=== PATIENT | female | born 1945 | race Caucasian/White ===

== ENCOUNTER 2019-04-24 17:01 | Inpatient (IN) | payer MEDICARE, SELFPAY ==
[2019-04-24] VITALS (9 sets, daily range): BP systolic 152–198; BP diastolic 71–87; PULSE 65–104; RESP 9–20; TEMP 35.9–36.8; O2SAT 97–100; BMI 29.7
--- NOTE | ~2019-04-24 | XR_ITS ---
EXAMINATION: XR chest 2V DATE: 04/24/2019 17:47 INDICATION: Left-sided chest pain TECHNIQUE: PA and lateral views of the chest are obtained. COMPARISON: 06/02/2018 FINDINGS: The lungs are free of acute opacities. There is no pleural effusion or pneumothorax. The ca rdiomediastinal silhouette is normal. There is moderate thoracic spondylosis. IMPRESSION: 1. No acute cardiopulmonary abnormality. Reviewed, dictated and finalized at location A.
--- NOTE | ~2019-04-24 | CT_ITS ---
EXAMINATION: CTA chest PE abdomen pel EXAM DATE: 04/25/2019 11:27 INDICATION: Epigastric, anterior chest pain, left upper back pain. TECHNIQUE: Spiral CTA of the chest (pulmonary arteries) was performed with 100 cc Omnipaque 350 intr avenous contrast injection. Images were acquired during the pulmonary arterial phase. Coronal maxi mum intensity projection 3D-reconstructions were created by the technologist on dedicated workstation . Axial, coronal and sagittal reformatted images were reviewed. Spiral CT of the abdomen and pelvis was then performed with the same intravenous contrast injection. Axial, coronal and sagittal reform atted images were reviewed. The dose-length product (DLP) for this examination was 1234.82 mGy-cm. The exposure was tailored according to patient size (auto mA exposure control), and iterative recons truction (ASIR) was used as additional dose reduction technique. There is no prior study for compari son. FINDINGS: CHEST: Pulmonary arteries are well opacified and without intraluminal filling defects. No thoracic aortic dissection. The lungs are clear. There are no pleural or pericardial effusions. Tracheob ronchial tree is patent. There is no mediastinal, hilar or axillary lymphadenopathy. There is no pneumothorax. Heart normal in size. There is mild coronary arterial calcification, arterial scler osis. Several small noncalcified right pleural plaques. ABDOMEN PELVIS: No abdominal aortic dissection or aneurysm. The liver, spleen, adrenal glands and pa ncreas are unremarkable. There are gallstones within an otherwise unremarkable gallbladder. No evid ence of obstructive biliary disease. Portal and splenic veins are patent. Kidneys enhance symmetric ally. There is no hydronephrosis. Small calcified fibroid. Ovaries are normal in size. The bladde r is unremarkable. There is no retroperitoneal or pelvic lymphadenopathy. There is mild scattered arteriosclerotic disease. The appendix is normal. The stomach and small bowel are unremarkable. There is expected amount of c olonic stool. No free intraperitoneal gas. There are no osteoblastic or osteolytic lesions identi fied. IMPRESSION: 1. No pulmonary emboli, acute thoracic abdominal or pelvic findings. 2. Cholelithiasis. Reviewed, dictated and finalized at location A.
--- NOTE | 2019-04-24 17:04 | ED.GENADULT ---
HPI - General Adult General Chief complaint: Chest Pain <Samira Hoff PA-C - Last Filed: 04/24/19 19:30> Stated complaint: BACK PAIN/L CHEST PAIN <Samira Hoff PA-C - Last Filed: 04/24/19 19:30> Time Seen by Provider: 04/24/19 17:04 <Samira Hoff PA-C - Last Filed: 04/24/19 19:30> Source: patient <SUYAPA Mota Last Filed: 04/24/19 19:30> Mode of arrival: EMS <SUYAPA Mota Last Filed: 04/24/19 19:30> Limitations: no limitations <Samira Hoff PA-C - Last Filed: 04/24/19 19:30> History of Present Illness HPI narrative: Patient is here for evaluation of left-sided chest pain that she describes as a gassy feeling . She was driving home from [place] with her and last evening the pain started while he was staying in a hotel. She treated herself with diet Coke to help her belch she said she felt better after that and went back to bed eventually winding up sleeping in a chair. Today when they got home she was carrying something into the house had significant pain in the left and felt she should come to the emergency room. <Samira Hoff PA-C - Last Filed: 04/24/19 19:30> Onset (ago): day(s) (yesterday) <SUYAPA Mota Last Filed: 04/24/19 19:30> Location: left (chest and epigastric) <SUYAPA Mota Last Filed: 04/24/19 19:30> Radiation: non-radiation <SUYAPA Mota Last Filed: 04/24/19 19:30> Severity: moderate <SUYAPA Mota Last Filed: 04/24/19 19:30> Quality: burning <SUYAPA Mota Last Filed: 04/24/19 19:30> Pain Consistency: constant <Samira Hoff PA-C - Last Filed: 04/24/19 19:30> Relieving factors: none <Samira Hoff PA-C - Last Filed: 04/24/19 19:30> Exacerbating factors: none <Samira Hoff PA-C - Last Filed: 04/24/19 19:30> Associated symptoms: denies other symptoms <Samira Hoff PA-C - Last Filed: 04/24/19 19:30> Treatments prior to arrival: none <Samira Hoff PA-C - Last Filed: 04/24/19 19:30> Related Data Home medications: Home Medications Medication Instructions Recorded Confirmed bupropion HCl 150 mg tablet,12 hr 150 mg PO QAM 12/14/18 04/24/19 sustained-release spironolactone 25 mg tablet 25 mg PO DAILY 12/14/18 04/24/19 trazodone 50 mg tablet 25 mg PO HS 12/14/18 04/24/19 venlafaxine 75 mg capsule,extended 75 mg PO DAILY 12/14/18 04/24/19 release 24 hr loratadine 10 mg tablet 10 mg PO DAILY 12/19/18 04/24/19 losartan 100 mg tablet 100 mg PO DAILY 12/19/18 04/24/19 montelukast 10 mg tablet 10 mg PO DAILY 12/19/18 04/24/19 Multi Vitamin See Rx Instructions .ROUTE .COMPLEX 04/24/19 04/24/19 levothyroxine [Synthroid] 100 mcg PO DAILY 04/24/19 04/24/19 sulfamethoxazole-trimethoprim 1 tablet PO BID 04/24/19 04/24/19 <Samira Hoff PA-C - Last Filed: 04/24/19 19:30> Allergies/adverse reactions: Allergies Allergy/AdvReac Type Severity Reaction Status Date / Time codeine Allergy Mild LETHARGIC Verified 04/24/19 18:05 AND NON RESPONSIVE hydrocodone Allergy Unknown DIFFICULTY Verified 04/24/19 18:05 BREATHING DECREASE BP hydroxyzine Allergy Unknown Unknown Verified 04/24/19 18:05 nickel Allergy Unknown Swelling Verified 04/24/19 18:05 oxycodone Allergy Unknown DIFFICULTY Verified 04/24/19 18:05 BREATHING , DECREASE BP tetracycline Allergy Unknown ITCHING Verified 04/24/19 18:05 <Samira Hoff PA-C - Last Filed: 04/24/19 19:30> Review of Systems Review of Systems: All systems reviewed & are unremarkable except as noted in HPI and below <Samira Hoff PA-C - Last Filed: 04/24/19 19:30> [facility] Past Medical History Medical History: Medical History (Updated 04/24/19 @ 23:19 by Suzette Cole NP) Chronic sinusitis Congestive heart failure Diastolic rate 2. Last EF of 63 Depression HTN (hypertension) with goal to be
--- NOTE | 2019-04-24 17:15 | ECG_ITS ---
Measurements Intervals [place] Rate: 68 P: CT: 0 QRS: -2 QRSD: 85 T: 37 QT: 402 QTc: 430 Interpretive Statements SINUS RHYTHM LOW QRS VOLTAGE IN PRECORDIAL LEADS BORDERLINE ECG Electronically Signed On 04-25-2019 7:10:06 CDT by Jorge Forrester D.O.
[2019-04-24] MEDS: KETOROLAC 30 MG/ML VIAL (*BKC) IV PUSH (18:03)
[2019-04-24 18:13] LABS: Basophils Absolute Auto 0.1 K/mm3 (0.0-0.1); Basophils Percent Auto 0.9 % (0.2-1.2); Eosinophils Absolute Auto 0.2 K/mm3 (0-0.3); Eosinophils Percent Auto 1.6 % (0-4.4); Hematocrit 35.2 % (37.0-47.0); Hemoglobin 11.4 g/dL (12.0-15.0); Immature Granulocyte Absolute 0.07 K/mm3 (0.00-0.031); Immature Granulocyte Percent A 0.6 % (0-0.5); Lymphocytes Absolute Auto 1.56 K/mm3 (0.9-3.2); Lymphocytes Percent Auto 13.4 % (18.3-44.2); Mean Corpuscular HGB Conc 32.4 g/dl (32-36); Mean Corpuscular Hemoglobin 29.6 pg (26-34); Mean Corpuscular Volume 91.4 fl (80-100); Mean Platelet Volume 9.5 fl (7.4-10.4); Monocytes Absolute Auto 1.2 K/mm3 (0.1-0.6); Monocytes Percent Auto 10.2 % (2.6-8.5); Neutrophils Absolute Auto 8.5 K/mm3 (1.3-6.7); Neutrophils Percent Auto 73.3 % (45.5-73.1); Platelet Count Result 337 k/mm3 (150-375); Red Blood Count 3.85 M/mm3 (4.2-5.4); Red Cell Distribution Width 13.9 % (11.5-14.5); White Blood Count 11.6 K/mm3 (4.5-10.0)
[2019-04-24 18:23] LABS: INR 0.9; Partial Thromboplastin Time 29.4 SECONDS (22.3-36.8); Prothrombin Time 11.7 Seconds (11.1-14.7)
[2019-04-24 18:24] LABS: Alanine Aminotransferase 19 U/L (4-35); Albumin Level 4.7 g/dL (3.5-5.1); Alkaline Phosphatase 60 U/L (38-126); Aspartate Amino Transferase 36 U/L (14-36); Bilirubin,Total 0.3 mg/dL (0.2-1.3); Blood Urea Nitrogen 20 mg/dL (7-17); Carbon Dioxide 27 mmol/L (22-30); Chloride 97 mmol/L (98-107); Estimated CRCL calculation 55 ml/min; Estimated Glomerular Filt Rate > 60; Glucose 100 mg/dL (65-105); Sodium 130 mmol/L (137-145)
[2019-04-24 18:38] LABS: Troponin I 0.246 ng/mL (0.000-0.034)
[2019-04-24] MEDS: NITROGLYCERIN OINTMENT 1 INCH DOSE TRANSDERM (20:05)
--- NOTE | 2019-04-24 20:05 | PC.NURSE ---
called (harlan) per pt request
--- NOTE | 2019-04-24 20:10 | PC.NURSE ---
pt request artis sorenson speak with her , artis sorenson made aware and states i will get there when i can .
--- NOTE | 2019-04-24 21:00 | ADMGEN ---
This patient, Koki Wolfe, was admitted to IMU Room 211-01. Patient/family oriented to hospital policies and general routines including ID bracelet, bed and alarms, visiting hours, pain management, procedures, bathroom and other care routines, personal items, smoking policy, room service/diet, and visiting hours. Valuables list has been completed. Information on how to activate the Rapid Response Team has been discussed. Patient/Family are encouraged to report perceived risks to care and to ask questions if they do not understand what they are told or what they should do.
[2019-04-24 21:43] LABS: Troponin I 0.341 ng/mL (0.000-0.034)
--- NOTE | 2019-04-24 22:40 | ECG_ITS ---
Measurements Intervals [place] Rate: 73 P: MA: 0 QRS: -7 QRSD: 95 T: 45 QT: 408 QTc: 451 Interpretive Statements SINUS RHYTHM EARLY PRECORDIAL R/S TRANSITION LOW QRS VOLTAGE IN PRECORDIAL LEADS BASELINE ARTIFACT- I, II, III, AVR, AVL, AVF, V1 BORDERLINE ECG Electronically Signed On 04-25-2019 8:40:27 CDT by Jorge Forrester D.O.
--- NOTE | 2019-04-24 22:56 | PM.IMHP ---
H&P: HPI History of Present Illness Chief complaint: NSTEMI Narrative: Koki Wolfe is a 73 year old female who came to the emergency room with some complaints of chest pain. The patient took 2 days to travel from [place] with her . They go there for 3 months out of the year. The patient had no fever no chills. She stated that she ate a big meal yesterday and had some severe acid reflux. The patient stated around 10:00 a.m. last night she went to get a diet Coke and she started belching and she had some relief for few minutes and then it woke her back up and she then sat in the chair for ligament and she was able to rest for few minutes then it woke her up and she had the acid reflux again. Again she went to get a diet Coke and started belching and she felt fine all day. Again the patient on ate a meal and had acid reflux again this afternoon which did resolve on his own. The patient was caring 2 bags and her home when she started to have some chest discomfort. She started to feel cold and clammy and had pain radiating down both of her arms. Patient baseline troponin 0.246. 3 hour was 0.341. Cardiology has been called. She started to have some discomfort when I was in the room. She was sitting up and lying back trying to get some relief. The patient was feeling better when she would set up in when she lay down got worse. It is not reproducible. Patient was said diaphoretic when I was in the room. No fever chills. White count 11.6 also on aspirin was ordered per Cardiology. She was also given Toradol. Date of service 04/24/2019 Review of Systems Review of Systems: Narrative: Belching frequently was acid reflux. Epigastric discomfort. All systems reviewed & are unremarkable except as noted in HPI and below Constitutional: Constitutional: Reports as per HPI and Reports no additional constitutional complaints Eyes: Eyes: Reports as per HPI and Reports no additional eye complaints ENT: Reports system reviewed and no additional complaints, except as documented and Reports Normal hearing present Cardiovascular: Cardiovascular: Reports no additional cardiovascular complaints Respiratory: Respiratory: Reports no additional respiratory complaints and Reports no additional respiratory complaints Gastrointestinal: Gastrointestinal: Reports as per HPI and Reports no additional gastrointestinal complaints Musculoskeletal: Musculoskeletal: Reports no additional musculoskeletal complaints Integumentary/Breasts: Skin/Breast: Reports system reviewed and no additional complaints, except as docu and Reports as per HPI Neurologic: Reports system reviewed and no additional complaints, except as documented, Reports as per HPI and Reports Normal hearing present Psychiatric: Psychiatric: Reports no additional psychiatric complaints and Reports as per HPI Endocrine: Endocrine: Reports no additional endocrine complaints Hematologic/Lymphatic: Hematologic/Lymphatic: Reports no additional hematologic/lymphatic complaints Allergic/Immunologic: Allergic/Immunologic: Reports no additional allergic/immunologic complaints [facility] Past Medical History Medical History (Updated 04/24/19 @ 23:19 by Suzette Cole NP) Chronic sinusitis Congestive heart failure Diastolic rate 2. Last EF of 63 Depression HTN (hypertension) with goal to be determined Vasovagal syncope Surgical History Surgical History (Updated 04/24/19 @ 23:14 by Suzette Cole NP) H/O cataract extraction Bilateral H/O dilation and curettage H/O sinus surgery X2 sinus surgery 1996 and 2018 History of bunionectomy Left foot History of repair of retinal defect by laser photocoagulation Left eye S/P lumpectomy, right breast Benign etiology Total knee replacement status Right Family History Family History Sibling Cerebrovascular accident Father Family history of lung cancer, Onset Age: 8
[2019-04-24] MEDS: BELLADONNA ALK/PHENOB ELIX 10 ML, MAG HYDROX/ALUMINUM HYD/SIMETH 30 ML, LIDOCAINE HCL 2... PO (23:13)
[2019-04-24] MEDS: LIDOCAINE HCL 2% VISC SOLN 15 ML UDC (23:14)
[2019-04-24] MEDS: MAG HYDROX/AL HYDROX/SIMETH 30 ML UDC (23:14)
[2019-04-24] MEDS: MONTELUKAST SODIUM 10 MG TABLET PO (23:34)
[2019-04-25] VITALS (18 sets, daily range): BP systolic 122–173; BP diastolic 58–103; PULSE 61–87; RESP 17–20; TEMP 36–36.9; O2SAT 96–100
--- NOTE | 2019-04-25 | ECHO_ITS ---
Patient Info Name: Koki Wolfe Age: 73 years : 1945 Gender: Female Ht: 65 in Wt: 178 lbs BSA: 1.95 m2 HR: 66 bpm BP: 140 / 58 mmHg Heart Rhythm: Sinus Rhythm Technical Quality: Good Exam Date: 04/25/2019 10:06 AM Exam Location: [facility] Pulmonary Exam Room: [facility] Patient Status: Inpatient Admit Date: 04/24/2019 Staff Ordering Physician: Suzette Cole NP Draw Frame Tender: Emilia Alfaro RCS Attending Provider: Geoff Magallanes MD Referring Physician: Douglas JEONG; Exam Type: CA echo doppler color flow Study Info Indications - chf Complete two-dimensional, color flow and Doppler transthoracic echocardiogram is performed. Summary 1. The apical lateral wall, apical cap, mid anterolateral wall, and mid inferolateral wall are hypokinetic. 2. All other allen appear normal. 3. Left ventricular chamber dimension is mildly enlarged. 4. Left ventricular systolic function is normal, estimated at 55-60%. 5. There is no increased left ventricular wall thickness. 6. The left ventricular diastolic function is grade I diastolic dysfunction. 7. Left atrial chamber dimension is mildly enlarged. 8. There is moderate mitral valve regurgitation. 9. The mitral valve has thickened leaflets. 10. There is mild tricuspid valve regurgitation. 11. Moderate pulmonary hypertension, estimated pulmonary arterial systolic pressure is 45 mmHg. 12. There is mild pulmonic regurgitation. Left Ventricle Left ventricular chamber dimension is mildly enlarged. Left ventricular systolic function is normal, estimated at 55-60%. There is no increased left ventricular wall thickness. The left ventricular diastolic function is grade I diastolic dysfunction. The apical lateral wall, apical cap, mid anterolateral wall, and mid inferolateral wall are hypokinetic. All other allen appear normal. Right Ventricle Right ventricular chamber dimension is normal. Right ventricular systolic function is normal. Left Atria Left atrial chamber dimension is mildly enlarged. Right Atria Right atrial chamber dimension is normal. Atrial Septum Intact interatrial septum visualized by color flow imaging. Aortic Valve The aortic valve is trileaflet. There is mild aortic valve sclerosis. There is no aortic valve stenosis. There is trace aortic valve regurgitation. Pulmonic Valve The pulmonic valve is normal. There is no pulmonic valve stenosis. There is mild pulmonic regurgitation. Mitral Valve The mitral valve has thickened leaflets. There is no mitral valve stenosis. There is moderate mitral valve regurgitation. Tricuspid Valve The tricuspid valve leaflets are normal. There is no significant tricuspid valve stenosis. There is mild tricuspid valve regurgitation. Moderate pulmonary hypertension, estimated pulmonary arterial systolic pressure is 45 mmHg. Pericardium/Pleural The pericardium appears normal. There is trivial pericardial effusion. Inferior Vena Cava Normal inferior vena cava with <50% collapse upon inspiration consistent with elevated right atrial pressure, 10 mmHg. Aorta The aortic root size at the sinus of Valsalva is normal. The prox ascending aorta size is normal. Left Ventricular Outflow Tract Name Value Normal LVOT 2D
[2019-04-25 01:18] LABS: Troponin I 0.338 ng/mL (0.000-0.034)
[2019-04-25 04:56] LABS: Basophils Absolute Auto 0.1 K/mm3 (0.0-0.1); Basophils Percent Auto 0.7 % (0.2-1.2); Eosinophils Absolute Auto 0.1 K/mm3 (0-0.3); Eosinophils Percent Auto 0.7 % (0-4.4); Hematocrit 33.1 % (37.0-47.0); Hemoglobin 10.9 g/dL (12.0-15.0); Immature Granulocyte Absolute 0.04 K/mm3 (0.00-0.031); Immature Granulocyte Percent A 0.4 % (0-0.5); Lymphocytes Absolute Auto 1.31 K/mm3 (0.9-3.2); Lymphocytes Percent Auto 12.9 % (18.3-44.2); Mean Corpuscular HGB Conc 32.9 g/dl (32-36); Mean Corpuscular Hemoglobin 29.8 pg (26-34); Mean Corpuscular Volume 90.4 fl (80-100); Mean Platelet Volume 9.3 fl (7.4-10.4); Monocytes Percent Auto 9.4 % (2.6-8.5); Neutrophils Absolute Auto 7.7 K/mm3 (1.3-6.7); Neutrophils Percent Auto 75.9 % (45.5-73.1); Platelet Count Result 324 k/mm3 (150-375); Red Blood Count 3.66 M/mm3 (4.2-5.4); Red Cell Distribution Width 13.7 % (11.5-14.5); White Blood Count 10.2 K/mm3 (4.5-10.0)
[2019-04-25 05:16] LABS: Alanine Aminotransferase 19 U/L (4-35); Albumin Level 4.4 g/dL (3.5-5.1); Alkaline Phosphatase 58 U/L (38-126); Aspartate Amino Transferase 44 U/L (14-36); Bilirubin,Total 0.4 mg/dL (0.2-1.3); Blood Urea Nitrogen 19 mg/dL (7-17); Calcium 9.7 mg/dL (8.4-10.2); Carbon Dioxide 28 mmol/L (22-30); Chloride 97 mmol/L (98-107); Estimated CRCL calculation 52 ml/min; Estimated Glomerular Filt Rate > 60; Glucose 113 mg/dL (65-105); Magnesium 1.9 mg/dL (1.6-2.3); Potassium 4.8 mmol/L (3.4-5.0); Sodium 130 mmol/L (137-145)
[2019-04-25] MEDS: LEVOTHYROXINE SODIUM 100 MCG TABLET PO (05:39)
--- NOTE | 2019-04-25 06:00 | ECG_ITS ---
Measurements Intervals [place] Rate: 71 P: 70 NV: 185 QRS: -10 QRSD: 91 T: 40 QT: 411 QTc: 449 Interpretive Statements SINUS RHYTHM LOW QRS VOLTAGE IN PRECORDIAL LEADS BORDERLINE ECG Electronically Signed On 04-26-2019 7:14:47 CDT by Jorge Forrester D.O.
[2019-04-25] MEDS: ASPIRIN 325 MG TABLET PO (08:40)
[2019-04-25] MEDS: FAMOTIDINE 20 MG/2 ML VIAL IV PUSH ×2 (08:40→20:22)
[2019-04-25] MEDS: SPIRONOLACTONE 25 MG TABLET PO (08:41)
[2019-04-25] MEDS: LOSARTAN POTASSIUM 100 MG TABLET PO (08:41)
[2019-04-25] MEDS: VENLAFAXINE HCL XR 75 MG CAP.ER.24H PO (08:41)
[2019-04-25] MEDS: LORATADINE 10 MG TABLET PO (08:41)
[2019-04-25] MEDS: BELLADONNA ALK/PHENOB ELIX 10 ML, MAG HYDROX/ALUMINUM HYD/SIMETH 30 ML, LIDOCAINE HCL 2... PO (13:07)
--- NOTE | 2019-04-25 13:52 | PM.CNCAR ---
Assessment and Plan Assessment and plan (1) Chest pain: Code(s): R07.9 - Chest pain, unspecified Status: Acute Assessment and Plan: Uncertain etiology. May be related to high blood pressure. Some of her symptoms are concerning for dyspepsia possible GERD. Will also check a troponin level now as well as will give 1 dose of Lovenox 1 milligram/kilogram subcu x1 (2) Congestive heart failure: Code(s): I50.9 - Heart failure, unspecified Status: Chronic Assessment and Plan: Previously compensated (3) Dyspepsia: Code(s): R10.13 - Epigastric pain Status: Acute (4) HTN (hypertension) with goal to be determined: Code(s): I10 - Essential (primary) hypertension Status: Chronic Assessment and Plan: Markedly elevated (5) Acute non-ST elevation myocardial infarction (NSTEMI): Code(s): I21.4 - Non-ST elevation (NSTEMI) myocardial infarction Status: Acute Assessment and Plan: Uncertain if this is related acute plaque rupture yet or not. I suspect this related to high blood pressure and that her other symptoms are noncardiac. Regardless though future workup is needed. 2D echocardiogram with Doppler will be ordered and reviewed. History of Present Illness History of Present Illness Consult date/time: 04/25/19 13:52 Requesting physician: Samira Hoff PA-C Consult reason: chest pain Reason For Visit: NSTEMI Narrative: Date of service 04/25/19: History: Patient is a 73-year-old female who came to the hospital because of chest pains. She had been traveling back from [place] were she was wintering. She states that she did he some heavy meals and had some be ?bad indigestion that radiated into her back. She drank some diet Coke and belched and felt better. She continues to have random episodes of waxing and waning symptoms. Symptoms last for 10 minutes of the 30 minutes at a time. Her symptoms do feel better when she sits up. She was given nitroglycerin paste but without any relief in her symptoms. She recently CV GI cocktail which does seem to have some improvement. She has had some chills but has not been short of breath or fever age. She did break out into a sweat this morning and felt lightheaded because the pain was so bad. CT scan of the chest was performed. No pulmonary embolism was seen. She did have a cardiac catheterization a little over year ago which did not show any significant coronary disease. She does see Dr. Ibarra in our office. She states that her home blood pressures are usually around 160 systolic. In the hospital upon arrival she was markedly elevated at a level of 198/94. She still remains elevated today. Her troponins were elevated and her EKG shows some nonspecific ST segment depressions in V1 V2 V3 but not meeting criteria for posterior infarction. Review of Systems Review of Systems: All systems reviewed & are unremarkable except as noted in HPI and below Constitutional: Constitutional: Reports chills Eyes: Eyes: Reports as per HPI ENT: Denies epistaxis Cardiovascular: Cardiovascular: Reports chest pain Respiratory: Respiratory: Denies dyspnea Gastrointestinal: Gastrointestinal: Reports abdominal pain Genitourinary: Genitourinary: Denies flank pain Musculoskeletal: Musculoskeletal: Reports back pain Integumentary/Breasts: Skin/Breast: Denies pruritus Neurologic: Denies numbness Psychiatric: Psychiatric: Denies anxiety and Denies confusion Endocrine: Endocrine: Denies excessive sweating, Denies fatigue and Denies flushing Hematologic/Lymphatic: Hematologic/Lymphatic: Denies easy bleeding and Denies easy bruising Allergic/Immunologic: Allergic/Immunologic: Denies lip swelling PMFSH Past Medical History Medical History Chronic sinusitis Congestive heart failure Diastolic rate 2. Last EF of 63 Depression HTN (hypertension) with goal to be d
--- NOTE | 2019-04-25 14:22 | ECG_ITS ---
Measurements Intervals [place] Rate: 75 P: 72 NM: 186 QRS: -16 QRSD: 97 T: 53 QT: 386 QTc: 432 Interpretive Statements SINUS RHYTHM NORMAL ECG Electronically Signed On 04-26-2019 7:14:59 CDT by Jorge Forrester D.O.
--- NOTE | 2019-04-25 16:28 | PM.IMPN ---
Progress Note: A&P Assessment and Plan (1) Chest pain: Code(s): R07.9 - Chest pain, unspecified Status: Acute Assessment and Plan: Chest pain is atypical in presentation. Mild elevated Troponins noted initially but now Trop 3.3 c/w NSTEMI. CTA chest/Abd/Pelvis showing cholelithiasis but otherwise normal. EKG essentially normal on admission and normal again on repeat today (reviewed by myself). [facility] 05/2018 showing no angiographic abnormalities with EF 35% and mild-moderate MR. Echo in August 2018 shownig EF 63%, diastolic dysfunction Grade II and mild MR. Cardiology following. Continue ASA and Coreg. [facility] planned. 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 Treated approrpriately and EF has improved. The patient is currently on losartan, Coreg and spironolactone. Cardiology following. (3) HTN (hypertension) with goal to be determined: Code(s): I10 - Essential (primary) hypertension Status: Chronic Assessment and Plan: BP reviewed on 04/25/19. BP elevated on admission to 198/84. We continued Losartan and Spironolactone. Coreg added. Contineu to advance medications as needed to control BP. (4) Hypothyroidism: Qualifiers: Hypothyroidism type: unspecified Qualified Code(s): E03.9 - Hypothyroidism, unspecified Code(s): E03.9 - Hypothyroidism, unspecified Status: Chronic Assessment and Plan: TSH normal. Continue levothyroxine. (5) Anxiety: Code(s): F41.9 - Anxiety disorder, unspecified Status: Acute Assessment and Plan: Mood stable. Continue with trazodone and Wellbutrin. (6) Insomnia: Qualifiers: Insomnia type: unspecified Qualified Code(s): G47.00 - Insomnia, unspecified Code(s): G47.00 - Insomnia, unspecified Status: Acute Assessment and Plan: Stable. Continue trazodone. Subjective Date/time seen: 04/25/19 16:28 Interval history: 73yo female with hx of CHF here for chest pain. Chest pain lower chest and under left breast radiating to the back. associated with indigestion and back pain. Better with belching. Worse with food or lying flat. Not pleuritic. No n/v or diarrhea. No abd pain. Chronic issues with constipation. Patient provides the hx that she had a CSF leak many years ago noted as sinus drainage and had this repaired. Last year, she had multiple sinus symptoms treated with rounds of abx without much relief. She saw an ENT who drained a sequestered pocket of infection but also noted a small CSF leak that was repaired in Jan 2019. While in [place] this year, she again had sinus sx and saw an ENT in [place]. He is monitoring the situation. Cx positive per patient and Bactrim started. Exam Narrative: Exam Narrative: AF 173/81 80 Gen - NARD Chest - CTA bilaterally, nml RR CV - RRR S1/S2, Tele showing no significant dysrhythmias Abd - soft, NT/ND, +BS Ext - no pedal edema. 2+ DP bilaterally Skin - warm and dry Psych - nml mood and affect Objective Data Vital Signs Vital Signs: Vital Signs - 24 hr 04/24/19 17:04 04/24/19 19:02 04/24/19 19:17 Temperature 98.2 F Pulse Rate 68 65 71 Respiratory Rate 18 14 16 Blood Pressure 176/85 H 152/75 H 160/87 H Pulse Oximetry 100 100 100 04/24/19 19:32 04/24/19 19:47 04/24/19 20:02 Temperature Pulse Rate 67 67 68 Respiratory Rate 12 9 L 12 Blood Pressure 159/78 H 165/77 H 159/78 H Pulse Oximetry 98 99 98 04/24/19 20:45 04/24/19 22:00 04/24/19 23:50 Temperature 96.6 F L 98.0 F Pulse Rate 104 H 74 73 Respiratory Rate 18 20 Blood Pressure 198/84 H 168/71 H Pulse Oximetry 100 97 04/25/19 00:00 04/25/19 02:00 04/25/19 04:00 Temperature 98.0 F Pulse Rate 63 70 61 Respiratory Rate 20 Blood Pressure 140/58 L Pulse Oximetry 97 04/25/19 06:00
[2019-04-25] MEDS: NITROGLYCERIN OINTMENT 1 INCH DOSE TRANSDERM (16:30)
[2019-04-25] MEDS: ACETAMINOPHEN 325 MG TABLET 650 MG PO (16:35)
--- NOTE | 2019-04-25 16:35 | WPDGICN ---
Assessment and Plan Additional Plan This is a 73-year-old white female patient seen in evaluation at the request Dr. Cronin. Patient was traveling in [place] on Monday, 2 days ago and began to get chest pains. She notes pain in the front and back sometimes radiating around both sides of the upper chest. She felt as though it may be indigestion. She states pain worsens on oral intake. Symptoms occur intermittently. No specific aggravating or alleviating factors. She did receive a GI cocktail emergency NC room which seemed to improve her symptoms. She denies any shortness of breath. She denies any coughing or fever. In the emergency room a CT scan of the chest was performed and was essentially unremarkable. Past history is significant for heart catheterization 1 year ago that was unremarkable followed by Dr. Andrew. Colonoscopy performed in 2016 was unremarkable as well. Past medical history is significant for knee replacement in June of 2018. She has been treated for congestive heart failure, hypertension, Family history noncontributory. Current medications include BuSpar, levothyroxine, loratadine, losartan, montelukast, spironolactone, venlafaxine. She reports an allergy to oxycodone and tetracycline. Physical exam reveals her to be alert. Vital signs stable. HEENT exam unremarkable. She is anicteric. Lungs are clear to auscultation and percussion. Heart is without murmur or extra sounds. Abdominal exam bowel sounds present soft nontender with no organomegaly. Digital external rectal exam deferred Impression 1. Atypical chest pain. Etiology unclear plan is for an EGD to assess more thoroughly. An acid trial is suggested. Protonix may be of some benefit. \ 2. Congestive heart failure. This appears to be stable at present. Followed by Dr. Cronin. 3. History of a knee replacement 1 year ago. GI Consult Note Consult date/time: 04/25/19 16:35 HPI: Koki Wolfe is a 73 year old female [facility] Past Medical History Medical History (Updated 04/25/19 @ 14:10 by Fredy Cronin MD) Chronic sinusitis Congestive heart failure Diastolic rate 2. Last EF of 63 Depression Dyspepsia HTN (hypertension) with goal to be determined Vasovagal syncope Surgical History Surgical History H/O cataract extraction Bilateral H/O dilation and curettage H/O sinus surgery X2 sinus surgery 1996 and 2018 History of bunionectomy Left foot History of repair of retinal defect by laser photocoagulation Left eye S/P lumpectomy, right breast Benign etiology Total knee replacement status Right Family History Family History Sibling Cerebrovascular accident Father Family history of lung cancer, Onset Age: 81 Patient's father is Mother Patient's mother is Social History Social History Social History: The patient travels to [place] for 3 months of the year and then travels back. Patient traveled back to here today. She is and lives with her and was row. She has 2 children. Her Rigoberto is the decision maker for healthcare. She desires to be full code. No alcohol tobacco or drug use. Smoking status: Never smoker Second hand tobacco smoke exposure: No Alcohol intake: never Substance use: never Living arrangements: with family Gender identity (if verbalized by the patient): Female Spiritual care concerns: No Agree to blood products: Yes Meds Home Medications and Allergies Home Medications Medication Instructions Recorded Confirmed Type bupropion HCl 150 mg tablet,12 hr 150 mg PO QAM 12/14/18 04/24/19 History sustained-release spironolactone 25 mg tablet 25 mg PO DAILY 12/14/18 04/24/19 History trazodone 50 mg tablet 25 mg PO HS 12/14/18 04/24/19 Histor
--- NOTE | 2019-04-25 17:20 | ECG_ITS ---
Measurements Intervals [place] Rate: 75 P: 71 SC: 193 QRS: -14 QRSD: 83 T: 33 QT: 377 QTc: 424 Interpretive Statements SINUS RHYTHM LOW QRS VOLTAGE IN PRECORDIAL LEADS DELAYED PRECORDIAL R/S TRANSITION BASELINE ARTIFACT- I, II, AVR, AVF BORDERLINE ECG Electronically Signed On 04-26-2019 7:20:16 CDT by Jorge Forrester D.O.
--- NOTE | 2019-04-25 18:44 | WPDMODSED ---
Moderate Sedation Note-Pt Data Patient Data Diagnosis: Acute coronary syndrome Present Complaint: waxing and waning chest pain with modest rise in troponin Procedure to be performed/Plan: left heart catheterization Allergies Allergy/AdvReac Type Severity Reaction Status Date / Time codeine Allergy Mild LETHARGIC Verified 04/24/19 18:05 AND NON RESPONSIVE hydrocodone Allergy Unknown DIFFICULTY Verified 04/24/19 18:05 BREATHING DECREASE BP hydroxyzine Allergy Unknown Unknown Verified 04/24/19 18:05 nickel Allergy Unknown Swelling Verified 04/24/19 18:05 oxycodone Allergy Unknown DIFFICULTY Verified 04/24/19 18:05 BREATHING , DECREASE BP tetracycline Allergy Unknown ITCHING Verified 04/24/19 18:05 Home Medications Medication Instructions Recorded Confirmed Type bupropion HCl 150 mg tablet,12 hr 150 mg PO QAM 12/14/18 04/24/19 History sustained-release spironolactone 25 mg tablet 25 mg PO DAILY 12/14/18 04/24/19 History trazodone 50 mg tablet 25 mg PO HS 12/14/18 04/24/19 History venlafaxine 75 mg capsule,extended 75 mg PO DAILY 12/14/18 04/24/19 History release 24 hr loratadine 10 mg tablet 10 mg PO DAILY 12/19/18 04/24/19 History losartan 100 mg tablet 100 mg PO DAILY 12/19/18 04/24/19 History montelukast 10 mg tablet 10 mg PO DAILY 12/19/18 04/24/19 History Multi Vitamin See Rx Instructions .ROUTE .COMPLEX 04/24/19 04/24/19 History levothyroxine [Synthroid] 100 mcg PO DAILY 04/24/19 04/24/19 History sulfamethoxazole-trimethoprim 1 tablet PO BID 04/24/19 04/24/19 History Current Medications: Active Medications Acetaminophen (Tylenol Tablet) 650 mg PO Q6H PRN PRN Reason: Mild Pain (1-3) or Fever Last Admin: 04/25/19 16:35 Dose: 650 mg Documented by: Aspirin (Aspirin) 325 mg PO DAILY@0800 [facility] Last Admin: 04/25/19 08:40 Dose: 325 mg Documented by: Bupropion HCl (Wellbutrin-Sr (12 Hr)) 150 mg PO QAM [facility] Last Admin: 04/25/19 08:41 Dose: 150 mg Documented by: Calcium Carbonate (Tums) 200 mg PO Q6H PRN PRN Reason: Indigestion Carvedilol (Coreg) 6.25 mg PO Q12HR [facility] Famotidine (Pepcid Iv) 20 mg IV PUSH Q12HR [facility] Last Admin: 04/25/19 08:40 Dose: 20 mg Documented by: Levothyroxine Sodium (Synthroid) 100 mcg PO DAILY@0630 [facility] Last Admin: 04/25/19 05:39 Dose: 100 mcg Documented by: Loratadine (Claritin) 10 mg PO DAILY [facility] Last Admin: 04/25/19 08:41 Dose: 10 mg Documented by: Losartan Potassium (Cozaar) 100 mg PO DAILY [facility] Last Admin: 04/25/19 08:41 Dose: 100 mg Documented by: Montelukast Sodium (Singulair) 10 mg PO [facility] Last Admin: 04/24/19 23:34 Dose: 10 mg Documented by: Nitroglycerin (Nitroglycerin Oint 1 Inch) 1 inch TRANSDERM Q6HR [facility] Last Admin: 04/25/19 16:32 Dose: Not Given Documented by: Spironolactone (Aldactone) 25 mg PO DAILY [facility] Last Admin: 04/25/19 08:41 Dose: 25 mg Documented by: Trazodone HCl (Desyrel) 25 mg PO [facility] Last Admin: 04/24/19 23:34 Dose: 25 mg Documented by: Trimethoprim/Sulfamethoxazole (Septra Ds) 1 tab PO BID [facility] Last Admin: 04/25/19 16:40 Dose: 1 tab Documented by: Venlafaxine HCl (Effexor Xr) 75 mg PO DAILY@0800 [facility] Last Admin: 04/25/19 08:41 Dose: 75 mg Documented by: Sedation/Anesthesia: No previous sedation/anesthesia problems (including family history). [facility] Past Medical History Medical History (Updated 04/25/19 @ 14:10 by Fredy Cronin MD) Chronic sinusitis Congestive heart failure Diastolic rate 2. Last EF of 63 Depression Dyspepsia HTN (hypertension) with goal to be determined Vasovagal syncope Surgical History Surgical History H/O cataract extraction Bilateral H/O dilation and curettage H/O sinus surgery X2 sinus surgery 1996 and 2019 History of bunionectomy Left foot History of repair of retinal defect by laser photocoagulation Left eye S/P lumpectomy, right breast Benign etiology T
--- NOTE | 2019-04-25 18:46 | PM.PROC ---
Procedure Note - Detailed Date of procedure: 04/25/19 Pre-op diagnosis: NSTEMI Procedure performed: coronary angiography PCI to OM1 Description of procedure: patient was brought to the cardiac catheterization lab as described above reporting chest pain waxed and waned throughout the day. The right femoral triangle was prepared and draped in the usual fashion. Anesthesia was provided with 1% lidocaine infiltrated locally. Using modified Seldinger technique a 5 [place] sheath was placed into the femoral artery. Following this I utilized a 5 [place] JR4 catheter to inject the right coronary artery as then a 5 [place] FL4 catheter to inject the left coronary artery. Following review review of the cineangiograms PCI of the OM1 circumflex branch was recommended and carried out as detailed below. Central aortic pressure is 126/82 left main coronary artery is large and widely patent lad is a large caliber artery extending down to around the apex there is a very small diagonal branch of the LAD that has proximal 70% stenosis but the remainder of the LAD and the diagonals are angiographically normal. Circumflex is a very large caliber vessel and is dominant to the posterior circulation. The circumflex injection demonstrates abrupt thrombotic proximal occlusion of the large 1st OM1 branch. Remainder of the circumflex is angiographically free of significant disease the trunk of the circumflex just distal to this OM1 branch has modest stenosis of about 20-30%. The right coronary artery is medium in caliber is non dominant and angiographically unremarkable the 5 [place] sheath was changed over a guidewire for a 6 [place] device following is the patient received 180 mg of Brilinta orally followed by systemic anticoagulation with Angiomax bolus and infusion. Left coronary artery was engaged using a 6 [place] CLS 3.5 guiding catheter the OM1 branch was probed using a 1 4 BMW guidewire and successfully crossed into the distal part of this vessel. The vessel was pre-dilated using a 2.5 x 15 mm emerge balloon after which a 3.0 x 18 mm Orsiro drug-eluting stent was deployed at the site of the occlusion with an excellent angiographic result. The preprocedure stenosis was 100% postprocedure 0%. There were no angiographic complications was no evidence of dissection perforation or distal embolization. Anesthesia: local Surgeon: Sushant Seay MD Estimated blood loss (mL): 0 Drains: No Packing: No Pathology: none sent Complications: No immediate complications Condition: stable Disposition: ICU Findings: successful uncomplicated emergency PTCI following PTCA and drug-eluting stent deployment to the acutely occluded OM1 branch circumflex.
[2019-04-25] MEDS: SODIUM CHLORIDE 0.9% IV 1,000 ML 125 ML IV CONT (20:22)
[2019-04-25] MEDS: MONTELUKAST SODIUM 10 MG TABLET PO (20:22)
[2019-04-25] MEDS: carvediloL 6.25 MG TABLET PO (20:22)
[2019-04-26] VITALS (22 sets, daily range): BP systolic 98–145; BP diastolic 52–76; PULSE 68–88; RESP 14–20; TEMP 36.3–37; O2SAT 97–100
[2019-04-26] MEDS: METOPROLOL TARTRATE 25 MG TABLET PO ×2 (00:06→05:58)
[2019-04-26] MEDS: NITROGLYCERIN OINTMENT 1 INCH DOSE TRANSDERM (00:06)
[2019-04-26 04:40] LABS: Alanine Aminotransferase 25 U/L (4-35); Alkaline Phosphatase 48 U/L (38-126); Aspartate Amino Transferase 151 U/L (14-36); Bilirubin,Total 0.5 mg/dL (0.2-1.3); Blood Urea Nitrogen 11 mg/dL (7-17); Calcium 8.9 mg/dL (8.4-10.2); Carbon Dioxide 26 mmol/L (22-30); Chloride 98 mmol/L (98-107); Cholesterol 193 mg/dL (0-200); Estimated CRCL calculation 66 ml/min; Estimated Glomerular Filt Rate > 60; Glucose 87 mg/dL (65-105); HDL Direct 56 mg/dL; Lipase 58 U/L (23-300); Magnesium 1.8 mg/dL (1.6-2.3); Potassium 4.5 mmol/L (3.4-5.0); Sodium 129 mmol/L (137-145); Triglycerides 110 mg/dL (<150)
[2019-04-26 04:48] LABS: LDL Cholesterol Direct 80 mg/dL
--- NOTE | 2019-04-26 05:11 | ECG_ITS ---
Measurements Intervals [place] Rate: 70 P: 58 WV: 191 QRS: 3 QRSD: 88 T: 50 QT: 400 QTc: 432 Interpretive Statements SINUS RHYTHM RSR' IN V1 OR V2, CONSIDER RIGHT VENTRICULAR HYPERTROPHY OR RIGHT VCD CONSIDER INFERIOR INFARCT, AGE INDETERMINATE ABNORMAL ECG Electronically Signed On 04-26-2019 11:45:40 CDT by Jorge Forrester D.O.
[2019-04-26] MEDS: LEVOTHYROXINE SODIUM 100 MCG TABLET PO (05:59)
--- NOTE | 2019-04-26 09:00 | PM.PNCARD ---
Progress Note: A&P Additional Plan 73-year-old lady with previous nonischemic cardiomyopathy with acute coronary syndrome/acute IA yesterday with abrupt thrombotic occlusion of OM1. Doing well following urgent PCI with drug-eluting stent to this vessel with a nice anatomical result. Patient is now on dual anti-platelet therapy in the form of aspirin and Brilinta will continue beta-carmen in the form of Coreg as well. Rosuvastatin started at anti-lipid therapy. Transfer to floor today to IMU anticipate discharge tomorrow barring any problems/complications Time Spent With Patient Time with patient: 15 - 25 minutes Subjective Date/time seen: Date of service: 04/26/19 09:00 Interval history: Follow-up visit for 73-year-old lady with previous diet doses of nonischemic cardiomyopathy admitted with chest pain, troponin evidence of ACS resulting in urgent cardiac catheterization last evening. Patient found to have abrupt thrombotic occlusion of the proximal segment of large OM1 branch of the circumflex which was successfully treated with standard PTCA and drug-eluting stent. Exam Const: General: comfortable and no acute distress HENMT: Mouth: Yes moist mucous membranes Eyes: Sclera: sclerae normal Pupils: Equal, round and reactive pupils present Neck: Neck: supple and no JVD Thyroid: thyroid normal Resp: Effort & Inspection: normal respiratory effort Auscultation: clear to auscultation bilaterally Cardio: Rate: regular rate Rhythm: regular rhythm Other: No murmur no gallop no rub GI: Auscultation: normal bowel sounds Skin: General skin exam: normal color Neuro: Cognition (Neuro): normal cognition Extrem: General: normal to inspection Objective Data Vital Signs Vital Signs: Vital Signs - 24 hr 04/25/19 10:00 04/25/19 12:00 04/25/19 14:00 Temperature 36.0 C L Pulse Rate 74 78 80 Respiratory Rate 19 Blood Pressure 173/81 H Pulse Oximetry 96 04/25/19 16:00 04/25/19 18:52 04/25/19 19:07 Temperature 36.0 C L 36.9 C 36.8 C Pulse Rate 74 82 81 Respiratory Rate 19 18 18 Blood Pressure 165/83 H 142/79 H 141/86 H Pulse Oximetry 100 98 98 04/25/19 19:37 04/25/19 20:00 04/25/19 20:22 Temperature 36.9 C Pulse Rate 81 87 82 Respiratory Rate 18 20 Blood Pressure 141/86 H Pulse Oximetry 98 98 04/25/19 22:00 04/25/19 22:15 04/25/19 22:46 Temperature 36.9 C Pulse Rate 78 72 86 Respiratory Rate 17 17 18 Blood Pressure 122/68 128/68 140/103 H Pulse Oximetry 98 98 98 04/25/19 23:17 04/26/19 00:00 04/26/19 00:06 Temperature 36.9 C 36.9 C Pulse Rate 68 77 78 Respiratory Rate 18 18 Blood Pressure 140/77 127/63 Pulse Oximetry 98 97 04/26/19 00:17 04/26/19 01:17 04/26/19 02:00 Temperature 36.9 C 36.8 C Pulse Rate 68 68 69 Respiratory Rate 18 18 16 Blood Pressure 136/71 109/58 L 120/57 L Pulse Oximetry 98 100 99 04/26/19 02:16 04/26/19 03:17 04/26/19 04:00 Temperature 36.9 C 37.0 C Pulse Rate 69 68 68 Respiratory Rate 18 14 14 Blood Pressure 120/57 L 129/72 129/72 Pulse Oximetry 99 98 98 04/26/19 05:58 04/26/19 06:00 Temperature Pulse Rate 88 86 Respiratory Rate 20 Blood Pressure 145/76 H Pulse Oximetry 98 Intake/Output Intake/Output: Intake & Output 04/23/19 04/24/19 04/25/19 04/26/19 23:59 23:59 23:59 23:59 Intake Total 940 1400 Output Total 1425 500 Balance -485 900 Meds/Results Medications: Active Medications Generic Name Dose Route Start Last Admin Trade Name Freq PRN Reason Stop Dose Admin Acetaminophen 650 mg 04/25/19 16:17 04/25/19 16:35 Tylenol Tablet PO 650 mg Q6H PRN Administration Mild Pain (1-3) or Fever Aspirin 81 mg 04/26/19 08:00 Aspirin Chewable PO DAILY@0800 UMBERTO Bupropion HCl 150 mg 04/25/19 09:00 04/25/19 08:41 Wellbutrin-Sr (12 Hr) PO 150 mg QAM UMBERTO Administration Calcium Carbonate 200 mg 04/24/19 22:40 Tums PO Q6H PRN Indigestion Carvedilol 6.25 mg
--- NOTE | 2019-04-26 09:19 | WPDCNINT ---
Assessment and Plan Assessment and plan (1) Acute non-ST elevation myocardial infarction (NSTEMI): Code(s): I21.4 - Non-ST elevation (NSTEMI) myocardial infarction Status: Acute Assessment and Plan: Patient presented with atypical chest pain, initial troponins mildly elevated 04/24/2018 troponins was significantly elevated and patient was taken to the cath she was found to have acute occlusion of the OM1 branch of the circumflex. Status post PTCA/PCI with CHRIS x1 to OM 1 branch of the circumflex. - Echocardiogram on 04/25/2019 showed apical lateral wall, apical cap, mid anterolateral wall and mid inferolateral wall to be hypokinetic. A LVEF 55-60%. Grade 1 diastolic dysfunction, moderate pulmonary hypertension with RVSP of 45 mmHg. - Cardiology following the patient - continue aspirin, placed orders from Brilinta - continue Coreg and rosuvastatin (2) Congestive heart failure: Code(s): I50.9 - Heart failure, unspecified Status: Chronic Assessment and Plan: continue spironolactone, Coreg (3) HTN (hypertension) with goal to be determined: Code(s): I10 - Essential (primary) hypertension Status: Chronic Assessment and Plan: continue Coreg and spironolactone. Patient also has nitropaste if needed (4) Hypothyroidism: Qualifiers: Hypothyroidism type: unspecified Qualified Code(s): E03.9 - Hypothyroidism, unspecified Code(s): E03.9 - Hypothyroidism, unspecified Status: Chronic Assessment and Plan: continue levothyroxine (5) Anxiety: Code(s): F41.9 - Anxiety disorder, unspecified Status: Acute Assessment and Plan: continue bupropion, trazodone (6) Hypercholesterolemia: Code(s): E78.00 - Pure hypercholesterolemia, unspecified Status: Acute Assessment and Plan: continue statin Additional Plan discussed with patient and updated her with her condition and plan of care. I answered all questions code status: Full code Critical care time spent: 41 minutes discuss with Cardiology Due to a high probability of clinically significant, life threatening deterioration, the patient required my highest level of preparedness to intervene emergently and I personally spent this critical care time directly and personally managing the patient. This critical care time included obtaining a history; examining the patient; pulse oximetry; ordering and review of studies; arranging urgent treatment with development of a management plan; evaluation of patient's response to treatment; frequent reassessment; and discussions with other providers. It was exclusive of separately billable procedures and treating other patients and teaching time. Please see Assessment and Plan section and the rest of the note for further information on patient assessment and treatment Manager Implementation Consult Note Consult date: 04/26/19 Time Seen: 07:01 Reason for consult: NSTEMI status post PTCA/ PCI to OM 1 branch HPI: Koki Wolfe is a 73 year old female with past medical history of diastolic heart failure, essential hypertension, history of syncope, depression and chronic sinusitis presented to the ED on 04/24/2019 with complains of left-sided chest pain. Patient was traveling from [place] with her with the go there for 3 months of the year. She fell that this could be a severe gastric reflux issue. Patient was admitted the hospital, initial troponin swell 0.246, and on 04/25/2019 increased to 3.270. Patient was taken to the labor contract analyst where she was found to have acutely occluded OM1 branch of the circumflex, PTCI/PTCA with CHRIS x1 performed on 04/25/2019. Patient was transfer the ICU for further management and evaluation for any arrhythmias patient seen and examined the ICU this morning, is awake, alert, oriented x3. Denies any chest pain, shortness of breath, nausea, vomiting, abdominal pain, lightheadedness. Patient has bee
[2019-04-26] MEDS: carvediloL 6.25 MG TABLET PO ×2 (09:27→20:16)
[2019-04-26] MEDS: LOSARTAN POTASSIUM 100 MG TABLET PO (09:27)
[2019-04-26] MEDS: VENLAFAXINE HCL XR 75 MG CAP.ER.24H PO (09:27)
[2019-04-26] MEDS: SPIRONOLACTONE 25 MG TABLET PO (09:27)
[2019-04-26] MEDS: ASPIRIN 81 MG CHEWABLE TABLET PO (09:28)
[2019-04-26] MEDS: ROSUVASTATIN 10 MG TABLET 20 MG PO (09:28)
[2019-04-26] MEDS: LORATADINE 10 MG TABLET PO (09:28)
[2019-04-26] MEDS: FAMOTIDINE 20 MG/2 ML VIAL IV PUSH ×2 (09:29→20:17)
--- NOTE | 2019-04-26 09:34 | PM.IMPN ---
Progress Note: A&P Assessment and Plan (1) Acute non-ST elevation myocardial infarction (NSTEMI): Code(s): I21.4 - Non-ST elevation (NSTEMI) myocardial infarction Status: Acute Assessment and Plan: Atypical chest pain on presentation. CTA chest/Abd/Pelvis showing cholelithiasis but otherwise normal. EKG essentially normal on admission and normal again on repeat. LHC 05/2018 showing no angiographic abnormalities with EF 35% and mild-moderate MR. Echo in August 2018 shownig EF 63%, diastolic dysfunction Grade II and mild MR. Mild elevated Troponins noted initially but then Trop 3.3 c/w NSTEMI. Cardiology following and LHC performed. LHC showed Left Main large and widely patent. LAD large caliber artery with a very small diagonal branch with proximal 70% stenosis. LCx very large caliber vessel and is dominant to the posterior circulation with abrupt thrombotic proximal occlusion of the large 1st OM1 branch. RCA medium in caliber is non dominant and angiographically unremarkable. Stent placed. Continue Brilinta, ASA, Crestor and Coreg. 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 Treated appropriately and EF has improved by repeat Echo. Do not see angiogram from yesterday. The patient is currently on losartan, Coreg and spironolactone. Cardiology following. Contineu medical management (4) HTN (hypertension) with goal to be determined: Code(s): I10 - Essential (primary) hypertension Status: Chronic Assessment and Plan: BP reviewed on 04/26/19. BP elevated on admission to 198/84. BP better conmtrolled. Continue Coreg, Losartan and Spironolactone. Continue to advance medications as needed to control BP. (5) Hypothyroidism: Qualifiers: Hypothyroidism type: unspecified Qualified Code(s): E03.9 - Hypothyroidism, unspecified Code(s): E03.9 - Hypothyroidism, unspecified Status: Chronic Assessment and Plan: TSH normal. Continue levothyroxine. (6) Anxiety: Code(s): F41.9 - Anxiety disorder, unspecified Status: Acute Assessment and Plan: Mood stable. Continue with trazodone and Wellbutrin. (7) Insomnia: Qualifiers: Insomnia type: unspecified Qualified Code(s): G47.00 - Insomnia, unspecified Code(s): G47.00 - Insomnia, unspecified Status: Acute Assessment and Plan: Stable. Continue trazodone. (8) Hyponatremia: Code(s): E87.1 - Hypo-osmolality and hyponatremia Status: Acute Assessment and Plan: Na 129. Patient states this is chronic. TSH okay. Will add Cortisol and check Urine Na. She has been told to limit her free water. Continue to follow. (9) Elevated LFTs: Code(s): R94.5 - Abnormal results of liver function studies Status: Acute Assessment and Plan: AST 44 on admission but now 151. No UA. Check creatinine kinase. Follow for now. Consider RUQ US. Subjective Date/time seen: 04/26/19 09:34 Interval history: 73yo female with hx of CHF here for NSTEMI. Patient had emergent LHC yesterday with stent placed. Patient tolerated the procedure well. Slept well last night. No further indigestion or chest pain. Feels much better this morning. She has been up to the chair. Exam Narrative: Exam Narrative: AF 145/76 70 Gen - NARD lying semi-recumbent in bed Chest - CTA bilaterally, nml RR CV - RRR S1/S2, Tele showing no significant dysrhythmias Abd - soft, NT/ND, +BS Ext - no pedal edema. 2+ D
[2019-04-26] MEDS: TICAGRELOR 90 MG TABLET PO ×2 (10:42→20:16)
[2019-04-26 11:05] LABS: Creatine Kinase 900 U/L (30-135)
--- NOTE | 2019-04-26 11:39 | WPDGIPROGNO ---
Progress Note: A&P Additional Plan Patient reports no chest pain today. Events of last evening and heart catheterization reviewed. Physical exam patient is alert. Comfortable at rest. Abdomen is soft nontender with no organomegaly. Heart catheterization results reviewed. Heart stent placement noted. Impression 1. Atypical abdomen and chest pain likely related to atherosclerotic heart disease. Pain now resolved. Plan to cancel EGD previously ordered. Continued evaluation per cardiology service. Subjective Date/time seen: 04/26/19 11:39 Objective Data Vital Signs Vital Signs: Vital Signs - 24 hr 04/25/19 12:00 04/25/19 14:00 04/25/19 16:00 Temperature 36.0 C L 36.0 C L Pulse Rate 78 80 74 Respiratory Rate 19 19 Blood Pressure 173/81 H 165/83 H Pulse Oximetry 96 100 04/25/19 18:52 04/25/19 19:07 04/25/19 19:37 Temperature 36.9 C 36.8 C 36.9 C Pulse Rate 82 81 81 Respiratory Rate 18 18 18 Blood Pressure 142/79 H 141/86 H 141/86 H Pulse Oximetry 98 98 98 04/25/19 20:00 04/25/19 20:22 04/25/19 22:00 Temperature Pulse Rate 87 82 78 Respiratory Rate 20 17 Blood Pressure 122/68 Pulse Oximetry 98 98 04/25/19 22:15 04/25/19 22:46 04/25/19 23:17 Temperature 36.9 C 36.9 C Pulse Rate 72 86 68 Respiratory Rate 17 18 18 Blood Pressure 128/68 140/103 H 140/77 Pulse Oximetry 98 98 98 04/26/19 00:00 04/26/19 00:06 04/26/19 00:17 Temperature 36.9 C 36.9 C Pulse Rate 77 78 68 Respiratory Rate 18 18 Blood Pressure 127/63 136/71 Pulse Oximetry 97 98 04/26/19 01:17 04/26/19 02:00 04/26/19 02:16 Temperature 36.8 C Pulse Rate 68 69 69 Respiratory Rate 18 16 18 Blood Pressure 109/58 L 120/57 L 120/57 L Pulse Oximetry 100 99 99 04/26/19 03:17 04/26/19 04:00 04/26/19 05:58 Temperature 36.9 C 37.0 C Pulse Rate 68 68 88 Respiratory Rate 14 14 Blood Pressure 129/72 129/72 Pulse Oximetry 98 98 04/26/19 06:00 04/26/19 08:00 04/26/19 09:27 Temperature 36.8 C Pulse Rate 86 70 70 Respiratory Rate 20 18 Blood Pressure 145/76 H 124/60 Pulse Oximetry 98 97 04/26/19 10:00 Temperature Pulse Rate 72 Respiratory Rate 16 Blood Pressure 102/52 L Pulse Oximetry 100 Intake/Output Intake/Output: Intake & Output 04/23/19 04/24/19 04/25/19 04/26/19 23:59 23:59 23:59 23:59 Intake Total 940 1880 Output Total 1425 500 Balance -485 1380 Meds/Results Medications: Active Medications Generic Name Dose Route Start Last Admin Trade Name Freq PRN Reason Stop Dose Admin Acetaminophen 650 mg 04/25/19 16:17 04/25/19 16:35 Tylenol Tablet PO 650 mg Q6H PRN Administration Mild Pain (1-3) or Fever Aspirin 81 mg 04/26/19 08:00 04/26/19 09:28 Aspirin Chewable PO 81 mg DAILY@0800 UMBERTO Administration Bupropion HCl 150 mg 04/25/19 09:00 04/26/19 09:28 Wellbutrin-Sr (12 Hr) PO 150 mg QAM UMBERTO Administration Calcium Carbonate 200 mg 04/24/19 22:40 Tums PO Q6H PRN Indigestion Carvedilol 6.25 mg 04/25/19 21:00 04/26/19 09:27 Coreg PO 6.25 mg Q12HR UMBERTO Administration Famotidine 20 mg 04/25/19 09:00 04/26/19 09:29 Pepcid Iv IV PUSH 20 mg Q12HR UMBERTO Administration Levothyroxine Sodium 100 mcg 04/25/19 06:30 04/26/19 05:59 Synthroid PO 100 mcg DAILY@0630 UMBERTO Administration Loratadine 10 mg 04/25/19 09:00 04/26/19 09:28 Claritin PO 10 mg DAILY UMBERTO Administration Losartan Potassium 100 mg 04/25/19 09:00 04/26/19 09:27 Cozaar PO 100 mg DAILY UMBERTO Administration Montelukast Sodium 10 mg 04/24/19 23:20 04/25/19 20:22 Singulair PO 10 mg HS UMBERTO Administration Nitroglycerin 1 inch 04/25/19 16:20 04/26/19 05:58 Nitroglycerin Oint 1 Inch TRANSDERM Not Given Q6HR UMBERTO Nitroglycerin 0.4 mg 04/25/19 18:52 Nitrostat Subl 0.4 Mg (1/150) SUBLINGUAL Q5MIN PRN Chest Pain Rosuvastatin Calcium 20 mg 04/26/19 09:00 04/26/19 09:28
[2019-04-26 11:55] LABS: Creatinine Urine 216.3 mg/dL
[2019-04-26 11:58] LABS: Sodium Urine Random 25 meq/L
[2019-04-26] MEDS: SODIUM CHLORIDE 0.9% IV 1,000 ML 100 ML IV CONT (18:43)
[2019-04-26] MEDS: MONTELUKAST SODIUM 10 MG TABLET PO (20:16)
--- NOTE | 2019-04-26 22:45 | PC.NURSE ---
Pt transferred to room 212 from ICU 8.
[2019-04-27] VITALS (10 sets, daily range): BP systolic 118–127; BP diastolic 50–70; PULSE 73–88; RESP 16–20; TEMP 36–36.7; O2SAT 98–100
[2019-04-27] MEDS: SODIUM CHLORIDE 0.9% IV 1,000 ML 100 ML IV CONT (04:07)
[2019-04-27 05:11] LABS: Hemoglobin 10.1 g/dL (12.0-15.0); Mean Corpuscular HGB Conc 32.6 g/dl (32-36); Mean Corpuscular Hemoglobin 30.1 pg (26-34); Mean Corpuscular Volume 92.3 fl (80-100); Mean Platelet Volume 9.7 fl (7.4-10.4); Platelet Count Result 271 k/mm3 (150-375); Red Blood Count 3.36 M/mm3 (4.2-5.4); Red Cell Distribution Width 13.8 % (11.5-14.5)
[2019-04-27 05:32] LABS: Alanine Aminotransferase 24 U/L (4-35); Albumin Level 3.9 g/dL (3.5-5.1); Alkaline Phosphatase 49 U/L (38-126); Aspartate Amino Transferase 94 U/L (14-36); Bilirubin,Total 0.4 mg/dL (0.2-1.3); Blood Urea Nitrogen 14 mg/dL (7-17); Calcium 8.7 mg/dL (8.4-10.2); Carbon Dioxide 24 mmol/L (22-30); Chloride 98 mmol/L (98-107); Creatine Kinase 482 U/L (30-135); Estimated CRCL calculation 57 ml/min; Estimated Glomerular Filt Rate > 60; Glucose 80 mg/dL (65-105); Magnesium 1.9 mg/dL (1.6-2.3); Potassium 4.8 mmol/L (3.4-5.0); Sodium 131 mmol/L (137-145)
[2019-04-27] MEDS: LEVOTHYROXINE SODIUM 100 MCG TABLET PO (06:59)
[2019-04-27] MEDS: LOSARTAN POTASSIUM 100 MG TABLET PO (08:46)
[2019-04-27] MEDS: TICAGRELOR 90 MG TABLET PO (08:46)
[2019-04-27] MEDS: LORATADINE 10 MG TABLET PO (08:46)
[2019-04-27] MEDS: carvediloL 6.25 MG TABLET PO (08:46)
[2019-04-27] MEDS: EZETIMIBE 10 MG TABLET PO (08:46)
[2019-04-27] MEDS: FAMOTIDINE 20 MG/2 ML VIAL IV PUSH (08:46)
[2019-04-27] MEDS: VENLAFAXINE HCL XR 75 MG CAP.ER.24H PO (08:47)
[2019-04-27] MEDS: ASPIRIN 81 MG CHEWABLE TABLET PO (08:47)
[2019-04-27] MEDS: COSYNTROPIN 0.25 MG/ML VIAL IV PUSH (09:27)
[2019-04-27] MEDS: HYDROCORTISONE 1% 30 GM CREAM 1 APPLIC TOPICAL (09:27)
--- NOTE | 2019-04-27 12:04 | PM.PNCARD ---
Progress Note: A&P Additional Plan 73-year-old lady with acute coronary syndrome with abrupt thrombotic occlusion of OM1 circumflex branch status post successful PCI as detailed in the procedural note. She is stable for discharge today I will ensure that she has follow-up with my partner, Dr. Nelson in the office was been following her in the past Time Spent With Patient Time with patient: less than 15 minutes Subjective Date/time seen: Date of service: 04/27/19 12:04 Interval history: Follow-up visit in patient with cardiomyopathy and due diagnosis of coronary artery disease with acute NE during this hospitalization Acute occlusion of the OM1 circumflex was addressed successfully with PTCA and stenting Exam Const: General: comfortable HENMT: Mouth: Yes moist mucous membranes Eyes: Sclera: sclerae normal Pupils: Equal, round and reactive pupils present Neck: Neck: supple and no JVD Thyroid: thyroid normal Resp: Effort & Inspection: normal respiratory effort Auscultation: clear to auscultation bilaterally Cardio: Rate: regular rate Rhythm: regular rhythm Other: No gallop no murmur no rub GI: Auscultation: normal bowel sounds Skin: General skin exam: normal color Neuro: Cognition (Neuro): normal cognition Extrem: General: normal to inspection Objective Data Vital Signs Vital Signs: Vital Signs - 24 hr 04/26/19 12:36 04/26/19 14:00 04/26/19 16:00 Temperature 36.8 C 37.0 C Pulse Rate 68 69 71 Respiratory Rate 19 19 Blood Pressure 137/72 98/61 L Pulse Oximetry 100 100 04/26/19 18:30 04/26/19 20:00 04/26/19 20:16 Temperature 36.6 C Pulse Rate 70 76 74 Respiratory Rate 20 Blood Pressure 129/64 Pulse Oximetry 100 04/26/19 22:00 04/26/19 23:50 04/27/19 00:00 Temperature 36.3 C L Pulse Rate 87 74 76 Respiratory Rate 18 Blood Pressure 125/53 L Pulse Oximetry 100 04/27/19 02:00 04/27/19 03:58 04/27/19 04:00 Temperature 36.0 C L Pulse Rate 75 74 75 Respiratory Rate 16 Blood Pressure 118/50 L Pulse Oximetry 98 04/27/19 05:58 04/27/19 08:00 04/27/19 08:46 Temperature 36.7 C Pulse Rate 73 88 87 Respiratory Rate 18 Blood Pressure 126/54 L Pulse Oximetry 99 04/27/19 10:00 Temperature Pulse Rate 86 Respiratory Rate Blood Pressure Pulse Oximetry Intake/Output Intake/Output: Intake & Output 04/24/19 04/25/19 04/26/19 04/27/19 23:59 23:59 23:59 23:59 Intake Total 940 3340 1755 Output Total 6148 583 6689 Balance -485 2690 -745 Meds/Results Medications: Active Medications Generic Name Dose Route Start Last Admin Trade Name Freq PRN Reason Stop Dose Admin Acetaminophen 650 mg 04/25/19 16:17 04/25/19 16:35 Tylenol Tablet PO 650 mg Q6H PRN Administration Mild Pain (1-3) or Fever Aspirin 81 mg 04/26/19 08:00 04/27/19 08:47 Aspirin Chewable PO 81 mg DAILY@0800 UMBERTO Administration Bupropion HCl 150 mg 04/25/19 09:00 04/27/19 08:47 Wellbutrin-Sr (12 Hr) PO 150 mg QAM UMBERTO Administration Calcium Carbonate 200 mg 04/24/19 22:40 Tums PO Q6H PRN Indigestion Carvedilol 6.25 mg 04/25/19 21:00 04/27/19 08:46 Coreg PO 6.25 mg Q12HR UMBERTO Administration Ezetimibe 10 mg 04/27/19 09:00 04/27/19 08:46 Zetia PO 10 mg QAM UMBERTO Administration Famotidine 20 mg 04/25/19 09:00 04/27/19 08:46 Pepcid Iv IV PUSH 20 mg Q12HR UMBERTO Administration Hydrocortisone 1 applic 04/27/19 09:00 04/27/19 09:27 Hydrocortisone 1% Cream TOPICAL 1 applic Q12HR UMBERTO Administration Sodium Chloride 1,000 mls @ 100 mls/hr 04/26/19 17:55 04/27/19 04:07 Normal Saline Iv IV CONT 100 mls/hr .Q10H UMBERTO Administration Levothyroxine Sodium 100 mcg 04/25/19 06:30 04/27/19 06:59 Synthroid PO 100 mcg DAILY@0630 UMBERTO Administration Loratadine 10 mg 04/25/19 09:00 04/27/19 08:46 Claritin PO 10 mg DAILY UMBERTO Administration Losartan Potassium
--- NOTE | 2019-04-27 13:59 | PM.DS ---
DS: Diagnosis Admitting Diagnosis Admitting Diagnosis: Chest pain, unspecified Discharge Diagnosis (1) Acute non-ST elevation myocardial infarction (NSTEMI): Code(s): I21.4 - Non-ST elevation (NSTEMI) myocardial infarction Status: Acute Assessment and Plan: LHC 05/2018 showing no angiographic abnormalities with EF 35% and mild-moderate MR. Echo in August 2018 shownig EF 63%, diastolic dysfunction Grade II and mild MR. Atypical chest pain on presentation. CTA chest/Abd/Pelvis showing cholelithiasis but otherwise normal. EKG essentially normal on admission and normal again on repeat. Mild elevated Troponins noted initially but then Trop 3.3 c/w NSTEMI. Cardiology following and LHC performed. LHC showed Left Main large and widely patent. LAD large caliber artery with a very small diagonal branch with proximal 70% stenosis. LCx very large caliber vessel and is dominant to the posterior circulation with abrupt thrombotic proximal occlusion of the large 1st OM1 branch. RCA medium in caliber is non dominant and angiographically unremarkable. Stent placed. Started on Brilinta, ASA, Crestor and Coreg. AST climbed to 151 and TCK 900. Crestor held and on rpeat, AST 94 and TCK 482. Zetia added. 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 Treated appropriately and EF has improved by repeat Echo as mentioned above. The patient is currently on losartan, Coreg and spironolactone. Continue medical management (4) HTN (hypertension) with goal to be determined: Code(s): I10 - Essential (primary) hypertension Status: Chronic Assessment and Plan: BP monitored closely. BP elevated on admission to 198/84. BP better controlled now. Continue Coreg, Losartan and Spironolactone. (5) Hypothyroidism: Qualifiers: Hypothyroidism type: unspecified Qualified Code(s): E03.9 - Hypothyroidism, unspecified Code(s): E03.9 - Hypothyroidism, unspecified Status: Chronic Assessment and Plan: TSH normal. She was continued on levothyroxine. (6) Anxiety: Code(s): F41.9 - Anxiety disorder, unspecified Status: Acute Assessment and Plan: Mood stable. She was continued on trazodone and Wellbutrin. (7) Insomnia: Qualifiers: Insomnia type: unspecified Qualified Code(s): G47.00 - Insomnia, unspecified Code(s): G47.00 - Insomnia, unspecified Status: Acute Assessment and Plan: Stable. She was continued on trazodone. (8) Hyponatremia: Code(s): E87.1 - Hypo-osmolality and hyponatremia Status: Acute Assessment and Plan: Na 129. Patient states this is chronic. TSH okay. Urine sodium 25 with urine Cr 216 giving a low FENa. Cortisol level low at 4.0. Cortisol stimulation test okay showing Cortisol level was 8.9 (baseline), 20.3 (30 minutes) and 22.5 (at 60 minutes). ACTH pending. She has been told to limit her free water. (9) Elevated LFTs: Code(s): R94.5 - Abnormal results of liver function studies Status: Acute Assessment and Plan: AST 44 on admission but now 151 felt related to muscle enzyme elevation from unclear etiology. Repeat values as outpatient. DS: Summary Time Spent with Patient Time attestation: Total time spent providing and/or coordinating discharge services: Exam Narrative: Exam Narrative: AF 127/70 78 Gen - NARD Chest - CTA bilaterally, nml RR CV - RRR S1/S2, Tele showing no significant dysrhythmias Abd - soft, NT/ND, +BS
[2019-04-30 03:15] LABS: Adrenocorticotropic Hormone 10 pg/mL (6-50)
--- NOTE | 2019-05-07 11:02 | PC.NURSE ---
ACTH is 10. Normal is (6-50). Dr. Rashard murray.
== END 2019-04-27 15:21 | disposition home or self-care (01) | DRG 247 ==
LOC: ANHED 19:31 → ANHIMU 21:57 → ANHICU 04-30 15:04 → ANHIMU 04-30 15:04
PROVIDERS: Internal Medicine Cardiovascular Disease; Nurse Practitioner; Physician Assistant; Specialist; Admitting Provider Internal Medicine; Emergency Provider General Practice; PCP Internal Medicine; Visit Provider Family Medicine
PROC: 027034Z Dilation of Coronary Artery, One Artery with Drug-eluting Intraluminal Device, Percutaneous Approach (ICD-10-PCS; CPT 93454; principal; 2019-04-25 18:00)
PROC: 027034Z Dilation of Coronary Artery, One Artery with Drug-eluting Intraluminal Device, Percutaneous Approach (ICD-10-PCS; CPT 92928; 2019-04-25 18:00)
DX: I21.4 Non-ST elevation (NSTEMI) myocardial infarction (principal); I50.32 Chronic diastolic (congestive) heart failure; I42.8 Other cardiomyopathies; Z28.21 Immunization not carried out because of patient refusal; K21.9 Gastro-esophageal reflux disease without esophagitis; J32.9 Chronic sinusitis, unspecified; I11.0 Hypertensive heart disease with heart failure; Z98.41 Cataract extraction status, right eye; Z98.42 Cataract extraction status, left eye; Z96.651 Presence of right artificial knee joint; E03.9 Hypothyroidism, unspecified; G47.00 Insomnia, unspecified; F41.9 Anxiety disorder, unspecified
CPT/HCPCS: 36415; 71046; 71275; 74177; 80053; 80061; 82024; 82533; 82550; 82570; 83690; 83735; 84300; 84443; 84484; 85025; 85027; 85610; 85730; 93005; 93306; 93454; 96374; 99285; A9270; C1725; C1769; C1874; C1887; C1894; C9600; J0583; J0834; J1644; J1885; J2250; J3010; J7030; J7040; Q9967

== ENCOUNTER 2019-05-03 11:03 | Outpatient (CLI) | payer MEDICARE, SELFPAY ==
[2019-05-03 11:47] LABS: Alanine Aminotransferase 25 U/L (4-35); Albumin Level 4.7 g/dL (3.5-5.1); Alkaline Phosphatase 56 U/L (38-126); Aspartate Amino Transferase 35 U/L (14-36); Bilirubin,Total 0.3 mg/dL (0.2-1.3); Blood Urea Nitrogen 29 mg/dL (7-17); Calcium 9.5 mg/dL (8.4-10.2); Carbon Dioxide 24 mmol/L (22-30); Chloride 92 mmol/L (98-107); Creatine Kinase 104 U/L (30-135); Estimated Glomerular Filt Rate 40; Glucose 89 mg/dL (65-105); Potassium 5.6 mmol/L (3.4-5.0); Sodium 128 mmol/L (137-145)
[2019-05-03 12:17] LABS: Thyroid Stimulating Hormone < 0.015 uIU/mL (0.465-4.680)
[2019-05-03 12:26] LABS: Free T4 Free Thyroxine 1.35 ng/mL (0.78-2.19)
== END 2019-05-03 11:04 | disposition home or self-care (01) ==
PROVIDERS: PCP Internal Medicine; Visit Provider Internal Medicine
DX: E03.9 Hypothyroidism, unspecified (principal); R94.5 Abnormal results of liver function studies
CPT/HCPCS: 36415; 80053; 82550; 84439; 84443

== ENCOUNTER 2019-06-05 11:06 | Outpatient (CLI) | payer MEDICARE, SELFPAY ==
[2019-06-05 11:52] LABS: Add Urine Microscopic? YES; Appearance Urine Cloudy (Clear); Bacteria Urine Trace /hpf; Bilirubin Urine Negative (Negative); Blood Urine Negative (Negative); Color Urine Yellow (Yellow); Glucose Urine UA Negative (Negative); Ketones Urine Negative (Negative); Leukocyte Esterase Ur 3+ LEU/UL (NEGATIVE); Nitrate Urine Negative (Negative); Protein Urine Negative (Negative); Specific Grav Ur 1.016 (1.001-1.035); Squamous Epithelial Cell Urine Moderate /hpf (Few); Urobilinogen Urine Negative mg/dL (<2.0); WBC Clumps Urine Present /HPF; WBC Urine >75 /hpf (0-3)
[2019-06-05 12:03] LABS: Albumin Level 4.4 g/dL (3.5-5.1); Blood Urea Nitrogen 21 mg/dL (7-17); Calcium 9.6 mg/dL (8.4-10.2); Carbon Dioxide 29 mmol/L (22-30); Chloride 98 mmol/L (98-107); Estimated Glomerular Filt Rate > 60; Glucose 93 mg/dL (65-105); Phosphorus 3.9 mg/dL (2.5-4.5); Potassium 4.4 mmol/L (3.4-5.0); Sodium 133 mmol/L (137-145)
[2019-06-05 12:12] LABS: Sodium Urine Random 42 meq/L
[2019-06-05 12:41] LABS: Total Protein Urine Random 15 mg/dL
[2019-06-07 16:58] LABS: Creatinine, Random Urine 119 mg/dL (20-275); Total Protein/Creatinine Ratio 202 mg/g creat (21-161)
[2019-06-08 04:11] LABS: Alpha 1 Globulin 0.3 g/dL (0.2-0.3); Alpha 2 Globulin 0.9 g/dL (0.5-0.9); Beta 1 Globulin 0.5 g/dL (0.4-0.6); Gamma Globulin 0.9 g/dL (0.8-1.7); Protein, Total 6.8 g/dL (6.1-8.1)
[2019-06-09 14:21] LABS: Chloride Rand Ur 43 mmol/L (32-290); Chloride/Creatinine Rand Ur 36 (38-318); Creatinine Random Urine 119 mg/dL (20-275)
== END 2019-06-05 11:07 | disposition home or self-care (01) ==
PROVIDERS: PCP Internal Medicine; Referring Provider Internal Medicine; Visit Provider Internal Medicine Nephrology
DX: E87.1 Hypo-osmolality and hyponatremia (principal); R30.0 Dysuria
CPT/HCPCS: 36415; 80069; 81001; 81002; 81050; 82436; 82533; 82570; 84155; 84156; 84165; 84166; 84300; 85999; 87077; 87086; 87088; 87186

== ENCOUNTER 2019-06-21 07:14 | Outpatient (CLI) | payer MEDICARE, SELFPAY ==
[2019-06-21 08:31] LABS: Blood Urea Nitrogen 17 mg/dL (7-17); Calcium 9.6 mg/dL (8.4-10.2); Carbon Dioxide 31 mmol/L (22-30); Chloride 95 mmol/L (98-107); Estimated Glomerular Filt Rate > 60; Glucose 92 mg/dL (65-105); Potassium 4.4 mmol/L (3.4-5.0); Sodium 133 mmol/L (137-145)
== END 2019-06-21 07:15 | disposition home or self-care (01) ==
PROVIDERS: PCP Internal Medicine; Visit Provider Nurse Practitioner Adult Health
DX: N28.9 Disorder of kidney and ureter, unspecified (principal)
CPT/HCPCS: 36415; 80048

== ENCOUNTER 2019-08-28 07:45 | Outpatient (CLI) | payer MEDICARE, SELFPAY ==
[2019-08-28 08:22] LABS: Alanine Aminotransferase 19 U/L (4-35); Aspartate Amino Transferase 33 U/L (14-36); Cholesterol 129 mg/dL (0-200); HDL Direct 66 mg/dL; Triglycerides 55 mg/dL (<150)
[2019-08-28 08:33] LABS: LDL Cholesterol Direct 37 mg/dL
[2019-08-28 09:34] LABS: Free T4 Free Thyroxine 1.41 ng/mL (0.78-2.19)
== END 2019-08-28 07:46 | disposition home or self-care (01) ==
PROVIDERS: Visit Provider Internal Medicine Endocrinology, Diabetes & Metabolism
DX: E03.9 Hypothyroidism, unspecified (principal); I25.10 Atherosclerotic heart disease of native coronary artery without angina pectoris; E78.5 Hyperlipidemia, unspecified
CPT/HCPCS: 36415; 80061; 84439; 84443; 84450; 84460

== ENCOUNTER 2019-09-10 16:00 | Outpatient (CLI) | payer MEDICARE, SELFPAY ==
[2019-09-10 17:29] LABS: Add Urine Microscopic? NO; Appearance Urine Clear (Clear); Bilirubin Urine Negative (Negative); Blood Urine Negative (Negative); Color Urine Yellow (Yellow); Glucose Urine UA Negative (Negative); Ketones Urine Negative (Negative); Leukocyte Esterase Ur Negative LEU/UL (NEGATIVE); Nitrate Urine Negative (Negative); Protein Urine Negative (Negative); Specific Grav Ur 1.014 (1.001-1.035); Urobilinogen Urine Negative mg/dL (<2.0)
[2019-09-10 17:32] LABS: Creatinine Urine 78.3 mg/dL; Total Protein Urine Random 10 mg/dL
[2019-09-10 17:38] LABS: Sodium Urine Random 68 meq/L
[2019-09-10 17:39] LABS: Albumin Level 4.5 g/dL (3.5-5.1); Anion Gap 11.3 mmol/L (7-16); Blood Urea Nitrogen 20 mg/dL (7-17); Calcium 9.3 mg/dL (8.4-10.2); Carbon Dioxide 30 mmol/L (22-30); Chloride 94 mmol/L (98-107); Estimated Glomerular Filt Rate > 60; Glucose 85 mg/dL (65-105); Phosphorus 4.2 mg/dL (2.5-4.5); Potassium 4.3 mmol/L (3.4-5.0); Sodium 131 mmol/L (137-145)
[2019-09-10 18:09] LABS: Cortisol Random 2.52 ug/dL
[2019-09-15 00:40] LABS: Albumin 3.9 g/dL (3.8-4.8); Alpha 1 Globulin 0.3 g/dL (0.2-0.3); Alpha 2 Globulin 0.9 g/dL (0.5-0.9); Beta 1 Globulin 0.5 g/dL (0.4-0.6); Gamma Globulin 1.1 g/dL (0.8-1.7); Protein, Total 6.9 g/dL (6.1-8.1)
[2019-09-16 07:16] LABS: Creatinine, Random Urine 77 mg/dL (20-275); Total Protein/Creatinine Ratio 78 mg/g creat (21-161)
== END 2019-09-10 16:01 | disposition home or self-care (01) ==
PROVIDERS: Referring Provider Internal Medicine; Visit Provider Internal Medicine Nephrology
DX: E87.1 Hypo-osmolality and hyponatremia (principal); R30.0 Dysuria
CPT/HCPCS: 36415; 80069; 81003; 82436; 82533; 82570; 84155; 84156; 84165; 84166; 84300; 85999; 87086

== ENCOUNTER 2019-11-06 08:44 | Outpatient (CLI) | payer MEDICARE, SELFPAY ==
--- NOTE | ~2019-11-06 | DEXA_ITS ---
Bone Density Report Name: Koki Wolfe Age: 74 Sex: Female Ethnicity: White Date of : 1945 Indication: postmenopausal; history of glucocorticoids; Referring Provider: MED, CAL [place] Study: Bone densitometry was performed. Exam Date: November 06, 2019 Accession number: [id number] Bone Density: Region BMD T-score Z-score Classification AP Spine (L1-L4) 1.014 -0.3 2.0 Normal Femoral Neck (Left) 0.786 -0.6 1.4 Normal Total Hip (Left) 1.073 1.1 2.8 Normal Total Hip Bilateral Avg 1.025 0.7 2.4 Normal Femoral Neck (Right) 0.786 -0.6 1.4 Normal Total Hip (Right) 0.976 0.3 2.0 Normal World Health Organization criteria for BMD impression classify patients as: Normal (T-score at or above -1.0), Osteopenia (T-score between -1.0 and -2.5), or Osteoporosis (T-score at or below -2.5). 10-year Fracture Risk: FRAX not reported because: All T-scores for Spine Total, Hip Total, Femoral Neck at or above -1.0 Previous Exams: Region Exam Age BMD T-score BMD Change BMD Change Date g/cm2 vs Baseline vs Previous AP Spine(L1-L4) 11/06/2019 74 1.014 -0.3 -0.088(-8.0%)# 0.011(1.1%) 09/05/2017 72 1.003 -0.4 -0.099(-9.0%)# -0.035(-3.4%)* 08/07/2014 69 1.038 -0.1 -0.064(-5.8%)# 0.004(0.4%)# 06/13/2011 65 1.034 -0.1 -0.068(-6.2%)# -0.068(-6.2%)# 03/01/2007 61 1.102 0.5 Total Hip(Left) 11/06/2019 74 1.073 1.1 0.041(4.0%)# 0.028(2.7%)* 09/05/2017 72 1.044 0.8 0.013(1.2%)# -0.032(-2.9%)* 08/07/2014 69 1.076 1.1 0.044(4.3%)# 0.001(0.1%)# 06/13/2011 65 1.075 1.1 0.043(4.2%)# 0.043(4.2%)# 03/01/2007 61 1.032 0.7 Total Hip(Right) 11/06/2019 74 0.976 0.3 -0.026(-2.6%)# -0.023(-2.3%) 09/05/2017 72 1.000 0.5 -0.003(-0.3%)# -0.043(-4.1%)* 08/07/2014 69 1.043 0.8 0.040(4.0%)# 0.018(1.7%)# 06/13/2011 65 1.025 0.7 0.023(2.3%)# 0.023(2.3%)# 03/01/2007 61 1.003 0.5 *Denotes significance at 95% confidence level, LSC for AP Spine = 0.022 g/cm2, LSC for Total Hip = 0.027 g/cm2 Clinical Information Provided by Patient: Has taken Glucocorticoids Has used the following medications: Vitamin D, Calcium Patient maximum height was 65.5 Menopause Age: 49 Onset of menses at age 13 Number of children 2 Impression: The patient has normal bone mass. The patient has risk factors, including: history of glucocorticoid therapy. No significant bone loss was o
--- NOTE | ~2019-11-06 | MM_ITS ---
EXAMINATION: MM screening [facility] BI w [facility] HISTORY: Screening mammogram TECHNIQUE: Craniocaudal and mediolateral oblique 3-D tomosynthesis images were obtained and synthetic 2-D images were generated. CAD analysis was submitted and interpreted. COMPARISON: 09/05/2017, 08/17/2016, 08/11/2015 BREAST PARENCHYMAL COMPOSITION: There are scattered areas of fibroglandular density. FINDINGS: There is no evidence of suspicious mass, calcification, or architectural distortion to sugg est malignancy in either breast. There has been no suspicious interval change. IMPRESSION: 1. No mammographic evidence of malignancy. 2. Recommend routine screening mammography in one year. BI-RADS Category 1: Negative Reviewed, dictated and finalized at location A.
== END 2019-11-06 08:45 | disposition home or self-care (01) ==
PROVIDERS: Visit Provider Physician Assistant
DX: Z12.31 Encounter for screening mammogram for malignant neoplasm of breast (principal); Z78.0 Asymptomatic menopausal state
CPT/HCPCS: 77063; 77067; 77080

== ENCOUNTER 2019-11-25 15:00 | Outpatient (RCR) | payer MEDICARE, SELFPAY ==
[2019-08-27 08:48] VITALS: BP 122/62; PULSE 71; RESP 14; TEMP 36.4; O2SAT 98
[2019-08-27 09:19] VITALS: PULSE 70
== END 2019-11-25 23:59 | disposition home or self-care (01) ==
LOC: ANHCPREHAB 15:00
PROVIDERS: PCP Internal Medicine; Visit Provider Nurse Practitioner Adult Health
DX: Z95.5 Presence of coronary angioplasty implant and graft (principal)
CPT/HCPCS: 93798

== ENCOUNTER 2019-12-24 07:43 | Outpatient (CLI) | payer MEDICARE, SELFPAY | END 2019-12-24 07:44 | disposition home or self-care (01) | PROVIDERS: PCP Internal Medicine; Referring Provider Internal Medicine; Visit Provider Internal Medicine Endocrinology, Diabetes & Metabolism | DX: E03.9 Hypothyroidism, unspecified (principal) | CPT/HCPCS: 36415; 84439; 84443 ==

== ENCOUNTER 2020-01-08 07:33 | Outpatient (CLI) | payer MEDICARE, SELFPAY ==
[2020-01-08 08:08] LABS: Basophils Absolute Auto 0.1 K/mm3 (0.0-0.1); Basophils Percent Auto 1.1 % (0.2-1.2); Eosinophils Absolute Auto 0.2 K/mm3 (0-0.3); Eosinophils Percent Auto 2.3 % (0-4.4); Hematocrit 36.8 % (37.0-47.0); Hemoglobin 12.4 g/dL (12.0-15.0); Immature Granulocyte Absolute 0.03 K/mm3 (0.00-0.031); Immature Granulocyte Percent A 0.3 % (0-0.5); Lymphocytes Absolute Auto 1.49 K/mm3 (0.9-3.2); Mean Corpuscular HGB Conc 33.7 g/dl (32-36); Mean Corpuscular Hemoglobin 29.8 pg (26-34); Mean Corpuscular Volume 88.5 fl (80-100); Mean Platelet Volume 9.7 fl (7.4-10.4); Monocytes Percent Auto 10.2 % (2.6-8.5); Neutrophils Absolute Auto 6.5 K/mm3 (1.3-6.7); Neutrophils Percent Auto 70.1 % (45.5-73.1); Platelet Count Result 276 k/mm3 (150-375); Red Blood Count 4.16 M/mm3 (4.2-5.4); Red Cell Distribution Width 13.8 % (11.5-14.5); White Blood Count 9.3 K/mm3 (4.5-10.0)
[2020-01-08 08:32] LABS: Alanine Aminotransferase 27 U/L (4-35); Albumin Level 4.4 g/dL (3.5-5.1); Alkaline Phosphatase 55 U/L (38-126); Anion Gap 6 mmol/L (8-16); Aspartate Amino Transferase 42 U/L (14-36); Bilirubin,Total 0.8 mg/dL (0.2-1.3); Blood Urea Nitrogen 24 mg/dL (7-17); Calcium 9.6 mg/dL (8.4-10.2); Carbon Dioxide 33 mmol/L (22-30); Chloride 95 mmol/L (98-107); Cholesterol 137 mg/dL (0-200); Estimated Glomerular Filt Rate > 60; Glucose 96 mg/dL (65-105); HDL Direct 74 mg/dL; Potassium 4.4 mmol/L (3.4-5.0); Sodium 134 mmol/L (137-145); Triglycerides 67 mg/dL (<150)
[2020-01-08 09:41] LABS: Folic Acid > 20.0 ng/mL (2.76->20)
[2020-01-08 09:52] LABS: Hepatitis C Virus Antibody Negative (Negative)
[2020-01-08 10:58] LABS: LDL Cholesterol Direct < 30 mg/dL
== END 2020-01-08 07:34 | disposition home or self-care (01) ==
PROVIDERS: PCP Internal Medicine; Referring Provider Physician Assistant; Visit Provider Internal Medicine
DX: R53.83 Other fatigue (principal); E78.00 Pure hypercholesterolemia, unspecified; Z11.59 Encounter for screening for other viral diseases; E87.1 Hypo-osmolality and hyponatremia; I10 Essential (primary) hypertension
CPT/HCPCS: 36415; 80053; 80061; 82607; 82746; 83735; 85025; 86803

== ENCOUNTER 2020-05-15 14:42 | Emergency (ER) | payer MEDICARE, SELFPAY ==
[2020-05-15 14:59] VITALS: BP 129/77; PULSE 73; RESP 12; TEMP 36; O2SAT 100
--- NOTE | 2020-05-15 15:10 | ED.GENADULT ---
HPI - General Adult General Chief complaint: Urogenital-Female Stated complaint: POS UTI Time Seen by Provider: 05/15/20 15:10 Source: patient and RN notes reviewed Mode of arrival: ambulatory Limitations: no limitations History of Present Illness HPI narrative: 74-year-old female presents with urinary complaints for the past 7 days. Koki reports holding urine throughout the past week due to being busy, increase dysuria symptoms over the past 24-48 hours. Dysuria consist of incontinent episodes (X2), cloudy urine, burning, frequency, and urgency.? Azo (last today) and cranberry juice with little relief.? Denies fever or chills. No significant pelvic pain. No vaginal discharge.? No concerns for STDs. Exacerbating factors urinating.? Denies hematuria or vaginal bleeding. Postmenopausal.? Intermittent diffused lower back pain. Denies nausea, vomiting, and abdominal pain.? Tolerating liquids well.? Remains active. The patient reports she have not been diagnosed with COVID-19. The patient reports she received 2 doses of Moderna COVID-19 vaccines. The patient reports she is not waiting for the results of a COVID-19 lab test. The patient reports she do not have rash, weakness, or fatigue. The patient reports she do not have a new or worsening cough or shortness of breath. Denies chest pain. The patient reports she do not have any rhinorrhea, congestion, sore throat, loss of taste or smell, and diarrhea. Recent traveled back to [place] from [place] within the last 7 days. Denies concerns for COVID-19 or exposures. At this time, patient is not suspected of having COVID-19. Some parts of this dictation were generated by voice recognition software and may contain typographical and/or grammatical inaccuracies. Related Data Home Medications Medication Instructions Recorded Confirmed bupropion HCl 150 mg tablet,12 hr 150 mg PO QAM 12/14/18 05/15/20 sustained-release spironolactone 25 mg tablet 12.5 mg PO DAILY 12/14/18 05/15/20 trazodone 50 mg tablet 25 mg PO HS 12/14/18 05/15/20 venlafaxine 75 mg capsule,extended 75 mg PO DAILY 12/14/18 05/15/20 release 24 hr loratadine 10 mg tablet 10 mg PO DAILY 12/19/18 05/15/20 losartan 100 mg tablet 100 mg PO DAILY 12/19/18 05/15/20 montelukast 10 mg tablet 10 mg PO DAILY 12/19/18 05/15/20 Multi Vitamin See Rx Instructions .ROUTE .COMPLEX 04/24/19 05/15/20 levothyroxine [Synthroid] 100 mcg PO DAILY 04/24/19 05/15/20 Calcium 600 600 mg PO DAILY 08/27/19 05/15/20 Lacto.acidophilus-Bif.animalis 1 cap PO DAILY 08/27/19 05/15/20 [Daily Probiotic] magnesium hydroxide 400 mg PO DAILY 08/27/19 05/15/20 fnvue-4c-ldm-epa-fish oil [[place]-3 600 cap PO DAILY 08/27/19 05/15/20 Fish Oil] vitamin B complex-folic acid [B 1 tablet PO DAILY 08/27/19 05/15/20 Complex 100] budesonide 32 mcg/actuation nasal 1 spray INTRANASAL DAILY 01/13/20 05/15/20 spray rosuvastatin 20 mg tablet 20 mg PO DAILY 01/13/20 05/15/20 Allergies Allergy/AdvReac Type Severity Reaction Status Date / Time codeine Allergy Mild LETHARGIC Verified 01/13/20 10:49 AND NON RESPONSIVE hydrocodone Allergy Unknown DIFFICULTY Verified 01/13/20 10:49 BREATHING DECREASE BP hydroxyzine Allergy Unknown Unknown Verified 01/13/20 10:49 nickel Allergy Unknown Swelling Verified 01/13/20 10:49 oxycodone Allergy Unknown DIFFICULTY Verified 01/13/20 10:49 BREATHING , DECREASE BP tetracycline Allergy Unknown ITCHING Verified 01/13/20 10:49 Review of Systems Review of Systems: Narrative: CONSTITUTIONAL: Denies fever, chills, sweats. EYES: Denies visual changes, redness, discharge. ENT: Denies rhinorrhea, congestion, sore throat, otalgia. CARDIOVASCULAR: Denies chest pain, palpitations, edema. RESPIRATORY: Denies dyspnea, wheezing, cough. GASTROINTESTINAL: Denies abdominal pain, nausea, vomiting, diarrhea. GENITOURINARY: Complains of dysuria (incontinent episodes, burning, frequency, and urgency). De
== END 2020-05-15 15:27 | disposition home or self-care (01) ==
PROVIDERS: Emergency Provider Nurse Practitioner Family; PCP Internal Medicine
DX: R30.0 Dysuria (principal); I11.0 Hypertensive heart disease with heart failure; I50.9 Heart failure, unspecified; F32.9 Major depressive disorder, single episode, unspecified; Z98.42 Cataract extraction status, left eye; Z98.41 Cataract extraction status, right eye; Z96.651 Presence of right artificial knee joint
CPT/HCPCS: 81003; 99213; G0463

== ENCOUNTER → 2020-07-18 01:19 | Outpatient (CLI) | payer MEDICARE, SELFPAY ==
[2020-07-20 17:43] LABS: SARS-CoV-2 RNA PCR Negative
== END ==
PROVIDERS: PCP Internal Medicine; Visit Provider Internal Medicine Critical Care Medicine
DX: R68.89 Other general symptoms and signs (principal); Z20.822 Contact with and (suspected) exposure to COVID-19
CPT/HCPCS: C9803; U0003; U0005

== ENCOUNTER → 2020-07-21 13:28 | Outpatient (CLI) | payer MEDICARE, SELFPAY ==
--- NOTE | 2020-08-04 15:34 | WPDSLEEPSTUD ---
Sleep Study Date of Study: 07/21/20 Ordering Provider: Abdulkadir Pascal DO Interpreting Physician: Anna Patino MD Sleep Study Type: Polysomnogram Height: 1.65 m Weight: 89.811 kg Body Mass Index: 32.9 Neck Circumference (inches): 15 [place]: 8 Reason for Sleep Study Witnessed apneas, snoring * 10/09/2018 - Basic sleep study; Apnea-hypopnea index 4, small amount of REM, limb movement index 69.1 Sleep History Koki Wolfe is a 75 year old female who snores at night. Her notes that she stops breathing at night. There is a family history with her brother having sleep apnea. She does not awaken from sleep feeling short of breath. She rarely awakens at night with heartburn, belching or coughing. She occasionally snores and occasionally this is loud enough that others complain about it. She rarely has trouble sleeping with a cold. She does not wake up gasping for breath at night. She occasionally has problems at night observed by others as far as her breathing. She occasionally sweats excessively night. She does not notice her heart pounding or beating irregularly night. She occasionally falls asleep during the day occasionally involuntarily but never falls asleep while driving. She does not have loss of muscle tone with strong emotion. She does not have daytime difficulties due to excessive sleepiness, she is retired. She does not feel paralyzed on waking or falling asleep. She rarely has vivid dreamlike scenes upon awakening or falling asleep. She is not afraid to go to sleep. She rarely has nightmares. She occasionally remembers her dreams. She does not have racing thoughts. She rarely feels sad or depressed. She occasionally has anxiety. She occasionally has muscular tension and notices parts of her body jerking. She rarely kicks at night. She rarely has crawling and aching feelings in her legs. She does not have any kind of leg pain at night and she does not have morning jaw pain. She rarely grinds her teeth during sleep. She occasionally has bothered by pain during the day. She rarely is awakened by pain at night. She frequently wakes up feeling stiff in the morning, occasionally with sore achy muscles and rarely with pain in the neck and spine. She has fatigue, headaches, memory and concentration problems. Normal bedtime is between 10:00 p.m. and 10:30 p.m. falling asleep within 5 minutes typically waking 2-5 times at night to urinate, get a drink of water and adjust the covers. She is able to return to sleep within 5-10 minutes. She wakes the morning between 7:30 and 8:00 a.m.. Her weekend schedule is the same. She estimates getting between 8 and 10 hours of sleep at night. She occasionally takes naps in the afternoon or evening. She does not feel refreshed after short nap. She is usually drowsy for 1 hour after waking. Habits: Never smoked tobacco. Caffeine: Coffee, half-caffeine 3 cups daily, occasional tea. No alcohol or recreational drugs. [facility] Past Medical History Medical History (Updated 08/04/20 @ 15:51 by Anna Patino MD) Chronic sinusitis Congestive heart failure Diastolic rate 2. Last EF of 63 Depression Dyspepsia HTN (hypertension) with goal to be determined Vasovagal syncope Surgical History Surgical History H/O cataract extraction Bilateral H/O dilation and curettage H/O sinus surgery X2 sinus surgery 1996 and 2018 History of bunionectomy Left foot History of repair of retinal defect by laser photocoagulation Left eye S/P lumpectomy, right breast Benign etiology Total knee replacement status Right Family History Family History Sibling Cerebrovascular accident Father Family history of lung cancer, Onset Age: 81 Patient's father is Mother Patient's mother is Social History Social History (Rev
[2020-08-04 15:45] VITALS: BMI 32.9
== END ==
PROVIDERS: PCP Internal Medicine; Visit Provider Internal Medicine
DX: G47.33 Obstructive sleep apnea (adult) (pediatric) (principal); I10 Essential (primary) hypertension
CPT/HCPCS: 95810

== ENCOUNTER 2020-07-27 11:15 | Outpatient (CLI) | payer MEDICARE, SELFPAY ==
[2020-07-27 11:55] LABS: Albumin Level 4.7 g/dL (3.5-5.1); Anion Gap 6 mmol/L (8-16); Blood Urea Nitrogen 24 mg/dL (7-17); Calcium 9.8 mg/dL (8.4-10.2); Carbon Dioxide 30 mmol/L (22-30); Chloride 97 mmol/L (98-107); Estimated Glomerular Filt Rate > 60; Glucose 94 mg/dL (65-105); Phosphorus 4.3 mg/dL (2.5-4.5); Potassium 5.1 mmol/L (3.4-5.0); Sodium 133 mmol/L (137-145)
== END 2020-07-27 11:16 | disposition home or self-care (01) ==
PROVIDERS: PCP Internal Medicine; Visit Provider Internal Medicine Nephrology
DX: E87.1 Hypo-osmolality and hyponatremia (principal); I10 Essential (primary) hypertension; I50.42 Chronic combined systolic (congestive) and diastolic (congestive) heart failure
CPT/HCPCS: 36415; 80069

== ENCOUNTER 2020-08-09 11:05 | Emergency (ER) | payer MEDICARE, SELFPAY ==
--- NOTE | 2020-08-09 11:08 | ED.URI ---
HPI - URI/Sore Throat General Chief Complaint: Upper Respiratory Infection Stated Complaint: sinus issues/drainage/sore throat/cough Time Seen by Provider: 08/09/20 11:25 Source: patient and RN notes reviewed Mode of arrival: ambulatory Limitations: no limitations History of Present Illness HPI Narrative: 75-year-old female presents concern for 4-day history of nasal congestion, postnasal drainage, cough, sore throat, chest congestion. She denies fever, body aches, chills, sweats, shortness of breath, loss of sense of taste or smell. She has been vaccinated for Covid. She has been using nasal rinses, allergy medicine, cough medicine [id number] with some relief MD elicited complaint: nasal congestion Related Data Home Medications Medication Instructions Recorded Confirmed bupropion HCl 150 mg tablet,12 hr 150 mg PO QAM 12/14/18 08/09/20 sustained-release spironolactone 25 mg tablet 12.5 mg PO DAILY 12/14/18 08/09/20 trazodone 50 mg tablet 25 mg PO HS 12/14/18 07/22/20 venlafaxine 75 mg capsule,extended 75 mg PO DAILY 12/14/18 08/09/20 release 24 hr loratadine 10 mg tablet 10 mg PO DAILY 12/19/18 07/22/20 losartan 100 mg tablet 100 mg PO DAILY 12/19/18 08/09/20 montelukast 10 mg tablet 10 mg PO DAILY 12/19/18 05/15/20 Multi Vitamin See Rx Instructions .ROUTE .COMPLEX 04/24/19 07/22/20 levothyroxine [Synthroid] 100 mcg PO DAILY 04/24/19 07/22/20 Calcium 600 600 mg PO DAILY 08/27/19 07/22/20 Lacto.acidophilus-Bif.animalis 1 cap PO DAILY 08/27/19 07/22/20 [Daily Probiotic] magnesium hydroxide 400 mg PO DAILY 08/27/19 07/22/20 hgpip-7f-bvr-epa-fish oil [[place]-3 600 cap PO DAILY 08/27/19 07/22/20 Fish Oil] vitamin B complex-folic acid [B 1 tablet PO DAILY 08/27/19 07/22/20 Complex 100] budesonide 32 mcg/actuation nasal 1 spray INTRANASAL DAILY 01/13/20 05/15/20 spray rosuvastatin 20 mg tablet 20 mg PO DAILY 01/13/20 08/09/20 Allergies Allergy/AdvReac Type Severity Reaction Status Date / Time codeine Allergy Mild LETHARGIC Verified 08/09/20 11:34 AND NON RESPONSIVE hydrocodone Allergy Unknown DIFFICULTY Verified 08/09/20 11:34 BREATHING DECREASE BP hydroxyzine Allergy Unknown Unknown Verified 08/09/20 11:34 nickel Allergy Unknown Swelling Verified 08/09/20 11:34 oxycodone Allergy Unknown DIFFICULTY Verified 08/09/20 11:34 BREATHING , DECREASE BP tetracycline Allergy Unknown ITCHING Verified 08/09/20 11:34 Review of Systems Review of Systems: Narrative: CONSTITUTIONAL: Denies malaise, chills, sweats, or fever. EYES: Denies visual changes, redness, or discharge. ENT: Reports rhinorrhea, congestion, sore throat. Denies sinus pain, otalgia and sore throat. CARDIOVASCULAR: Denies chest pain, palpitations, or edema. RESPIRATORY: Reports cough. Denies dyspnea. GASTROINTESTINAL: Denies abdominal pain, nausea, vomiting, diarrhea SKIN: Denies rash or itching. MUSCULOSKELETAL: Denies myalgia. NEUROLOGIC: Denies headache. All systems reviewed & are unremarkable except as noted in HPI and below PMFSH Past Medical History Medical History (Updated 08/09/20 @ 11:37 by Belgica Menjivar NP) Chronic sinusitis Congestive heart failure Diastolic rate 2. Last EF of 63 Depression Dyspepsia HTN (hypertension) with goal to be determined Vasovagal syncope Surgical History Surgical History H/O cataract extraction Bilateral H/O dilation and curettage H/O sinus surgery X2 sinus surgery 1996 and 2018 History of bunionectomy Left foot History of repair of retinal defect by laser photocoagulation Left eye S/P lumpectomy, right breast Benign etiology Total knee replacement status Right Family History Family History Sibling Cerebrovascular accident Father Family history of lung cancer, Onset Age: 81 Patient's father is Mother Pat
[2020-08-09 11:15] VITALS: BP 130/77; PULSE 74; RESP 16; TEMP 36.9; O2SAT 100
== END 2020-08-09 11:47 | disposition home or self-care (01) ==
PROVIDERS: Emergency Provider Nurse Practitioner; PCP Internal Medicine
DX: J06.9 Acute upper respiratory infection, unspecified (principal); I11.0 Hypertensive heart disease with heart failure; I50.9 Heart failure, unspecified; F32.9 Major depressive disorder, single episode, unspecified; Z98.42 Cataract extraction status, left eye; Z98.41 Cataract extraction status, right eye; Z96.651 Presence of right artificial knee joint
CPT/HCPCS: 99213; G0463

== ENCOUNTER 2020-10-09 07:43 | Outpatient (CLI) | payer MEDICARE, SELFPAY ==
[2020-10-09 08:28] LABS: Basophils Absolute Auto 0.1 K/mm3 (0.0-0.1); Basophils Percent Auto 0.9 % (0.2-1.2); Eosinophils Absolute Auto 0.2 K/mm3 (0-0.3); Hematocrit 38.8 % (37.0-47.0); Hemoglobin 12.9 g/dL (12.0-15.0); Immature Granulocyte Absolute 0.02 K/mm3 (0.00-0.031); Immature Granulocyte Percent A 0.3 % (0-0.5); Lymphocytes Absolute Auto 1.22 K/mm3 (0.9-3.2); Lymphocytes Percent Auto 19.1 % (18.3-44.2); Mean Corpuscular HGB Conc 33.2 g/dl (32-36); Mean Corpuscular Hemoglobin 29.5 pg (26-34); Mean Corpuscular Volume 88.8 fl (80-100); Monocytes Absolute Auto 0.8 K/mm3 (0.1-0.6); Monocytes Percent Auto 11.9 % (2.6-8.5); Neutrophils Absolute Auto 4.2 K/mm3 (1.3-6.7); Neutrophils Percent Auto 64.8 % (45.5-73.1); Platelet Count Result 268 k/mm3 (150-375); Red Blood Count 4.37 M/mm3 (4.2-5.4); Red Cell Distribution Width 13.2 % (11.5-14.5); White Blood Count 6.4 K/mm3 (4.5-10.0)
[2020-10-09 09:01] LABS: Alanine Aminotransferase 23 U/L (4-35); Albumin Level 4.8 g/dL (3.5-5.1); Alkaline Phosphatase 53 U/L (38-126); Anion Gap 7 mmol/L (8-16); Aspartate Amino Transferase 37 U/L (14-36); Bilirubin,Total 0.7 mg/dL (0.2-1.3); Blood Urea Nitrogen 21 mg/dL (7-17); Calcium 9.9 mg/dL (8.4-10.2); Carbon Dioxide 29 mmol/L (22-30); Chloride 96 mmol/L (98-107); Cholesterol 135 mg/dL (0-200); Estimated Glomerular Filt Rate > 60; Glucose 97 mg/dL (65-110); HDL Direct 64 mg/dL; LDL Cholesterol Direct 36 mg/dL; Sodium 132 mmol/L (137-145); Triglycerides 83 mg/dL (<150)
[2020-10-09 09:15] LABS: Thyroid Stimulating Hormone 0.393 uIU/mL (0.465-4.680)
[2020-10-09 09:30] LABS: Free T4 Free Thyroxine 0.99 ng/mL (0.78-2.19)
[2020-10-09 09:51] LABS: Folic Acid > 20.0 ng/mL (2.76->20); Vitamin B12 > 1000.0 pg/mL (239-931)
== END 2020-10-09 07:44 | disposition home or self-care (01) ==
PROVIDERS: PCP Internal Medicine; Visit Provider Internal Medicine
DX: E78.00 Pure hypercholesterolemia, unspecified (principal); E03.9 Hypothyroidism, unspecified; R53.83 Other fatigue
CPT/HCPCS: 36415; 80053; 80061; 82607; 82746; 84439; 84443; 85025

== ENCOUNTER → 2020-10-12 07:23 | Outpatient (CLI) | payer MEDICARE, SELFPAY ==
[2020-10-13 19:51] LABS: SARS-CoV-2 RNA PCR Positive
== END ==
PROVIDERS: PCP Internal Medicine; Visit Provider Internal Medicine
DX: U07.1 COVID-19 (principal)
CPT/HCPCS: C9803; U0003; U0005

== ENCOUNTER 2020-10-15 13:35 | Outpatient (RCR) | payer MEDICARE, SELFPAY ==
[2020-10-15] MEDS: diphenhydrAMINE HCl CAP 25 MG CAPSULE PO (14:09)
[2020-10-15] MEDS: ACETAMINOPHEN 325 MG TABLET 650 MG PO (14:09)
[2020-10-15] MEDS: FAMOTIDINE 20 MG TABLET PO (14:10)
[2020-10-15 14:24] VITALS: BP 150/76; PULSE 94; RESP 18; TEMP 36.5; O2SAT 95
[2020-10-15 15:50] VITALS: BP 160/71
== END 2020-10-15 16:00 | disposition home or self-care (01) ==
LOC: AMCINF 13:35
PROVIDERS: PCP Internal Medicine; Referring Provider Internal Medicine; Visit Provider Internal Medicine Hematology & Oncology
DX: Z23 Encounter for immunization (principal); U07.1 COVID-19; I10 Essential (primary) hypertension
CPT/HCPCS: A9270; J7050; M0243

== ENCOUNTER 2020-12-22 06:53 | Observation (INO) | payer MEDICARE, SELFPAY ==
[2020-12-22] VITALS (13 sets, daily range): BP systolic 133–161; BP diastolic 56–82; PULSE 57–77; RESP 14–20; TEMP 36.1–37.1; O2SAT 95–100; BMI 33.0
--- NOTE | ~2020-12-22 | US_ITS ---
EXAMINATION: US venous doppler LE RT DATE: 12/22/2020 10:17 INDICATION: Right calf pain. TECHNIQUE: Grayscale ultrasound images without and with compression and Doppler ultrasound images of the right lower extremity veins were obtained. COMPARISON: Ultrasound 05/26/2018 FINDINGS: The visualized portions of right common femoral vein, profunda (deep) femoral vein, femoral vein, pop liteal vein, peroneal veins, posterior tibial veins, and greater saphenous vein outflow are patent. IMPRESSION: 1. No deep venous thrombosis. Reviewed, dictated and finalized at location A. [place] OFFICE MANAGER
--- NOTE | ~2020-12-22 | CT_ITS ---
EXAMINATION: CT brain wo con DATE: 12/22/2020 07:57 INDICATION: Syncope TECHNIQUE: Computed tomography (CT) of the head was performed without intravenous contrast. The mA wa s adjusted according to patient size. Iterative reconstruction technique was employed. Exam dose: 60 5.33 mGy-cm total exam DLP. COMPARISON: 25/06/2018 CT brain FINDINGS: Bilateral vertebral artery calcification and prominent bilateral carotid siphon internal ca rotid artery calcifications. There is nonspecific diminished attenuation of the cerebral white matter, likely due to chronic small vessel ischemic changes. No intracranial mass lesion or hemorrhage or cerebrovascular accident is evident. There is no midline shift or mass effect. Normal ventricular size. No subdural or epidural hematoma. There are plates and screws of the frontal bones bilaterally, with underlying complete opacification of the frontal sinuses. No fracture or bone destruction of the cranial vault is detected. IMPRESSION: Postoperative change of the frontal bones with underlying complete opacification of both frontal sinuses Cerebral atherosclerosis and chronic small vessel ischemic changes of the cerebral white matter No acute intracranial finding Reviewed, dictated and finalized at Location A. Reviewed, dictated and finalized at location A. STS' BOOKING REPRESENTATIVE IMPRESSION: Postoperative change of the frontal bones with underlying complete opacification of both frontal sinuses Cerebral atherosclerosis and chronic small vessel ischemic changes of the cereb ral white matter No acute intracranial finding
--- NOTE | ~2020-12-22 | XR_ITS ---
EXAMINATION: XR chest 1V portable EXAM DATE: 12/22/2020 11:32 INDICATION: Syncope. TECHNIQUE: Portable AP frontal chest x-ray was obtained. Comparison is made to prior examination from 04/24/2019. FINDINGS: The lungs are clear. There are no pleural effusions. Cardiac silhouette is prominent but magnified on this AP technique. There is no pneumothorax suspected. The bones and soft tissues are unremarkable. IMPRESSION: No acute cardiopulmonary findings. Reviewed, dictated and finalized at location B. TAMPER
--- NOTE | 2020-12-22 06:55 | ECG_ITS ---
Measurements Intervals [place] Rate: 54 P: 70 MS: 203 QRS: -29 QRSD: 85 T: 18 QT: 439 QTc: 417 Interpretive Statements SINUS BRADYCARDIA BORDERLINE AV CONDUCTION DELAY LOW QRS VOLTAGE IN PRECORDIAL LEADS POOR R WAVE PROGRESSION, ANTERIOR LEADS BASELINE ARTIFACT- I, II, III, AVR, AVL, AVF, V4 BORDERLINE ECG Electronically Signed On 12-22-2020 7:50:01 ROBOTICS TECHNICIAN by Jorge Forrester D.O.
[2020-12-22 07:04] LABS: Basophils Absolute Auto 0.1 K/mm3 (0.0-0.1); Basophils Percent Auto 1.6 % (0.2-1.2); Eosinophils Absolute Auto 0.2 K/mm3 (0-0.3); Eosinophils Percent Auto 2.9 % (0-4.4); Hematocrit 36.2 % (37.0-47.0); Immature Granulocyte Absolute 0.02 K/mm3 (0.00-0.031); Immature Granulocyte Percent A 0.3 % (0-0.5); Lymphocytes Absolute Auto 1.45 K/mm3 (0.9-3.2); Mean Corpuscular HGB Conc 33.1 g/dl (32-36); Mean Corpuscular Hemoglobin 30.7 pg (26-34); Mean Corpuscular Volume 92.6 fl (80-100); Mean Platelet Volume 9.7 fl (7.4-10.4); Monocytes Absolute Auto 0.6 K/mm3 (0.1-0.6); Monocytes Percent Auto 8.6 % (2.6-8.5); Neutrophils Absolute Auto 4.5 K/mm3 (1.3-6.7); Neutrophils Percent Auto 65.6 % (45.5-73.1); Platelet Count Result 258 k/mm3 (150-375); Red Blood Count 3.91 M/mm3 (4.2-5.4); Red Cell Distribution Width 13.3 % (11.5-14.5); White Blood Count 6.9 K/mm3 (4.5-10.0)
[2020-12-22 07:22] LABS: Anion Gap 7 mmol/L (8-16); Blood Urea Nitrogen 18 mg/dL (7-17); Calcium 9.7 mg/dL (8.4-10.2); Carbon Dioxide 29 mmol/L (22-30); Chloride 99 mmol/L (98-107); Estimated CRCL calculation 53 ml/min; Estimated Glomerular Filt Rate > 60; Glucose 108 mg/dL (65-110); Potassium 4.1 mmol/L (3.4-5.0); Sodium 135 mmol/L (137-145)
[2020-12-22 08:39] LABS: Alanine Aminotransferase 24 U/L (4-35); Albumin Level 4.5 g/dL (3.5-5.1); Alkaline Phosphatase 55 U/L (38-126); Aspartate Amino Transferase 37 U/L (14-36); Bilirubin,Total 0.8 mg/dL (0.2-1.3)
[2020-12-22 08:50] LABS: Add Urine Microscopic? NO; Appearance Urine Clear (Clear); Bilirubin Urine Negative (Negative); Blood Urine Negative (Negative); Color Urine Yellow (Yellow); Glucose Urine UA Negative (Negative); Ketones Urine Negative (Negative); Leukocyte Esterase Ur Negative LEU/UL (Negative); Nitrate Urine Negative (Negative); Protein Urine Negative (Negative); Specific Grav Ur 1.008 (1.001-1.035); Urobilinogen Urine Negative mg/dL (<2.0)
--- NOTE | 2020-12-22 09:27 | ED.GENADULT ---
HPI - General Adult General Chief complaint: Syncope Stated complaint: Syncope Time Seen by Provider: 12/22/20 07:39 Source: patient, family and EMS Mode of arrival: EMS Limitations: no limitations History of Present Illness HPI narrative: Patient wake up this morning, felt cramps in the lower legs bilaterally more on the right calf muscles, patient stood up and felt really too much cramps and pop at the right calf muscle. Patient blacked out went down to the floor slowly, heard a thud, went to the bathroom found patient slumped over on the floor, mumbling, sweating, unable to communicate with labored, shallow breathing lasted for about 5 minutes. Patient started perking up and communicating slowly when the ambulance arrived. Patient denies any injuries or pain except at the right calf muscle. Patient reports a history of intermittent cramps of the lower legs for years. Denies aggravating or relieving factors. Patient also reports history of syncope at least 5 times over the last 20 years one of them was secondary to hyponatremia the other syncope secondary to pain medication. Patient is status post frontal sinus surgery 7 weeks ago secondary to cerebrospinal fluid leaking. Patient denies any fever, chills, nausea, vomiting, chest pain, shortness of breath, headache, back pain or abdominal pain. Related Data Home Medications Medication Instructions Recorded Confirmed bupropion HCl 150 mg tablet,12 hr 150 mg PO QAM 12/14/18 10/15/20 sustained-release spironolactone 25 mg tablet 12.5 mg PO DAILY 12/14/18 10/15/20 trazodone 50 mg tablet 25 mg PO HS 12/14/18 10/15/20 venlafaxine 75 mg capsule,extended 75 mg PO DAILY 12/14/18 10/15/20 release 24 hr loratadine 10 mg tablet 10 mg PO DAILY 12/19/18 10/15/20 losartan 100 mg tablet 100 mg PO DAILY 12/19/18 10/15/20 montelukast 10 mg tablet 10 mg PO DAILY 12/19/18 10/15/20 Multi Vitamin See Rx Instructions .ROUTE .COMPLEX 04/24/19 10/15/20 levothyroxine [Synthroid] 100 mcg PO DAILY 04/24/19 10/15/20 Calcium 600 600 mg PO DAILY 08/27/19 10/15/20 Lacto.acidophilus-Bif.animalis 1 cap PO DAILY 08/27/19 10/15/20 [Daily Probiotic] magnesium hydroxide 400 mg PO DAILY 08/27/19 10/15/20 okhsf-9a-njk-epa-fish oil [[place]-3 600 cap PO DAILY 08/27/19 10/15/20 Fish Oil] vitamin B complex-folic acid [B 1 tablet PO DAILY 08/27/19 10/15/20 Complex 100] rosuvastatin 20 mg tablet 20 mg PO DAILY 01/13/20 10/15/20 Allergies Allergy/AdvReac Type Severity Reaction Status Date / Time codeine Allergy Mild LETHARGIC Verified 10/15/20 14:41 AND NON RESPONSIVE hydrocodone Allergy Unknown DIFFICULTY Verified 10/15/20 14:41 BREATHING DECREASE BP hydroxyzine Allergy Unknown Unknown Verified 10/15/20 14:41 nickel Allergy Unknown Swelling Verified 10/15/20 14:41 oxycodone Allergy Unknown DIFFICULTY Verified 10/15/20 14:41 BREATHING , DECREASE BP tetracycline Allergy Unknown ITCHING Verified 10/15/20 14:41 Review of Systems Review of Systems: CONSTITUTIONAL: Denies fever, chills, or sweats. EYES: Denies visual changes, redness, or discharge. ENT: Denies rhinorrhea, congestion, sore throat, or otalgia. CARDIOVASCULAR: Denies chest pain, palpitations, or edema. RESPIRATORY: Denies cough or dyspnea. GASTROINTESTINAL: Denies abdominal pain, nausea, vomiting, or diarrhea. GENITOURINARY: Denies dysuria or hematuria. SKIN: Denies rash or itching. MUSCULOSKELETAL: Denies back pain, joint pain, or myalgia. NEUROLOGIC: Denies headache, numbness, or weakness. PSYCHIATRIC: Denies anxiety or depression. [facility] Past Medical History Medical History (Updated 12/22/20 @ 10:07 by Eber Elizondo MD) Chronic sinusitis Congestive heart failure Diastolic rate 2. Last EF of 63 Depression Dyspepsia HTN (hypertension) with goal to be determined Vasovagal syncope Surgical History Surgical History H/O cataract extraction Bilater
[2020-12-22] MEDS: SODIUM CHLORIDE 0.9% IV 1,000 ML 999 ML IV CONT (10:29)
[2020-12-22] MEDS: SODIUM CHLORIDE 0.9% IV 1,000 ML 125 ML IV CONT (12:05)
--- NOTE | 2020-12-22 12:36 | PC.NURSE ---
This patient, Koki Wolfe, was admitted to 3 Med Surg Room 817-91, [id number]. Patient/family oriented to hospital policies and general routines including ID bracelet, bed and alarms, visiting hours, pain management, procedures, bathroom and other care routines, personal items, smoking policy, room service/diet, and visiting hours. Information on how to activate the Rapid Response Team has been discussed. Patient/Family are encouraged to report perceived risks to care and to ask questions if they do not understand what they are told or what they should do.
--- NOTE | 2020-12-22 13:20 | PM.IMHP ---
H&P: HPI History of Present Illness Date/Time: 12/22/20 13:20 Chief Complaint: Syncope. Narrative: This is a 75-year-old female with history of vasovagal syncope, coronary artery disease, congestive heart failure, hypertension, hyperlipidemia, obstructive sleep apnea, and hypothyroidism who presented to the emergency department earlier today via EMS from home for evaluation after a syncopal episode. Upon waking this morning the patient noticed a cramp in her right calf that she attempted to massage for a period of time without much benefit. She then got up to use the restroom and while walking to the bathroom she reports that the cramping that much worse and she heard a ?pop? just below the right knee. The next thing she remembers is coming to in a slumped position against the wall in the bathroom. Her heard a thud and found her to be minimally responsive on the floor, diaphoretic with shallow respirations and mumbling speech with difficulties communicating for nearly 5 minutes. Her called 911 and on EMS arrival she was bradycardic in the 50s with blood pressures in the 140s over 60s. Patient has had syncopal episodes in the past including at least 1 vasovagal episode. She also reports having several episodes of syncope attributed to hypotension from opioids. Typically she has antecedent symptoms prior to losing consciousness and she does not recall having those today. There was no reported head trauma and she sustained no injuries in the fall. She continues to have mild cramping in the right posterior calf just below the popliteal fossa and this area is tender to palpation. She denies pain and swelling of the right knee and more specifically she has no pain with flexion or extension of that knee. Review of Systems Review of Systems: Twelve systems were reviewed. No fever, chills, or sweats. No recent cold or flu symptoms. Approximately 7 weeks ago she had a pretty extensive sinus surgery done at [facility] and she has healed well from that and tells me she has not been able to breathe this well out of her nose for many years. No chest pain, pleuritic pain, or palpitations. She denies orthopnea, PND, and lower extremity edema. No nausea, vomiting, or diarrhea. She was incontinent of urine with this episode today. There was no mention of seizure activity. No history of seizures. Except as documented, all other systems were reviewed and are negative. 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 Chronic sinusitis Congestive heart failure Nonischemic cardiomyopathy on echocardiogram and left heart catheterization May 2018 with an EF of about 35%. Ejection fraction improved to 55 to 60% on echocardiogram in April 2019. Grade 1 diastolic dysfunction noted on echo at that time. Coronary artery disease Status post stent to the OM1 on 04/25/2019. COVID-19 (10/2020) Depression Hypertension Nonischemic cardiomyopathy Cardiac catheterization in May 2018 showed a left coronary dominant circulation with no coronary artery disease and ejection fraction of about 35%. EF improved to 55 to 60% on echocardiogram in April 2019. Obstructive sleep apnea on CPAP Pulmonary hypertension Moderate pulmonary hypertension noted on echocardiogram in April 2019 with an estimated pulmonary arterial systolic pressure 45 mmHg. Restless leg syndrome Vasovagal syncope Surgical History Surgical History (Updated 12/22/20 @ 14:07 by Sheba Dooley PA-C) History of arthroplasty of right knee History of bilateral cataract extraction History of bunionectomy of left great toe History of cardiac catheterization 06/04/2018: Nonischemic cardiomyopathy with left coronary dominant circulation with no coronary artery disease and ejection fraction of approximately 35%. 04/25/2019: PTCA/drug-eluting stent to an acutely occluded OM 1 branch of the circumflex.
[2020-12-22] MEDS: ACETAMINOPHEN 325 MG TABLET 650 MG PO (16:12)
[2020-12-22] MEDS: traZODone HCL 25 MG TABLET PO (20:28)
[2020-12-22] MEDS: carvediloL 6.25 MG TABLET PO (20:28)
[2020-12-22] MEDS: ROSUVASTATIN 10 MG TABLET 20 MG PO (20:28)
[2020-12-23] VITALS (8 sets, daily range): BP systolic 134–163; BP diastolic 59–94; PULSE 56–72; RESP 16–18; TEMP 36–36.3; O2SAT 97–98
[2020-12-23] MEDS: LEVOTHYROXINE SODIUM 100 MCG TABLET PO (05:52)
[2020-12-23 06:51] LABS: Anion Gap 7 mmol/L (8-16); Blood Urea Nitrogen 14 mg/dL (7-17); Calcium 9.2 mg/dL (8.4-10.2); Carbon Dioxide 27 mmol/L (22-30); Chloride 99 mmol/L (98-107); Estimated CRCL calculation 60 ml/min; Estimated Glomerular Filt Rate > 60; Glucose 93 mg/dL (65-110); Magnesium 1.7 mg/dL (1.6-2.3); Sodium 133 mmol/L (137-145)
[2020-12-23] MEDS: ASPIRIN 81 MG CHEWABLE TABLET PO (09:11)
[2020-12-23] MEDS: buPROPion HCL XL (24 HR) 150 MG TABCR PO (09:12)
[2020-12-23] MEDS: carvediloL 6.25 MG TABLET PO (09:13)
[2020-12-23] MEDS: CALCIUM CARBONATE (OSCAL) 500 MG TABLET PO (09:13)
[2020-12-23] MEDS: LOSARTAN POTASSIUM 100 MG TABLET PO (09:13)
[2020-12-23] MEDS: VENLAFAXINE HCL XR 75 MG CAP.ER.24H PO (09:14)
[2020-12-23] MEDS: MULTIVITAMINS THERAPEUTIC TAB (*BKC) 1 TABLET PO (09:14)
[2020-12-23] MEDS: SPIRONOLACTONE 12.5 MG TABLET PO (09:14)
[2020-12-23] MEDS: VITAMIN B COMPLEX CAPSULE 1 CAP PO (09:14)
[2020-12-23] MEDS: LORATADINE 10 MG TABLET PO (09:14)
--- NOTE | 2020-12-23 09:29 | PM.IMPN ---
Progress Note: A&P Assessment and Plan (1) Vasovagal syncope: Code(s): R55 - Syncope and collapse Status: Acute Assessment and Plan: -The patient had significant pain and cramping in her right calf prior to the syncopal episode consistent with vasovagal syncope. -She had mild bradycardia on EMS arrival, in the mid 50s, and her heart rate has been in the 60s since arrival to the floor which is her baseline. Most likely the bradycardia earlier on was as a result of the vasovagal reaction and it is unlikely to be the cause of her syncope. She was monitored on telemetry overnight which was unremarkable on review. -CT head no acute pathology, normal neurological exam -CXR unremarkable -Vitals stable, no fever, tachycardia, or leukocytosis to suggest infection -As noted, pt has a dental procedure that she has been waiting 2 years for scheduled at 11 am and she wishes to make it to this appt. I have discussed the importance of close follow up with pcp as well as return precautions. At this time I see no indication for further workup and she is being discharged in stable condition. (2) Bilateral leg cramps: Code(s): R25.2 - Cramp and spasm Status: Acute Assessment and Plan: -Bilateral venous Doppler negative -Had severe muscle cramp yesterday, etiology unclear, continues to have soreness in this area. Hx of hyponatremia which is chronic therefore she restricts her water intake. Dehydration?? -Pt also notes she heard a pop at the time of the incident. Had TKA to the R knee 2 years ago. Will order outpatient XR and pt wishes to follow up with her own orthopedic surgeon Dr. Hale in [facility] for further workup. -Distally neurovascularly intact, ambulates without difficulty (3) Hyponatremia: Code(s): E87.1 - Hypo-osmolality and hyponatremia Status: Acute Assessment and Plan: -Chronic -Pt fluid restricts due to chronic hyponatremia -Sodium today 133 -Advised continued follow up with pcp (4) Hypertension: Code(s): I10 - Essential (primary) hypertension Status: Acute Assessment and Plan: Blood pressures were reviewed and they have been stable. Orthostatic vital signs have been unremarkable. (5) Congestive heart failure: Code(s): I50.9 - Heart failure, unspecified Status: Acute Assessment and Plan: She appears euvolemic thus will discontinue IV fluids. (6) Coronary artery disease: Code(s): I25.10 - Atherosclerotic heart disease of [place] coronary artery without angina pectoris Status: Acute Assessment and Plan: No acute issues. Continued aspirin, beta-carmen, and statin. (7) Hypothyroidism: Qualifiers: Hypothyroidism type: unspecified Qualified Code(s): E03.9 - Hypothyroidism, unspecified Code(s): E03.9 - Hypothyroidism, unspecified Status: Chronic Assessment and Plan: Continued levothyroxine. TSH high 9.580, T4 pending at time of dictation. Discussed with patient who agrees to follow up with her pcp this week regarding her current medication dose. She has no palpitations and had no antecedent events prior to syncopal episode to suggest syncope was related to thyroid. Episode was still most consistent with vasovagal syncope, however pt will follow up with her pcp and we will follow up on her T4 level when resulted. (8) Obstructive sleep apnea on CPAP: Code(s): G47.33 - Obstructive sleep apnea (adult) (pediatric); Z99.89 - Dependence on other enabling machines and devices Status: Acute Assessment and Plan: CPAP will be provided for the patient to use while hospitalized. Subjective Date/time seen: 12/23/20 09:30 75-year-old female with history of vasovagal syncope, coronary artery disease, congestive heart failure, hypertension, hyperlipidemia, obstructive sleep apnea, and hypothyroidism admitted to the hospital after a syncopal episode. Today she
--- NOTE | 2020-12-23 10:32 | PC.NURSE ---
On 12/23/20, the student, Quiana Vaca, provided care and completed [facility] documentation on this patient. I have reviewed the student's documentation and agree with the findings.
--- NOTE | 2020-12-23 11:19 | PCCCNOTE ---
On 12/23/20, the student, [Ansley Cummings ], provided care and [email or web address]. I have reviewed the student's documentation and agree with the findings.
--- NOTE | 2020-12-24 10:16 | PC.NURSE ---
T4 is low at 0.60. ADINA Chowdhury aware.
--- NOTE | 2020-12-28 07:03 | PM.DS ---
DS: Admitting Diagnosis Discharge Date 12/23/20 Admitting Diagnosis syncope DS: Discharge Diagnosis Discharge Diagnosis (1) Vasovagal syncope: Code(s): R55 - Syncope and collapse Status: Acute Assessment and Plan: -The patient had significant pain and cramping in her right calf prior to the syncopal episode consistent with vasovagal syncope. -She had mild bradycardia on EMS arrival, in the mid 50s, and her heart rate has been in the 60s since arrival to the floor which is her baseline. Most likely the bradycardia earlier on was as a result of the vasovagal reaction and it is unlikely to be the cause of her syncope. She was monitored on telemetry overnight which was unremarkable on review. -CT head no acute pathology, normal neurological exam -CXR unremarkable -Vitals stable, no fever, tachycardia, or leukocytosis to suggest infection -As noted, pt has a dental procedure that she has been waiting 2 years for scheduled at 11 am and she wishes to make it to this appt. I have discussed the importance of close follow up with pcp as well as return precautions. At this time I see no indication for further workup and she is being discharged in stable condition. (2) Bilateral leg cramps: Code(s): R25.2 - Cramp and spasm Status: Acute Assessment and Plan: -Bilateral venous Doppler negative -Had severe muscle cramp yesterday, etiology unclear, continues to have soreness in this area. Hx of hyponatremia which is chronic therefore she restricts her water intake. Dehydration?? -Pt also notes she heard a pop at the time of the incident. Had TKA to the R knee 2 years ago. Will order outpatient XR and pt wishes to follow up with her own orthopedic surgeon Dr. Hale in [facility] for further workup. -Distally neurovascularly intact, ambulates without difficulty (3) Hyponatremia: Code(s): E87.1 - Hypo-osmolality and hyponatremia Status: Acute Assessment and Plan: -Chronic -Pt fluid restricts due to chronic hyponatremia -Sodium today 133 -Advised continued follow up with pcp (4) Hypertension: Code(s): I10 - Essential (primary) hypertension Status: Acute Assessment and Plan: Blood pressures were reviewed and they have been stable. Orthostatic vital signs have been unremarkable. (5) Congestive heart failure: Code(s): I50.9 - Heart failure, unspecified Status: Acute Assessment and Plan: She appears euvolemic thus will discontinue IV fluids. (6) Coronary artery disease: Code(s): I25.10 - Atherosclerotic heart disease of [place] coronary artery without angina pectoris Status: Acute Assessment and Plan: No acute issues. Continued aspirin, beta-carmen, and statin. (7) Hypothyroidism: Qualifiers: Hypothyroidism type: unspecified Qualified Code(s): E03.9 - Hypothyroidism, unspecified Code(s): E03.9 - Hypothyroidism, unspecified Status: Chronic Assessment and Plan: Continued levothyroxine. TSH high 9.580, T4 pending at time of dictation. Discussed with patient who agrees to follow up with her pcp this week regarding her current medication dose. She has no palpitations and had no antecedent events prior to syncopal episode to suggest syncope was related to thyroid. Episode was still most consistent with vasovagal syncope, however pt will follow up with her pcp and we will follow up on her T4 level when resulted. (8) Obstructive sleep apnea on CPAP: Code(s): G47.33 - Obstructive sleep apnea (adult) (pediatric); Z99.89 - Dependence on other enabling machines and devices Status: Acute Assessment and Plan: CPAP will be provided for the patient to use while hospitalized. DS: Summary Hospital Course Reason for hospitalization: 75-year-old female with history of vasovagal syncope, coronary artery disease, congestive heart failure, hypertension, hyperlipidemia, obstruc
== END 2020-12-23 11:00 | disposition home or self-care (01) ==
LOC: ANHED 10:07 → ANH3MEDSUR 10:21
PROVIDERS: Emergency Medicine; Physician Assistant; Admitting Provider Internal Medicine; Emergency Provider Internal Medicine; PCP Internal Medicine; Visit Provider Internal Medicine
DX: R55 Syncope and collapse (principal); E87.1 Hypo-osmolality and hyponatremia; I50.9 Heart failure, unspecified; I11.0 Hypertensive heart disease with heart failure; I25.10 Atherosclerotic heart disease of native coronary artery without angina pectoris; E03.9 Hypothyroidism, unspecified; E78.5 Hyperlipidemia, unspecified; G47.33 Obstructive sleep apnea (adult) (pediatric); J44.9 Chronic obstructive pulmonary disease, unspecified; M79.661 Pain in right lower leg; R25.2 Cramp and spasm; Z96.651 Presence of right artificial knee joint; Z99.89 Dependence on other enabling machines and devices
CPT/HCPCS: 36415; 70450; 71045; 80048; 80076; 81003; 83735; 84439; 84443; 85025; 93005; 93971; 96360; 96361; 99285; A9270; G0378; J7030

== ENCOUNTER 2020-12-26 07:45 | Outpatient (CLI) | payer MEDICARE, SELFPAY ==
--- NOTE | ~2020-12-26 | XR_ITS ---
EXAMINATION: XR knee RT 3V EXAM DATE: 12/26/2020 08:31 INDICATION: R25.2 - Cramp and spasm, lateral proximal right tibia fibula cramping. TECHNIQUE: Three projections of the right knee. There is no prior study for comparison. FINDINGS: Total right knee arthroplasty hardware in position. No sizable joint effusion. There are n o acute fractures identified. IMPRESSION: Unremarkable XR knee RT 3V exam. Reviewed, dictated and finalized at location A. PATIAL INFORMATION TECHNOLOGIST
[2020-12-26 08:40] LABS: Anion Gap 6 mmol/L (8-16); Blood Urea Nitrogen 19 mg/dL (7-17); Calcium 10.4 mg/dL (8.4-10.2); Carbon Dioxide 31 mmol/L (22-30); Chloride 97 mmol/L (98-107); Estimated Glomerular Filt Rate > 60; Glucose 96 mg/dL (65-110); Potassium 4.4 mmol/L (3.4-5.0); Sodium 134 mmol/L (137-145)
== END 2020-12-26 07:46 | disposition home or self-care (01) ==
LOC: ANHLAB 07:49
PROVIDERS: PCP Internal Medicine; Visit Provider Physician Assistant
DX: R25.2 Cramp and spasm (principal); E87.1 Hypo-osmolality and hyponatremia
CPT/HCPCS: 36415; 73562; 80048

== ENCOUNTER 2021-01-13 11:20 | Outpatient (CLI) | payer MEDICARE, SELFPAY ==
[2021-01-13 12:37] LABS: Albumin Level 4.6 g/dL (3.5-5.1); Anion Gap 8 mmol/L (8-16); Blood Urea Nitrogen 22 mg/dL (7-17); Calcium 9.6 mg/dL (8.4-10.2); Carbon Dioxide 29 mmol/L (22-30); Chloride 99 mmol/L (98-107); Estimated Glomerular Filt Rate 54; Glucose 106 mg/dL (65-110); Phosphorus 3.8 mg/dL (2.5-4.5); Potassium 4.8 mmol/L (3.4-5.0); Sodium 136 mmol/L (137-145)
== END 2021-01-13 11:21 | disposition home or self-care (01) ==
LOC: ANHLAB 11:23
PROVIDERS: PCP Internal Medicine; Visit Provider Internal Medicine Nephrology
DX: I50.42 Chronic combined systolic (congestive) and diastolic (congestive) heart failure (principal); E87.1 Hypo-osmolality and hyponatremia; I10 Essential (primary) hypertension
CPT/HCPCS: 36415; 80069

== ENCOUNTER 2021-07-26 08:00 | Outpatient (CLI) | payer MEDICARE, SELFPAY ==
[2021-07-26 09:50] LABS: Albumin Level 4.6 g/dL (3.5-5.1); Anion Gap 4 mmol/L (8-16); Blood Urea Nitrogen 24 mg/dL (7-17); Calcium 9.1 mg/dL (8.4-10.2); Carbon Dioxide 29 mmol/L (22-30); Chloride 101 mmol/L (98-107); Estimated Glomerular Filt Rate > 60; Glucose 90 mg/dL (65-110); Phosphorus 3.9 mg/dL (2.5-4.5); Potassium 4.5 mmol/L (3.4-5.0); Sodium 134 mmol/L (137-145)
== END 2021-07-26 08:01 | disposition home or self-care (01) ==
PROVIDERS: PCP Internal Medicine; Visit Provider Internal Medicine Nephrology
DX: E87.1 Hypo-osmolality and hyponatremia (principal); I10 Essential (primary) hypertension
CPT/HCPCS: 36415; 80069

== ENCOUNTER 2021-09-07 14:06 | Outpatient (CLI) | payer MEDICARE, SELFPAY ==
[2021-09-07 14:31] LABS: Alanine Aminotransferase 27 U/L (6-35); Albumin Level 4.4 g/dL (3.5-5.1); Alkaline Phosphatase 57 U/L (38-126); Anion Gap 9 mmol/L (8-16); Aspartate Amino Transferase 35 U/L (14-36); Bilirubin,Total 0.4 mg/dL (0.2-1.3); Blood Urea Nitrogen 24 mg/dL (7-17); Calcium 9.2 mg/dL (8.4-10.2); Carbon Dioxide 28 mmol/L (22-30); Chloride 94 mmol/L (98-107); Estimated Glomerular Filt Rate 54; Glucose 92 mg/dL (65-110); Potassium 4.2 mmol/L (3.4-5.0); Sodium 131 mmol/L (137-145)
== END 2021-09-07 14:07 | disposition home or self-care (01) ==
PROVIDERS: PCP Internal Medicine; Referring Provider Internal Medicine Nephrology; Visit Provider Internal Medicine
DX: E78.1 Pure hyperglyceridemia (principal)
CPT/HCPCS: 36415; 80053

== ENCOUNTER 2021-09-15 10:49 | Outpatient (CLI) | payer MEDICARE, SELFPAY ==
[2021-09-15 11:41] LABS: Albumin Level 4.4 g/dL (3.5-5.1); Anion Gap 9 mmol/L (8-16); Blood Urea Nitrogen 29 mg/dL (7-17); Calcium 9.4 mg/dL (8.4-10.2); Carbon Dioxide 27 mmol/L (22-30); Chloride 93 mmol/L (98-107); Estimated Glomerular Filt Rate 40; Glucose 98 mg/dL (65-110); Phosphorus 4.6 mg/dL (2.5-4.5); Potassium 4.7 mmol/L (3.4-5.0); Sodium 129 mmol/L (137-145)
== END 2021-09-15 10:50 | disposition home or self-care (01) ==
PROVIDERS: PCP Internal Medicine; Visit Provider Internal Medicine Nephrology
DX: E87.1 Hypo-osmolality and hyponatremia (principal)
CPT/HCPCS: 36415; 80069

== ENCOUNTER 2021-09-15 15:55 | Outpatient (CLI) | payer MEDICARE, SELFPAY ==
--- NOTE | ~2021-09-15 | DEXA_ITS ---
Bone Density Report Name: RM BATEMAN Age: 76 Sex: Female Ethnicity: White Date of : 1945 Indication: postmenopausal; screening for osteoporosis; height loss; Referring Provider: MED, CAL [place] Study: Bone densitometry was performed. Exam Date: September 15, 2021 Accession number: [id number] Bone Density: Region BMD T-score Z-score Classification AP Spine(L1-L4) 1.063 0.1 2.5 Normal Femoral Neck (Left) 0.818 -0.3 1.8 Normal Total Hip (Left) 1.049 0.9 2.7 Normal Femoral Neck (Right) 0.794 -0.5 1.6 Normal Total Hip (Right) 1.106 1.3 3.1 Normal Total Hip Mean 1.077 1.1 2.9 Normal World Health Organization criteria for BMD impression classify patients as: Normal (T-score at or above -1.0), Osteopenia (T-score between -1.0 and -2.5), or Osteoporosis (T-score at or below -2.5). 10-year Fracture Risk: FRAX not reported because: All T-scores for Spine Total, Hip Total, Femoral Neck at or above -1.0 Clinical Information Provided by Patient: Has used the following medications: Vitamin D Has the following medical conditions: hypothyroid Patient maximum height was 65.5 Menopause Age: 43 Drinks caffeinated beverages Onset of menses at age 14 Number of children 2 Impression: The patient has normal bone mass. Discussion: BONE DENSITY IS ABOVE THE MINIMUM DESIRABLE LEVEL AT ALL SKELETAL SITES TESTED. This patient?s bone mineral density is above the minimum desirable level (T-score -1.0 or better) at all sites measured. The patient should follow a healthful lifestyle (good nutrition with adequate calcium and vitamin D, and appropriate weight-bearing exercise). Follow-Up: Consider repeating this study in 5 years or sooner if there is some new clinical indication. Reported by: [facility] on 09/15/2021 4:25:00 PM. Reviewed, dictated and finalized at location AGianna GAINES
--- NOTE | ~2021-09-15 | MM_ITS ---
EXAMINATION: MM screening [facility] BI w dav[facility] HISTORY: Screening mammogram TECHNIQUE: Craniocaudal and mediolateral oblique 3-D tomosynthesis images were obtained and synthetic 2-D images were generated. CAD analysis was submitted and interpreted. COMPARISON: 11/06/2019, 09/05/2017 BREAST PARENCHYMAL COMPOSITION: There are scattered areas of fibroglandular density. FINDINGS: There is no suspicious mass, calcification, or architectural distortion to suggest malignan cy in either breast. There has been no suspicious interval change. IMPRESSION: 1. No mammographic evidence of malignancy. 2. Recommend routine screening mammography in one year. BI-RADS Category 1: Negative Reviewed, dictated and finalized at location A.
== END 2021-09-15 15:56 | disposition home or self-care (01) ==
PROVIDERS: PCP Internal Medicine; Visit Provider Physician Assistant
DX: Z12.31 Encounter for screening mammogram for malignant neoplasm of breast (principal); Z78.0 Asymptomatic menopausal state
CPT/HCPCS: 77063; 77067; 77080

== ENCOUNTER 2021-10-14 10:00 | Outpatient (CLI) | payer MEDICARE, SELFPAY ==
[2021-10-14 10:56] LABS: Creatinine Urine 116.3 mg/dL; Total Protein Urine Random 7 mg/dL; Ur Ttl Prot Creatinine Ratio 0.06 mg/mg (0-0.20)
[2021-10-14 10:56] LABS: Albumin Level 4.7 g/dL (3.5-5.1); Anion Gap 9 mmol/L (8-16); Blood Urea Nitrogen 26 mg/dL (7-17); Calcium 9.3 mg/dL (8.4-10.2); Carbon Dioxide 28 mmol/L (22-30); Chloride 94 mmol/L (98-107); Estimated Glomerular Filt Rate > 60; Glucose 76 mg/dL (65-110); Phosphorus 3.6 mg/dL (2.5-4.5); Potassium 4.2 mmol/L (3.4-5.0); Sodium 131 mmol/L (137-145)
[2021-10-14 11:34] LABS: Appearance Urine Clear (Clear); Bilirubin Urine Negative (Negative); Blood Urine Negative (Negative); Color Urine Yellow (Yellow); Glucose Urine UA Negative (Negative); Ketones Urine Negative (Negative); Leukocyte Esterase Ur Trace LEU/UL (NEGATIVE); Nitrate Urine Negative (Negative); Protein Urine Negative (Negative); Specific Grav Ur 1.015 (1.001-1.035); Urobilinogen Urine 0.2 mg/dL (<2.0); pH Urine 6.5 (5.0-9.0)
[2021-10-14 11:47] LABS: Add Urine Microscopic? YES
[2021-10-14 11:49] LABS: Bacteria Urine Trace /hpf; RBC Urine 0-2 /hpf (0-2); Squamous Epithelial Cell Urine Moderate /hpf (Few); WBC Urine 0-3 /hpf (0-3)
== END 2021-10-14 10:01 | disposition home or self-care (01) ==
LOC: ANHLAB 10:01
PROVIDERS: PCP Internal Medicine; Referring Provider Internal Medicine Nephrology; Visit Provider Physician Assistant
DX: R30.0 Dysuria (principal); E87.1 Hypo-osmolality and hyponatremia
CPT/HCPCS: 36415; 80069; 81001; 82570; 84156; 87086; 87088

== ENCOUNTER 2022-01-01 08:38 | Outpatient (CLI) | payer MEDICARE, SELFPAY ==
[2022-01-01 09:03] LABS: Basophils Absolute Auto 0.1 K/mm3 (0.0-0.1); Basophils Percent Auto 1.2 % (0.2-1.2); Eosinophils Absolute Auto 0.3 K/mm3 (0-0.3); Eosinophils Percent Auto 3.7 % (0-4.4); Hematocrit 33.6 % (37.0-47.0); Hemoglobin 10.7 g/dL (12.0-15.0); Immature Granulocyte Absolute 0.03 K/mm3 (0.00-0.031); Immature Granulocyte Percent A 0.4 % (0-0.5); Lymphocytes Absolute Auto 1.13 K/mm3 (0.9-3.2); Mean Corpuscular HGB Conc 31.8 g/dl (32-36); Mean Corpuscular Hemoglobin 30.6 pg (26-34); Mean Platelet Volume 9.4 fl (7.4-10.4); Monocytes Absolute Auto 0.9 K/mm3 (0.1-0.6); Monocytes Percent Auto 10.5 % (2.6-8.5); Neutrophils Absolute Auto 5.7 K/mm3 (1.3-6.7); Neutrophils Percent Auto 70.2 % (45.5-73.1); Platelet Count Result 346 k/mm3 (150-375); Red Cell Distribution Width 13.8 % (11.5-14.5); White Blood Count 8.1 K/mm3 (4.5-10.0)
[2022-01-01 09:10] LABS: Alanine Aminotransferase 26 U/L (6-35); Albumin Level 4.5 g/dL (3.5-5.1); Alkaline Phosphatase 67 U/L (38-126); Anion Gap 8 mmol/L (8-16); Aspartate Amino Transferase 37 U/L (14-36); Bilirubin,Total 0.6 mg/dL (0.2-1.3); Blood Urea Nitrogen 19 mg/dL (7-17); Calcium 9.3 mg/dL (8.4-10.2); Carbon Dioxide 27 mmol/L (22-30); Chloride 102 mmol/L (98-107); Cholesterol 168 mg/dL (0-200); Estimated Glomerular Filt Rate > 60; Glucose 98 mg/dL (65-110); HDL Direct 69 mg/dL; Sodium 137 mmol/L (137-145); Triglycerides 86 mg/dL (<150)
[2022-01-01 09:21] LABS: LDL Cholesterol Direct 51 mg/dL
[2022-01-01 10:16] LABS: Folic Acid 12.9 ng/mL (2.76->20)
[2022-01-01 10:49] LABS: Free T4 Free Thyroxine 1.01 ng/mL (0.78-2.19)
== END 2022-01-01 08:39 | disposition home or self-care (01) ==
LOC: ANHLAB 08:40
PROVIDERS: PCP Internal Medicine; Visit Provider Internal Medicine Cardiovascular Disease
DX: E03.9 Hypothyroidism, unspecified (principal); E78.00 Pure hypercholesterolemia, unspecified; I10 Essential (primary) hypertension; R53.83 Other fatigue; E78.2 Mixed hyperlipidemia
CPT/HCPCS: 36415; 80053; 80061; 82607; 82746; 84439; 84443; 85025

== ENCOUNTER 2022-01-15 10:32 | Outpatient (CLI) | payer MEDICARE, SELFPAY ==
[2022-01-15 11:00] LABS: Albumin Level 4.5 g/dL (3.5-5.1); Anion Gap 4 mmol/L (8-16); Blood Urea Nitrogen 28 mg/dL (7-17); Calcium 9.3 mg/dL (8.4-10.2); Carbon Dioxide 30 mmol/L (22-30); Chloride 98 mmol/L (98-107); Estimated Glomerular Filt Rate > 60; Glucose 95 mg/dL (65-110); Phosphorus 4.6 mg/dL (2.5-4.5); Potassium 4.4 mmol/L (3.4-5.0); Sodium 132 mmol/L (137-145)
== END 2022-01-15 10:33 | disposition home or self-care (01) ==
LOC: ANHLAB 10:34
PROVIDERS: PCP Internal Medicine; Visit Provider Internal Medicine Nephrology
DX: E87.1 Hypo-osmolality and hyponatremia (principal)
CPT/HCPCS: 36415; 80069

== ENCOUNTER 2022-05-11 08:54 | Outpatient (CLI) | payer MEDICARE, SELFPAY ==
[2022-05-11 09:59] LABS: Albumin Level 4.6 g/dL (3.5-5.1); Anion Gap 5 mmol/L (8-16); Blood Urea Nitrogen 25 mg/dL (7-17); Calcium 9.5 mg/dL (8.4-10.2); Carbon Dioxide 30 mmol/L (22-30); Chloride 98 mmol/L (98-107); Estimated Glomerular Filt Rate > 60; Glucose 93 mg/dL (65-110); Phosphorus 4.1 mg/dL (2.5-4.5); Sodium 133 mmol/L (137-145)
== END 2022-05-11 08:55 | disposition home or self-care (01) ==
PROVIDERS: PCP Internal Medicine; Referring Provider Internal Medicine Cardiovascular Disease; Visit Provider Internal Medicine Nephrology
DX: E87.1 Hypo-osmolality and hyponatremia (principal)
CPT/HCPCS: 36415; 80069

== ENCOUNTER 2022-05-28 14:35 | Emergency (ER) | payer MEDICARE, SELFPAY ==
--- NOTE | ~2022-05-28 | XR_ITS ---
EXAM: XR foot RT min 3V DATE: 05/28/2022 15:18 HISTORY: woke up with right foot pain/swelling no injury . COMPARISON: None available. FINDINGS: Normal mineralization. No fracture or dislocation. No lytic or blastic lesion. Moderate cano llux valgus. Moderate degenerative change at the first MTP joint and multiple midfoot joints. Scatter ed enthesopathy including Achilles and plantar enthesopathy. No erosion or periosteal change. Dorsal soft tissue swelling over the midfoot. IMPRESSION: No acute osseous finding in the right foot. Reviewed, dictated and finalized at location K.
[2022-05-28 15:00] VITALS: BP 156/76; PULSE 74; RESP 16; TEMP 36.6; O2SAT 100
--- NOTE | 2022-05-28 15:09 | ED.LOWEXIN ---
HPI - Extremity Injury (Lower) General Chief Complaint: Extremity Injury, Lower Stated Complaint: R FOOT PAIN/SWELLING Time Seen by Provider: 05/28/22 15:05 Source: patient Mode of arrival: ambulatory Limitations: no limitations History of Present Illness HPI Narrative: Koki is a 76-year-old female patient presenting to the clinic today with complaints of right foot pain and swelling. She reports she is having swelling to the top of her foot and pain to the plantar aspect of her foot when she is standing. States that her pain is a 10/10 when she is walking but is unable to qualify the type of pain. No known injury. History of bunion to the great toe however no history of arthritis or gout Related Data Home Medications Medication Instructions Recorded Confirmed bupropion HCl 150 mg tablet,12 hr 150 mg PO QAM 12/14/18 05/28/22 sustained-release trazodone 50 mg tablet 25 mg PO HS 12/14/18 05/28/22 venlafaxine 75 mg capsule,extended 75 mg PO DAILY 12/14/18 05/28/22 release 24 hr loratadine 10 mg tablet (Claritin) 10 mg PO DAILY 12/19/18 05/28/22 losartan 100 mg tablet 100 mg PO DAILY 12/19/18 05/28/22 levothyroxine 100 mcg tablet 100 mcg PO DAILY 04/24/19 05/28/22 (Synthroid) celecoxib 200 mg capsule 200 mg PO BID 10/01/21 05/28/22 atorvastatin 10 mg tablet 10 mg PO DAILY 01/03/22 05/28/22 Allergies Allergy/AdvReac Type Severity Reaction Status Date / Time codeine Allergy Mild LETHARGIC Verified 05/28/22 14:59 AND NON RESPONSIVE hydrocodone Allergy Unknown DIFFICULTY Verified 05/28/22 14:59 BREATHING DECREASE BP hydroxyzine Allergy Unknown Unknown Verified 05/28/22 14:59 nickel Allergy Unknown Swelling Verified 05/28/22 14:59 oxycodone Allergy Unknown DIFFICULTY Verified 05/28/22 14:59 BREATHING , DECREASE BP tetracycline Allergy Unknown ITCHING Verified 05/28/22 14:59 Review of Systems Review of Systems: Pertinent positives per HPI. Patient denies any fever, chills, rash, headache, visual changes, dizziness, cough, runny nose, sore throat, shortness of breath, chest pain, palpitations, nausea, vomiting, diarrhea, constipation, abdominal pain, or any urinary issues. [facility] Past Medical History Medical History Bradycardia, sinus 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 Chest pain Chronic sinusitis Congestive heart failure Nonischemic cardiomyopathy on echocardiogram and left heart catheterization May 2018 with an EF of about 35%. Ejection fraction improved to 55 to 60% on echocardiogram in April 2019. Grade 1 diastolic dysfunction noted on echo at that time. Coronary artery disease Status post stent to the OM1 on 04/25/2019. COVID-19 (10/2020) Depression Exposure to COVID-19 virus Hypertension Nonischemic cardiomyopathy Cardiac catheterization in May 2018 showed a left coronary dominant circulation with no coronary artery disease and ejection fraction of about 35%. EF improved to 55 to 60% on echocardiogram in April 2019. Obstructive sleep apnea on CPAP Pulmonary hypertension Moderate pulmonary hypertension noted on echocardiogram in April 2019 with an estimated pulmonary arterial systolic pressure 45 mmHg. Restless leg syndrome Syncope Vasovagal syncope Vasovagal syncope Surgical History Surgical History History of arthroplasty of right knee History of bilateral cataract extraction History of bunionectomy of left great toe History of cardiac catheterization 06/04/2018: Nonischemic cardiomyopathy with left coronary dominant circulation with no coronary artery disease and ejection fraction of approximately 35%. 04/25/2019: PTCA/drug-eluting stent to an acutely occluded OM 1 branch of the circumflex. History of detached retina repair Left eye. History of dilation and curettage Benign endometrial polyp. History
== END 2022-05-28 15:34 | disposition home or self-care (01) ==
PROVIDERS: Emergency Provider Nurse Practitioner Family; PCP Internal Medicine
DX: M77.8 Other enthesopathies, not elsewhere classified (principal); M19.071 Primary osteoarthritis, right ankle and foot; I25.10 Atherosclerotic heart disease of native coronary artery without angina pectoris; Z95.5 Presence of coronary angioplasty implant and graft; Z86.16 Personal history of COVID-19; I11.0 Hypertensive heart disease with heart failure; I50.9 Heart failure, unspecified; G47.33 Obstructive sleep apnea (adult) (pediatric); I27.20 Pulmonary hypertension, unspecified; G25.81 Restless legs syndrome; Z98.42 Cataract extraction status, left eye; Z98.41 Cataract extraction status, right eye; Z96.652 Presence of left artificial knee joint
CPT/HCPCS: 73630; 99213; G0463

== ENCOUNTER 2022-06-02 07:52 | Outpatient (CLI) | payer MEDICARE, SELFPAY ==
[2022-06-02 08:23] LABS: Basophils Absolute Auto 0.1 K/mm3 (0.0-0.1); Eosinophils Absolute Auto 0.1 K/mm3 (0-0.3); Eosinophils Percent Auto 1.2 % (0-4.4); Hematocrit 35.2 % (37.0-47.0); Hemoglobin 11.2 g/dL (12.0-15.0); Immature Granulocyte Absolute 0.05 K/mm3 (0.00-0.031); Immature Granulocyte Percent A 0.4 % (0-0.5); Lymphocytes Absolute Auto 2.55 K/mm3 (0.9-3.2); Lymphocytes Percent Auto 22.7 % (18.3-44.2); Mean Corpuscular HGB Conc 31.8 g/dl (32-36); Mean Corpuscular Hemoglobin 29.3 pg (26-34); Mean Corpuscular Volume 92.1 fl (80-100); Mean Platelet Volume 9.9 fl (7.4-10.4); Monocytes Percent Auto 8.6 % (2.6-8.5); Neutrophils Absolute Auto 7.4 K/mm3 (1.3-6.7); Neutrophils Percent Auto 66.1 % (45.5-73.1); Platelet Count Result 304 k/mm3 (150-375); Red Blood Count 3.82 M/mm3 (4.2-5.4); Red Cell Distribution Width 14.5 % (11.5-14.5); White Blood Count 11.2 K/mm3 (4.5-10.0)
[2022-06-02 08:37] LABS: Alanine Aminotransferase 29 U/L (6-35); Albumin Level 4.5 g/dL (3.5-5.1); Alkaline Phosphatase 51 U/L (38-126); Anion Gap 4 mmol/L (8-16); Aspartate Amino Transferase 30 U/L (14-36); Bilirubin,Total 0.8 mg/dL (0.2-1.3); Blood Urea Nitrogen 18 mg/dL (7-17); Carbon Dioxide 34 mmol/L (22-30); Chloride 100 mmol/L (98-107); Cholesterol 151 mg/dL (0-200); Estimated Glomerular Filt Rate > 60; Glucose 84 mg/dL (65-110); HDL Direct 69 mg/dL; Potassium 4.1 mmol/L (3.4-5.0); Sodium 138 mmol/L (137-145); Triglycerides 68 mg/dL (<150)
[2022-06-02 08:48] LABS: LDL Cholesterol Direct 46 mg/dL
[2022-06-02 09:06] LABS: Iron 57 ug/dL (37-170)
[2022-06-02 09:16] LABS: Percent Iron Saturation 15 % (20-50)
[2022-06-02 09:26] LABS: Free T4 Free Thyroxine 0.97 ng/mL (0.78-2.19)
[2022-06-02 09:43] LABS: Folic Acid 12.7 ng/mL (2.76->20)
== END 2022-06-02 07:53 | disposition home or self-care (01) ==
LOC: ANHLAB 08:00
PROVIDERS: PCP Internal Medicine; Visit Provider Internal Medicine
DX: D64.9 Anemia, unspecified (principal); I25.10 Atherosclerotic heart disease of native coronary artery without angina pectoris; I10 Essential (primary) hypertension; E03.9 Hypothyroidism, unspecified; E78.00 Pure hypercholesterolemia, unspecified
CPT/HCPCS: 36415; 80053; 80061; 82607; 82746; 83540; 83550; 84439; 84443; 85025

== ENCOUNTER 2022-09-22 07:32 | Outpatient (CLI) | payer MEDICARE, SELFPAY ==
[2022-09-22 08:59] LABS: Basophils Absolute Auto 0.1 K/mm3 (0.0-0.1); Basophils Percent Auto 1.3 % (0.2-1.2); Eosinophils Absolute Auto 0.2 K/mm3 (0-0.3); Eosinophils Percent Auto 1.9 % (0-4.4); Hematocrit 37.6 % (37.0-47.0); Hemoglobin 12.1 g/dL (12.0-15.0); Immature Granulocyte Absolute 0.03 K/mm3 (0.00-0.031); Immature Granulocyte Percent A 0.4 % (0-0.5); Lymphocytes Absolute Auto 1.25 K/mm3 (0.9-3.2); Lymphocytes Percent Auto 15.1 % (18.3-44.2); Mean Corpuscular HGB Conc 32.2 g/dl (32-36); Mean Corpuscular Hemoglobin 29.4 pg (26-34); Mean Corpuscular Volume 91.3 fl (80-100); Mean Platelet Volume 9.4 fl (7.4-10.4); Monocytes Absolute Auto 0.7 K/mm3 (0.1-0.6); Monocytes Percent Auto 8.9 % (2.6-8.5); Neutrophils Percent Auto 72.4 % (45.5-73.1); Platelet Count Result 332 k/mm3 (150-375); Red Blood Count 4.12 M/mm3 (4.2-5.4); Red Cell Distribution Width 13.7 % (11.5-14.5); White Blood Count 8.3 K/mm3 (4.5-10.0)
[2022-09-22 09:12] LABS: Albumin Level 4.6 g/dL (3.5-5.1); Anion Gap 5 mmol/L (8-16); Blood Urea Nitrogen 16 mg/dL (7-17); Carbon Dioxide 30 mmol/L (22-30); Chloride 99 mmol/L (98-107); Estimated Glomerular Filt Rate > 60; Glucose 96 mg/dL (65-110); Phosphorus 4.3 mg/dL (2.5-4.5); Potassium 5.4 mmol/L (3.4-5.0); Sodium 134 mmol/L (137-145)
[2022-09-22 09:44] LABS: Free T4 Free Thyroxine 1.06 ng/mL (0.78-2.19)
[2022-09-22 12:06] LABS: Alanine Aminotransferase 28 U/L (6-35); Albumin Level 4.6 g/dL (3.5-5.1); Alkaline Phosphatase 65 U/L (38-126); Anion Gap 5 mmol/L (8-16); Aspartate Amino Transferase 40 U/L (14-36); Bilirubin,Total 0.9 mg/dL (0.2-1.3); Blood Urea Nitrogen 16 mg/dL (7-17); Carbon Dioxide 32 mmol/L (22-30); Chloride 100 mmol/L (98-107); Estimated Glomerular Filt Rate > 60; Glucose 97 mg/dL (65-110); Potassium 5.5 mmol/L (3.4-5.0); Sodium 137 mmol/L (137-145)
[2022-09-26 15:29] LABS: Triiodothyronine T3 Free 2.5
[2022-09-26 15:30] LABS: FSH 93.9
[2022-09-27 09:41] LABS: Testosterone Total 7
[2022-09-29 22:58] LABS: Estradiol, Ultrasensitive 5 pg/mL
== END 2022-09-22 07:33 | disposition home or self-care (01) ==
PROVIDERS: PCP Internal Medicine; Referring Provider Internal Medicine; Visit Provider Internal Medicine Nephrology
DX: R63.5 Abnormal weight gain (principal); E87.1 Hypo-osmolality and hyponatremia
CPT/HCPCS: 36415; 80053; 80069; 82607; 82670; 83001; 84403; 84439; 84443; 84481; 85025

== ENCOUNTER 2022-10-11 15:44 | Outpatient (CLI) | payer MEDICARE, SELFPAY ==
--- NOTE | ~2022-10-11 | XR_ITS ---
EXAM: XR lumbar spine 2-3V DATE: 10/11/2022 16:09 HISTORY: M54.9 - Dorsalgia, unspecified . COMPARISON: None. FINDINGS: 5 nonrib-bearing lumbar-type vertebral bodies. Pedicles intact. Normal vertebral body alig nment. Vertebral body heights preserved. Mild disc space narrowing at L2-3 and L5-S1, moderate narrow ing at L3-4, and severe narrowing at L4-5. Multilevel moderate facet hypertrophy and sclerosis. Aorti c calcifications without evident aneurysm.. No fracture or dislocation. IMPRESSION: Multilevel lumbar degenerative disc disease and facet arthropathy. Reviewed, dictated and finalized at location K.
--- NOTE | ~2022-10-11 | XR_ITS ---
EXAMINATION: XR hip BI wo pelvis DATE: 10/11/2022 16:09 INDICATION: Right hip pain. TECHNIQUE: 2 views of right hip and 2 views of left hip were obtained. COMPARISON: CT 04/25/2019 FINDINGS: Bone alignment is normal. No fracture. There is mild osteoarthritis of the hips. There is s evere lumbar spondylosis. A calcification in the pelvis is likely a uterine fibroid. IMPRESSION: 1. Mild osteoarthritis of the hips. Reviewed, dictated and finalized at location A.
== END 2022-10-11 15:45 | disposition home or self-care (01) ==
PROVIDERS: PCP Internal Medicine; Visit Provider Internal Medicine
DX: M51.36 Other intervertebral disc degeneration, lumbar region (principal); M16.0 Bilateral primary osteoarthritis of hip
CPT/HCPCS: 72100; 73521

== ENCOUNTER 2022-11-07 11:57 | Outpatient (CLI) | payer MEDICARE, SELFPAY ==
[2022-11-07 13:04] LABS: Albumin Level 4.6 g/dL (3.5-5.1); Anion Gap 11 mmol/L (8-16); Blood Urea Nitrogen 21 mg/dL (7-17); Calcium 9.6 mg/dL (8.4-10.2); Carbon Dioxide 26 mmol/L (22-30); Chloride 93 mmol/L (98-107); Estimated Glomerular Filt Rate 48; Glucose 95 mg/dL (65-110); Phosphorus 4.3 mg/dL (2.5-4.5); Potassium 4.9 mmol/L (3.4-5.0); Sodium 130 mmol/L (137-145)
== END 2022-11-07 11:58 | disposition home or self-care (01) ==
PROVIDERS: PCP Internal Medicine; Visit Provider Internal Medicine Nephrology
DX: E87.5 Hyperkalemia (principal)
CPT/HCPCS: 36415; 80069

== ENCOUNTER 2022-11-09 13:25 | Outpatient (CLI) | payer MEDICARE, SELFPAY ==
[2022-11-09 14:20] LABS: Appearance Urine Clear (Clear); Bacteria Urine None Seen /hpf; Bilirubin Urine Negative (Negative); Color Urine Yellow (Yellow); Glucose Urine UA Negative (Negative); Ketones Urine Negative (Negative); Leukocyte Esterase Ur 1+ LEU/UL (Negative); Need Manual Microscopic Reviewed; Nitrate Urine Negative (Negative); Protein Urine Negative (Negative); Specific Grav Ur 1.016 (1.001-1.035); Squamous Epithelial Cell Urine Occasional /hpf (Few); WBC Urine 0-5 /hpf
[2022-11-09 14:30] LABS: Add Urine Microscopic? YES
== END 2022-11-09 13:26 | disposition home or self-care (01) ==
LOC: ANHLAB 13:26
PROVIDERS: PCP Internal Medicine; Visit Provider Internal Medicine Nephrology
DX: R30.0 Dysuria (principal)
CPT/HCPCS: 81001

== ENCOUNTER 2022-12-30 08:48 | Outpatient (CLI) | payer MEDICARE, SELFPAY ==
[2022-12-30 09:36] LABS: Basophils Absolute Auto 0.1 K/mm3 (0.0-0.1); Basophils Percent Auto 1.3 % (0.2-1.2); Eosinophils Absolute Auto 0.2 K/mm3 (0-0.3); Eosinophils Percent Auto 2.5 % (0-4.4); Hematocrit 34.7 % (37.0-47.0); Hemoglobin 11.1 g/dL (12.0-15.0); Immature Granulocyte Absolute 0.03 K/mm3 (0.00-0.031); Immature Granulocyte Percent A 0.4 % (0-0.5); Lymphocytes Percent Auto 15.5 % (18.3-44.2); Mean Corpuscular Hemoglobin 29.8 pg (26-34); Mean Platelet Volume 9.5 fl (7.4-10.4); Monocytes Absolute Auto 0.8 K/mm3 (0.1-0.6); Monocytes Percent Auto 10.1 % (2.6-8.5); Neutrophils Absolute Auto 5.4 K/mm3 (1.3-6.7); Neutrophils Percent Auto 70.2 % (45.5-73.1); Platelet Count Result 331 k/mm3 (150-375); Red Blood Count 3.73 M/mm3 (4.2-5.4); Red Cell Distribution Width 14.1 % (11.5-14.5); White Blood Count 7.7 K/mm3 (4.5-10.0)
[2022-12-30 10:42] LABS: Iron 62 ug/dL (37-170)
[2022-12-30 10:51] LABS: Percent Iron Saturation 19 % (20-50)
[2022-12-30 11:00] LABS: Free T4 Free Thyroxine 1.04 ng/mL (0.78-2.19)
[2022-12-30 11:17] LABS: Alanine Aminotransferase 24 U/L (6-35); Albumin Level 4.3 g/dL (3.5-5.1); Alkaline Phosphatase 63 U/L (38-126); Anion Gap 10 mmol/L (8-16); Aspartate Amino Transferase 34 U/L (14-36); Bilirubin,Total 0.5 mg/dL (0.2-1.3); Blood Urea Nitrogen 15 mg/dL (7-17); Calcium 9.5 mg/dL (8.4-10.2); Carbon Dioxide 27 mmol/L (22-30); Chloride 100 mmol/L (98-107); Estimated Glomerular Filt Rate > 60; Glucose 93 mg/dL (65-110); Sodium 137 mmol/L (137-145)
[2022-12-30 12:24] LABS: Folic Acid > 20.0 ng/mL (2.76->20); Vitamin B12 > 1000.0 pg/mL (239-931)
== END 2022-12-30 08:49 | disposition home or self-care (01) ==
PROVIDERS: PCP Internal Medicine; Referring Provider Internal Medicine Cardiovascular Disease; Visit Provider Internal Medicine
DX: D64.9 Anemia, unspecified (principal); E03.9 Hypothyroidism, unspecified; I10 Essential (primary) hypertension; R53.83 Other fatigue
CPT/HCPCS: 36415; 80053; 82607; 82746; 83540; 83550; 84439; 84443; 85025

== ENCOUNTER 2023-05-19 08:17 | Outpatient (CLI) | payer MEDICARE, SELFPAY ==
[2023-05-19 09:04] LABS: Anion Gap 9 mmol/L (4-12); Blood Urea Nitrogen 25 mg/dL (7-17); Carbon Dioxide 27 mmol/L (22-30); Chloride 102 mmol/L (98-107); Estimated Glomerular Filt Rate 48; Glucose 92 mg/dL (65-110); Phosphorus 3.8 mg/dL (2.5-4.5); Potassium 4.1 mmol/L (3.4-5.0); Sodium 138 mmol/L (137-145)
== END 2023-05-19 08:18 | disposition home or self-care (01) ==
PROVIDERS: PCP Internal Medicine; Visit Provider Internal Medicine Nephrology
DX: E87.1 Hypo-osmolality and hyponatremia (principal)
CPT/HCPCS: 36415; 80069

== ENCOUNTER 2023-07-05 07:55 | Outpatient (CLI) | payer MEDICARE, SELFPAY ==
[2023-07-05 08:57] LABS: Basophils Absolute Auto 0.1 K/mm3 (0.0-0.1); Basophils Percent Auto 1.3 % (0.2-1.2); Eosinophils Absolute Auto 0.2 K/mm3 (0-0.3); Eosinophils Percent Auto 2.2 % (0-4.4); Hematocrit 39.2 % (37.0-47.0); Immature Granulocyte Absolute 0.02 K/mm3 (0.00-0.031); Immature Granulocyte Percent A 0.3 % (0-0.5); Lymphocytes Absolute Auto 1.33 K/mm3 (0.9-3.2); Lymphocytes Percent Auto 17.9 % (18.3-44.2); Mean Corpuscular HGB Conc 33.2 g/dl (32-36); Mean Corpuscular Hemoglobin 30.1 pg (26-34); Mean Corpuscular Volume 90.7 fl (80-100); Mean Platelet Volume 10.5 fl (7.4-10.4); Monocytes Absolute Auto 0.7 K/mm3 (0.1-0.6); Monocytes Percent Auto 8.7 % (2.6-8.5); Neutrophils Absolute Auto 5.2 K/mm3 (1.3-6.7); Neutrophils Percent Auto 69.6 % (45.5-73.1); Platelet Count Result 281 k/mm3 (150-375); Red Blood Count 4.32 M/mm3 (4.2-5.4); Red Cell Distribution Width 13.1 % (11.5-14.5); White Blood Count 7.4 K/mm3 (4.5-10.0)
[2023-07-05 09:00] LABS: Alanine Aminotransferase 16 U/L (6-35); Albumin Level 4.8 g/dL (3.5-5.1); Alkaline Phosphatase 50 U/L (38-126); Anion Gap 8 mmol/L (4-12); Aspartate Amino Transferase 32 U/L (14-36); Bilirubin,Total 1.1 mg/dL (0.2-1.3); Blood Urea Nitrogen 21 mg/dL (7-17); Calcium 9.6 mg/dL (8.4-10.2); Carbon Dioxide 24 mmol/L (22-30); Chloride 100 mmol/L (98-107); Cholesterol 149 mg/dL (0-200); Estimated Glomerular Filt Rate > 60; Glucose 88 mg/dL (65-110); HDL Direct 57 mg/dL; Potassium 4.3 mmol/L (3.4-5.0); Sodium 132 mmol/L (137-145); Triglycerides 100 mg/dL (<150)
[2023-07-05 09:11] LABS: LDL Cholesterol Direct 64 mg/dL
[2023-07-05 09:38] LABS: Free T4 Free Thyroxine 1.12 ng/mL (0.78-2.19)
[2023-07-05 10:18] LABS: Folic Acid > 20.0 ng/mL (2.76->20)
== END 2023-07-05 07:56 | disposition home or self-care (01) ==
PROVIDERS: PCP Internal Medicine; Referring Provider Internal Medicine Nephrology; Visit Provider Physician Assistant
DX: D64.9 Anemia, unspecified (principal); E78.5 Hyperlipidemia, unspecified; E03.9 Hypothyroidism, unspecified; R53.83 Other fatigue; E87.1 Hypo-osmolality and hyponatremia; I25.10 Atherosclerotic heart disease of native coronary artery without angina pectoris
CPT/HCPCS: 36415; 80053; 80061; 82607; 82728; 82746; 84439; 84443; 85025

== ENCOUNTER 2023-10-27 15:18 | Outpatient (CLI) | payer MEDICARE, SELFPAY ==
--- NOTE | ~2023-10-27 | MM_ITS ---
EXAMINATION: MM screening [facility] BI w [facility] HISTORY: Screening TECHNIQUE: Craniocaudal and mediolateral oblique 3-D tomosynthesis images were obtained and synthetic 2-D images were generated. CAD analysis was submitted and interpreted. COMPARISON: Comparison to multiple prior studies sequentially, with oldest reviewed study dated 08/17. BREAST PARENCHYMAL COMPOSITION: Not dense: There are scattered areas of fibroglandular density. FINDINGS: There is no evidence of suspicious mass, calcification, or architectural distortion to sugg est malignancy in either breast. There has been no suspicious interval change. IMPRESSION: 1. No mammographic evidence of malignancy. 2. Recommend routine screening mammography in one year. BI-RADS Category 1: Negative Reviewed, dictated and finalized at location B.
== END 2023-10-27 15:19 | disposition home or self-care (01) ==
LOC: ANHIMG 15:20
PROVIDERS: PCP Obstetrics & Gynecology; Visit Provider Obstetrics & Gynecology
DX: Z12.31 Encounter for screening mammogram for malignant neoplasm of breast (principal)
CPT/HCPCS: 77063; 77067

== ENCOUNTER 2023-11-02 13:06 | Outpatient (CLI) | payer MEDICARE, SELFPAY ==
[2023-11-02 16:38] LABS: Albumin Level 4.2 g/dL (3.5-5.1); Anion Gap 7 mmol/L (4-12); Blood Urea Nitrogen 24 mg/dL (7-17); Calcium 9.3 mg/dL (8.4-10.2); Carbon Dioxide 30 mmol/L (22-30); Chloride 95 mmol/L (98-107); Estimated Glomerular Filt Rate > 60; Glucose 84 mg/dL (65-110); Phosphorus 3.8 mg/dL (2.5-4.5); Potassium 4.5 mmol/L (3.4-5.0); Sodium 132 mmol/L (137-145)
== END 2023-11-02 13:07 | disposition home or self-care (01) ==
LOC: ANHGOSHLAB 13:07
PROVIDERS: PCP Obstetrics & Gynecology; Visit Provider Internal Medicine Nephrology
DX: E87.1 Hypo-osmolality and hyponatremia (principal); I10 Essential (primary) hypertension; I50.40 Unspecified combined systolic (congestive) and diastolic (congestive) heart failure
CPT/HCPCS: 36415; 80069

== ENCOUNTER 2024-01-18 10:11 | Observation (INO) | payer MEDICARE, SELFPAY ==
[2024-01-18] VITALS (8 sets, daily range): BP systolic 135–177; BP diastolic 49–89; PULSE 65–75; RESP 12–18; TEMP 36.2–37; O2SAT 96–100; BMI 31.8
--- NOTE | ~2024-01-18 | CT_ITS ---
EXAMINATION: CTA BRAIN/CAROTID DATE: 01/18/2024 11:01 INDICATION: New onset aphasia with difficulty finding words. TECHNIQUE: Computed tomographic angiography (CTA) of the head and neck was performed with 100 mL Omni paque-350 intravenous contrast. Multiplanar reconstructions and maximum intensity projection 3D-recon structions of the carotid arteries and of the intracranial arteries were created by the technologist on a separate workstation. Precontrast CT of the head was also obtained. Automated exposure control and iterative reconstruction technique were employed.The dose-length product was 1603.24 mGy-cm. COMPARISON: 12/22/2020 FINDINGS: Carotid arteries: Visualized aortic arch is normal in caliber with small amount of nonhemodynamically significant ather osclerotic plaque and no dissection. Left vertebral artery is dominant. Small amount of nonhemodynami lasha significant atherosclerotic plaque along the left vertebral artery at the level of the upper ce rvical spine. No hemodynamic significant stenosis along the cervical portions of the bilateral verteb ral arteries. There is no evident atherosclerotic plaque with 0% stenosis of the right and left carot id bulbs relative to normal distal artery lumen diameter (NASCET criteria). There is mosaic attenuati on in the visualized mid to upper lungs with groundglass opacities likely related to expiratory phase of imaging and peripheral predominant regions of more lucent subsegmental air trapping likely relate d to small airway disease. Severe cervical spondylosis. Head: Stable appearance of an osteotomy with plate and screw fixations along the anterior wall of the front al sinuses which are small and completely opacified. No acute intracranial hemorrhage, acute infarcti on or abnormal extra axial fluid collection. There is mild scattered white matter hypoattenuation con sistent with chronic small vessel ischemic disease. Ventricles are normal and symmetric. No mass/mass effect. No abnormally enhancing brain lesions identified on the postcontrast imaging. Changes of nadya ateral intraocular lens replacement. The orbits and mastoid air cells are normal. Intracranial arteries The left vertebral artery is dominant. Atherosclerotic calcifications without hematoma significant st enosis at the bilateral carotid siphons. There is no hemodynamically significant stenosis in the vert ebral, basilar and internal carotid arteries. Vertebral arteries are codominant. There are no aneurys ms identified. Both A1 and P1 segments are patent. There is a patent anterior communicating artery. Cerebral arterial arborization appears symmetric. IMPRESSION: 1. No evident atherosclerotic plaque with 0% stenosis of the right and left carotid bulbs relative to normal distal artery lumen diameter (NASCET criteria). 2. Normal aging brain with mild scattered white matter hypoattenuation consistent with chronic small vessel ischemic disease. No other acute intracranial process. 3. Unremarkable cerebral CT angiogram with no significant stenosis, thrombosis or dissection. Reviewed, dictated and finalized at location A. TICK MOLDER IMPRESSION: 1. No evident atherosclerotic plaque with 0% stenosis of the right and left car otid bulbs relative to normal distal artery lumen diameter (NASCET criteria). 2. Normal aging brain with mild scattered white matter hypoattenuation consiste nt with chronic small vessel ischemic disease. No other acute intracranial proc ess. 3. Unremarkable cerebral CT angiogram with no significant stenosis, thrombosis or dissection.
--- NOTE | ~2024-01-18 | XR_ITS ---
EXAMINATION: XR chest 2V 01/18/2024 14:46 INDICATION: Altered mental status PROCEDURE: 2 view chest COMPARISON: Comparison to multiple prior studies sequentially, with oldest reviewed study dated 05/30. FINDINGS: The lungs are clear. The cardiomediastinal silhouette is within normal limits. There are no pleural effusions. There is no pneumothorax suspected. IMPRESSION: 1: NO ACUTE CARDIOPULMONARY DISEASE. Reviewed, dictated and finalized at location B. 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
--- NOTE | ~2024-01-18 | MR_ITS ---
EXAMINATION: MR brain/brain stem wo/w con DATE: 01/18/2024 16:46 INDICATION: Confusion. Aphasia. TECHNIQUE: Magnetic resonance imaging (MRI) of the brain and brainstem was performed without and with 18 mL MultiHance intravenous contrast. COMPARISON: Brain MRI 07/11/2011 FINDINGS: There is a small focus of old blood products in right cerebellum. There are scattered areas of nonspecific increased T2-weighted signal intensity in the cerebral white matter, which is within normal limits for the patient's age. There is no intracranial hemorrhage, acute infarction, or abnorm al intracranial mass lesion. The ventricles are normal in size. There are likely changes of ocular le ns replacement surgeries. There is mild mucosal thickening in the ethmoid sinuses. The mastoid air ce lls are normal. IMPRESSION: 1. Chronic small focus of old blood products in right cerebellum, which is indeterminate for a cavern toan. Reviewed, dictated and finalized at location A. RAM DEVELOPMENT MANAGER IMPRESSION: 1. Chronic small focus of old blood products in right cerebellum, which is inde terminate for a cavernoma.
--- NOTE | 2024-01-18 10:05 | ECG_ITS ---
Test Date: 2024-01-18 10:10:29 Measurements Intervals [place] Rate: 71 P: 81 DC: 200 QRS: -17 QRSD: 84 T: 53 QT: 402 QTc: 439 Interpretive Statements SINUS RHYTHM WITH OCCASIONAL VENTRICULAR PREMATURE COMPLEXES LOW QRS VOLTAGE IN PRECORDIAL LEADS [QRS DEFLECTION < 1.0 mV IN CHEST LEADS] INFERIOR MYOCARDIAL INFARCTION , PROBABLY OLD [40+ ms Q WAVE AND/OR ST/T ABNORMALITY IN II/aVF] No previous ECG available for comparison Electronically Signed On 01-18-2024 16:27:18 [employer] by Williams Hunter
[2024-01-18 10:24] LABS: Basophils Absolute Auto 0.1 K/mm3 (0.0-0.1); Basophils Percent Auto 1.2 % (0.2-1.2); Eosinophils Absolute Auto 0.2 K/mm3 (0-0.3); Eosinophils Percent Auto 2.4 % (0-4.4); Hemoglobin 12.4 g/dL (12.0-15.0); Immature Granulocyte Absolute 0.01 K/mm3 (0.00-0.031); Immature Granulocyte Percent A 0.1 % (0-0.5); Lymphocytes Absolute Auto 1.11 K/mm3 (0.9-3.2); Lymphocytes Percent Auto 12.9 % (18.3-44.2); Mean Corpuscular HGB Conc 33.5 g/dl (32-36); Mean Corpuscular Hemoglobin 30.7 pg (26-34); Mean Corpuscular Volume 91.6 fl (80-100); Mean Platelet Volume 9.7 fl (7.4-10.4); Monocytes Absolute Auto 0.7 K/mm3 (0.1-0.6); Monocytes Percent Auto 8.6 % (2.6-8.5); Neutrophils Absolute Auto 6.4 K/mm3 (1.3-6.7); Neutrophils Percent Auto 74.8 % (45.5-73.1); Platelet Count Result 266 k/mm3 (150-375); Red Blood Count 4.04 M/mm3 (4.2-5.4); White Blood Count 8.6 K/mm3 (4.5-10.0)
[2024-01-18 10:34] LABS: Ethanol < 10 mg/dL (<10)
[2024-01-18 10:35] LABS: Alanine Aminotransferase 18 U/L (6-35); Albumin Level 4.5 g/dL (3.5-5.1); Alkaline Phosphatase 54 U/L (38-126); Anion Gap 0 mmol/L (4-12); Aspartate Amino Transferase 34 U/L (14-36); Bilirubin,Total 0.8 mg/dL (0.2-1.3); Blood Urea Nitrogen 20 mg/dL (7-17); Calcium 9.2 mg/dL (8.4-10.2); Carbon Dioxide 32 mmol/L (22-30); Chloride 99 mmol/L (98-107); Estimated CRCL calculation 56 ml/min; Estimated Glomerular Filt Rate > 60; Glucose 92 mg/dL (65-110); Sodium 131 mmol/L (137-145)
[2024-01-18 10:44] LABS: Prothrombin Time 13.6 Seconds (11.1-14.7)
[2024-01-18 10:46] LABS: Troponin I < 0.012 ng/mL (0.000-0.034)
--- NOTE | 2024-01-18 13:29 | P.HP_ITS ---
H&P: HPI History of Present Illness Date/Time: 01/18/24 13:29 Chief Complaint: Word Finding Difficulty Narrative: 78 y/o F presents here with word-finding difficulty with PMH of CSF leak (s/p repair in 1996 and 2020), CHF, CAD, depression, hypertension, nonischemic cardiomyopathy, myocardial infarction, NÉSTOR on CPAP, pulmonary hypertension, and RLS. The patient presents here from home via EMS for further evaluation of word- finding difficulty. reports that the patient was talking to her [id number] this morning at around 8:30 a.m. on the phone. DIL did not notice anything unusual in the beginning of the conversation. The patient noted that something seemed off but she didn't feel like she could focus. then noticed that she was having word-finding difficulty but initially thought maybe the patient was just being interreupted. Then he realized something was off around 9:00 a.m. He describes this as if she would say a little something and then stop. When he went to investigate she saw her and stated I am going to give the phone to her when referring to her . Patient then proceeded to call her son , could not put her sentences together, could not recall the president, and could not remember granddaughter's name. would ask her questions but would only respond with I'm okay . He also noted slight agitation. He did not observe any change in gait, no facial droop, unequal financial reporting analyst, drift with arm extension, or dysarthria. Patient denies any focal numbness or focal weakness during event. Episode lasted for approximately slightly less than a half hour. History of CVA, TIA, or seizures. Has hx of CSF leak, previosuly has presented as rhinorrhea and was eventually referred to an ENT who was able to see a halo effect prompting the repair. Believe this was related to chronic sinus infections that had eaten a hole in her sinus cavity. No recent infections/infectious symptoms.No recent falls or head trauma. Initial VS at presentation: 98.6? F, HR 71, RR 14, 175/85, and 100% on RA. ED workup showed: No leukocytosis, no anemia, normal coags, sodium 131 (previously 132 on 11/02/2023), creatinine 0.8 and GFR >60, glucose 92, initial troponin negative, ethanol negative. CTA head/neck showed 0% stenosis of the right and left carotid bulbs, normal aging brain with mild scattered white matter hypoattenuation, and unremarkable cerebral CT angiogram. Review of Systems Review of Systems: All systems reviewed & are unremarkable except as noted in HPI and below [facility] Past Medical History Medical History Hyponatremia syndrome Complex partial seizures Vasovagal syncope Coronary artery disease Status post stent to the OM1 on 04/25/2019. Congestive heart failure Nonischemic cardiomyopathy on echocardiogram and left heart catheterization May 2018 with an EF of about 35%. Ejection fraction improved to 55 to 60% on echocardiogram in April 2019. Grade 1 diastolic dysfunction noted on echo at that time. Pulmonary hypertension Moderate pulmonary hypertension noted on echocardiogram in April 2019 with an estimated pulmonary arterial systolic pressure 45 mmHg. Nonischemic cardiomyopathy Cardiac catheterization in May 2018 showed a left coronary dominant circulation with no coronary artery disease and ejection fraction of about 35%. EF improved to 55 to 60% on echocardiogram in April 2019. Syncope 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 Hypertension Bradycardia, sinus COVID-19 (10/2020) Exposure to COVID-19 virus Restless leg syndrome Chest pain Vasovagal syncope Depression Chronic sinusitis Surgical History Surgical History History of left knee replacement History of cardiac catheterization 06/04/2018: Nonischemic cardiomyopathy with left coronary dominant circulation with no coronary artery disease and ejection fraction of approxi mately 35%. 04/25/2019: PTCA/drug-eluting stent to an acutely occluded OM 1 branch of the circumflex. History of sinus surgery Extensive sinus surgery x3 including anterior ethmoidectomy bilaterally, bilateral frontal sinusotomy, frontal sinus obliteration, and repair of CSF leak. Most recent surgery was in October 2020. Performed at [facility]. History of detached retina repair Left eye. History of arthroplasty of right knee History of right breast biopsy For microscopic calcifications, benign pathology. History of bunionectomy of left great toe History of dilation and curettage Benign endometrial polyp. History of bilateral cataract extraction S/P coronary artery stent placement Family History Family History Sibling Cerebrovascular accident Father Family history of lung cancer, Onset Age: 81 Patient's father is Mother Patient's mother is Social History Social History Social History: The patient is and lives with her in [place]. They live in [place] for 3 months of the year. She has 2 grown children. Lifelong nonsmoker. No alcohol or illicit substance abuse. She designates her Rigoberto Wolfe as her surrogate decision maker and she wishes to be a full code. Smoking status: Never smoker Alcohol intake: never Substance use: never Do You Feel Safe in your Home?: Yes Lack of Transportation: No Lack of Food: Never True Current Housing: I Have Housing Concerned About Future Housing: No Difficulty Paying Gas/Electric Bills: No Difficulty Paying for Meds: No Currently Unemployed: No Education: High School Diploma/GED Difficulty w/ Childcare or Family Care: No Living arrangements: with family Occupation/Education: retired Gender identity (if verbalized by the patient): Female Sexual Orientation (if Verbalized by the Patient): Straight or Heterosexual Spiritual care concerns: No Meds Home Medications and Allergies Home Medications ?Medication ?Instructions ?Recorded ?Confirmed ?Type bupropion HCl 150 mg tablet,12 hr 150 mg PO QAM 12/14/18 01/18/24 History sustained-release trazodone 50 mg tablet 25 mg PO HS 12/14/18 01/18/24 History losartan 100 mg tablet 100 mg PO DAILY 12/19/18 01/18/24 History levothyroxine 100 mcg tablet 100 mcg PO DAILY 04/24/19 01/18/24 History (Synthroid) aspirin 81 mg chewable tablet 81 mg PO DAILY@0800 #30 tabs 04/27/19 01/18/24 Rx (Children's Aspirin) carvedilol 6.25 mg tablet (Coreg) 6.25 mg PO Q12HR #60 tabs 04/27/19 01/18/24 Rx atorvastatin 10 mg tablet 10 mg PO DAILY 01/03/22 01/18/24 History cetirizine 10 mg capsule (Zyrtec) 10 mg PO DAILY PRN allergy symptoms 01/02/23 01/18/24 History venlafaxine 75 mg capsule,extended 37.5 mg PO DAILY 06/20/23 01/18/24 History release 24 hr spironolactone 25 mg tablet 12.5 mg PO DAILY 08/17/23 01/18/24 History Allergies Allergy/AdvReac Type Severity Reaction Status Date / Time codeine Allergy Mild LETHARGIC Verified 01/18/24 10:13 AND NON RESPONSIVE hydrocodone Allergy Unknown DIFFICULTY Verified 01/18/24 10:13 BREATHING DECREASE BP hydroxyzine Allergy Unknown Unknown Verified 01/18/24 10:13 nickel Allergy Unknown Swelling Verified 01/18/24 10:13 oxycodone Allergy Unknown DIFFICULTY Verified 01/18/24 10:13 BREATHING , DECREASE BP tetracycline Allergy Unknown ITCHING Verified 01/18/24 10:13 Vital Signs Vital Signs - 24 hr 01/18/24 10:02 01/18/24 13:02 Temperature 98.6 F Pulse Rate 71 68 Respiratory Rate 14 12 Blood Pressure 175/85 H 177/89 H Pulse Oximetry 100 100 Oxygen Delivery Room Air Exam Const: General: comfortable and no acute distress Other: , female, nontoxic appearance HENMT: Face/Nose/Sinus: Normal nares present Mouth: Yes moist mucous membranes Eyes: General: appearance normal, both eyes and all related structures Sclera: sclerae normal Pupils: Equal, round and reactive pupils present EOM: EOMs intact bilaterally Resp: Effort & Inspection: normal respiratory effort Auscultation: clear to auscultation bilaterally Cardio: Rate: regular rate Rhythm: regular rhythm Other: S1-S2 present without murmur, rub, ectopy Skin: General skin exam: normal color and no rashes or lesions noted Wounds: no wounds Neuro: Speech: normal speech Motor exam (neuro): 5/5 motor strength present throughout Sensory Exam: normal sensation Other: A&O x4. No dysarthria or facial droop noted on exam. No ataxia. No gaze palsy or nystagmus. NIH 0 Extrem: General: normal to inspection Psych: Mental Status: mental status grossly normal Affect: normal affect Other: Good insight and judgment, pleasant H&P: Results Labs Labs: Short CBC 01/18/24 Range/Units 10:18 WBC 8.6 (4.5-10.0) K/mm3 Hgb 12.4 (12.0-15.0) g/dL Hct 37.0 (37.0-47.0) % Plt Count 266 (150-375) k/mm3 BMP 01/18/24 10:18 Sodium 131 L Potassium 5.0 Chloride 99 Carbon Dioxide 32 H BUN 20 H Creatinine 0.80 Glucose 92 Calcium 9.2 Cardiac Enzymes 01/18/24 Range/Units 10:18 Troponin I < 0.012 (0.000-0.034) ng/mL Liver Function 01/18/24 Range/Units 10:18 Total Bilirubin 0.8 (0.2-1.3) mg/dL AST 34 (14-36) U/L ALT 18 (6-35) U/L Alkaline Phosphatase 54 (38-126) U/L Albumin 4.5 (3.5-5.1) g/dL Assessment and Plan Assessment and plan (1) Word finding difficulty: Code(s): R47.89 - Other speech disturbances Status: Acute Assessment and Plan: New deficits of word-finding difficulty starting on 01/18/24 at around 9:00 a.m.. Last known well at 01/18/24 at 8:30 a.m. - admission for observation and telemetry - not candidate for thrombolytics due to resolution of symptoms - not candidate for thrombectomy, no LVO on CTA - CXR and UA ordered - CTA head/neck: 1. No evident atherosclerotic plaque with 0% stenosis of the right and left carotid bulbs relative to normal distal artery lumen diameter (NASCET criteria). 2. Normal aging brain with mild scattered white matter hypoattenuation consistent with chronic small vessel ischemic disease. No other acute intracranial process. 3. Unremarkable cerebral CT angiogram with no significant stenosis, thrombosis or dissection. - neurology consulted, awaiting formal recs ED spoke with Rosalia CURIEL, recommended MRI and EEG - brain MRI: chronic small focus of old blood products in right cerebellum, which is indeterminate for a cavernoma. - EEG planned for tomorrow, 01/18 - echo w/Bubble ordered - neuro checks Q4 - will hold on ST/PT/OT evaluation, symptoms have resolved - monitor daily labs, add lipid panel and A1C - start Atorvastatin 40 mg PO and Plavix 75 mg PO - continue daily ASA 81 mg - Na 131, previously 132 in 10/2023 - on venlafaxine and spironolactone which may be contributing to her intermittent hyponatremia - consider 30 day event monitoring at discharge (2) HTN (hypertension) with goal to be determined: Code(s): I10 - Essential (primary) hypertension Status: Chronic Assessment and Plan: - chronic, currently 177/89 - continue home medications: carvedilol 6.25 mg b.i.d., losartan 100 mg daily, spironolactone 25 mg daily - monitor (3) Hyperlipidemia: Qualifiers: Hyperlipidemia type: unspecified Qualified Code(s): E78.5 - Hyperlipidemia, unspecified Code(s): E78.5 - Hyperlipidemia, unspecified Status: Chronic Assessment and Plan: - on 20 mg Atorvastatin daily at home, will continue as 40 mg Lipitor daily (c/f CVA/TIA) Plan Diet: heart healthy GI Prophylaxis: Not currently indicated DVT Prophylaxis: SCDs Lines: Peripheral Code Status: full code Quality VTE Prophylaxis VTE prophylaxis: mechanical ordered Hospitalist MIPS Advance Care Plan I have confirmed that the patient's Advanced Care Plan is present, code status is documented, or surrogate decision maker is listed in patient medical record.: Yes Medication Reconciliation I have utilized all available resources to obtain, update and review the patients current medications (includes all prescriptions, OTC, herbals, cannabis, and nutritional supplements).: Yes
--- NOTE | 2024-01-18 13:39 | ED.AMS ---
HPI - Altered Mental Status General Chief Complaint: Altered Mental Status Stated Complaint: sudden onset of confusion History of Present Illness HPI narrative: Patient was on the phone when she suddenly started speaking gibberish and acting confused. Entire episode lasted several minutes, by the time she is right here, she is speaking more normally but not all the way back to normal per patient she still feels a little bit off. No new numbness or weakness. Related Data Home Medications ?Medication ?Instructions ?Recorded ?Confirmed ?Last Taken ?Type bupropion HCl 150 mg tablet,12 hr 150 mg PO QAM 12/14/18 01/18/24 01/18/24 History sustained-release trazodone 50 mg tablet 25 mg PO HS 12/14/18 01/18/24 12/21/20 20:00 History losartan 100 mg tablet 100 mg PO DAILY 12/19/18 01/18/24 01/18/24 History levothyroxine 100 mcg tablet 100 mcg PO DAILY 04/24/19 01/18/24 01/18/24 History (Synthroid) atorvastatin 10 mg tablet 10 mg PO DAILY 01/03/22 01/18/24 01/17/24 History cetirizine 10 mg capsule (Zyrtec) 10 mg PO DAILY PRN allergy symptoms 01/02/23 01/18/24 Unknown History venlafaxine 75 mg capsule,extended 37.5 mg PO DAILY 06/20/23 01/18/24 01/18/24 History release 24 hr spironolactone 25 mg tablet 12.5 mg PO DAILY 08/17/23 01/18/24 01/18/24 History Allergies Allergy/AdvReac Type Severity Reaction Status Date / Time codeine Allergy Mild LETHARGIC Verified 01/18/24 10:13 AND NON RESPONSIVE hydrocodone Allergy Unknown DIFFICULTY Verified 01/18/24 10:13 BREATHING DECREASE BP hydroxyzine Allergy Unknown Unknown Verified 01/18/24 10:13 nickel Allergy Unknown Swelling Verified 01/18/24 10:13 oxycodone Allergy Unknown DIFFICULTY Verified 01/18/24 10:13 BREATHING , DECREASE BP tetracycline Allergy Unknown ITCHING Verified 01/18/24 10:13 Review of Systems Review of Systems: All systems reviewed & are unremarkable except as noted in HPI and below [facility] Past Medical History Medical History Bradycardia, sinus 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 Chest pain Chronic sinusitis Congestive heart failure Nonischemic cardiomyopathy on echocardiogram and left heart catheterization May 2018 with an EF of about 35%. Ejection fraction improved to 55 to 60% on echocardiogram in April 2019. Grade 1 diastolic dysfunction noted on echo at that time. Coronary artery disease Status post stent to the OM1 on 04/25/2019. COVID-19 (10/2020) Depression Exposure to COVID-19 virus Hypertension Nonischemic cardiomyopathy Cardiac catheterization in May 2018 showed a left coronary dominant circulation with no coronary artery disease and ejection fraction of about 35%. EF improved to 55 to 60% on echocardiogram in April 2019. Obstructive sleep apnea on CPAP Pulmonary hypertension Moderate pulmonary hypertension noted on echocardiogram in April 2019 with an estimated pulmonary arterial systolic pressure 45 mmHg. Restless leg syndrome Syncope Vasovagal syncope Vasovagal syncope Surgical History Surgical History History of arthroplasty of right knee History of bilateral cataract extraction History of bunionectomy of left great toe History of cardiac catheterization 06/04/2018: Nonischemic cardiomyopathy with left coronary dominant circulation with no coronary artery disease and ejection fraction of approximately 35%. 04/25/2019: PTCA/drug-eluting stent to an acutely occluded OM 1 branch of the circumflex. History of detached retina repair Left eye. History of dilation and curettage Benign endometrial polyp. History of left knee replacement History of right breast biopsy For microscopic calcifications, benign pathology. History of sinus surgery Extensive sinus surgery x3 including anterior ethmoidectomy bilaterally, bilateral frontal sinusotomy, frontal sinus obliteration, and repair of CSF leak. Most recent surgery was in October 2020. Performed at [facility]. S/P coronary artery stent placement Family History Family History Sibling Cerebrovascular accident Father Family history of lung cancer, Onset Age: 81 Patient's father is Mother Patient's mother is Social History Social History Social History: The patient is and lives with her in [place]. They live in [place] for 3 months of the year. She has 2 grown children. Lifelong nonsmoker. No alcohol or illicit substance abuse. She designates her Rigoberto Wolfe as her surrogate decision maker and she wishes to be a full code. Smoking status: Never smoker Alcohol intake: never Substance use: never Do You Feel Safe in your Home?: Yes Lack of Transportation: No Lack of Food: Never True Current Housing: I Have Housing Concerned About Future Housing: No Difficulty Paying Gas/Electric Bills: No Difficulty Paying for Meds: No Currently Unemployed: No Education: High School Diploma/GED Difficulty w/ Childcare or Family Care: No Living arrangements: with family Occupation/Education: retired Gender identity (if verbalized by the patient): Female Sexual Orientation (if Verbalized by the Patient): Straight or Heterosexual Spiritual care concerns: No Exam Narrative: EXAMINATION OF ORGAN SYSTEMS/BODY AREAS: Constitutional: Vital signs per nursing GENERAL:[No acute distress, non-toxic appearing.] HEAD: Normal with no signs of head trauma. EYES: EOMI, conjunctiva normal ENT: Hearing grossly intact LUNGS: Nonlabored breathing. HEART: [Regular rate and rhythm] ABD: [Soft], [nontender to palpation] EXT: Normal range of motion SKIN: [No rashes or lesions.] NEURO: [Alert and oriented x 3. No upper or lower extremity drift, normal [id number] bilaterally, no facial droop. Does seem to have some slight word-finding difficulties.] PSYCH: Normal affect Course Vital Signs Vital signs: Vital Signs Temperature 98.6 F 01/18/24 10:02 Pulse Rate 71 01/18/24 10:02 Respiratory Rate 14 01/18/24 10:02 Blood Pressure 175/85 H 01/18/24 10:02 Pulse Oximetry 100 01/18/24 10:02 Oxygen Delivery Room Air 01/18/24 10:02 Temperature 97.2 F L 01/18/24 14:00 Pulse Rate 72 01/18/24 17:16 Respiratory Rate 18 01/18/24 14:00 Blood Pressure 163/74 H 01/18/24 14:00 Pulse Oximetry 100 01/18/24 14:00 Oxygen Delivery Room Air 01/18/24 13:50 MDM - Altered Mental Status MDM Narrative Medical decision making narrative: 78-year-old female with acute episode of confusion now largely resolved other than some possible slight word-finding difficulty. Not tPA candidate given rapid improvement and very low/ normal NIH stroke scale Case d/w Dr Liana parmar who recommends adm for MRI and EEG. D/w hospitalist for admission. Pt let me know she has screws/plates in frontal sinuses. I spoke with radiologist on-call and entry level lab technician who reviewed imaging and felt this was safe for MRI here. Lab Data 01/18/24 10:18 01/18/24 10:18 Labs: Lab Results 01/18/24 Range/Units 10:18 WBC 8.6 (4.5-10.0) K/mm3 RBC 4.04 L (4.2-5.4) M/mm3 Hgb 12.4 (12.0-15.0) g/dL Hct 37.0 (37.0-47.0) % MCV 91.6 (80-100) fl MCH 30.7 (26-34) pg MCHC 33.5 (32-36) g/dl RDW 13.0 (11.5-14.5) % Plt Count 266 (150-375) k/mm3 MPV 9.7 (7.4-10.4) fl Immature Gran % (Auto) 0.1 (0-0.5) % Neut % (Auto) 74.8 H (45.5-73.1) % Lymph % (Auto) 12.9 L (18.3-44.2) % [place] % (Auto) 8.6 H (2.6-8.5) % Eos % (Auto) 2.4 (0-4.4) % Baso % (Auto) 1.2 (0.2-1.2) % Lymph # (Auto) 1.11 (0.9-3.2) K/mm3 [place] # (Auto) 0.7 H (0.1-0.6) K/mm3 Eos # (Auto) 0.2 (0-0.3) K/mm3 Baso # (Auto) 0.1 (0.0-0.1) K/mm3 Abs Immat Gran (auto) 0.01 (0.00-0.031) K/mm3 Absolute Neuts (auto) 6.4 (1.3-6.7) K/mm3 Absolute Nucleated RBC 0.000 (0.0-0.012) K/mm3 Nucleated RBC % 0.0 (0.0-0.2) % PT 13.6 (11.1-14.7) Seconds INR 1.0 APTT 32.0 (22.3-36.8) Seconds Sodium 131 L (137-145) mmol/L Potassium 5.0 (3.4-5.0) mmol/L Chloride 99 (98-107) mmol/L Carbon Dioxide 32 H (22-30) mmol/L Anion Gap 0 L (4-12) mmol/L BUN 20 H (7-17) mg/dL Creatinine 0.80 (0.7-1.0) mg/dL Estim Creat Clear Calc 56 ml/min Estimated GFR > 60 (59 - ) Glucose 92 (65-110) mg/dL Calcium 9.2 (8.4-10.2) mg/dL Total Bilirubin 0.8 (0.2-1.3) mg/dL AST 34 (14-36) U/L ALT 18 (6-35) U/L Alkaline Phosphatase 54 (38-126) U/L Troponin I < 0.012 (0.000-0.034) ng/mL Total Protein 7.0 (6.3-8.2) g/dL Albumin 4.5 (3.5-5.1) g/dL Ethyl Alcohol < 10 (<10) mg/dL Critical Care Time Critical Care Time Critical Care Time: Yes Total Critical Care Time: 31 Discharge Plan Discharge Clinical Impression: Word finding difficulty Patient Disposition: Still a Patient Condition: Stable Quality Stroke Date of last known normal: 01/18/24 Time of last known normal: 09:30 Stroke Scale Stroke Scale 1: Stroke scale date:: 01/18/24 Stroke scale time:: 10:00 1a Level of consciousness: alert-0 1b Level of consciousness questions: answers both correctly-0 1c Level of consciousness commands: obeys both correctly-0 2 Best gaze: normal-0 3 Visual: no visual loss-0 4 Facial palsy: normal-0 5a Motor: left arm: no drift-0 5b Motor: right arm: no drift-0 6a Motor: left leg: no drift-0 6b Motor: right leg: no drift-0 7 Limb ataxia: absent-0 8 Sensory: normal-0 9 Best language: no aphasia-0 10 Dysarthria: normal-0 11 Extinction and inattention: no abnormality-0 Level:: 0
--- NOTE | 2024-01-18 13:52 | ADMGEN ---
This patient, Koki Wolfe, was admitted to Medical Room 254-01. Patient/family oriented to hospital policies and general routines including ID bracelet, bed and alarms, visiting hours, pain management, procedures, bathroom and other care routines, personal items, smoking policy, room service/diet, and visiting hours. Information on how to activate the Rapid Response Team has been discussed. Patient/Family are encouraged to report perceived risks to care and to ask questions if they do not understand what they are told or what they should do.
--- NOTE | 2024-01-18 14:08 | ECHO_ITS ---
Patient Info Name: Koki Wolfe Age: 78 years : 1945 Gender: Female Ht: 65 in Wt: 191 lbs BSA: 2.02 m2 HR: 68 bpm BP: 177 / 89 mmHg Technical Quality: Poor Exam Date: 01/18/2024 2:59 PM Exam Location: Echo Lab Patient Status: Inpatient Admit Date: 01/18/2024 Staff Ordering Physician: Lashon Warren APRN Camp Assistant: Paramjit Brown RDCS Attending Provider: Corona Sheffield MD Referring Physician: Briana OLIVER; Exam Type: CA echo dop bubble study w con Study Info Indications - CVA WORKUP - TIA Complete two-dimentional, color flow and Doppler transthoracic echocardiogram is performed with agitated saline and with contrast to opacify the left ventricle and to improve the delineation of the left ventricle endocardial borders. Contrast/Agitated Saline Contrast/Ag. Saline: Agitated Saline Amount: 20.00 ml Existing IV Access: Yes Contrast/Ag. Saline: Definity Amount: 2.00 ml Existing IV Access: Yes Reason for Poor Study: poor echocardiographic windows Summary 1. Left ventricular chamber dimension is normal. 2. There is moderate-severely increased left ventricular wall thickness. 3. Left ventricular systolic function is normal with an ejection fraction by Biplane Method of Discs of 66 %. 4. The left ventricular diastolic function is grade I diastolic dysfunction. 5. Mid-distal ant-lateral wall is hypokinetic. 6. Right ventricular chamber dimension is normal. 7. Right ventricular systolic function is normal. 8. There is mild mitral valve regurgitation. 9. PASP cannot be 10. estimated as there is insufficient TR jet. 11. There is trivial pericardial effusion. 12. Intact interatrial septum visualized by agitated saline imaging. Left Ventricle Left ventricular chamber dimension is normal. There is moderate-severely increased left ventricular wall thickness. Left ventricular systolic function is normal with an ejection fraction by Biplane Method of Discs of 66 %. The left ventricular diastolic function is grade I diastolic dysfunction. Mid-distal ant-lateral wall is hypokinetic. Right Ventricle Right ventricular chamber dimension is normal. Right ventricular systolic function is normal. Left Atria Left atrial chamber dimension is normal. Right Atria Right atrial chamber dimension is normal. Atrial Septum Intact interatrial septum visualized by agitated saline imaging. Aortic Valve Aortic valve is not well visualized. There is no aortic valve regurgitation. There is no aortic valve stenosis with a peak velocity of 148 cm/s, mean gradient of 5 mmHg, and aortic valve area of 1.7 cm2. Mitral Valve There is mild mitral valve regurgitation. There is no mitral valve stenosis. Tricuspid Valve There is no tricuspid valve regurgitation. PASP cannot be estimated as there is insufficient TR jet. Pericardium/Pleural There is trivial pericardial effusion. Inferior Vena Cava Normal inferior vena cava with >50% collapse upon inspiration consistent with normal right atrial pressure, 3 mmHg. Left Ventricular Outflow Tract Name Value Normal LVOT 2D LVOT Diameter 1.8 cm LVOT Doppler LVOT Peak Gradient 3 mmHg LVOT Mean Gradient 2 mmHg LVOT VTI 21 cm LVOT VTI/AV VTI Ratio 0.7 LVOT Stroke Volume 54 ml LVOT CO 3.4 l/min LVOT CI 1.7 l/min/m2 Pulmonic Valve Name Value Normal RVOT Doppler RVOT Peak Gradient 3 mmHg PV Doppler PV Peak Gradient 3 mmHg Mitral Valve Name Value Normal MV Doppler MV Peak Gradient 4 mmHg MV Mean Gradient 2 mmHg MV Decel [place] 436 cm/s2 MV PHT 39 ms MV Area (PHT) 5.6 cm2 4.0-5.0 MV Area (Cont Eq VTI) 1.8 cm2 MV Diastolic Function MV E Peak Velocity 59 cm/s MV A Peak Velocity 82 cm/s MV E/A 0.7 MV Decel Time 135 ms MV Annular TDI MV E/e' (Septal) 12.8 <=8.0 MV E/e' (Lateral) 8.7 <=8.0 MV E/e' (Average) 10.8 Tricuspid Valve Name Value Normal Estimated PAP/RSVP RA Pressure 3 mmHg <=5 Aorta Name Value Normal Ascending Aorta Ao Root Diameter (MM) 2.5 cm Ao Root Diam Index (MM) 1.3 cm/m2 Aortic Valve Name Value Normal AV Doppler AV Peak Velocity 148 cm/s AV Peak Gradient 9 mmHg AV Mean Gradient 5 mmHg AV VTI 32 cm AV Area (Cont Eq VTI) 1.7 cm2 >=3.0 AV Area (Cont Eq Shreyas) 1.4 cm2 AV Regurgitation 2D LVOT Area 2.5 cm2 Ventricles Name Value Normal LV Dimensions 2D/MM IVS Diastolic Thickness (2D) 1.5 cm 0.6-1.0 LVID Diastole (2D) 4.4 cm 3.8-5.2 LVIW Diastolic Thickness (2D) 1.6 cm 0.6-0.9 LVID Systole (2D) 2.8 cm 2.2-3.5 LVOT Diameter 1.8 cm LV Mass (2D Cubed) 290.19 g 67.00-162.00 LV Mass Index (2D Cubed) 143 g/m2 43-95 Relative Wall Thickness (2D) 0.74 LV Fractional Shortening/Ejection Fraction 2D/MM LV Fractional Shortening (2D) 36 % 27-45 LV EF (2D Teicholz) 65 % 54-74 LV Diastolic Volume (4C MOD) 69 ml LV EF (4C MOD) 62 % LV Diastolic Volume (2C MOD) 62 ml LV EF (2C MOD) 70 % LV Diastolic Volume (BP MOD) 66 ml 46-106 LV Diastolic Volume Index (BP MOD) 33 ml/m2 29-61 LV Systolic Volume (BP MOD) 22 ml 14-42 LV Systolic Volume Index (BP MOD) 11 ml/m2 8-24 LV EF (BP MOD) 66 % 54-74 LV Diastolic Length (4C) 7.3 cm LV Systolic Length (4C) 6.2 cm LV Stroke Volume (4C MOD) 43 ml Atria Name Value Normal LA Dimensions LA Dimension (MM) 3.8 cm 2.7-3.8 LA Volume (4C A-L) 48 ml LA Volume (BP A-L) 47 ml RA Dimensions RA Area (4C) 15.8 cm2 <=18.0 Report Signatures Amended by Williams Hunter on 01/19/2024 16:24
[2024-01-18 15:16] LABS: Add Urine Microscopic? NO; Appearance Urine Clear (Clear); Bilirubin Urine Negative (Negative); Blood Urine Negative (Negative); Color Urine Yellow (Yellow); Glucose Urine UA Negative (Negative); Ketones Urine Negative (Negative); Leukocyte Esterase Ur Negative LEU/UL (Negative); Nitrate Urine Negative (Negative); Protein Urine Negative (Negative); Specific Grav Ur 1.022 (1.001-1.035); Urobilinogen Urine 0.2 mg/dL (<2.0); pH Urine 7.5 (5.0-9.0)
[2024-01-18] MEDS: PERFLUTREN LIPID MICROSPHERES 1.5 ML VIAL DILUTED TO 10 ML TOTAL VOLUME IV PUSH (15:50)
--- NOTE | 2024-01-18 16:10 | IVDEFINITY ---
Prior to administration of IV Definity the patient was educated on the risks and benefits of the imaging enhancing agent including potential adverse side effects. The patient verbalized understanding. Allergies were verified. No exclusion criteria were identified and at least one of the following inclusion criteria were met: 1) physician request, 2) patient technically difficult to image (per the [place] [employer]chocardi[employer] guidelines of two or more segments not discernable within the apical view), or 3) questionable left ventricular function. ?
--- NOTE | 2024-01-18 18:25 | WPDNEURCNPN ---
Assessment and Plan Assessment and plan (1) Complex partial seizures: Code(s): G40.209 - Localization-related (focal) (partial) symptomatic epilepsy and epileptic syndromes with complex partial seizures, not intractable, without status epilepticus Status: Acute Assessment and Plan: this of course is not a established diagnosis of but is 1 of the possibility and the differential diagnosis will be with a transient ischemic attack. Patient and her feel this is all because of low serum sodium and they are going to follow up with a english language arts teacher in this regard. EEG has been requested to be done tomorrow. CT angiogram and MRI of the brain were performed and I have reviewed these and these did not show any significant abnormality. Her serum sodium was 131 which did not seem to be low enough to cause an episode such as this and also I suspect that she has a chronically low serum sodium however if it can be shown there is a significant shift in the serum sodium leading to these spells that could be an acceptable explanation in some cases. This will require serial studies or at least a few days of the follow-up serum sodium even when she is not having the symptoms to see if this is a chronic situation or episodic hyponatremia. The differential diagnosis a partial complex seizure need be borne in mind. I shall be glad to see her in my office if they wish to but it appears that they are fairly convinced that this is all because earlier low serum sodium at that did that for last 10 years and hence I doubt they will seek any other in. her LDL was 64 in June 2023. She is currently on atorvastatin 40 mg a day which may continue. Hence I do not have any additional comments however based upon the EEG I can let her know. (2) Hyponatremia syndrome: Code(s): E87.1 - Hypo-osmolality and hyponatremia Status: Acute Assessment and Plan: She should be followed up by Nephrology in this regard. (3) Congestive heart failure: Code(s): I50.9 - Heart failure, unspecified Status: Acute (4) HTN (hypertension) with goal to be determined: Code(s): I10 - Essential (primary) hypertension Status: Chronic Plan Please see discussion given above. Consult date: 01/18/24 HPI: Koki Wolfe is a 78 year old female with history of chronic hyponatremia presented to the hospital with the spell of slurring of the speech and confusional state while she was talking to someone over the phone observed by her . Apparently the patient became confused which lasted for well over an hour. If in fact was ongoing for nearly whole day that she was feeling somewhat foggy however her ability to speak improved. Initially see was calling her as her son. All these since improved. She has had a spell like this at least 6 times in the last 10 years. These all have been attributed to hyponatremia according to her and the patient. Her serum sodium was around 131 today and in the past it has ranged from 132-138 on the records. She follows with a english language arts teacher in this regard her serum TSH and cortisol were reported to be normal and renal function is also within normal range at this time. Previously she has had a spell where she actually passed out after which she became confused. No history of myocardial infarction or stroke however she has had CSF leak between 95 and 97 and she also has had cardiac problem which subsequently improved. There is a history of congestive cardiac failure which is tab lies later on with medications. She is on a low-dose spironolactone. Current medications and history are reviewed. No history of major head trauma. She has not had any witnessed seizure-like activity. Review of Systems Review of Systems: All systems reviewed & are unremarkable except as noted in HPI and below PMFSH Past Medical History Medical History (Updated 01/18/24 @ 18:30 by Leslie Gaines MD) Hyponatremia syndrome Complex partial seizures Vasovagal syncope Coronary artery disease Status post stent to the OM1 on 04/25/2019. Congestive heart failure Nonischemic cardiomyopathy on echocardiogram and left heart catheterization May 2018 with an EF of about 35%. Ejection fraction improved to 55 to 60% on echocardiogram in April 2019. Grade 1 diastolic dysfunction noted on echo at that time. Pulmonary hypertension Moderate pulmonary hypertension noted on echocardiogram in April 2019 with an estimated pulmonary arterial systolic pressure 45 mmHg. Nonischemic cardiomyopathy Cardiac catheterization in May 2018 showed a left coronary dominant circulation with no coronary artery disease and ejection fraction of about 35%. EF improved to 55 to 60% on echocardiogram in April 2019. Syncope 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 Obstructive sleep apnea on CPAP Hypertension Bradycardia, sinus COVID-19 (10/2020) Exposure to COVID-19 virus Restless leg syndrome Chest pain Vasovagal syncope Depression Chronic sinusitis Surgical History Surgical History History of left knee replacement History of cardiac catheterization 06/04/2018: Nonischemic cardiomyopathy with left coronary dominant circulation with no coronary artery disease and ejection fraction of approximately 35%. 04/25/2019: PTCA/drug-eluting stent to an acutely occluded OM 1 branch of the circumflex. History of sinus surgery Extensive sinus surgery x3 including anterior ethmoidectomy bilaterally, bilateral frontal sinusotomy, frontal sinus obliteration, and repair of CSF leak. Most recent surgery was in October 2020. Performed at [facility]. History of detached retina repair Left eye. History of arthroplasty of right knee History of right breast biopsy For microscopic calcifications, benign pathology. History of bunionectomy of left great toe History of dilation and curettage Benign endometrial polyp. History of bilateral cataract extraction S/P coronary artery stent placement Family History Family History Sibling Cerebrovascular accident Father Family history of lung cancer, Onset Age: 81 Patient's father is Mother Patient's mother is Social History Social History Social History: The patient is and lives with her in [place]. They live in [place] for 3 months of the year. She has 2 grown children. Lifelong nonsmoker. No alcohol or illicit substance abuse. She designates her Rigoberto Wolfe as her surrogate decision maker and she wishes to be a full code. Smoking status: Never smoker Alcohol intake: never Substance use: never Do You Feel Safe in your Home?: Yes Lack of Transportation: No Lack of Food: Never True Current Housing: I Have Housing Concerned About Future Housing: No Difficulty Paying Gas/Electric Bills: No Difficulty Paying for Meds: No Currently Unemployed: No Education: High School Diploma/GED Difficulty w/ Childcare or Family Care: No Living arrangements: with family Occupation/Education: retired Gender identity (if verbalized by the patient): Female Sexual Orientation (if Verbalized by the Patient): Straight or Heterosexual Spiritual care concerns: No Meds Home Medications and Allergies Home Medications ?Medication ?Instructions ?Recorded ?Confirmed ?Type bupropion HCl 150 mg tablet,12 hr 150 mg PO QAM 12/14/18 01/18/24 History sustained-release trazodone 50 mg tablet 25 mg PO HS 12/14/18 01/18/24 History losartan 100 mg tablet 100 mg PO DAILY 12/19/18 01/18/24 History levothyroxine 100 mcg tablet 100 mcg PO DAILY 04/24/19 01/18/24 History (Synthroid) aspirin 81 mg chewable tablet 81 mg PO DAILY@0800 #30 tabs 04/27/19 01/18/24 Rx (Children's Aspirin) carvedilol 6.25 mg tablet (Coreg) 6.25 mg PO Q12HR #60 tabs 04/27/19 01/18/24 Rx atorvastatin 10 mg tablet 10 mg PO DAILY 01/03/22 01/18/24 History cetirizine 10 mg capsule (Zyrtec) 10 mg PO DAILY PRN allergy symptoms 01/02/23 01/18/24 History venlafaxine 75 mg capsule,extended 37.5 mg PO DAILY 06/20/23 01/18/24 History release 24 hr spironolactone 25 mg tablet 12.5 mg PO DAILY 08/17/23 01/18/24 History Allergies Allergy/AdvReac Type Severity Reaction Status Date / Time codeine Allergy Mild LETHARGIC Verified 01/18/24 10:13 AND NON RESPONSIVE hydrocodone Allergy Unknown DIFFICULTY Verified 01/18/24 10:13 BREATHING DECREASE BP hydroxyzine Allergy Unknown Unknown Verified 01/18/24 10:13 nickel Allergy Unknown Swelling Verified 01/18/24 10:13 oxycodone Allergy Unknown DIFFICULTY Verified 01/18/24 10:13 BREATHING , DECREASE BP tetracycline Allergy Unknown ITCHING Verified 01/18/24 10:13 Vital Signs Vital Signs - 24 hr 01/18/24 10:02 01/18/24 13:02 01/18/24 13:50 Temperature 98.6 F Pulse Rate 71 68 Respiratory Rate 14 12 Blood Pressure 175/85 H 177/89 H Pulse Oximetry 100 100 Oxygen Delivery Room Air Room Air 01/18/24 14:00 01/18/24 17:16 Temperature 97.2 F L Pulse Rate 65 72 Respiratory Rate 18 Blood Pressure 163/74 H Pulse Oximetry 100 Oxygen Delivery Exam Const: General: cooperative, well developed and alert Orientation/consciousness: patient oriented x3 HENMT: Head: atraumatic Eyes: Alignment and Position: position normal Pupils: Equal, round and reactive pupils present EOM: EOMs intact bilaterally Neck: Neck: supple Resp: Effort & Inspection: normal respiratory effort Neuro: General: patient oriented x3 Cranial nerves: Yes CN's II-XII intact bilaterally, Yes facial sensation intact/muscles of mastication intact, Yes Equal, round and reactive pupils present, Yes facial symmetry and Yes Midline tongue present Cognition (Neuro): normal cognition Speech: normal speech Gait exam (Neuro): Normal gait present Motor exam (neuro): 5/5 motor strength present throughout Sensory Exam: normal sensation Coordination: [id number] test normal and Normal rapid alternating movements of the distal upper extremity present (Neuro) Results Labs 01/18/24 10:18 01/18/24 10:18 Labs: Short CBC 01/18/24 Range/Units 10:18 WBC 8.6 (4.5-10.0) K/mm3 Hgb 12.4 (12.0-15.0) g/dL Hct 37.0 (37.0-47.0) % Plt Count 266 (150-375) k/mm3 BMP 01/18/24 10:18 Sodium 131 L Potassium 5.0 Chloride 99 Carbon Dioxide 32 H BUN 20 H Creatinine 0.80 Glucose 92 Calcium 9.2 Cardiac Enzymes 01/18/24 Range/Units 10:18 Troponin I < 0.012 (0.000-0.034) ng/mL Liver Function 01/18/24 Range/Units 10:18 Total Bilirubin 0.8 (0.2-1.3) mg/dL AST 34 (14-36) U/L ALT 18 (6-35) U/L Alkaline Phosphatase 54 (38-126) U/L Albumin 4.5 (3.5-5.1) g/dL Urine 01/18/24 Range/Units 15:08 Urine Color Yellow (Yellow) Urine Appearance Clear (Clear) Urine pH 7.5 (5.0-9.0) Ur Specific [place] 1.022 (1.001-1.035) Urine Protein Negative (Negative) mg/dL Urine Glucose (UA) Negative (Negative) mg/dL
[2024-01-18] MEDS: carvediloL 6.25 MG TABLET PO (20:40)
[2024-01-18] MEDS: traZODone HCL 25 MG TABLET PO (20:40)
[2024-01-18] MEDS: ATORVASTATIN 40 MG TABLET PO (21:40)
[2024-01-19] VITALS (8 sets, daily range): BP systolic 127–142; BP diastolic 43–70; PULSE 63–80; RESP 16–18; TEMP 36–36.4; O2SAT 97–99
[2024-01-19] MEDS: LEVOTHYROXINE SODIUM 100 MCG TABLET PO (05:36)
[2024-01-19 05:37] LABS: Basophils Absolute Auto 0.1 K/mm3 (0.0-0.1); Basophils Percent Auto 1.2 % (0.2-1.2); Eosinophils Absolute Auto 0.2 K/mm3 (0-0.3); Eosinophils Percent Auto 2.5 % (0-4.4); Hematocrit 35.3 % (37.0-47.0); Immature Granulocyte Absolute 0.02 K/mm3 (0.00-0.031); Immature Granulocyte Percent A 0.2 % (0-0.5); Lymphocytes Absolute Auto 1.76 K/mm3 (0.9-3.2); Lymphocytes Percent Auto 21.4 % (18.3-44.2); Mean Corpuscular Hemoglobin 30.5 pg (26-34); Mean Corpuscular Volume 89.6 fl (80-100); Mean Platelet Volume 9.7 fl (7.4-10.4); Monocytes Absolute Auto 0.8 K/mm3 (0.1-0.6); Monocytes Percent Auto 10.1 % (2.6-8.5); Neutrophils Absolute Auto 5.3 K/mm3 (1.3-6.7); Neutrophils Percent Auto 64.6 % (45.5-73.1); Platelet Count Result 263 k/mm3 (150-375); Red Blood Count 3.94 M/mm3 (4.2-5.4); Red Cell Distribution Width 12.8 % (11.5-14.5); White Blood Count 8.2 K/mm3 (4.5-10.0)
[2024-01-19 05:55] LABS: Anion Gap 4 mmol/L (4-12); Blood Urea Nitrogen 21 mg/dL (7-17); Calcium 9.3 mg/dL (8.4-10.2); Carbon Dioxide 27 mmol/L (22-30); Chloride 102 mmol/L (98-107); Cholesterol 150 mg/dL (0-200); Estimated CRCL calculation 45 ml/min; Estimated Glomerular Filt Rate 54; Glucose 84 mg/dL (65-110); HDL Direct 59 mg/dL; Potassium 4.1 mmol/L (3.4-5.0); Sodium 133 mmol/L (137-145); Triglycerides 93 mg/dL (<150)
[2024-01-19 06:06] LABS: LDL Cholesterol Direct 51 mg/dL
--- NOTE | 2024-01-19 08:41 | PM.IMPN ---
Progress Note: A&P Assessment and Plan (1) Word finding difficulty: Code(s): R47.89 - Other speech disturbances Status: Acute Assessment and Plan: New deficits of word-finding difficulty starting on 01/18/24 at around 9:00 a.m.. Last known well at 01/18/24 at 8:30 a.m. Ddx includes partial complex seizure vs tia vs hyponatremia - admission for observation and telemetry - not candidate for thrombolytics due to resolution of symptoms - not candidate for thrombectomy, no LVO on CTA - CXR: no acute cardiopulmonary process - UA unremarkable - CTA head/neck: 1. No evident atherosclerotic plaque with 0% stenosis of the right and left carotid bulbs relative to normal distal artery lumen diameter (NASCET criteria). 2. Normal aging brain with mild scattered white matter hypoattenuation consistent with chronic small vessel ischemic disease. No other acute intracranial process. 3. Unremarkable cerebral CT angiogram with no significant stenosis, thrombosis or dissection. - brain MRI: chronic small focus of old blood products in right cerebellum, which is indeterminate for a cavernoma. - echo w/Bubble: LVEF 66& with grade 1 diastolic dysfunction - EEG planned for tomorrow, 01/18 - neuro checks Q4 - will hold on ST/PT/OT evaluation, symptoms have resolved - monitor daily labs, add lipid panel and A1C - start Atorvastatin 40 mg PO and Plavix 75 mg PO - continue daily ASA 81 mg - Na 131, previously 132 in 10/2023 - on venlafaxine and spironolactone which may be contributing to her intermittent hyponatremia - consider 30 day event monitoring at discharge - neurology consulted, awaiting formal recs I shall be glad to see her in my office if they wish to but it appears that they are fairly convinced that this is all because low serum sodium. Her LDL was 64 in June 2023. She is currently on atorvastatin 40 mg a day which may continue. Hence I do not have any additional comments however based upon the EEG I can let her know. (2) HTN (hypertension) with goal to be determined: Code(s): I10 - Essential (primary) hypertension Status: Chronic Assessment and Plan: - chronic - continue home medications: carvedilol 6.25 mg b.i.d., losartan 100 mg daily, spironolactone 25 mg daily - monitor (3) Hyperlipidemia: Qualifiers: Hyperlipidemia type: unspecified Qualified Code(s): E78.5 - Hyperlipidemia, unspecified Code(s): E78.5 - Hyperlipidemia, unspecified Status: Chronic Assessment and Plan: - on 20 mg Atorvastatin daily at home, will continue as 40 mg Lipitor daily (c/f CVA/TIA) (4) Hyponatremia syndrome: Code(s): E87.1 - Hypo-osmolality and hyponatremia Status: Acute Assessment and Plan: Her serum sodium was 131 which did not seem to be low enough to cause an episode such as this and also I suspect that she has a chronically low serum sodium however if it can be shown there is a significant shift in the serum sodium leading to these spells that could be an acceptable explanation in some cases. This will require serial studies or at least a few days of the follow-up serum sodium even when she is not having the symptoms to see if this is a chronic situation or episodic hyponatremia. Patient and her feel this is all because of low serum sodium and they are going to follow up with a composition board press operator in this regard. Plan Diet: heart healthy GI Prophylaxis: Not currently indicated DVT Prophylaxis: SCDs Lines: Peripheral Code Status: full code Subjective Date/time seen: 01/19/24 08:41 Review of Systems Review of Systems: All systems reviewed & are unremarkable except as noted in HPI and below Exam Narrative: AF General: well nourished, well-developed female in no acute respiratory distress who is nontoxic appearing, lying semi recumbent in bed. HEENT: Normocephalic. Atraumatic. Pupils equal round reactive to light. Extraocular movement intact. Sclera clear and anicteric. Nares patent. No oral lesions. Moist mucous membranes. Tongue is midline. Palate vito symmetrically. No facial asymmetry. Neck: Neck was supple. No dominant adenopathy, thyromegaly or masses. 2+ carotid upstrokes without bruits. Chest: Lungs are clear to auscultation bilaterlly. No wheezes or crackles. CV: Heart was regular rate and rhythm. S1-S2. No murmurs, gallops, or rubs. Abd: Abdomen was soft. Nontender. Nondistended. Postive bowel sounds. No organomegaly or masses. Ext: No clubbing, cyanosis, or edema. 2+ DP pulses bilaterally. Neuro: Patient is alert and oriented x4. Strenth is 5/5 in both upper and lower extremities. Cranial nerves 2-12 are intact. Speech is clear. Psych: Normal nood and affect. Patient is pleasant and cooperative. Skin: Warm and dry. No rashes noted. Objective Data Vital Signs Vital Signs: Vital Signs - 24 hr 01/18/24 10:02 01/18/24 13:02 01/18/24 13:50 Temperature 98.6 F Pulse Rate 71 68 Respiratory Rate 14 12 Blood Pressure 175/85 H 177/89 H Pulse Oximetry 100 100 Oxygen Delivery Room Air Room Air 01/18/24 14:00 01/18/24 17:16 01/18/24 19:57 Temperature 97.2 F L 97.8 F Pulse Rate 65 72 66 Respiratory Rate 18 18 Blood Pressure 163/74 H 155/65 H Pulse Oximetry 100 96 Oxygen Delivery 01/18/24 20:00 01/18/24 20:40 01/18/24 23:57 Temperature 97.8 F Pulse Rate 67 66 75 Respiratory Rate 16 Blood Pressure 135/49 L Pulse Oximetry 98 Oxygen Delivery 01/19/24 00:00 01/19/24 04:00 01/19/24 04:55 Temperature 97.6 F Pulse Rate 78 80 76 Respiratory Rate 16 Blood Pressure 131/43 L Pulse Oximetry 97 Oxygen Delivery 01/19/24 07:53 Temperature 97.2 F L Pulse Rate 65 Respiratory Rate 18 Blood Pressure 127/70 Pulse Oximetry 98 Oxygen Delivery Intake/Output Intake/Output: Intake & Output 01/16/24 01/17/24 01/18/24 01/19/24 23:59 23:59 23:59 23:59 Intake Total 480 550 Balance 480 550 Meds/Results Medications: Active Medications Generic Name Dose Route Start Last Admin Trade Name Freq PRN Reason Stop Dose Admin Aspirin 81 mg 01/19/24 09:00 Aspirin 81 Mg Enteric Tablet PO QAM UMBERTO Atorvastatin Calcium 40 mg 01/18/24 21:00 01/18/24 21:40 Atorvastatin 40 Mg Tablet PO 40 mg HS UMBERTO Administration Bupropion HCl 150 mg 01/19/24 09:00 Bupropion Hcl Sr (12 Hr) 150 Mg Tab PO QAM UMBERTO Carvedilol 6.25 mg 01/18/24 21:00 01/18/24 20:40 Carvedilol 6.25 Mg Tablet PO 6.25 mg Q12HR UMBERTO Administration Clopidogrel Bisulfate 75 mg 01/19/24 09:00 Clopidogrel Bisulfate 75 Mg Tablet PO QAM [facility] Levothyroxine Sodium 100 mcg 01/19/24 06:30 01/19/24 05:36 Levothyroxine Sodium 100 Mcg Tablet PO 100 mcg DAILY@0630 [facility] Administration Loratadine 10 mg 01/18/24 18:21 Loratadine 10 Mg Tablet PO DAILY PRN allergy symptoms Losartan Potassium 100 mg 01/19/24 09:00 Losartan Potassium 100 Mg Tablet PO DAILY UMBERTO Spironolactone 12.5 mg 01/19/24 09:00 Spironolactone 12.5 Mg Tablet PO DAILY UMBERTO Trazodone HCl 25 mg 01/18/24 21:00 01/18/24 20:40 Trazodone Hcl 25 Mg Tablet PO 25 mg HS UMBERTO Administration Venlafaxine HCl 37.5 mg 01/19/24 09:00 Venlafaxine Hcl Xr 37.5 Mg Cap PO DAILY [facility] Radiology Results: ITS Impressions Head/Neck CTA 01/18/24 11:09 IMPRESSION: 1. No evident atherosclerotic plaque with 0% stenosis of the right and left carotid bulbs relative to normal distal artery lumen diameter (NASCET criteria). 2. Normal aging brain with mild scattered white matter hypoattenuation consistent with chronic small vessel ischemic disease. No other acute intracranial process. 3. Unremarkable cerebral CT angiogram with no significant stenosis, thrombosis or dissection. Chest X-Ray 01/18/24 14:53 IMPRESSION: 1: NO ACUTE CARDIOPULMONARY DISEASE. Brain MRI 01/18/24 16:50 IMPRESSION: 1. Chronic small focus of old blood products in right cerebellum, which is indeterminate for a cavernoma. Labs Labs: Laboratory Results - last 24 hr 01/18/24 01/18/24 01/19/24 10:18 15:08 05:13 WBC 8.6 8.2 RBC 4.04 L 3.94 L Hgb 12.4 12.0 Hct 37.0 35.3 L MCV 91.6 89.6 MCH 30.7 30.5 MCHC 33.5 34.0 RDW 13.0 12.8 Plt Count 266 263 MPV 9.7 9.7 Immature Gran % (Auto) 0.1 0.2 Neut % (Auto) 74.8 H 64.6 Lymph % (Auto) 12.9 L 21.4 [place] % (Auto) 8.6 H 10.1 H Eos % (Auto) 2.4 2.5 Baso % (Auto) 1.2 1.2 Lymph # (Auto) 1.11 1.76 [place] # (Auto) 0.7 H 0.8 H Eos # (Auto) 0.2 0.2 Baso # (Auto) 0.1 0.1 Abs Immat Gran (auto) 0.01 0.02 Absolute Neuts (auto) 6.4 5.3 Absolute Nucleated RBC 0.000 0.000 Nucleated RBC % 0.0 0.0 PT 13.6 INR 1.0 APTT 32.0 Sodium 131 L 133 L Potassium 5.0 4.1 Chloride 99 102 Carbon Dioxide 32 H 27 Anion Gap 0 L 4 BUN 20 H 21 H Creatinine 0.80 1.00 Estim Creat Clear Calc 56 45 Estimated GFR > 60 54 L Glucose 92 84 Hemoglobin A1c 5.0 Calcium 9.2 9.3 Total Bilirubin 0.8 AST 34 ALT 18 Alkaline Phosphatase 54 Troponin I < 0.012 Total Protein 7.0 Albumin 4.5 Triglycerides 93 Cholesterol 150 LDL Cholesterol Direct 51 HDL Direct 59 TSH (Reflex) 2.900 Urine Color Yellow Urine Appearance Clear Urine pH 7.5 Ur Specific [place] 1.022 Urine Protein Negative Urine Glucose (UA) Negative Urine Ketones Negative Ur Blood (Man) Negative Urine Nitrate Negative Urine Bilirubin Negative Urine Urobilinogen 0.2 Leukocyte Esterase Rfl Negative Ethyl Alcohol < 10 Quality VTE Prophylaxis VTE prophylaxis: mechanical ordered
[2024-01-19] MEDS: LOSARTAN POTASSIUM 100 MG TABLET PO (09:39)
[2024-01-19] MEDS: CLOPIDOGREL BISULFATE 75 MG TABLET PO (09:39)
[2024-01-19] MEDS: buPROPion HCL SR (12 HR) 150 MG TAB PO (09:39)
[2024-01-19] MEDS: carvediloL 6.25 MG TABLET PO (09:39)
[2024-01-19] MEDS: SPIRONOLACTONE 12.5 MG TABLET PO (09:39)
[2024-01-19] MEDS: ASPIRIN 81 MG ENTERIC TABLET PO (09:39)
[2024-01-19] MEDS: VENLAFAXINE HCL XR 37.5 MG CAP PO (09:40)
--- NOTE | 2024-01-19 12:54 | P.DS_ITS ---
DS: Admitting Diagnosis Discharge Date 01/19/2024 Admitting Diagnosis Word finding difficulty HTN HLD Hyponatremia syndrome DS: Discharge Diagnosis Discharge Diagnosis (1) Word finding difficulty: Code(s): R47.89 - Other speech disturbances Status: Acute (2) HTN (hypertension) with goal to be determined: Code(s): I10 - Essential (primary) hypertension Status: Chronic (3) Hyperlipidemia: Qualifiers: Hyperlipidemia type: unspecified Qualified Code(s): E78.5 - Hyperlipidemia, unspecified Code(s): E78.5 - Hyperlipidemia, unspecified Status: Chronic (4) Hyponatremia syndrome: Code(s): E87.1 - Hypo-osmolality and hyponatremia Status: Acute DS: Summary Hospital Course Reason for hospitalization: Word finding difficulty HTN HLD Hyponatremia syndrome Hospital Course: 78 y/o F with PMH of CSF leak (s/p repair in 1996 and 2020), CHF, CAD, depression, hypertension, nonischemic cardiomyopathy, myocardial infarction, NÉSTOR on CPAP, pulmonary hypertension, and RLS presents to the hospital with word- finding difficulty that lasted approximately 30 minutes. On arrival patients symptoms had completely resolved. Patients vitals stable. Labs unremarkable other than a slightly low sodium level of 131 which did not seem to be low enough to cause an episode such as this. Sodium level continues to improve during admission. Patient plans to follow up with her glass blowing lathe operator in this regard in the outpatient setting. She had a CT head/neck was obtained and showed no evident atherosclerotic plaque with 0% stenosis of the right and left carotid bulbs, normal aging brain with mild scattered white matter hypoattenuation consistent with chronic small vessel ischemic disease. No other acute intracranial process, and unremarkable cerebral CT angiogram with no significant stenosis, thrombosis or dissection. A brain MRI showed chronic small focus of old blood products in right cerebellum, which is indeterminate for a cavernoma. An echo w/Bubble showed LVEF 66% with grade 1 diastolic dysfunction. EEG was performed as there is concern for seizure activity, results pending. Neurology was consulted and started on plavix 75 mg daily, Atorvastatin dose increased to 40 mg PO and she is to continue daily ASA 81 mg. Prior to discharge discussed patient with Dr. Gaines who agrees with the concern for possible seizure. Patient to be discharged on keppra 750 mg BID with plan to follow up in his office. Also sent her with a 2 week monitor worker to rule out any arrhythmias. At time of discharge patient has no complaints denying chest pain, shortness of breath, nausea/vomiting, abdominal pain, weakness/dizziness, difficulty with words, headaches and visions changes. Patient discharged home in a stable condition. She is to continue her new medications as prescribed and follow up with her primary care in 1 week and neurology as scheduled. Status at Discharge Functional status at discharge: independent ambulation Time Spent with Patient Time attestation: Total time spent providing and/or coordinating discharge services: Time spent: Greater than 30 minutes Exam Narrative: AF HR 63 RR 18 SPO2 99 BP 142/65 General: female in no acute respiratory distress who is nontoxic appearing, lying semi recumbent in bed. HEENT: Normocephalic. Atraumatic. Pupils equal round reactive to light. Extraocular movement intact. Sclera clear and anicteric. No facial asymmetry. Chest: Lungs are clear to auscultation bilaterally. No wheezes or crackles. CV: Heart was regular rate and rhythm. S1-S2. No murmurs, gallops, or rubs. Abd: Abdomen was soft. Nontender. Nondistended. Positive bowel sounds. No org anomegaly or masses. Ext: No clubbing, cyanosis, or edema. 2+ DP pulses bilaterally. Neuro: Patient is alert and oriented x4. Strength is 5/5 in both upper and lower extremities. Cranial nerves 2-12 are intact. Speech is clear. DS: Data Data Completed and Pending Completed studies during hospitalization: Brain MRI Chest XR Head/neck CTA Labs on day of discharge: Labs from last 24 hours 01/19/24 01/18/24 05:13 15:08 WBC 8.2 RBC 3.94 L Hgb 12.0 Hct 35.3 L MCV 89.6 MCH 30.5 MCHC 34.0 RDW 12.8 Plt Count 263 MPV 9.7 Immature Gran % (Auto) 0.2 Neut % (Auto) 64.6 Lymph % (Auto) 21.4 [place] % (Auto) 10.1 H Eos % (Auto) 2.5 Baso % (Auto) 1.2 Lymph # (Auto) 1.76 [place] # (Auto) 0.8 H Eos # (Auto) 0.2 Baso # (Auto) 0.1 Abs Immat Gran (auto) 0.02 Absolute Neuts (auto) 5.3 Absolute Nucleated RBC 0.000 Nucleated RBC % 0.0 Sodium 133 L Potassium 4.1 Chloride 102 Carbon Dioxide 27 Anion Gap 4 BUN 21 H Creatinine 1.00 Estim Creat Clear Calc 45 Estimated GFR 54 L Glucose 84 Hemoglobin A1c 5.0 Calcium 9.3 Triglycerides 93 Cholesterol 150 LDL Cholesterol Direct 51 HDL Direct 59 TSH (Reflex) 2.900 Urine Color Yellow Urine Appearance Clear Urine pH 7.5 Ur Specific [place] 1.022 Urine Protein Negative Urine Glucose (UA) Negative Urine Ketones Negative Ur Blood (Man) Negative Urine Nitrate Negative Urine Bilirubin Negative Urine Urobilinogen 0.2 Leukocyte Esterase Rfl Negative Discharge Plan Discharge Attending physician on discharge: Ash Diaz Consulting providers: Leslie Gaines Discharging Clinician: Mariam Garza Anticipated Discharge Date/Time: 01/19/24 12:30 Patient Disposition: Home, Self-Care Activity: as tolerated Diet: as tolerated and heart healthy Discharge Instructions: Discharge disposition: Patient was admitted to the hospital for difficulty with word finding. Concern for possible transient ischemic attack vs seizure activity Imaging was negative for acute stroke EEG is to be read likely by Monday Neurology evaluated patient during admission Patient started on several new medications: Continue aspirin 81 mg daily Started on plavix 75 mg daily Atorvastatin dose increased from 20 mg to 40 mg daily Keppra 750 mg twice a day Attached is information on these new medications Strict bleeding precautions since you are being started on Plavix including shaving with an electric razor, holding pressure for greater than 20 minutes for injury, protection of had with any falls, etc. Eat well balanced meals and stay hydrated Follow-up with neurology, call for an appointment Monitor blood pressures Take caution while standing, rising, or moving Change positions slowly taking a break between each position change If you standing feel dizzy sat back down and take a break Patients sodium was slightly low on admission, however likely not the sole cause of patients episode Continue following with nephrology Encouraged to continue with yearly vaccinations Return to the emergency department if he developed sudden shortness of breath, chest pain, nausea, vomiting, upset stomach or intractable diarrhea Return to the emergency department if you develop fever greater than 101.5 Follow-up with the primary care physician within 1-2 weeks Thank you for [facility] for your healthcare needs Patient Instructions: Antibiotic Form, Clopidogrel (By mouth), Levetiracetam (By mouth), Transient Ischemic Attack (DC), New-Onset Seizure in Adults (DC), Bl ood Thinners (DC) Patient Language: Azeri Stand Alone Forms: General Discharge Information Follow-up/Referrals: Pillo Chino MD [Physician] - Call for Appointment Sushant Fox MD [Primary Care Provider] - Leslie Gaines MD [Physician] - Call for Appointment Discharge Medications: New atorvastatin 40 mg Tablet 40 mg PO HS Qty: 30 0RF clopidogrel 75 mg Tablet 75 mg PO QAM Qty: 30 0RF levetiracetam [Keppra] 750 mg tablet 750 mg PO BID Qty: 60 0RF Continued losartan 100 mg tablet 100 mg PO DAILY spironolactone 25 mg tablet 12.5 mg PO DAILY Zyrtec 10 mg capsule 10 mg PO DAILY PRN (Reason: allergy symptoms) levothyroxine [Synthroid] 100 mcg tablet 100 mcg PO DAILY Patient Comments: Pt takes 1 tablet by mouth once daily Monday-Monday, and one half tablet daily on Monday carvedilol [Coreg] 6.25 mg Tablet 6.25 mg PO Q12HR Qty: 60 2RF aspirin [Children's Aspirin] 81 mg Tablet,Chewable 81 mg PO DAILY@0800 Qty: 30 2RF bupropion HCl 150 mg tablet sustained-release 12 hr 150 mg PO QAM trazodone 50 mg tablet 25 mg PO HS Rx Instructions: 1/2 tab venlafaxine 75 mg capsule,extended release 24hr 37.5 mg PO DAILY Discontinued atorvastatin 10 mg tablet 10 mg PO DAILY Other Ambulatory Orders: [place] cardiac event monitor (Routine) Timeframe: 2 Weeks Location: Determined by Patient Ordered By: Mariam Garza Date of admission: 01/18/24 12:38 Primary Care Provider: Sushant Fox Admitting Provider: Corona Sheffield Attending physician on admission: Mariam Garza Condition: Stable Hospitalist MIPS Heart Failure (Exclusion) Patient has history of Heart Transplant or Left Ventricular Assistive Device?: No IF YES, STOP HERE Heart Failure (Qualifier) Patient has current or prior documentation of LVEF less than or equal to 40%, or mod/servere depressed LVSF?: No IF NO, STOP HERE
--- NOTE | 2024-01-22 09:47 | WPDNEUROLOGY ---
Neurology EEG Report General Information Date of Study: 01/19/24 TEST Electroencephalogram DIAGNOSIS Possible seizure disorder and history of chronic hyponatremia CONDITION OF RECORDING Bedside recording EEG NUMBER [id number] CLINICAL HISTORY History of episodes of confusion and not being able to talk lasting for hours EEG DESCRIPTION During wakefulness the background activity consists of posterior dominant alpha rhythm at 8 hertz with an amplitude of 15-30 microvolts which appears mildly formed. Anteriorly low amplitude mixed frequency activity was seen. There is a minimal anteroposterior gradient. Patient progressed to stage I and 2 sleep during which vertex waves ,sleep spindles and K complexes were seen. Frontal intermittent rhythmic delta activity was also seen. Hyperventilation or photic stimulation were not performed. IMPRESSION This is a normal EEG obtained during awake and sleep states.
== END 2024-01-19 13:35 | disposition home or self-care (01) ==
LOC: ANHED 10:29 → ANH2MED 17:24
PROVIDERS: Student in an Organized Health Care Education/Training Program; Admitting Provider Hospitalist; Emergency Provider Emergency Medicine; PCP Family Medicine; Visit Provider Student in an Organized Health Care Education/Training Program
DX: R47.89 Other speech disturbances (principal); I11.0 Hypertensive heart disease with heart failure; I50.9 Heart failure, unspecified; E87.1 Hypo-osmolality and hyponatremia; E78.5 Hyperlipidemia, unspecified; I25.10 Atherosclerotic heart disease of native coronary artery without angina pectoris; I42.8 Other cardiomyopathies; I25.2 Old myocardial infarction; G40.209 Localization-related (focal) (partial) symptomatic epilepsy and epileptic syndromes with complex partial seizures, not intractable, without status epilepticus; I27.20 Pulmonary hypertension, unspecified; G47.33 Obstructive sleep apnea (adult) (pediatric); F32.A Depression, unspecified; G25.81 Restless legs syndrome; Z86.16 Personal history of COVID-19; Z79.82 Long term (current) use of aspirin; Z79.899 Other long term (current) drug therapy; Z96.652 Presence of left artificial knee joint; Z95.5 Presence of coronary angioplasty implant and graft; Z99.89 Dependence on other enabling machines and devices
CPT/HCPCS: 36415; 70496; 70498; 70553; 71046; 80048; 80053; 80061; 81003; 82077; 83036; 84443; 84484; 85025; 85610; 85730; 93005; 95816; 96374; 96375; 99285; A9270; A9577; C8929; G0378; Q9957; Q9967

== ENCOUNTER 2024-05-11 08:35 | Outpatient (CLI) | payer MEDICARE, SELFPAY ==
--- OUTSIDE RECORDS SUMMARY | 2024-05-11 08:52 | XMS_ITS | Data Portability ---
Author Organization [place] [facility],, Myah melo Address [address] [place] [address] Assessment No assessment recorded. Plan of Treatment Reminders Order Date Submit Date Provider Last Modified By Organization Details Last Modified Time Details Appointments None recorde d. Lab allergy test, skin 2018 019 [email or web address] [facility], [address], [place], [address], 9 15:25:01 Referral None recorde d. Procedures None recorde d. Surgeries None recorde d. Imaging None recorde d. Medication Orders None recorde d. Patient TargetsNo targets recorded. Patient Instructions Encounter Date Encounter Id Patient Instructions Last Modified By Organization Details Last Modified Time 10/01/2018 [id number] managing your allergies: care instructions [email or web address] Not available 10/01/2018 15:27:25 seasonal allergies: care instructions [email or web address] Not available 10/01/2018 15:27:25 10/12/2018 [id number] allergies: care instructions [email or web address] Not available 10/12/2018 15:25:01 managing your allergies: care instructions [email or web address] Not available 10/12/2018 15:25:01 Reason for Referral None Reported. Results Created Date Observation Date Name Description Value Unit Range Abnormal Flag Note LastModifiedBy Organization Detail LastModifiedTime 10/13/19 19 10/12/2018 aller gy test, skin Mites positi ve Not Available [facility] [address], [place], [address], 10/12/2018 15:21:43 10/13/19 19 10/12/2018 aller gy test, skin Mold negati ve Not Available [facility] [address], [place], [address], 10/12/2018 15:21:43 10/13/1910/12/2018 aller gy test, skin Cat positi ve Not Available [facility] [address], [place], [address], 10/12/2018 15:21:43 10/13/1910/12/2018 aller gy test, skin Dog negati ve Not Available [facility] [address], [place], [address], 10/12/2018 15:21:43 10/13/1910/12/2018 aller gy test, skin Trees positi ve Not Available [facility] [address], [place], [address], 10/12/2018 15:21:43 10/13/1910/12/2018 aller gy test, skin Grass positi ve Not Available [facility] [address], [place], [address], 10/12/2018 15:21:43 10/13/1910/12/2018 aller gy test, skin Ragweed negati ve Not Available [facility] [address], [place], [address], 10/12/2018 15:21:43 Result Notes None recorded. Problems Name Problem SNOMED Code Status Onset Date Resolution Date Notes Provider Name and Address Organization Details Recorded Time Hypertensive disorder 50687488 Active 2018 Gene wright MD [address], [place], [address] [place] [address] - [facility], 9 13:44:10 [facility] 88523716 Active 2018 Gene wright MD [address], [place], [address] , [place] [facility], 9 13:44:27 Problem Notes None recorded. Medical Equipment None Reported. Allergies Allergen ID Allergen Name Allergen Category Reaction Reaction Severity Criticality Documentation Date Start Date Code Code System Note Provider Name and Address Organization Details Recorded Time 62310 codeine medicatio n Not available Not available Not available 10/01/2018 2670 [facility] [place], [place] [facility], 9 13:40:17 65759 tetracycl ine medicatio n Not available Not available Not available 10/01/2018 48641 [facility] davidson cain[place], [place] [facility], 9 13:40:24 Medications Name Sig Start Date Stop Date Status Note LastModified by Organization Details LastModified Time carvedilol 6.25 mg tablet 10/01 completed Not Available Not Available Not Available prednisone 10 mg tablet 10/01 completed Not Available Not Available Not Available venlafaxine ER 75 mg capsule,extended release 24 hr active Not Available Not Availabl e Not Available clindamycin HCl 300 mg capsule 10/01 completed Not Available Not Available Not Available trazodone 50 mg tablet active Not Available Not Available Not Available azithromycin 250 mg tablet 10/01 completed Not Available Not Available Not Available fluconazole 150 mg tablet 10/01 completed Not Available Not Available Not Available benzonatate 200 mg capsule 10/01 completed Not Available Not Available Not Available prednisone 20 mg tablet 10/01 completed Not Available Not Available Not Available Synthroid 100 mcg tablet active Not Available Not Available N ot Available prednisone 5 mg tablet 10/01 completed Not Available Not Available Not Available tramadol 50 mg tablet 10/01 completed Not Available Not Available Not Available spironolactone 25 mg tablet active Not Available Not Available Not Available cephalexin 500 mg capsule 10/01 completed Not Available Not Available Not Available budesonide 0.5 mg/2 mL suspension for nebulization active Not Available Not Available Not Available montelukast 10 mg tablet 10/01 completed Not Available Not Available Not Available levofloxacin 500 mg tablet 10/01 completed Not Available Not Available Not Available lisinopril 40 mg tablet 10/01 completed Not Available Not Available Not Available losartan 100 mg tablet active Not Available Not Available Not Available fluticasone propionate 50 mcg/actuation nasal spray,suspension active Not Available Not Avail able Not Available amoxicillin 875 mg-potassium clavulanate 125 mg tablet 10/01 completed Not Available Not Available Not Available clindamycin 1 % lotion active Not Available Not Available Not Available Finacea 15 % topical gel active Not Available Not Available Not Available bupropion HCl XL 150 mg 24 hr tablet, extended release active Not Available Not Available Not Available ProAir HFA 90 mcg/actuation aerosol inhaler 10/01 completed Not Available Not Available Not Available Symbicort 160 mcg-4.5 mcg/actuation HFA aerosol inhaler 10/01 completed Not Available Not Available Not Available Bystolic 10 mg tablet active Not Available Not Available Not Available Bystolic 5 mg tablet 10/01 completed Not Available Not Available Not Available Vitals Date Recorded Body height Body mass index (BMI) Body weight Systolic blood pressure Diastolic blood pressure Provider Name and Address Organization Details Last Updated DateTime 10/01/2018 165.1 cm 32.9 kg/m2 90567.29 g 124 mm[Hg] 88 mm[Hg] [facility] [place] - [facility], 9 13:40:10 Date Recorded Body height Body mass index (BMI) Body weight Body temperature Systolic blood pressure Diastolic blood pressure Provider Name and Address Organization Details Last Updated DateTime 9 165.1 cm 32.8 kg/m2 70504.7 g 98 [degF] 130 mm[Hg] 80 mm[Hg] Ayanna Saucedo [place] [facility], 9 12:06:17 Social History None recorded. Functional Status None recorded. Mental Status None recorded. Family History Nothing Reported. Medical History No medical history recorded. Gynecological HistoryNo gynecological history recorded. Obstetrics History GPAL:G 0 P 0 0 0 0 Past Encounters Encounter ID Performer Location Encounter Start Date Encounter Closed Date Diagnosis/Indication Diagnosis SNOMED-CT Code Diagnosis ICD10 Code Diagnosis Note [id number] Gene gramajo MD OFFICE [address] [place] [address],[address] [phone] 10/01/2018 13:06:46 10/01/2018 14:23:30 Allergic rhinitis caused by pollen 83306069 J30.1 The patient's symptoms are compatible with allergic rhinitis. Skin testing will be done to confirm the allergic nature of this condition. The three fundamenta l therapeuti c strategies were discussed with the patient. These include allergen avoidance, pharmacolo gic interventi on with intranasal corticoste roids, antihistam jomar, and potentiall y intranasal antihistam jomar. Finally allergy immunother apy was discussed. will return for skin testing. [id number] Gene gramajo MD OFFICE [address] [place] [id number] 10/12/2018 11:54:14 10/12/2018 15:31:29 Allergic rhinitis 40156849 J30.2 The patient's symptoms are compatible with allergic rhinitis. Skin testing confirmed the allergic nature of this condition. The three fundamenta l therapeuti c strategies were discussed with the patient. These include allergen avoidance, pharmacolo gic interventi on with intranasal corticoste roids, antihistam jomar, and potentiall y intranasal antihistam jomar. Finally allergy immunother apy was discussed. The patient was started on {{nasal steroids and claritin# Flonase Na sonex Rhin ocort Nasacort}} . Health Concerns Section Related Observation LastModified by Organization Detai ls LastModified Time None Recorded Concern Status LastModified by Organization Details LastModified Time None Recorded Advance Directives Directive None Recorded Payers Encounter Date Sequence Insurance Name Policy Number Policy Doran Covered Member ID Doran Member ID Guarantor Name 10/01/2018 1 [facility] (MEDICARE REPLACEMENT/A DVANTAGE - PPO) [id number] Koki Wolfe [id number] Koki Wolfe 10/12/2018 1 [facility] (MEDICARE REPLACEMENT/A DVANTAGE - PPO) [id number] Koki Wolfe [id number] Koki Wolfe Notes Date Note Type Note Provider Name and Address Organization Details Recorded Time 10/01/2018 text/html Koki is a delightful 73-year-old woman with a history of hypertension and hypothyroidism. She comes in for evaluation of possible nasal allergies. 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 It was thought that that leak was secondary to recurring sinus infections. Post repair she did well until just this year when she began having increased sinus congestion and sneezing and stuffiness. She saw Dr. Paula Lemos who recommended her that she get skin tested. She presents today for skin testing. She unfortunately is on trazodone. MD [address], [place], [address], [place] [facility], 10/01/2018 15:27:42 10/12/2018 text/html Koki returns fo r skin testing. MD [address], [place], [address], [place] [facility], 10/12/2018 15:25:22 OBGyn Episode No OBEpisode recorded.
--- OUTSIDE RECORDS SUMMARY | 2024-05-11 08:52 | XMS_ITS | Continuity of Care Document ---
Author Organization [facility] Address [address] [place] [address] [address] [place] [address] Phone Care Team Providers Care Farm Management Supervisor Name Role Phone Tavon PT,MPT,ATC, Brennan Unavailable Unavai lable Procedures Procedure Date Therapeutic Exercise Therapeutic Activities Manual Therapy Therapeutic Exercise Therapeutic Activities Manual Therapy Mobility: Walking And Moving Limitations -Curent Mobility: Walking And Moving Limitation- Goal Therapeutic Exercise Therapeutic Activities Manual Therapy Therapeutic Exercise Therapeutic Activities Manual Therapy Therapeutic Exercise Therapeutic Activities Manual Therapy Therapeutic Exercise Therapeutic Activities Manual Therapy Therapeutic Exercise Therapeutic Activities Therapeutic Exercise Manual Therapy Therapeutic Exercise Manual Therapy Therapeutic Exercise Manual Therapy Manual Therapy Mobility: Walking And Moving Limitations -Curent Mobility: Walking And Moving Limitation- Goal Therapeutic Exercise PT Evaluation Moderate Complexity Therapeutic Exercise Manual Therapy Mobility: Walking And Moving Limitations -Curent Mobility: Walking And Moving Limitation- Goal Advance Directives Directive Yes / No Effective Date File Name No Information Encounters Encounter Description Practice Location Reason(s) For Visit Diagnoses Date Provider Providers Copied on Encounter [facility] [address], [id number], tel:[phone] Celestine No Information [address] Mont[address] Oca Brennan. , [place], [place]. Referring Provider: Naseem Griffin, [address] [place] [address] [address], [place], [address]. tel:[phone] [facility] [address], [id number], [place] tel:[phone] Celestine No Information [address] Brennan. , [place], [place]. Referring Provider: Naseem Griffin, [address] [place] [address] [address], [place], [address]. tel:[phone] [facility] [address], [id number], [place] tel:[phone] Celestine No Information 0 [address]ca Brennan. , [place], [place]. Referring Provider: Naseem Griffin, [address] [place] [address] [address], [place], [address]. tel:[phone] [facility] [address], [id number], [place] tel:[phone] Celestine No Information 0 [address] Oca Brennan. , [place], [place]. Referring Provider: Naseem Griffin, [address] [place] [address] [address], [place], [address]. tel:[phone] [facility] [address], [id number], [place] tel:[phone] Celestine No Information Sep-0 7 Mont[address] Oca Brennan. , [place], [place]. Referring Provider: Naseem Griffin, [address] [place] [address] [address], [place], [address]. tel:[phone] [facility] [facility], [place], [place], [id number], [place] tel:[phone] Celestine No Information [address] Oca Brennan. , [place], [place]. Referring Provider: Naseem Griffin, [address] [place] [address] [address], [place], [address]. tel:[phone] [facility] [facility], [place], [place], [id number], [place] tel:[phone] Celestine No Information 7 Mont[address] Oca Brennan. , [place], [place]. Referring Provider: Naseem Griffin, [address] [place] [address] [address], [place], [address]. tel:[phone] [facility] [address], [place], [place], [id number], [place] tel:[phone] Celestine No Information 7 Mont[address] Oca Brennan. , [place], [place]. Referring Provider: Naseem Griffin, [address] [place] [address] [address], [place], [address]. tel:[phone] [facility] [facility], [place], [place], [id number], [place] tel:[phone] [facility] No Information [address] Brennan. , [place], [place]. Referring Provider: Naseem Griffin, [address] [place] [address] [address], [place], [address]. tel:[phone] [facility] [facility], [place], [place], [id number], [place] tel:[phone] Celestine No Information 7 [address]ca Brennan. , [place], [place]. Referring Provider: Naseem Griffin, [address] [place] [address] [address], [place], [address]. tel:[phone] [facility] [facility] [address], [place], [place], [id number], tel:[phone] Celestine No Information 7 Tavon Doming[place], . Referring Provider: Naseem Griffin, [address] [facility] [address] [facility] [address], [place], [address]. tel:[phone] [facility], [address] [facility] [address], [place], [place], [id number], tel:[phone] Celestine Other specified postprocedural states 7 T[place]on [place], . Referring Provider: Naseem Griffin, [address] [facility] [address], [place], [address]. tel:[phone] Family History Family Member Type Diagnosis Age At Onset No Information Payers Payer name Insurance type Covered alliance party ID Authorvarsha gray(s) [place] [id number] Social History Type Description Quantity Date Captured Comments Sex Female Smoking Status No Information Chief Complaint And Reason For Visit No Information Reason For Referral Reason For Referral No Information History Of Present Illness Encounter Date Complaint History Of Prese nt Illness No Information Functional Status Date Functional Assessmen t No Information Instructions Date Instruction Additional Infor mation No Information Assessments Type Assessment Date No Information Patient Care Teams Name Effective Dates (start - stop) Status Members No Information
--- OUTSIDE RECORDS SUMMARY | 2024-05-11 08:53 | XMS_ITS | Patient Health Record ---
Author Organization [facility] Address [address] [place] [address] Care Team Providers Care Fourdrinier Tender Name Role Phone Abdulkadir Pascal Primary Care Provider Unavailab Talat CURIEL, [facility] [phone] ALLERGIES Allergen (clinical drug ingredient) Drug/Non Drug Allergy documented on EMR Reaction Allergy Type Onset Date Status nickel Nickel Unknown Allergy Active tetracycline Tetracycline HCl Unknown Drug Allergy Active [place] Unknown Drug Allergy Active Codeine Phosphate Unknown Drug Allergy Active REASON FOR REFERRAL No Information MEDICATIONS Medication SIG (Take, Route, Fr equency, Duration) Notes Start Date End Date Status buPROPion HCl Active Loratadine Active traZODone HCl Active Venlafaxine HCl Acti ve Synthroid Active PreserVision AREDS A ctive Celecoxib Active Aspirin 81 Active Rosuvastatin Calcium Active Spironolactone Activ e Carvedilol Active IMMUNIZATIONS Vaccine Route Administration Date Status Comme nts pneumoccocal Unknown 04/26/2015 Administered Influenza Unknown 08/05/2021 Administered pneumoccocal Unknown 08/05/2021 Administered Influenza Unknown 06/09/2016 Refused pneumoccocal Unknown 06/09/2016 Refused Influenza Unknown 10/26/2017 Refused SOCIAL HISTORY Tobacco Use: Social History Observation Description Date Details (start date - stop date) Never Smoker NA - NA Sex Assigned At : Social History Observation Description Sex Assigned At Unknown Tobacco Use: Question Answer Notes Patient is a: nonsmoker Alcohol screening: Question Answer Notes Did you have a drink contain ing alcohol in the past year? Yes How often did you have a dri nk containing alcohol in the past year? Two to four times a month (2 points) How many drinks did you have on a typical day when you were drinking in the past year? 1 or 2 (0 points) How often did you have six o r more drinks on one occasion in the past year? Less than monthly (1 point) Points 3 Interpretation Positive PROBLEMS Problem Type ICD Code Onset Dates Problem Status W/U Status Risk SNOMED Code Notes Problem Hallux valgus (acquired), left foot (M20.12) Active confirmed Acquired hallu x valgus (87994416) Problem Other acquired deformities of left foot (M21.6X2) Active confirmed Acquired deform ity of left foot (disorder) (599718743) Problem Pain in left ankle and joints of left foot (M25.572) Active confirmed Arthralgia of t he ankle and/or foot (506916398) Problem Bursitis of right shoulder (M75.51) 07/15/19 22 Active confirmed [id number] Problem Other shoulder lesions, right shoulder (M75.81) 07/15/19 22 Active confirmed 487857306 Problem Complex tear of lateral meniscus, current injury, right knee, initial encounter (S83.271A) Active confirmed Problem Pain due to internal orthopedic prosthetic devices, implants and grafts, initial encounter (T84.84XA) Active confirmed Pain associated with internal prosthetic device (disorder) (144939409) Problem Encounter for other orthopedic aftercare (Z47.89) Active confirmed Problem Encounter for other specified surgical aftercare (Z48.89) Active confirmed Postoperative c are (459810824) Problem Overexertion from strenuous movement or load, initial encounter (X50.0XXA) Active confirmed Overexertion, strenuous movements and vibration (event) (882615145) Problem Primary localized osteoarthritis of right knee (M17.11) Active confirmed Primary osteoarthritis (771609235) PLAN OF TREATMENT No Information Insurance Providers Payer Name Payer Address Payer Phone Subscriber Number Group Number Insured Name Patient Relationship to Insured Coverage Start Date Coverage End Date [facility] Medicare Advantage PPO [address] [address] [place] [address] [id number] Koki Lopez Self - patient is the insured MEDICAL (GENERAL) HISTORY Medical History History ICD Code hypertension Hypothyroidism Heart disease Heart attack Surgical History Surgery Date(Month/Year) cataract removal right frontal sinusotomy left modified Meneses bunion ectomy and a bunion correction with double osteotomy 11/2014 left foot hardware removal 07/2015 left knee arthroscopy (RDR) 06/2016
--- OUTSIDE RECORDS SUMMARY | 2024-05-11 08:53 | XMS_ITS | Clinical Summary ---
Author Organization [facility] Address [address] [place] [address] Phone Care Team Providers Care Pocketbook Maker Name Role Phone Abdulkadir Pascal DO Primary Care Provider [phone] Allergies Active Allergy Reactions Criticality Noted Date Comments 5-Alpha Reductase Inhibitors muscle pain,Myopathy Medium 11/01/2021 Codeine Other (see comments) 06/05/2019 Hydrocodone High 08/12/2016 Other reaction(s): Hypotension, Other hypotension Hydrocodone-Acetaminophe n 01/23/2018 Other reaction(s): Unknown Drop in BP, passes out Nickel Rash Medium 01/23/2018 Nitrofurantoin Low 04/20/2011 Other reaction(s): Other, Other (See comments) Oxycodone Other (see comments) 11/03/2020 Severe hypotention Statins muscle pain Medium 11/01/2021 Tetracycline 06/05/2019 Other reaction(s): Other Tramadol 01/14/2019 Other reaction(s): Other Hypotensive, syncopal episode Medications Medication Sig Dispensed Refills Start Date End Date Status aspirin EC 81 MG EC tablet Take 81 mg by mouth daily Active budesonide (PULMICORT) 0.5 MG/2ML nebulizer solution budesonide 0.5 mg/2 mL suspension for nebulization 10/09/2018 Active buPROPion XL (WELLBUTRIN XL) 150 MG 24 hr tablet bupropion HCl XL 150 mg 24 hr tablet, extended release 01/01/2018 Active carvedilol (COREG) 6.25 MG tablet Take 6.25 mg by mouth 2 times daily Active ezetimibe (ZETIA) 10 MG tablet Take 10 mg by mouth daily Active levothyroxine (Synthroid) 100 MCG tablet Synthroid 100 mcg tablet 01/01/2018 Active Loratadine 10 MG capsule Take by mouth daily Activ e losartan (COZAAR) 100 MG tablet losartan 100 mg tablet 05/26/2018 Active montelukast (SINGULAIR) 10 MG tablet 05/20/2019 Active spironolactone (ALDACTONE) 25 MG tablet spironolactone 25 mg tablet 07/23/2018 Active ticagrelor (BRILINTA) 90 MG tablet Take 90 mg by mouth 2 times daily Active traZODone (DESYREL) 50 MG tablet trazodone 50 mg tablet 05/31/2016 Ac tive metoprolol succinate XL (TOPROL-XL) 50 MG 24 hr tablet 03/22/2019 Active nitroglycerin (NITROSTAT) 0.4 MG SL tablet DISSOLVE ONE TABLET UNDER THE TONGUE EVERY 5 MINUTES NEEDED FOR CHEST PAIN. DO NOT EXCEED A TOTAL OF 3 DOSES IN 15 MINUTES 04/27/2019 Active famotidine (PEPCID) 20 MG tablet Take 20 mg by mouth daily 08/13/2019 Active Gentamicin Sulfate powder 180 mg Active rosuvastatin (CRESTOR) 20 MG tablet Take 20 mg by mouth 1 (one) time each day 06/24/2019 Active PreviDent 5000 Booster Plus 1.1 % paste BRUSH AT BEDTIME FOR 2 MINUTES EXPECTORATE. DO NOT EAT OR DRINK FOR 30 MINUTES 01/08/2020 Active venlafaxine XR (EFFEXOR-XR) 75 MG 24 hr capsule Take 75 mg by mouth 1 (one) time each day 12/16/2019 Active chlorhexidine (PERIDEX) 0.12 % solution 06/01/2020 Active ketoconazole (NIZORAL) 2 % cream APPLY CREAM TOPICALLY TO AFFECTED AREA ONCE DAILY 05/20/2020 Active valACYclovir (VALTREX) 500 MG tablet 12/17/2020 Active Biotin 2.5 MG tablet Take 2.5 mg by mouth daily Active cholecalciferol (VITAMIN D-3) 10 MCG (400 UNIT) tablet Take 400 Units by mouth daily Active Docusate Sodium (DSS) 100 MG capsule Take 100 mg by mouth 2 times daily 11/04/2020 Active omega-3 (FISH OIL) 1000 MG capsule Take 1,000 mg by mouth Active sodium chloride (OCEAN) 0.65 % nasal spray Administer 2 sprays into affected nostril(s) 11/07/2020 Active celecoxib (CeleBREX) 200 MG capsule Take 200 mg by mouth 2 (two) times a day 07/15/2021 Active ipratropium (ATROVENT) 0.03 % nasal spray USE 1 TO 2 SPRAY(S) IN EACH NOSTRIL 4 TIMES DAILY BEFORE MEAL(S) AND NIGHTLY 05/19/2021 Active amoxicillin (AMOXIL) 500 MG capsule TAKE FOUR CAPSULES BY MOUTH ONE HOUR BEFORE APPOINTMENT 12/14/2021 Active atorvastatin (LIPITOR) 10 MG tablet 01/14/2022 Active Active Problems Problem Noted Date Diagnosed Date Morbid (severe) obesity due to excess calories 0 11/01/2021 Nonrheumatic aortic valve stenosis 11/01/2021 Acquired hallux valgus 08/02/2021 Current tear of lateral cartilage AND/OR meniscu s of knee 08/02/2021 Metatarsus primus varus 08/02/2021 Overexertion from strenuous movement or load Pain due to internal orthope dic prosthetic devices, implants and grafts 08/02/2021 Other tear of lateral meniscus, current injury 0 08/02/2021 Bursitis of right shoulder 07/14/2021 Primary osteoarthritis of left knee 06/18/2021 History of total knee arthroplasty 01/19/2021 Mixed hyperlipidemia 01/13/2021 Cyst of nasal sinus 11/03/2020 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 Allergic rhinitis 05/13/2019 Anxiety disorder 05/13/2019 Pain in joint involving ankle and foot 0 Constipation 05/13/2019 Depressive disorder 05/13/2019 Edema of lower extremity 05/13/2019 Esophageal reflux 05/13/2019 Malaise and fatigue 05/13/2019 Myalgia 05/13/2019 Osteoporosis 05/13/2019 Other fatigue 05/13/2019 Pure hypercholesterolemia 05/13/2019 Facial pain 05/13/2019 Coronary arteriosclerosis in [place] artery 05/05 History of non-ST segment elevation myocardial i nfarction 05/06/2019 Stented coronary artery 05/06/2019 Acquired deformity of left foot 12/21/2018 Hypertensive disorder 10/01/2018 History of placement of stent for coronary arter y disease 07/23/2018 Cerebrospinal fluid rhinorrhea 07/23/2018 Overview (07/29/2020): 1996 right frontal sinus CSF leak, attributed to chronic sinus infections, had surgical repair 1996 right frontal sinus CSF leak, attributed to chronic sinus infections, had surgical repair 1996 right frontal sinus CSF leak, attributed to chronic sinus infections, had surgical repair At risk of disease 06/22/2018 Myocardial infarction 06/22/2018 Chronic combined systolic and diastolic heart fa ilure 06/22/2018 Pulmonary hypertension 06/22/2018 Body mass index (BMI) 32.0-32.9, adult 8 Rosacea 08/22/2017 Epiretinal membrane 11/15/2016 Epiphora due to insufficient drainage 09/30/2014 Dietary counseling and surveillance 09/16/2013 Overweight 05/27/2013 Chronic sinusitis 01/15/2010 Hyposmolality and/or hyponatremia 01/15/2010 Hypothyroidism 01/15/2010 Overview (06/05/2019): HYPOTHYROIDISM NOS Last Assessment & Plan: Lower synthroid, 100 mcg daily, 1/2 tab on Sundays F/u in 4 months, Labs to be done one week before next zohaib Syncope and collapse 01/15/2010 Immunizations Name Administration Dates Next Due Fluzone High-Dose 10/21/2019 Influenza (IM) Preservative Free 10/21/2019 Influenza LAIV (Nasal) 11/13/2020 Influenza Split High Dose Pr eservative Free IM 08/05/2021,11/13/2020,10/21/2019,11/15 Influenza, Injectable, Quadrivalent 11/13/2021 Influenza, Quadrivalent 11/13/2020,10/21/2019, Influenza, Unspecified 11/13/2021,2020,10/21/2019,10/20,11/16/2015 Moderna Sars-cov-2 Vaccination 04/11/2020,2020 Pneumococcal Conjugate 08/05/2021 Pneumococcal Conjugate 13-Valent 09/14/2015 Pneumococcal Polysaccharide 09/20/2016, 6,04/26/2015 Zoster 09/14/2015 Family History Medical History Relation Comments Kidney disease Neg Hx Social History Tobacco Use Types Packs/Day Years Used Date Smoking Tobacco: Never Smokeless Tobacco: Never Tobacco Cessation:Counseling Given: Not Answered Alcohol Use Standard Drinks/Week Comments Not Currently 0 (1 standard drink = 0.6 oz pur e alcohol) Sex and Gender Information Value Date Recorded Sex Assigned at Not on file Gender Identity Not on file Sexual Orientation Not on file Last Filed Vital Signs Vital Sign Reading Time Taken Comments Blood Pressure 130/70 01/19/2022 10:31 AM DOOR ASSEMBLER Pulse - - Temperature 35.8 C (96.4 F) 01/19/2022 10:31 AM DOOR ASSEMBLER Respiratory Rate 18 01/19/2022 10:31 AM DOOR ASSEMBLER Oxygen Saturation - - Inhaled Oxygen Concentration - - Weight 95.7 kg (211 lb) 01/19/2022 10:31 AM DOOR ASSEMBLER Height 165.1 cm (5' 5 ) 01/19/2022 10:31 AM DOOR ASSEMBLER Body Mass Index 35.11 01/19/2022 10:31 AM DOOR ASSEMBLER Plan of Treatment Health Maintenance Due Date Last Done Comments COVID-19 Vaccine (2023-2 5 season) 2023 04/11/2020, 03/12/2020 Influenza Vaccine (Season Ended) 2024 11/13/2021, 11/13/2020, 11/13/2020, Additional history exists Pneumococcal PPSV23/PCV13 65 + Years / High and Highest Risk Completed 09/20/2016, 09/14/2015, 09/14/2015, Additional history exists Care Teams Pocketbook Maker Relationship Specialty Start Date End Date Abdulkadir Pascal DO [address] [facility] [address] [place] [address] PCP - General Internal Medicine 05/07/19
--- OUTSIDE RECORDS SUMMARY | 2024-05-11 08:53 | XMS_ITS | Encounter Summary ---
Author Organization [facility] Address [facility] [place] [address] Care Team Providers Care Waste Chopper Name Role Phone Paulette Sanford Primary Care Provider [phone] Parish Leger PA-C Primary Care Provider [phone] Encounter Details Date Type Department Care Team (Late st Contact Info) Description 06/17/2020 Prep for Procedure [facility] [address] [place], [place] [id number] Poonam Dominique MD [address] [facility] [address] [place] [address] Social History Tobacco Use Types Packs/Day Years Used Date Smoking Tobacco: Never Smokeless Tobacco: Never Alcohol Use Standard Drinks/Week Comments Yes 0 (1 standard drink = 0.6 oz pur e alcohol) socially PHQ-2 Answer Date Recorded PHQ-2 Score - If the patient scores above 3, please move on to questions 3-9 0 05/20/2020 Comments No Sex and Gender Information Value Date Recorded Sex Assigned at Not on file Legal Sex Female 9:44 AM CDT Gender Identity Female 06/01/2021 10:42 AM CDT Sexual Orientation Not on file COVID-19 Exposure Response Date Recorded In the last month, have you been in contact with someone who was confirmed or suspected to have Coronavirus / COVID-19? No / Unsure 05/27/2020 1:15 PM CDT documented as of this encounter Plan of Treatment Not on file documented as of this encounter Results * ECG 12-Lead (06/23/2020 1:32 PM CDT) 06/23/2020 1:32 PM CDT Narrative [facility] RAD - 06/24/2020 10:[address] [facility] Date: 2020-06-23 Pat Name: KOKI BATEMAN Department: Room: Gender: Female Resident Care Aid: : 1945 Requested By: POONAM DOMINIQUE Order Number: [id number] Reading : Tr Henry Measurements Intervals Gary Rate: 63 P: -64 ND: 154 QRS: -9 QRSD: 84 T: 40 QT: 406 QTc: 418 Interpretive Statements SINUS RHYTHM LOW QRS VOLTAGE IN PRECORDIAL LEADS [QRS DEFLECTION < 1.0 mV IN CHEST LEADS] INFERIOR MYOCARDIAL INFARCTION , PROBABLY OLD [40+ ms Q WAVE AND/OR ST/T ABNORMALITY IN II/aVF] No previous ECG available for comparison Procedure Note Tr Henry MD - 06/24/2020 [facility] Test Date: 2020-06-23 Pat Name: KOKI BATEMAN Department: Room: Gender: Female Resident Care Aid: : 1945 Requested By: POONAM DOMINIQUE Order Number: [id number] Reading MD: Tr Henry Measurements Intervals Gary Rate: 63 P: -64 ND: 154 QRS: -9 QRSD: 84 T: 40 QT: 406 QTc: 418 Interpretive Statements SINUS RHYTHM LOW QRS VOLTAGE IN PRECORDIAL LEADS [QRS DEFLECTION < 1.0 mV IN CHESTLEADS] INFERIOR MYOCARDIAL INFARCTION , PROBABLY OLD [40+ ms Q WAVE AND/OR ST/T ABNORMALITY IN II/aVF] No previous ECG available for comparison us Poonam Dominique MD ECG ORDERABLES Final Result [facility] RAD documented in this encounter Visit Diagnoses Diagnosis Preoperative testing- Primary Preoperative examination, unspecified Preop testing Preoperative examination, unspecified Preop testing Preoperative examination, unspecified documented in this encounter Additional Health Concerns Infection Onset Date Last Indicated Resolved Time COVID-19 Rule Out 06/28/2020 06/28/2020 06/30/2020 1:26 PM CDT documented as of this encounter Care Teams Waste Chopper Relationship Specialty Start [place] [address] [place] [address] PCP - General PHYSICIAN BRAKE OPERATOR HELPER 09/23/19 06/05/23 Parish Leger PA-C [address] [facility] [address] [place] [address] PCP - General PHYSICIAN BRAKE OPERATOR HELPER 06/06/23 documented as of this encounter
--- OUTSIDE RECORDS SUMMARY | 2024-05-11 08:53 | XMS_ITS | Referral Summary ---
Author Organization [facility] Address [address] [place] [address] Care Team Providers Care Ordnance Equipment Worker Name Role Phone Marsha Virk NP Primary Care Provider [phone] Encounters Date Type Department Care Team Description 02/19/2024 Telephone [facility] Cardiology at [address] [place] [address] Judson Foy MD 02/14/2024 Telephone [facility] Cardiology [address] [facility] [address] [place] [address] Judson Foy MD Med Management from Last 3 Months Allergies Active Allergy Reactions Criticality Noted Date Comments Codeine Finasteride Muscle pain,Other (See comments) Medium 11/01/2021 Hydrocodone Hypotension High 08/12/2016 Hydrocodone-Acetaminophen Syncope High 12/16/2022 Methylprednisolone Rash,Other (See comments) Medium 08/11/2020 Facial flushing Facial flushing Nickel Rash Medium 01/23/2018 Nitrofurantoin Other (See comments) Low 04/20/2011 Oxycodone Other (See comments) Low 11/03/2020 Severe hypotention Severe hypotention Svwtzdd-Zfa-Vyq Reductase Inhibitors Muscle pain Medium 11/01/2021 Tetracycline Tramadol Unknown High 01/14/2019 Hypotensive, syncopal episode Medications traZODone (DESYREL) 50 mg tablet take 1/2 tablet by oral route every day at bedtime 30 0 06/01/19 17 Active Additional Information Patient taking differently: 12.5 mg oral Nightly, 1/4 tablet nightly, Reported on 01/02/2024 buPROPion SR (ZYBAN) 150 mg 12 hr tablet Take 1 tablet (150 mg total) by mouth daily Active aspirin 81 mg enteric coated tabletIndicatio ns:Myocardial Reinfarction Prevention Take 1 tablet (81 mg total) by mouth daily Active vit C/E/zinc ox/jeffry/lut/adrian x (ICAPS AREDS2 ORAL) Take by mouth Active multivitamin with iron tablet Take 2 tablets by mouth daily Active UNABLE TO FIND Biote Hormone + Detox dietary Supplerment Active atorvastatin (LIPITOR) 10 mg tablet Take 1 tablet (10 mg total) by mouth daily 90 tablet 03/13/19 24 Active buPROPion XL (WELLBUTRIN XL) 150 mg 24 hr tablet 05/22/19 24 Active venlafaxine XR (EFFEXOR-XR) 37.5 mg 24 hr capsule 05/16/19 24 Active spironolactone (ALDACTONE) 25 mg tablet Take 0.5 tablets (12.5 mg total) by mouth daily 30 tablet 2 02/18/19 25 Active carvediloL (COREG) 6.25 mg tablet Take 1 tablet (6.25 mg total) by mouth 2 (two) times a day with meals 60 tablet 02/20/19 25 Active Synthroid 100 mcg tablet TAKE ONE TABLET BY MOUTH MONDAY THROUGH MONDAY AND ONE-HALF TABLET ON SUNDAYS 90 tablet 2 03/01/19 25 Active losartan (COZAAR) 100 mg tabletIndicatio ns:Cardiomyopat hy, unspecified type (HCC) Take 1 tablet by mouth once daily 90 tablet 05/01/19 25 Active losartan (COZAAR) 100 mg tabletIndicatio ns:Cardiomyopat hy, unspecified type (HCC) Take 1 tablet by mouth once daily 90 tablet 3 06/12/19 24 025 Discontinued Active Problems Problem Noted Date Diagnosed Date Paroxysmal atrial fibrillation 07/25/2022 Syncope and collapse 05/11/2022 Preoperative cardiovascular examination 11/02/19 Nonrheumatic aortic valve stenosis 11/01/2021 Morbid (severe) obesity due to excess calories 0 11/01/2021 Chronic fatigue 08/11/2021 Myalgia due to statin 01/13/2021 Assessment & Plan (06/08/2021 4:09 PM CDT): Check CK The dose of a statin has been lowered Mixed hyperlipidemia 01/13/2021 S/P coronary artery stent placement 08/29/2019 HTN (hypertension), benign 08/29/2019 Coronary artery disease invo lving [place] coronary artery of [place] heart without angina pectoris 05/06/2019 History of non-ST elevation myocardial infarctio n (NSTEMI) 05/06/2019 H/O cardiomyopathy 09/07/2018 H/O CHF 09/07/2018 H/O pulmonary hypertension 09/07/2018 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 07/23/2018 Overview (07/23/2018): 1997 right frontal sinus CSF leak, attributed to chronic sinus infections, had surgical repair Status post endovenous radio frequency ablation (RFA) of saphenous vein 07/23/2018 Cardiomyopathy 06/22/2018 Chronic combined systolic an d diastolic CHF (congestive heart failure) 06/22/2018 Hypertensive heart disease w ith chronic diastolic congestive heart failure 06/22/2018 Pulmonary hypertension 06/22/2018 At risk for obstructive sleep apnea 06/22/2018 Rosacea 08/22/2017 Pseudophakia 11/15/2016 Epiretinal membrane 11/15/2016 History of laser assisted in situ keratomileusis 11/15/2016 Disorder of vein 09/21/2016 Dermatochalasis 05/25/2015 Epiphora due to insufficient drainage 09/30/2014 Hypothyroidism 05/21/2013 Overview (05/11/2016): HYPOTHYROIDISM NOS Assessment & Plan (06/27/2023 10:07 AM CDT): Chronic, well controlled Continue Synthroid ,100 mcg daiy, 1/2 tab on Sundays Rx sent to [facility] pharmacy. Pt understands. Assessment & Plan (06/28/2022 3:55 PM CDT): Chronic, well-controlled Continue Synthroid at current dose Assessment & Plan (06/04/2020 2:30 PM CDT): Continue levothyroxine, current dose of 100 mcg daily Monday through Monday but none on Monday Assessment & Plan (09/10/2019 3:30 PM CDT): Lower Levothyroxine, 100 mcg daily ,none on Sundays Recheck in 3 m Assessment & Plan (05/21/2019 11:19 AM CDT): Lower synthroid, 100 mcg daily, 1/2 tab on Sundays F/u in 4 months, Labs to be done one week before next zohaib Assessment & Plan (05/22/2018 10:28 AM CDT): Will check TSH and free T4 Will adjust dose of Levothyroxine accordingly . If there is a need to make changes, will recheck levels in 2-3 months. Instructions to patient on taking medication properly : in the morning, on an empty stomach , 1 h part from food and/or other meds. If any doses are missed, can take 2-3 tab together ,to make up for the missed dose; make sure at the end to the week, 7 tabs have been taken. Assessment & Plan (05/23/2017 9:36 AM CDT): Will check TSH and free T4 Will adjust dose of Levothyroxine accordingly . If there is a need to make changes, will recheck levels in 2-3 months. Instructions to patient on taking medication properly : in the morning, on an empty stomach , 1 h part from food and/or other meds. If any doses are missed, can take 2-3 tab together ,to make up for the missed dose; make sure at the end to the week, 7 tabs have been taken. Resolved Problems Problem Noted Date Diagnosed Date Resolved Date Presence of stent in coronary artery 05/06/2019 05/11/2022 Social History Tobacco Use Types Packs/Day Years Used Date Smoking Tobacco: Never Smokeless Tobacco: Never Tobacco Cessation:Counseling Given: Not Answered Alcohol Use Standard Drinks/Week Comments Yes 0 (1 standard drink = 0.6 oz pur e alcohol) Social PHQ-2 Answer Date Recorded PHQ-2 Total Score (If total score is 3 or more points, staff should administer the PHQ-9) 0 06/28/2022 Comments Unknown Sex and Gender Information Value Date Recorded Sex Assigned at Not on file Legal Sex Female 11:58 PM MARKETING AUTOMATION ANALYST Gender Identity Not on file Sexual Orientation Not on file Last Filed Vital Signs Vital Sign Reading Time Taken Comments Blood Pressure 154/66 01/01/2024 8:08 AM MARKETING AUTOMATION ANALYST Pulse 63 01/01/2024 8:08 AM MARKETING AUTOMATION ANALYST Temperature 36.8 C (98.2 F) 10/11/2023 4:59 PM CDT Respiratory Rate 18 10/11/2023 4:59 PM CDT Oxygen Saturation 95% 01/01/2024 8:08 AM MARKETING AUTOMATION ANALYST Inhaled Oxygen Concentration - - Weight 85.7 kg (189 lb) 01/01/2024 8:08 AM MARKETING AUTOMATION ANALYST Height 165.1 cm (5' 5 ) 01/01/2024 8:08 AM MARKETING AUTOMATION ANALYST Body Mass Index 31.45 01/01/2024 8:08 AM MARKETING AUTOMATION ANALYST Plan of Treatment Not on file Insurance A[employer]NA MEDICARE AETNA MEDICARE Care Teams Ordnance Equipment Worker Relationship Specialty Start Date End Date Marsha Virk, CASH APPLICATION REPRESENTATIVE [address] [place] [address] PCP - General Family Medicine 01/01/24
--- OUTSIDE RECORDS SUMMARY | 2024-05-11 08:53 | XMS_ITS | Encounter Summary ---
Author Organization [facility] Address [address] [place] [address] Phone Care Team Providers Care Wood Carver Hand Name Role Phone Abdulkadir Pascal MD Primary Care Provider [phone] Unknown, Notinfile Primary Care Provider Unavail able Marsha Virk NP Primary Care Provider [phone] Encounter Details Date Type Department Care Team (Latest Contact Info) Description 10/20/2016 Orders Only [facility] CONVERSION Scanning, Provider Social History Tobacco Use Types Packs/Day Years Used Date Smoking Tobacco: Never Alcohol Use Standard Drinks/Week Comments Yes 0 (1 standard drink = 0.6 oz pur e alcohol) Comments Unknown Sex and Gender Information Value Date Recorded Sex Assigned at Not on file Legal Sex Female 11:58 PM OWNER [employer] Gender Identity Not on file Sexual Orientation Not on file documented as of this encounter Plan of Treatment Not on file documented as of this encounter Procedures Procedure Name Priority Date/Time Associated Diagnosis Comments VASCULAR LABORATORY REPORT 10/20/2016 11:01 PM CDT documented in this encounter Results * VASCULAR LABORATORY REPORT (10/20/2016 11:01 PM CDT) Anatomical Region Laterality Modality Ultrasound us Provider Scanning CV VASCULAR PROCEDURES Final R esult documented in this encounter Visit Diagnoses Not on filedocumented in this encounter Care Teams Wood Carver Hand Relationship Specialty Start Date End Date Abdulkadir Pascal MD [address] [place] [address] PCP - General 05/22/12 10/10/23 Unknown, Notinfile PCP - General 10/11/23 12/31/23 Marsha Virk NP [address] [place], [place] [id number] PCP - General Family Medicine 01/01/24 documented as of this encounter
--- OUTSIDE RECORDS SUMMARY | 2024-05-11 08:53 | XMS_ITS | Clinical Summary ---
Author Organization [facility] Address [address] [place] [address] Care Team Providers Care Clinical Account Liaison Name Role Phone Marsha Virk NP Primary Care Provider [phone] Allergies Active Allergy Reactions Criticality Noted Date Comments Codeine Finasteride Muscle pain,Other (See comments) Medium 11/01/2021 Hydrocodone Hypotension High 08/12/2016 Hydrocodone-Acetaminophen Syncope High 12/16/2022 Methylprednisolone Rash,Other (See comments) Medium 08/11/2020 Facial flushing Facial flushing Nickel Rash Medium 01/23/2018 Nitrofurantoin Other (See comments) Low 04/20/2011 Oxycodone Other (See comments) Low 11/03/2020 Severe hypotention Severe hypotention Jkoarzl-Pfv-Wot Reductase Inhibitors Muscle pain Medium 11/01/2021 Tetracycline [...] and collapse 05/11/2022 Preoperative cardiovascular examination 11/02/19 22 Nonrheumatic aortic valve stenosis 11/01/2021 Morbid (severe) obesity due to excess calories 0 11/01/2021 Chronic fatigue 08/11/2021 Myalgia due to statin 01/13/2021 Assessment & Plan (06/08/2021 4:09 PM CDT): Check CK The dose of a statin has been lowered Mixed hyperlipidemia 01/13/2021 S/P coronary artery stent placement 08/29/2019 HTN (hypertension), benign 08/29/2019 Coronary artery disease invo lving [place] coronary artery of [place] heart without angina pectoris 05/06/2019 History of [...] Chronic, well controlled Continue Synthroid ,100 mcg suki, 1/2 tab on Sundays Rx sent to [facility]. Pt understands. Assessment & Plan (06/28/2022 [...] of stent in coronary artery 05/06/2019 05/11/2022 Encounters Date Type Department Care Team Description 02/19/2024 Telephone [facility] Cardiology at [address] [place] [address] Judson Foy MD 02/14/2024 Telephone [facility] Cardiology [address] [place] [address] Judson Foy MD Med Management from Last 3 Months Surgical History Surgery Date Site/Laterality Comments CORONARY ANGIOPLASTY 04/25/2019 CARDIAC CATHETERIZATION May 2018 and April 2019 REPLACEMENT TOTAL KNEE Right OTHER SURGICAL HISTORY head REPLACEMENT TOTAL KNEE 11/12/2021 [facility] OTHER SURGICAL HISTORY 09/06/2022 - 10/06/2022 bilateral leg vein procedures at [facility] Medical History Medical History Date Comments Disorder of thyroid Thyroid dise ase Hx Other Medical 2012 cataracts Hx Other Medical Not claustropho bic; Comments: GFC 10/29/2013 - Non-ischemic cardiomyopathy (HCC) Coronary artery disease Hypertension Hypothyroidism Anxiety Heart attack (HCC) Family History Medical History Relation Name Comments Glaucoma Brother Clotting disorder Daughter Macular degeneration Mother Lung cancer Other Family history of Cancer -lung; Relation Name Status Comments Brother Daughter Alive Mother Other Social History Tobacco Use Types Packs/Day Years [...] on file Legal Sex Female 11:58 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 Gender Identity Not on file Sexual Orientation Not on file Obstetrics History Last Filed Vital Signs Vital Sign Reading Time Taken Comments Blood Pressure 154/66 01/01/2024 8:08 AM IN SERVICE EDUCATION TEACHER Pulse 63 01/01/2024 8:08 AM IN SERVICE EDUCATION TEACHER Temperature 36.8 C (98.2 F) 10/11/2023 4:59 PM CDT Respiratory Rate 18 10/11/2023 4:59 PM CDT Oxygen Saturation 95% 01/01/2024 8:08 AM IN SERVICE EDUCATION TEACHER Inhaled Oxygen Concentration - - Weight 85.7 kg (189 lb) 01/01/2024 8:08 AM IN SERVICE EDUCATION TEACHER Height 165.1 cm (5' 5 ) 01/01/2024 8:08 AM IN SERVICE EDUCATION TEACHER Body Mass Index 31.45 01/01/2024 8:08 AM IN SERVICE EDUCATION TEACHER Plan of Treatment Health Maintenance Due Date Last Done Comments Fall Risk Assessment 1945 Hepatitis C Screening 1945 DTaP/Tdap/Td Vaccine (1 - Tdap) 1957 Hepatitis B Screening 1964 Well Visit 65+ 07/13/2011 Zoster Vaccine (2 of 3) 11/09/2015 09/14/2015 Depression Screening 06/29/2023 06/28/2022, 06/08/2021, 06/04/2020, Additional history exists Osteoporosis Screening-Bone Density Scan 09/16/2023 09/15/2021 Influenza Vaccine (#1) 2023 , 08/05/2021, 11/13/2020, Additional history exists Pneumococcal vaccine 65+ Completed 022, 08/05/2021, 09/20/2016, Additional history exists Insurance [employer] MEDICARE UHC MEDICARE [facility] Address: [address] [address] [place] [address] [employer] MEDICARE Care Teams Clinical Account Liaison Relationship Specialty Start Date End Date Marsha Virk NP [address] [place], [place] [id number] PCP - General Family Medicine 01/01/24
--- OUTSIDE RECORDS SUMMARY | 2024-05-11 08:53 | XMS_ITS | Clinical Summary ---
Author Organization [facility] Address [address] [place] [address] Care Team Providers Care Firer Boiler Name Role Phone HeroAbdulkadir gee Primary Care Provider [phone] Allergies Active Allergy Reactions Criticality Noted Date Comments Codeine Nausea and Vomiting,Shortness of Breath/Wheezing High 06/05/2019 Any codeine or derivative causes low blood pressure, passes out, and experiences difficulty breathing Ykujsid-Xbb-Hxq Reductase Inhibitors Muscle Pain Medium 11/01/2021 Tetracycline Itching Low 09/13/2022 Medications venlafaxine (EFFEXOR XR) 75 mg Extended Release 24 hour capsule Take 75 mg by mouth daily. 0 Active buPROPion HCL, smoking deter, (ZYBAN) 150 mg Sustained Release 12 hour tablet Take 150 mg by mouth daily. Active traZODone (DESYREL) 50 mg tablet trazodone 50 mg tablet Active aspirin (CHRIS CHEWABLE) 81 mg Tablet, Chewable Take 81 mg by mouth daily. Active carvediloL (COREG) 6.25 mg tablet Take 6.25 mg by mouth 2 times daily. 3 Active levothyroxine 100 mcg tablet Take 100 mcg by mouth daily in the morning. Active atorvastatin (LIPITOR) 10 mg tablet Take 10 mg by mouth daily. Active spironolactone (ALDACTONE) Tablet Take 12.5 mg by mouth daily. One every other day Active losartan (COZAAR) 100 mg tablet Take 100 mg by mouth daily. Active Active Problems No known active problems Encounters Date Type Department Care Team Description 03/26/2024 External Device Data [facility] ABSTRACTION Provider, Abstract 02/29/2024 External Device Data [facility] ABSTRACTION Provider, Abstract 02/28/2024 External Device Data [facility] ABSTRACTION Provider, Abstract 02/27/2024 External Device Data [facility] ABSTRACTION Provider, Abstract from Last 3 Months Family History Medical History Relation Name Comments Heart Disease Father Lung Cancer Father Relation Name Status Comments Father Mother Social History Tobacco Use Types Packs/Day Years Used Date Smoking Tobacco: Never Smokeless Tobacco: Never Tobacco Cessation:Counseling Given: Not Answered Alcohol Use Standard Drinks/Week Comments Yes 0 (1 standard drink = 0.6 oz pur e alcohol) soc Comments No Sex and Gender Information Value Date Recorded Sex Assigned at Not on file Legal Sex Female 11:24 AM CDT Gender Identity Not on file Sexual Orientation Not on file Last Filed Vital Signs Vital Sign Reading Time Taken Comments Blood Pressure 132/83 07/19/2023 10:47 AM CDT Pulse 66 07/19/2023 10:47 AM CDT Temperature 36.3 C (97.3 F) 12/13/2022 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 Respiratory Rate - - Oxygen Saturation 98% 01/09/2023 8:45 AM WATER METER INSTALLER Inhaled Oxygen Concentration - - Weight 88.5 kg (195 lb) 07/19/2023 10:47 AM CDT Height 165.1 cm (5' 5 ) 07/19/2023 10:47 AM CDT Body Mass Index 32.45 07/19/2023 10:47 AM CDT Plan of Treatment Upcoming Encounters Date Type Department Care Team (Late st Contact Info) Description 05/15/2024 8:15 AM CDT Office Visit [facility] and Vascular Surgery [address] [facility] [address] [facility] [address] [place] [address] [place] [address] [place] [address] 07/22/2024 9:30 AM CDT Office Visit [facility] Heart and [facility]ascular [facility] [address] [facility] [address] [facility] [address] [place] [address] [place] [address] [place] [address] Health Maintenance Due Date Last Done Comments DTAP/TDAP/TD VACCINES (1 - Tdap) 1965 ZOSTER VACCINE (2 of 3) 11/09/2015 09/14/2015 RSV VACCINE (60+ or ) (1 - 1-dose 75+ series) 2021 INFLUENZA VACCINE (#1) 2023 2, 08/05/2021, 11/13/2020, Additional history exists [place] Preventative Visit/Annual Wellness Visit 02/07/2024 01/13/2022, 12/17/2020, 10/09/2019 COLORECTAL SCREENING Discontinued 07/01/2020 Colorectal Cancer Screening Discontinued PNEUMOCOCCAL VACCINE 50+ YEARS Completed 0 08/05/2021, 08/05/2021, 09/20/2016, Additional history exists OSTEOPOROSIS SCREENING Completed 2, 11/06/2019, 11/06/2019, Additional history exists FIT-DNA Q 3 years Discontinued FIT/FOBT Q 1 year Discontinued Flex Sig/CT Colonography Q 5 years Discontinued Insurance Care Teams Firer Boiler Relationship Specialty Start Date End Date Abdulkadir Pascal DO [address] [facility] [address] [place] [address] PCP - General Internal Medicine 12/11/18
--- OUTSIDE RECORDS SUMMARY | 2024-05-11 08:53 | XMS_ITS | Clinical Summary ---
Author Organization [facility] Address [address] [place] [address] Care Team Providers Care Vacuum Cleaner Repair Person Name Role Phone Abdulkadir Pascal Primary Care Provider Source Comments [facility],non-owned Affiliates and Associated Physician Practices is amultiple site organization consisting of ambulatory clinics and hospital sitesin [place], [place], [place] and [place]. This disclosure is being madepursuant to the Care Everywhere program and may not contain all information available regarding this patient. Last updated 17.[facility] Allergies Active Allergy Reactions Criticality Noted Date Comments 5-Alpha Reductase Inhibitors Myalgias Medium 022 Codeine Other Any codeine or derivative causes low blood pressure, passes out, and experiences difficulty breathing Hmg-Coa-R Inhibitors Myalgias Medium 11/01/2021 Hydrocodone-Acetaminophen Other High 01/23/2018 Hypotensive, syncopal episode Methylprednisolone Topical Low 08/11/2020 Facial flushing Nickel Rash Medium 01/23/2018 Nitrofurantoin Other 04/20/2011 Oxycodone Other 11/03/2020 Severe hypotention Tetracycline Itching Tramadol Other High 01/14/2019 Hypotensive, syncopal episode Medications * Be aware that medications may not be up to date on this document. Alwaysverify current medications with the patient. Medication Sig Dispensed Refills Start Date End Date Status levothyroxine (SYNTHROID) 100 MCG tablet Take 1 (one) tablet by mouth once daily 01/01/2018 Active venlafaxine XR 24hr (EFFEXOR XR) 75 MG capsule Take 1 (one) capsule by mouth once daily 01/01/2018 Active buPROPion XL 24hr (WELLBUTRIN-XL) 150 MG tablet Take 1 (one) tablet by mouth once daily 01/01/2018 Active traZODone (DESYREL) 50 MG tablet Take 0.5 (one-half) tablet by mouth at bedtime Active losartan (COZAAR) 100 MG tablet Take 1 tablet by mouth once daily 30 tablet 1 05/26/2018 Active spironolactone (ALDACTONE) 25 MG tablet Take 0.5 (one-half) tablet by mouth once daily 3 07/23/2018 Active loratadine (CLARITIN) 10 MG tablet Take 1 (one) tablet by mouth once daily Active Nitroglycerin (NITRO-TIME PO) Take 1 tablet by mouth as needed Active carvedilol (COREG) 6.25 MG tablet Take 1 (one) tablet by mouth 2 times daily with morning and evening meal Active Multiple Vitamins-Minerals (RA VISION-BREE PRESERVE PO) Take 2 tablets by mouth once daily Active atorvastatin (Lipitor) 10 MG tablet Take 1 (one) tablet by mouth once daily 11/01/2021 Active celecoxib (CeleBREX) 200 MG capsule Take 1 (one) capsule by mouth 2 times daily 180 capsule 2 12/24/2021 Active fluticasone propionate (Flonase) 50 MCG/ACT nasal sprayIndications:C hronic rhinitis [place] 2 (two) sprays into each nostril once daily 16 g 01/25/2022 Active azelastine (Astelin) 0.1 % nasal sprayIndications:C hronic rhinitis [place] 1 (one) spray into each nostril 2 times daily 30 mL 3 01/25/2022 Active aspirin EC (Ecotrin) 81 MG tablet Take 1 (one) tablet by mouth once daily Active amoxicillin-clavul anate (Augmentin) 875-125 MG tablet Take 1 (one) tablet by mouth 2 times daily with morning and evening meal 20 tablet 07/18/2022 Active Additional Information Patient not taking.Reported on 01/11/2023 Active Problems Problem Noted Date Diagnosed Date Nonrheumatic aortic valve stenosis 11/01/2021 Acquired hallux valgus 08/02/2021 Metatarsus primus varus 08/02/2021 Bursitis of right shoulder 07/14/2021 Primary osteoarthritis of left knee 06/18/2021 Status post right knee replacement 01/19/2021 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 11/03/2020 MD (myocardial infarction) 10/09/2019 HTN (hypertension), benign 08/29/2019 Allergic rhinitis 05/13/2019 Anxiety disorder, unspecified 05/13/2019 Bilateral lower extremity edema 05/13/2019 Dorsalgia 05/13/2019 Esophageal reflux 05/13/2019 Family history of malignant neoplasm of gastrointestinal tract 05/13/2019 Insomnia 05/13/2019 Myalgia and myositis 05/13/2019 Myalgia 05/13/2019 Osteoporosis 05/13/2019 Other depressive disorder 05/13/2019 Other fatigue 05/13/2019 Other malaise and fatigue 05/13/2019 Pain in joint, ankle and foot 05/13/2019 Pityriasis rosea 05/13/2019 Pure hypercholesterolemia 05/13/2019 Tear film insufficiency 05/13/2019 Pain in soft tissues of limb 05/13/2019 Wheezing 05/13/2019 Mucocele of nasal sinus 01/22/2019 Other acquired deformities of left foot 12/22/19 19 Hypertensive disorder 10/01/2018 Hypothyroidism 10/01/2018 H/O cardiomyopathy 09/07/2018 H/O CHF 09/07/2018 Hypersomnia 08/13/2018 History of coronary artery stent placement 07/23 Pulmonary hypertension 06/22/2018 Hypertensive heart disease with congestive heart failure 06/22/2018 Primary osteoarthritis of right knee 01/23/2018 Body mass index (bmi) 32.0-32.9, adult 8 Right knee pain 12/04/2017 Adult general medical exam 05/31/2017 Dietary counseling and surveillance 09/16/2013 Overweight 05/27/2013 Hypothyroidism 05/21/2013 Overview (12/27/2019): HYPOTHYROIDISM NOS Last Assessment & Plan: Lower Levothyroxine, 100 mcg daily ,none on Sundays Recheck in 3 m Chronic sinusitis 01/15/2010 Hyposmolality and/or hyponatremia 01/15/2010 Syncope and collapse 01/15/2010 Essential hypertension 01/15/2010 Hypothyroidism 01/15/2010 Facial pain Resolved Problems Problem Noted Date Diagnosed Date Resolved Date Constipation 05/13/2019 06/10/2019 URI, acute 01/22/2018 05/27/2019 Encounters Date Type Department Care Team Description 05/06/2024 Travel from Last 3 Months Immunizations Name Administration Dates Next Due Covid Moderna primary monova lent 12+ yr 0.5mL 04/11/2020,03/12/2020 FLU, HISTORIC VACCINE 10/21/2019 INFLUENZA VACCINE 11/13/2020,10/21/2019,11/16/19 16 INFLUENZA VACCINE, ADJUVANTE D, QUADR. (FLUAD QUADRIVALENT; 65Y+) (AIIV4) 11/13/2021 INFLUENZA VACCINE, HIGH-DOSE , QUADR. (FLUZONE HIGH-DOSE QUADRIVALENT; 65Y+), 0.7 ML (HD-IIV4) 08/05/2021,11/13/2020,10/21/2019,2015 EM VACCINE QUAD LAIV4 PF NASAL 11/16/2015 PNEUMOCOCCAL PCV7 CONJ, PEDS 08/05/2021 PNEUMOCOCCAL PPSV23 08/05/2021, 7,09/14/2015,2015 Pneumococcal Pcv13 Conj 09/14/2015 ZOSTER VACCINE, LIVE 09/14/2015 Family History Medical History Relation Name Comments Depression Brother Thyroid Disease Brother CAD (Coronary Artery Disease) Father Cancer - Other Father CAD (Coronary Artery Disease) Mother Relation Name Status Comments Brother Father Mother Social History Tobacco Use Types Packs/Day Years Used Date Smoking Tobacco: Never Smokeless Tobacco: Never Tobacco Cessation:Counseling Given: Not Answered Alcohol Use Standard Drinks/Week Comments Yes 1 (1 standard drink = 0.6 oz pur e alcohol) socially AUDIT-C Answer Date Recorded Q1: How often do you have a drink containing alcohol? Never 11/12/2021 Q2: How many drinks containi ng alcohol do you have on a typical day when you are drinking? Patient does not drink Q3: How often do you have si x or more drinks on one occasion? Never 11/12/2021 Hunger Vital Sign Answer Date Recorded Within the past 12 months, y ou worried that your food would run out before you got the money to buy more. Never true 11/13/19 22 Within the past 12 months, t he food you bought just didn't last and you didn't have money to get more. Never true 11/12/2021 Sex and Gender Information Value Date Recorded Sex Assigned at Female 10/21/2020 8:38 AM CDT Gender Identity Female 10/21/2020 8:38 AM CDT Sexual Orientation Straight 10/21/2020 8: 38 AM CDT Last Filed Vital Signs Vital Sign Reading Time Taken Comments Blood Pressure 160/91 05/25/2022 11:03 AM CDT Pulse 66 05/25/2022 11:03 AM CDT Temperature 36.5 C (97.7 F) 05/25/2022 11:03 AM CDT Respiratory Rate 17 11/13/2021 8:00 AM CDT Oxygen Saturation 99% 11/13/2021 8:00 AM CDT Inhaled Oxygen Concentration - - Weight 88 kg (194 lb) 01/11/2023 10:33 AM COMMUNITY HEALTH REPRESENTATIVE Height 165.1 cm (5' 5 ) 01/11/2023 10:33 AM COMMUNITY HEALTH REPRESENTATIVE Body Mass Index 32.28 01/11/2023 10:33 AM COMMUNITY HEALTH REPRESENTATIVE Plan of Treatment Upcoming Encounters Date Type Department Care Team (Late st Contact Info) Description 05/24/2024 9:45 AM CDT Office Visit [facility] - ENT [address] [place] [address] Aamir Ochoa MD [address] [place] [address] Health Maintenance Due Date Last Done Comments BONE DENSITY TESTING 1945 HEPATITIS C SCREENING 07/07/1964 DTAP/TDAP/TD VACCINES (1 - Tdap) 1965 ZOSTER VACCINE (2 of 3) 11/09/2015 09/14/2015 Respiratory Syncytial Virus (RSV) Vaccine Pt: or over 60 yrs (1 - 1-dose 75+ series) 2021 COVID-19 VACCINE (3 - season) 2023 04/11/2020, 03/12/2020 DEPRESSION SCREENING 02/07/2024 MEDICARE AWV CALENDAR YEAR 2024 INFLUENZA VACCINE (Season Ended) 2024 11/13/2021, 08/05/2021, 11/13/2020, Additional history exists PNEUMOCOCCAL VACCINE 50+ Completed 022, 09/20/2016, 09/14/2015, Additional history exists HEPATITIS B VACCINE Aged Out No longe r eligible based on patient's age to complete this topic HIB VACCINE Aged Out No longer eligi ble based on patient's age to complete this topic HPV VACCINE Aged Out No longer eligi ble based on patient's age to complete this topic MENINGOCOCCAL (Group B) VACCINE SHARED DECISION-MAKING Aged Out No longer eligible based on patient's age to complete this topic MENINGOCOCCAL GROUPS A/C/Y/W VACCINE Aged Out No longer eligible based on patient's age to complete this topic Medical Devices Implanted Type Area Pipe Straightener Device Identifier Shelf Expiration Date Model / Serial / Lot Cmnt Bone Cblt 40gm Hvisc Strl Implanted:Qty : 1 on 05/23/2018 by Daniel Wakefield MD at [facility] Right: Knee [employer] 08/02/2019 600-15-00 0 / / [id number] Cmpnt Ptlr 28mm 1 Pg Wire Ascnt Arcm Kn Implanted:Qty : 1 on 05/23/2018 by Daniel Wakefield MD at [facility] Right: Knee [employer] 01/23/2023 [id number] / / [id number] Cmpnt Fem Kn Rt Cr Cmnt Prm Vngrd Intlk Implanted:Qty : 1 on 05/23/2018 by Daniel Wakefield MD at [facility] Right: Knee [employer] 01/20/2028 [id number] / / [id number] Tray Tib 71mm Kn Cocr I Beam Implanted:Qty : 1 on 05/23/2018 by Daniel Wakefield MD at [facility] Right: Knee [employer] 02/25/2028 [id number] / / [id number] Brng 25tiz46ir Vngrd Arcm Kn Ant Stab Implanted:Qty : 1 on 05/23/2018 by Daniel Wakefield MD at [facility] Right: Knee [employer] 03/28/2023 [id number] / / [id number] Graft Tissue Drgn + Bvn Clgn Mtrx 2x2in Implanted:Qty : 1 on 01/22/2019 by Aamir Ochoa MD at [facility] Nose [employer] 10/06/2021 DP- 1022 / / [id number] Screw 1.5mm 4mm Slf Drl Ax Stab Unv Implanted:Qty : 12 on 11/03/2020 by Aamir Ochoa MD at [facility] Cranial [place] Craniomaxillofacial [id number] / / Graft Tissue Drgn + Bvn Clgn Mtrx 2x2in Implanted:Qty : 1 on 11/03/2020 by Amair Ochoa MD at [facility] Cranial [employer] 07/07/2023 DP1 022 / / [id number] Cover Bur Hl .4mm 7mm Unv Neuro Iii Ti Implanted:Qty : 2 on 11/03/2020 by Aamir Ochoa MD at [facility] Cranial [place] Craniomaxillofacial [id number] / / Plate 8 Hl Lopro Crnmxf .4mm Str Unv Implanted:Qty : 1 on 11/03/2020 by Aamir Ochoa MD at [facility] Cranial [place] Craniomaxillofacial [id number] / / Cmnt Bone Djo Srg Cblt 40gm Hvisc Strl Implanted:Qty : 1 on 11/12/2021 by Daniel Wakefield MD at [facility] Left: Knee [employer] 08/19/2022 600-15-00 0 / / [id number] Cmpnt Fem Kn Lt Cr Cmnt Prm Vngrd Intlk Implanted:Qty : 1 on 11/12/2021 by Daniel Wakefield MD at [facility] Left: Knee [employer] 10/14/2031 [id number] / / [id number] Cmpnt Ptlr Std 28mm 1 Pg Wire Kn Ser A Implanted:Qty : 1 on 11/12/2021 by Daniel Wakefield MD at [facility] Left: Knee [employer] 07/18/2022 [id number] / / [id number] Tray Tib 71mm Kn Cocr I Beam Implanted:Qty : 1 on 11/12/2021 by Daniel Wakefield MD at [facility] Left: Knee [employer] 09/16/2031 [id number] / / [id number] Brng 32lle78lu Vngrd Arcm Kn Ant Stab Implanted:Qty : 1 on 11/12/2021 by Daniel Wakefield MD at [facility] Left: Knee [employer] 10/18/2026 [id number] / / [id number] Advance Directives * Full Code (Latest Code Status on File) Date Activated Date Inactivated Comments 11/12/2021 10:05 AM 11/13/2021 2:52 PM * Full Code Date Activated Date Inactivated Comments 11/03/2020 7:55 PM 11/04/2020 11:34 AM * Full Code Date Activated Date Inactivated Comments 01/22/2019 4:56 PM 01/23/2019 12:10 PM * Full Code Date Activated Date Inactivated Comments 05/23/2018 10:18 AM 05/25/2018 1:18 PM Care Teams Vacuum Cleaner Repair Person Relationship Specialty Start Date End Date Abdulkadir Pascal DO [address] [facility] [address] [place] [address] PCP - General Internal Medicine 01/23/18
--- OUTSIDE RECORDS SUMMARY | 2024-05-11 08:53 | XMS_ITS | Clinical Summary ---
Author Organization [facility] Address [address] [place] [address] Care Team Providers Care Data Entry Processor Name Role Phone Parish Leger PA-C Primary Care Provider [phone] Allergies Active Allergy Reactions Criticality Noted Date Comments 5-Alpha Reductase Inhibitors Myalgias Medium 11/01/2021 Codeine Shortness of Breath High 06/05/2019 Hydrocodone-Acetaminophen Unknown Low 01/23/2018 Drop in BP, passes out Other reaction(s): Unknown Drop in BP, passes out Methylprednisolone Rash Low 08/11/2020 Facial flushing Nickel Rash Medium 01/23/2018 Statins Myalgias Medium 11/01/2021 Tetracycline Itching Low 06/05/2019 Medications aspirin 81 MG chewable tablet Chew 81 mg by mouth daily. Active buPROPion XL 150 MG 24 hr tablet Take 1 tablet by mouth daily. 01/01/2018 Active carvedilol 6.25 MG tablet Take 6.25 mg by mouth 2 (two) times daily. 06/24/2019 Active levothyroxine (SYNTHROID) 100 MCG tablet Take 100 mcg by mouth daily. 01/01/2018 Active loratadine 10 MG tablet Take 10 mg by mouth daily. Active losartan 100 MG tablet Take 100 mg by mouth daily. 05/26/2018 Active nitroglycerin 0.4 MG SL tablet DISSOLVE ONE TABLET UNDER THE TONGUE EVERY 5 MINUTES NEEDED FOR CHEST PAIN. DO NOT EXCEED A TOTAL OF 3 DOSES IN 15 MINUTES 04/27/2019 Active spironolactone 25 MG tablet Take 12.5 mg by mouth daily. 06/24/2019 Active traZODone 50 MG tablet Take 50 mg by mouth daily. 05/31/2016 Active venlafaxine XR 75 MG 24 hr capsule Take 1 capsule by mouth daily. 01/01/2018 Active fish oil 1000 MG Cap capsule Take 1,000 mg by mouth. Active vitamin D3, cholecalciferol , 10 MCG (400 UNIT) tablet Take 400 Units by mouth daily. Active Biotin 2.5 MG Tab Take 2.5 mg by mouth daily. Active LUTEIN OR Take 1 tablet by mouth daily. 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 11/03/2020 Cyst of nasal sinus 11/03/2020 Dorsalgia 05/13/2019 Constipation 05/13/2019 Family history of malignant neoplasm of gastrointestinal tract 05/13/2019 Facial pain 05/13/2019 Pityriasis rosea 05/13/2019 Pain in joint involving ankle and foot 0 Myalgia 05/13/2019 Wheezing 05/13/2019 Tear film insufficiency 05/13/2019 Allergic rhinitis 05/13/2019 Anxiety disorder 05/13/2019 Esophageal reflux 05/13/2019 Edema of lower extremity 05/13/2019 Depressive disorder 05/13/2019 Malaise and fatigue 05/13/2019 Pure hypercholesterolemia 05/13/2019 Other fatigue 05/13/2019 Osteoporosis 05/13/2019 Coronary arteriosclerosis in [place] artery 05/05 Presence of stent in coronary artery 05/06/2019 Mucocele of nasal sinus 01/22/2019 Acquired deformity of left foot 12/21/2018 H/O CHF 09/07/2018 H/O cardiomyopathy 09/07/2018 Hypersomnia 08/13/2018 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 07/23/2018 Overview (05/20/2020): 1997 right frontal sinus CSF leak, attributed to chronic sinus infections, had surgical repair 1996 right frontal sinus CSF leak, attributed to chronic sinus infections, had surgical repair History of coronary artery stent placement 07/23 Cerebrospinal fluid rhinorrhea 07/23/2018 Overview (12/17/2020): 1996 right frontal sinus CSF leak, attributed to chronic sinus infections, had surgical repair 1996 right frontal sinus CSF leak, attributed to chronic sinus infections, had surgical repair 1996 right frontal sinus CSF leak, attributed to chronic sinus infections, had surgical repair VT (myocardial infarction) ([facility]) At risk of disease 06/22/2018 Chronic combined systolic an d diastolic heart failure ([facility]) 06/22/2018 Hypertensive heart disease w ith congestive heart failure ([facility]) 06/22/2018 Pulmonary hypertension ([facility]) 019 Myocardial infarction ([facility]) 06/23/19 19 Primary osteoarthritis of right knee 01/23/2018 Body mass index (bmi) 32.0-32.9, adult 8 Right knee pain 12/04/2017 Rosacea 08/22/2017 History of laser assisted in situ keratomileusis 11/15/2016 Pseudophakia 11/15/2016 Epiretinal membrane 11/15/2016 Disorder of vein 09/21/2016 Dermatochalasis 05/25/2015 Epiphora due to insufficient drainage 09/30/2014 Dietary counseling and surveillance 09/16/2013 Overweight 05/27/2013 Hypothyroidism 05/21/2013 Overview (12/17/2020): HYPOTHYROIDISM NOS Last Assessment & Plan: Continue levothyroxine, current dose of 100 mcg daily Monday through Monday but none on Monday Chronic sinusitis 01/15/2010 HTN (hypertension), benign 01/15/2010 Hypothyroidism 01/15/2010 Overview (05/20/2020): HYPOTHYROIDISM NOS Last Assessment & Plan: Lower Levothyroxine, 100 mcg daily ,none on Sundays Recheck in 3 m HYPOTHYROIDISM NOS Last Assessment & Plan: Lower synthroid, 100 mcg daily, 1/2 tab on Sundays F/u in 4 months, Labs to be done one week before next zohaib HYPOTHYROIDISM NOS Last Assessment & Plan: Lower Levothyroxine, 100 mcg daily ,none on Sundays Recheck in 3 m HYPOTHYROIDISM NOS Last Assessment & Plan: Lower Levothyroxine, 100 mcg daily ,none on Sundays Recheck in 3 m Hyposmolality and/or hyponatremia 01/15/2010 Syncope and collapse 01/15/2010 Immunizations Name Administration Dates Next Due Fluzone High Dose - >Age 65 (Prefilled Syringe) 08/05/2021,11/13/2020,10/21/2019,2015 Influenza (FluMist) 11/13/2020 Influenza (Fluarix) 10/21/2019 Influenza (Generic) 11/13/2020,10/21/2019,2015 Influenza Adult (Generic) 11/13/2021,10/21/2019, 11/16/2015 MODERNA COVID-19 (12+) MRNA, LNP-S, PF, 100 MCG/ 0.5 ML DOSE 04/11/2020,03/12/2020 Pneumococcal (Pneumovax 23) 08/05/2021, 7,04/26/2015 Pneumococcal (Prevnar 13) 09/14/2015 Zoster (Zostavax) 88430 Unt/0.65Ml 09/14/2015 Family History Medical History Relation Comments Cancer Father Heart Disease Father Hypertension Father Heart Disease Mother Relation Status Comments Father Mother Social History Tobacco Use Types Packs/Day Years Used Date Smoking Tobacco: Never Smokeless Tobacco: Never Tobacco Cessation:Counseling Given: No Alcohol Use Standard Drinks/Week Comments Yes 0 (1 standard drink = 0.6 oz pur e alcohol) socially PHQ-2 Answer Date Recorded Patient Health Questionnaire-2 Score 0 01/13/2022 Comments No Sex and Gender Information Value Date Recorded Sex Assigned at Not on file Legal Sex Female 9:44 AM CDT Gender Identity Female 06/01/2021 10:42 AM CDT Sexual Orientation Not on file Last Filed Vital Signs Vital Sign Reading Time Taken Comments Blood Pressure 136/72 01/13/2022 8:02 AM COMPUTER FORENSIC SPECIALIST Pulse 75 01/13/2022 7:37 AM COMPUTER FORENSIC SPECIALIST Temperature 36.7 C (98 F) 01/13/2022 7:37 AM COMPUTER FORENSIC SPECIALIST Respiratory Rate 22 01/13/2022 7:37 AM COMPUTER FORENSIC SPECIALIST Oxygen Saturation 99% 01/13/2022 7:37 AM COMPUTER FORENSIC SPECIALIST Inhaled Oxygen Concentration - - Weight 96.6 kg (213 lb) 01/13/2022 7:37 AM COMPUTER FORENSIC SPECIALIST Height 167.6 cm (5' 6 ) 01/13/2022 7:37 AM COMPUTER FORENSIC SPECIALIST Body Mass Index 34.38 01/13/2022 7:37 AM COMPUTER FORENSIC SPECIALIST Plan of Treatment Health Maintenance Due Date Last Done Comments ASCVD LDL 1945 DTaP, Tdap and Td Vaccines (1 - Tdap) 1964 Annual Medicare Wellness Visit 07/13/2011 Zoster Vaccines (2 of 3) 11/09/2015 09/14/2015 RSV Immunization or 60+ Years (1 - 1-dose 75+ series) 2021 COVID-19 Vaccine ( season) 2023 01/21/2021, 04/11/2020, 03/12/2020 PHQ-2 (Physician [place]) 02/07/2024 Hepatitis C 01/14/2052 Postponed from 1964 (Patient Refused) Colorectal Cancer Screening Colonoscopy (10 Years) Discontinued 07/01/2020, 07/01/2020 Pneumococcal Vaccine: 65+ Years Completed 08/05/2021, 09/20/2016, 09/14/2015, Additional history exists Dexa Scan (General) Completed 09/15/2021, 09/15/2021, 11/06/2019, Additional history exists Meningococcal B Vaccine Aged Out No l onger eligible based on patient's age to complete this topic Meningococcal Vaccine Aged Out No giancarlo breanna eligible based on patient's age to complete this topic RSV Immunizations Under 20 Months Aged Out No longer eligible based on patient's age to complete this topic Medical Devices Implanted Type Area Medical Transcription Supervisor Device Identifier Shelf Expiration Date Model / Serial / Lot Knee Components Knee Components Screw Screw Right: Toe Stent Stent Heart Procedures Procedure Name Priority Date/Time Associated Diagnosis Comments BONE DENSITY GENERIC (SCAN ORDER) 09/15/2021 COLONOSCOPY Routine 07/01/2020 11:21 AM CDT from Last 3 Months or Most Recently Relevant to Health Maintenance Results * BONE DENSITY GENERIC (09/15/2021) Anatomical Region Laterality Modality Other 09/15/2021 Narrative 09/15/2021 Ordered by an unspecified provider. us Documents Scanned SCANNING Final Result * Colonoscopy (07/01/2020 11:21 AM CDT) Narrative Poonam Zhang MD - 07/01/2020 11:21 AM CDT Poonam Zhang MD 07/01/2020 2:01 PM Procedure Name: Colonoscopy Date/Time: 07/01/2020 11:40 AM us Poonam Zhang MD GI PROCEDURE ORDERABLES Corina l Result from Last 3 Months or Most Recently Relevant to Health Maintenance Insurance MED REPLACE [facility] MEDICARE [employer] Care Teams Data Entry Processor Relationship Specialty Start Date End Date Parish Leger PA-C [address] [facility] [address] [place] [address] PCP - General PHYSICIAN DIRECTOR INPATIENT HEADACHE PROGRAM 06/06/23
[2024-05-11 09:24] LABS: Alanine Aminotransferase 23 U/L (6-35); Albumin Level 4.5 g/dL (3.5-5.1); Alkaline Phosphatase 52 U/L (38-126); Anion Gap 7 mmol/L (4-12); Aspartate Amino Transferase 34 U/L (14-36); Bilirubin,Total 0.9 mg/dL (0.2-1.3); Blood Urea Nitrogen 21 mg/dL (7-17); Calcium 9.3 mg/dL (8.4-10.2); Carbon Dioxide 30 mmol/L (22-30); Chloride 98 mmol/L (98-107); Estimated Glomerular Filt Rate 59; Glucose 87 mg/dL (65-110); Potassium 4.7 mmol/L (3.4-5.0); Sodium 135 mmol/L (137-145); Uric Acid 4.3 mg/dL (2.5-7.5)
[2024-05-11 09:39] LABS: Sodium Urine Random 63 meq/L
[2024-05-11 09:42] LABS: Free T4 Free Thyroxine 1.22 ng/dL (0.78-2.19)
[2024-05-11 09:55] LABS: Total Triiodothyronine (T3) 0.84 NG/ML (0.97-1.69)
[2024-05-13 16:29] LABS: Osmolality, Urine 380 mOsm/kg (50-1200)
== END 2024-05-11 08:36 | disposition home or self-care (01) ==
PROVIDERS: PCP Family Medicine
DX: E87.1 Hypo-osmolality and hyponatremia (principal); E03.9 Hypothyroidism, unspecified; E78.49 Other hyperlipidemia; I10 Essential (primary) hypertension; I95.1 Orthostatic hypotension; M25.50 Pain in unspecified joint
CPT/HCPCS: 36415; 80053; 82533; 83930; 83935; 84300; 84439; 84443; 84480; 84550

== ENCOUNTER 2024-09-17 08:11 | Outpatient (CLI) | payer MEDICARE, SELFPAY ==
--- OUTSIDE RECORDS SUMMARY | 2024-09-17 08:22 | XMS_ITS | Encounter Summary ---
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
--- OUTSIDE RECORDS SUMMARY | 2024-09-17 08:22 | XMS_ITS | Clinical Summary ---
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 Name Role Phone Marsha Virk NP Primary Care Provider [phone] Allergies Active Allergy Reactions Criticality Noted Date Comments Codeine Finasteride Muscle pain,Other (See comments) Medium 11/01/2021 Hydrocodone Hypotension High 08/12/2016 Hydrocodone-Acetaminophen Syncope High 12/16/2022 Methylprednisolone Rash,Other (See comments) Medium 08/11/2020 Facial flushing Facial flushing Nickel Rash Medium 01/23/2018 Nitrofurantoin Other (See comments) Low 04/20/2011 Oxycodone Other (See comments) Low 11/03/2020 Severe hypotention Severe hypotention Gimatmi-Ggb-Kos Reductase Inhibitors Muscle pain Medium 11/01/2021 Tetracycline Tramadol Unknown High 01/14/2019 Hypotensive, syncopal episode Medications aspirin 81 mg enteric coated tabletIndicatio ns:Myocardial [...] mg total) by mouth daily 90 tablet Active Additional Information Patient taking differently: 40 mgoralBedtime (incident response coordinator), Reported on 09/06/2024 buPROPion XL (WELLBUTRIN XL) 150 mg 24 hr tablet Active carvediloL (COREG) 6.25 mg tablet Take 1 tablet (6.25 mg total) by mouth 2 (two) times a day with meals 60 tablet Active Synthroid 100 mcg tablet Take 1 tablet (100 mcg total) by mouth clinical services manager before breakfast 90 tablet 2 Active torsemide (DEMADEX) 5 mg tablet Take 1 tablet (5 mg total) by mouth daily Active venlafaxine XR (EFFEXOR-XR) 75 mg 24 hr capsule Take 1 capsule (75 mg total) by mouth daily Active zonisamide (ZONEGRAN) 100 mg capsuleIndicati ons:Partial Epilepsy Treatment Adjunct Take 2 capsules (200 mg total) by mouth daily 60 capsule 11 025 2025 Active losartan (COZAAR) 100 mg tabletIndicatio ns:Cardiomyopat hy, unspecified type (HCC) Take 1 tablet by mouth once daily 90 tablet 1 Active traZODone (DESYREL) 50 mg tablet take 1/2 tablet by oral route every day at bedtime 30 0 017 2024 Discontinued venlafaxine XR (EFFEXOR-XR) 37.5 mg 24 hr capsule 024 2024 Discontinued(P atient Reported) losartan (COZAAR) 100 mg tabletIndicatio ns:Cardiomyopat hy, unspecified type (HCC) Take 1 tablet (100 mg total) by mouth daily 90 tablet 025 2024 Discontinued Active Problems Problem Noted Date Diagnosed [...] benign 08/29/2019 Coronary artery disease invo lving [place] coronary artery of [place] heart without angina pectoris 05/06/2019 History of [...] 1/2 tab on Sundays Rx sent to [facility]. Pt understands. Assessment & Plan (06/28/2022 [...] Encounters Date Type Department Care Team Description 09/06/2024 5:37 PM CDT - 09/06/2024 11:59 PM CDT Hospital Encounter [facility]) [address] [place] [address] Discharge Disposition: Discharge to home or self care 09/06/2024 5:35 PM CDT - 09/06/2024 11:59 PM CDT Hospital Encounter [facility] ([facility]) [address] [place] [address] Discharge Disposition: Discharge to home or self care 09/06/2024 5:33 PM CDT - 09/06/2024 11:59 PM CDT Hospital Encounter [facility] ([facility]) [address] [place] [address] Discharge Disposition: Discharge to home or self care 09/06/2024 5:32 PM CDT - 09/06/2024 11:59 PM CDT Hospital Encounter [facility] ([facility]) [address] [place] [address] Discharge Disposition: Discharge to home or self care 09/06/2024 5:30 PM CDT - 09/06/2024 11:59 PM CDT Hospital Encounter [facility] ([facility]) [address] [place] [address] Discharge Disposition: Discharge to home or self care 09/06/2024 5:28 PM CDT - 09/06/2024 11:59 PM CDT Hospital Encounter [facility] ([facility]) [address] [place] [address] Discharge Disposition: Discharge to home or self care 09/06/2024 5:26 PM CDT - 09/06/2024 11:59 PM CDT Hospital Encounter [facility] ([facility]) [address] [place] [address] Discharge Disposition: Discharge to home or self care 09/06/2024 5:24 PM CDT - 09/06/2024 11:59 PM CDT Hospital Encounter [facility] ([facility]) [address] [place] [address] Discharge Disposition: Discharge to home or self care 09/06/2024 5:19 PM CDT - 09/06/2024 11:59 PM CDT Hospital Encounter [facility] ([facility]) [address] [place] [address] Discharge Disposition: Discharge to home or self care 09/06/2024 5:15 PM CDT - 09/06/2024 11:59 PM CDT Hospital Encounter [facility] ([facility]) [address] [place] [address] Discharge Disposition: Discharge to home or self care 09/06/2024 4:50 PM CDT - 09/06/2024 11:59 PM CDT Hospital Encounter [facility] ([facility]) [address] [place] [address] Discharge Disposition: Discharge to home or self care 09/06/2024 3:30 PM CDT Office Visit [facility] General Neurology [address] [place] [address] for Advanced Medicine 6th [place] [address] [place] [address] Derek Allison Jr., MD Hypo-osmolality and hyponatremia; Transient cerebral ischemia, unspecified type; Localization-related (focal) (partial) symptomatic epilepsy and epileptic syndromes with complex partial seizures, not intractable, without status epilepticus (HCC) 09/05/2024 Telephone [facility] [address] [place] [phone] Tereso Hannon MD 07/26/2024 8:00 AM CDT Office Visit [facility]iology [address] [facility] [address] [place] [phone] Paula Frazier NP H/O cardiomyopathy; Coronary artery disease involving [place] coronary artery of [place] heart without angina pectoris; History of syncope; H/O atrial fibrillation without current medication 07/18/2024 Results Follow-Up [facility] [address] [place] [phone] Abby Alves MD T4, free 07/16/2024 4:00 PM CDT Lab [address] [phone] Acquired hypothyroidism 07/16/2024 2:45 PM CDT Office Visit [facility] [address] [place] [phone] Abby Alves MD Acquired hypothyroidism (Primary Dx) 07/04/2024 6:21 PM CDT - 07/04/2024 11:59 PM CDT Hospital Encounter [facility] ([facility]) [address] [place] [address] Discharge Disposition: Discharge to home or self care 07/04/2024 6:20 PM CDT - 07/04/2024 11:59 PM CDT Hospital Encounter [facility]) [address] [place] [address] Discharge Disposition: Discharge to home or self care 07/04/2024 6:18 PM CDT - 07/04/2024 11:59 PM CDT Hospital Encounter [facility] ([facility]) [address] [place] [address] Discharge Disposition: Discharge to home or self care 07/04/2024 6:17 PM CDT - 07/04/2024 11:59 PM CDT Hospital Encounter [facility] ([facility]) [address] [place] [address] Discharge Disposition: Discharge to home or self care 07/04/2024 6:16 PM CDT - 07/04/2024 11:59 PM CDT Hospital Encounter [facility] ([facility]) [address] [place] [address] Discharge Disposition: Discharge to home or self care 07/04/2024 5:50 PM CDT - 07/04/2024 11:59 PM CDT Hospital Encounter [facility] ([facility]) [address] [place] [address] Discharge Disposition: Discharge to home or self care 07/04/2024 2:36 PM CDT - 07/04/2024 11:59 PM CDT Hospital Encounter [facility] ([facility]) [address] [place] [address] Discharge Disposition: Discharge to home or self care 07/04/2024 2:34 PM CDT - 07/04/2024 11:59 PM CDT Hospital Encounter [facility] ([facility]) [address] [place] [address] Discharge Disposition: Discharge to home or self care 07/04/2024 2:32 PM CDT - 07/04/2024 11:59 PM CDT Hospital Encounter [facility]) [address] [place] [address] Discharge Disposition: Discharge to home or self care from Last 3 Months Surgical History Surgery Date Site/Laterality Comments CORONARY ANGIOPLASTY 04/25/2019 CARDIAC CATHETERIZATION May 2018 and April 2019 REPLACEMENT TOTAL KNEE Right OTHER SURGICAL HISTORY head REPLACEMENT TOTAL KNEE 11/12/2021 Left [facility] OTHER SURGICAL HISTORY 09/06/2022 - 10/06/2022 bilateral leg vein procedures at [facility] Medical History Medical History Date Comments Disorder of thyroid Thyroid dise ase Non-ischemic cardiomyopathy (HCC) Coronary artery disease Hypertension Hypothyroidism Anxiety Myocardial injury Family History Medical History Relation Name Comments [...] = 0.6 oz pur e alcohol) Social AUDIT-C Answer Date Recorded Q1: How often do you have a drink containing alcohol? Never 07/16/2024 Q2: How many drinks containi ng alcohol do you have on a typical day when you are drinking? Patient does not drink Q3: How often do you have si x or more drinks on one occasion? 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 Gender Identity Not on file Sexual Orientation Straight 07/16/2024 3: 13 PM CDT Obstetrics History Last Filed Vital Signs Vital Sign Reading Time Taken Comments Blood Pressure 151/68 09/06/2024 2:42 PM CDT Pulse 80 09/06/2024 2:42 PM CDT Temperature 36.8 C (98.2 F) 10/11/2023 4:59 PM CDT Respiratory Rate 16 07/26/2024 8:01 AM CDT Oxygen Saturation 96% 07/26/2024 8:01 AM CDT Inhaled Oxygen Concentration - - Weight 84.5 kg (186 lb 3.2 oz) 09/06/2024 2:42 P M CDT Height 165.1 cm (5' 5) 09/06/2024 2:42 PM CDT Body Mass Index 30.99 09/06/2024 2:42 PM CDT Plan of Treatment Health Maintenance Due Date Last Done Comments Fall Risk Assessment 1945 Hepatitis C Screening 1945 Osteoporosis Screening-Bone Density Scan 1945 DTaP/Tdap/Td Vaccine (1 - Tdap) 1957 Hepatitis B Screening 1964 Well Visit 65+ 07/13/2011 Zoster Vaccine (2 of 3) 11/09/2015 09/14/2015 Depression Screening 06/29/2023 06/28/2022, 06/08/2021, 06/04/2020, Additional history exists Influenza Vaccine (#1) 2024 , 08/05/2021, 11/13/2020, Additional history exists Pneumococcal vaccine 65+ Completed 022, 08/05/2021, 09/20/2016, Additional history exists Procedures Procedure Name Priority Date/Time Associated Diagnosis Comments XR TRANSFER OF OUTSIDE FILMS Routine 09/06/2024 5:37 PM CDT XR TRANSFER OF OUTSIDE FILMS Routine 09/06/2024 5:35 PM CDT NM OUTSIDE REFERENCE Routine 09/06/2024 5:33 PM CDT XR TRANSFER OF OUTSIDE FILMS Routine 09/06/2024 5:32 PM CDT XR TRANSFER OF OUTSIDE FILMS Routine 09/06/2024 5:30 PM CDT NM OUTSIDE REFERENCE Routine 09/06/2024 5:28 PM CDT US TRANSFER OF OUTSIDE FILMS Routine 09/06/2024 5:26 PM CDT XR TRANSFER OF OUTSIDE FILMS Routine 09/06/2024 5:24 PM CDT XR TRANSFER OF OUTSIDE FILMS Routine 09/06/2024 5:[address] BODY OUTSIDE REFERENCE Routine 09/06/2024 5:15 PM CDT XR TRANSFER OF OUTSIDE FILMS Routine 09/06/2024 4:50 PM CDT POCT LIPID PANEL Routine 07/26/2024 7:55 AM CDT Coronary artery disease involving [place] coronary artery of [place] heart without angina pectoris T4, FREE Routine 07/16/2024 4:24 PM CDT Acquired hypothyroidism T3, FREE Routine 07/16/2024 4:24 PM CDT Acquired hypothyroidism TSH Routine 07/16/2024 4:24 PM CDT Acquired hypothyroidism NEURO CT OUTSIDE REFERENCE Routine 07/04/2024 6:[address] OUTSIDE REFERENCE Routine 07/04/2024 6:20 PM CDT NEURO MR OUTSIDE REFERENCE Routine 07/04/2024 6:[address] OUTSIDE REFERENCE Routine 07/04/2024 6:17 PM CDT NEURO MR OUTSIDE REFERENCE Routine 07/04/2024 6:[address] OUTSIDE REFERENCE Routine 07/04/2024 5:50 PM CDT NEURO MR OUTSIDE REFERENCE Routine 07/04/2024 2:[address] OUTSIDE REFERENCE Routine 07/04/2024 2:34 PM CDT NEURO MR OUTSIDE REFERENCE Routine 07/04/2024 2:32 PM CDT from Last 3 Months Results * XR Outside Reference (09/06/2024 5:37 PM CDT) Impressions [email or web address] - 09/06/2024 5:37 PM CDT These images are for Reference purposes only and have not been reviewed by [facility]. There will be no report generated by a [facility] Radiologist. Narrative [facility] - 09/06/2024 5:37 PM CDT EXAMINATION: Images For Reference Purposes Only Derek Allison Jr., MD IMG XR PROCEDURES Final Result Performing Organization Address [facility] Co de Phone Number [email or web address] * XR Outside Reference (09/06/2024 5:35 PM CDT) Impressions [facility] - 09/06/2024 5:35 PM CDT These images are for Reference purposes only and have not been reviewed by [facility]. There will be no report generated by a [facility] Radiologist. Narrative [facility] - 09/06/2024 5:35 PM CDT EXAMINATION: Images For Reference Purposes Only us Derek Allison Jr., MD IMG XR PROCEDURES Final Result Performing Organization Address [facility] Co de Phone Number [email or web address] * NM Outside Reference (09/06/2024 5:33 PM CDT) Impressions [facility] - 09/06/2024 5:33 PM CDT These images are for Reference purposes only and have not been reviewed by [facility]. There will be no report generated by a [facility] Radiologist. Narrative [facility] - 09/06/2024 5:33 PM CDT EXAMINATION: Images For Reference Purposes Only MD NICHOLE Dobson Jr.G NM PROCEDURES Final Result Performing Organization Address [facility] de Phone Number [email or web address] * XR Outside Reference (09/06/2024 5:32 PM CDT) Impressions [facility] - 09/06/2024 5:32 PM CDT These images are for Reference purposes only and have not been reviewed by [facility]. There will be no report generated by a [facility] Radiologist. Narrative [facility] - 09/06/2024 5:32 PM CDT EXAMINATION: Images For Reference Purposes Only Derek Allison Jr., MD IMG XR PROCEDURES Final Result Performing Organization Address [facility] Phone Number [email or web address] * XR Outside Reference (09/06/2024 5:30 PM CDT) Impressions [facility] - 09/06/2024 5:30 PM CDT These images are for Reference purposes only and have not been reviewed by [facility]. There will be no report generated by a [facility] Radiologist. Narrative [facility] - 09/06/2024 5:30 PM CDT EXAMINATION: Images For Reference Purposes Only Derek Allison Jr., MD IMG XR PROCEDURES Final Result Performing Organization Address [facility] de Phone Number [email or web address] * NM Outside Reference (09/06/2024 5:28 PM CDT) Impressions [facility] - 09/06/2024 5:28 PM CDT These images are for Reference purposes only and have not been reviewed by [facility]. There will be no report generated by a [facility] Radiologist. Narrative [facility] - 09/06/2024 5:28 PM CDT EXAMINATION: Images For Reference Purposes Only Derek Allison Jr., MD [facility] [place] PROCEDURES Final Result Performing Organization Address [facility] de Phone Number [email or web address] * US Outside Reference (09/06/2024 5:26 PM CDT) Impressions [facility] - 09/06/2024 5:26 PM CDT These images are for Reference purposes only and have not been reviewed by [facility]. There will be no report generated by a [facility] Radiologist. Narrative [facility] - 09/06/2024 5:26 PM CDT EXAMINATION: Images For Reference Purposes Only MD NICHOLE Dobson Jr. US PROCEDURES Final Result Performing Organization Address [facility] Phone Number [email or web address] * XR Outside Reference (09/06/2024 5:24 PM CDT) Impressions [facility] - 09/06/2024 5:24 PM CDT These images are for Reference purposes only and have not been reviewed by [facility]. There will be no report generated by a [facility] Radiologist. Narrative [facility] - 09/06/2024 5:24 PM CDT EXAMINATION: Images For Reference Purposes Only Derek Allison Jr., MD [facility] XR PROCEDURES Final Result Performing Organization Address [facility] de Phone Number [email or web address] * XR Outside Reference (09/06/2024 5:19 PM CDT) Impressions [facility] - 09/06/2024 5:19 PM CDT These images are for Reference purposes only and have not been reviewed by [facility]. There will be no report generated by a [facility] Radiologist. Narrative [facility] - 09/06/2024 5:19 PM CDT EXAMINATION: Images For Reference Purposes Only Derek Allison Jr., MD IMG XR PROCEDURES Final Result Performing Organization Address [facility] de Phone Number [email or web address] * CT Body Outside Reference (09/06/2024 5:15 PM CDT) Impressions RAD_PACS_[facility] - 09/06/2024 5:15 PM CDT These images are for Reference purposes only and have not been reviewed by [facility]. There will be no report generated by a [facility] Radiologist. Narrative RAD_PACS_[facility] - 09/06/2024 5:15 PM CDT EXAMINATION: Images For Reference Purposes Only Derek Allison Jr., MD IMG CT PROCEDURES Final Result Performing Organization Address [facility] de Phone Number [email or web address] * XR Outside Reference (09/06/2024 4:50 PM CDT) Impressions RAD_PACJessica_CATIE - 09/06/2024 4:50 PM CDT These images are for Reference purposes only and have not been reviewed by [facility]. There will be no report generated by a [facility] Radiologist. Narrative RAD_PACS_EVANSH - 09/06/2024 4:50 PM CDT EXAMINATION: Images For Reference Purposes Only Derek Allison Jr., MD IMG XR PROCEDURES Final Result Performing Organization Address [facility] de Phone Number [email or web address] * POCT lipid panel (07/26/2024 7:55 AM CDT) Cholesterol, POC 124 <200 MG/DL HDL, POC 53 >=40 mg/dL Triglycerides, POC 116 <=149 mg/dL LDL Cholesterol POC 47 <=129 mg/dL Chol/HDL Ratio, POC 0.9 NONE Non-HDL Cholesterol, POC 70 NONE mg/dL Cholesterol Total, POC 124 30 - 199 mg/dL Capillary blood 07/26/2024 7 :55 AM CDT Paula Frazier NP POINT OF CARE TEST ORDERA BLES Final Result * T3, free (07/16/2024 4:24 PM CDT) Free T3 2.4 2.0 - 4.4 pg/mL Blood 07/16/2024 4:24 PM CDT 07/16/2024 6:34 PM CDT Result [facility] Abby Alves MD LAB BLOOD ORDERABLES Final Resul t Performing Organization Address [facility] Co de Phone Number MICAELA [phone] [address] [facility] [place] [address] * TSH (07/16/2024 4:24 PM CDT) Thyroid Stimulating Hormone 1.29 0.30 - 4.20 mcIUnit/mL Blood 07/16/2024 4:24 PM CDT 07/16/2024 6:34 PM CDT Result [facility] Abby Alves MD LAB BLOOD ORDERABLES Final Resul t Performing Organization Address [facility] Co de Phone Number MICAELA [phone] [address] [place] [address] * T4, free (07/16/2024 4:24 PM CDT) Free T4 1.21 0.90 - 1.70 ng/dL Blood 07/16/2024 4:24 PM CDT 07/16/2024 6:34 PM CDT Result [facility] Abby Alves MD LAB BLOOD ORDERABLES Final Resul t Performing Organization Address [facility] Co de Phone Number [facility] [phone] [address] [place] [address] * Neuro CT Outside Reference (07/04/2024 6:21 PM CDT) Impressions [facility] - 07/04/2024 6:21 PM CDT These images are for Reference purposes only and have not been reviewed by [facility]. There will be no report generated by a [facility] Radiologist. Narrative [facility] - 07/04/2024 6:21 PM CDT EXAMINATION: Images For Reference Purposes Only Geoff Medina MD IMG CT PROCEDURES Final Re sult Performing Organization Address [facility] de Phone Number [email or web address] * Neuro CT Outside Reference (07/04/2024 6:20 PM CDT) Impressions [facility] - 07/04/2024 6:20 PM CDT These images are for Reference purposes only and have not been reviewed by [facility]. There will be no report generated by a [facility] Radiologist. Narrative [facility] - 07/04/2024 6:20 PM CDT EXAMINATION: Images For Reference Purposes Only Geoff Medina MD IMG CT PROCEDURES Final Re sult Performing Organization Address [facility] de Phone Number [email or web address] * Neuro MR Outside Reference (07/04/2024 6:18 PM CDT) Impressions [facility] - 07/04/2024 6:18 PM CDT These images are for Reference purposes only and have not been reviewed by [facility]. There will be no report generated by a [facility] Radiologist. Narrative [facility] - 07/04/2024 6:18 PM CDT EXAMINATION: Images For Reference Purposes Only Geoff Medina MD IMG MRI PROCEDURES Final R esult Performing Organization Address [facility] de Phone Number [email or web address] * Neuro CT Outside Reference (07/04/2024 6:17 PM CDT) Impressions [facility] - 07/04/2024 6:17 PM CDT These images are for Reference purposes only and have not been reviewed by [facility]. There will be no report generated by a [facility] Radiologist. Narrative [facility] - 07/04/2024 6:17 PM CDT EXAMINATION: Images For Reference Purposes Only Geoff Medina MD IMG CT PROCEDURES Final Re sult Performing Organization Address [facility] de Phone Number [email or web address] * Neuro MR Outside Reference (07/04/2024 6:16 PM CDT) Impressions [facility] - 07/04/2024 6:16 PM CDT These images are for Reference purposes only and have not been reviewed by [facility]. There will be no report generated by a [facility] Radiologist. Narrative [email or web address] - 07/04/2024 6:16 PM CDT EXAMINATION: Images For Reference Purposes Only Result [facility] Geoff Medina MD IMG MRI PROCEDURES Final R esult Performing Organization Address [facility] de Phone Number [email or web address] * Neuro CT Outside Reference (07/04/2024 5:50 PM CDT) Impressions [email or web address] - 07/04/2024 5:50 PM CDT These images are for Reference purposes only and have not been reviewed by [facility] Radiology. There will be no report generated by a [facility] Radiologist. Narrative [facility] - 07/04/2024 5:50 PM CDT EXAMINATION: Images For Reference Purposes Only Geoff Medina MD IMG CT PROCEDURES Final Re sult Performing Organization Address [facility] de Phone Number [email or web address] * Neuro MR Outside Reference (07/04/2024 2:36 PM CDT) Impressions [facility] - 07/04/2024 2:36 PM CDT These images are for Reference purposes only and have not been reviewed by [facility] Radiology. There will be no report generated by a [facility] Radiologist. Narrative [facility] - 07/04/2024 2:36 PM CDT EXAMINATION: Images For Reference Purposes Only Geoff Medina MD IMG MRI PROCEDURES Final R esult Performing Organization Address [facility] Co de Phone Number [email or web address] * Neuro CT Outside Reference (07/04/2024 2:34 PM CDT) Impressions [facility] - 07/04/2024 2:34 PM CDT These images are for Reference purposes only and have not been reviewed by [facility] Radiology. There will be no report generated by a [facility] Radiologist. Narrative [facility] - 07/04/2024 2:34 PM CDT EXAMINATION: Images For Reference Purposes Only Geoff Medina MD IMG CT PROCEDURES Final Re sult Performing Organization Address [facility] de Phone Number [email or web address] * Neuro MR Outside Reference (07/04/2024 2:32 PM CDT) Impressions [facility] - 07/04/2024 2:32 PM CDT These images are for Reference purposes only and have not been reviewed by [facility] Radiology. There will be no report generated by a [facility] Radiologist. 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
--- OUTSIDE RECORDS SUMMARY | 2024-09-17 08:22 | XMS_ITS | Encounter Summary ---
Author Organization [facility] Address [facility] [place] [address] Care Team Providers Care Benefits Coordinator Name Role Phone Paulette Sanford Primary Care Provider [phone] Parish Leger PA-C Primary Care Provider [phone] Encounter Details Date Type Department Care Team (Late st Contact Info) Description 06/17/2020 Prep for Procedure [facility] [address] [place], [place] [id number] Poonam Dominique MD [address] [facility] [address] [place] [address] Social History Tobacco Use Types [...] PM CDT) 06/23/2020 1:32 PM CDT Narrative [facility] RAD - 06/24/2020 10:[address] 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: : 1945 Requested By: POONAM DOMINIQUE Order Number: [id number] Reading MD: Tr Henry Measurements Intervals [place] Rate: 63 P: -64 OK: 154 QRS: -9 QRSD: 84 T: 40 QT: 406 QTc: 418 Interpretive Statements SINUS RHYTHM LOW QRS VOLTAGE IN PRECORDIAL LEADS [QRS DEFLECTION < 1.0 mV IN CHESTLEADS] INFERIOR MYOCARDIAL INFARCTION , PROBABLY OLD [40+ ms Q WAVE AND/OR ST/T ABNORMALITY IN II/aVF] No previous ECG available for comparison us Poonam Dominique MD ECG ORDERABLES Final Result [facility] RAD documented in this encounter Visit Diagnoses Diagnosis Preoperative testing- Primary Preoperative examination, unspecified Preop testing Preoperative examination, unspecified Preop testing Preoperative examination, unspecified documented in this encounter Additional Health Concerns Infection Onset Date Last Indicated Resolved Time COVID-19 Rule Out 06/28/2020 06/28/2020 06/30/2020 1:26 PM CDT documented as of this encounter Care Teams Benefits Coordinator Relationship Specialty Start [place] [address] [place] [address] PCP - General PHYSICIAN ROVING WEIGHT GAUGER 09/23/19 06/05/23 Parish Leger PA-C [address] [facility] [address] [place] [address] PCP - General PHYSICIAN ROVING WEIGHT GAUGER 06/06/23 documented as of this encounter
--- OUTSIDE RECORDS SUMMARY | 2024-09-17 08:23 | XMS_ITS | Clinical Summary ---
Author Organization [facility] Administrative Offices Address [address] [place] [address] Care Team Providers Care Spanish Translator Name Role Phone Sushant Fox MD Primary Care Provider [phone]- [phone] Allergies Active Allergy Reactions Criticality Noted Date Comments Codeine Nausea and Vomiting,Shortness of Breath/Wheezing High 06/05/2019 Any codeine or derivative causes low blood pressure, passes out, and experiences difficulty breathing Urblypr-Eqw-Xzt Reductase Inhibitors Muscle Pain Medium 11/01/2021 Tetracycline [...] Encounters Date Type Department Care Team Description 08/21/2024 External Device Data STL ABSTRACTION Provider, Abstract 08/21/2024 External Device Data STL ABSTRACTION Provider, Abstract 08/21/2024 External Device Data STL ABSTRACTION Provider, Abstract 08/20/2024 External Device Data STL ABSTRACTION Provider, Abstract 07/24/2024 1:15 PM CDT - 07/24/2024 11:59 PM CDT Hospital Encounter [facility] Imaging Services [address] [place] [id number] Marsha Virk FNP Discharge Disposition: Home or Self Care 07/24/2024 External Device Data STL ABSTRACTION Provider, Abstract 07/23/2024 External Device Data STL ABSTRACTION Provider, Abstract 06/27/2024 External Device Data STL ABSTRACTION Provider, Abstract 06/25/2024 External Device Data STL ABSTRACTION Provider, Abstract [...] Sign Reading Time Taken Comments Blood Pressure 110/68 05/15/2024 8:40 AM CDT Pulse 74 05/15/2024 8:40 AM CDT Temperature 36.3 C (97.3 F) 12/13/2022 7:48 AM HOT ROOM ATTENDANT Respiratory Rate - - Oxygen Saturation 98% 01/09/2023 8:45 AM HOT ROOM ATTENDANT Inhaled Oxygen Concentration - - Weight 84.4 kg (186 lb) 05/15/2024 8:40 AM CDT Height 165.1 cm (5' 5) 05/15/2024 8:40 AM CDT Body Mass Index 30.95 05/15/2024 8:40 AM CDT Plan of Treatment Upcoming Encounters Date Type Department Care Team (Late st Contact Info) Description 05/21/2025 8:15 AM CDT Appointment [facility] Heart and Vascular Testing Jan[address]ifer [address] [place] [address] [place] [address] [facility] [address] [place] [address] 05/21/2025 9:30 AM CDT Office Visit [facility] [address] [facility] [address] [place] [address] [place] [address] [facility] [address] [place] [address] Health Maintenance Due Date Last Done Comments DTAP/TDAP/TD VACCINES (1 - Tdap) 1964 ZOSTER VACCINE (2 of 3) 11/09/2015 09/14/2015 RSV VACCINE (60+ or ) (1 - 1-dose 75+ series) 2021 INFLUENZA VACCINE (#1) 2024 2, 08/05/2021, 08/05/2021, Additional history exists OSTEOPOROSIS SCREENING 09/15/2026 2, 11/06/2019, 11/06/2019, Additional history exists COLORECTAL SCREENING Discontinued 07/01/2020 Colorectal Cancer Screening Discontinued PNEUMOCOCCAL VACCINE 50+ YEARS Completed 0 08/05/2021, 08/05/2021, 09/20/2016, Additional history exists FIT-DNA Q 3 years Discontinued FIT/FOBT Q 1 year Discontinued Flex Sig/CT Colonography Q 5 years Discontinued Procedures Procedure Name Priority Date/Time Associated Diagnosis Comments MRI BRAIN WO + MRA BRAIN WO Routine 07/24/2024 2:07 PM CDT Other malformations of cerebral vessels from Last 3 Months Results * MRI BRAIN WO + MRA BRAIN WO (07/24/2024 2:07 PM CDT) Anatomical Region Laterality Modality Head Magnetic Resonan ce 07/24/2024 2:07 PM CDT Impressions 07/24/2024 3:00 PM CDT IMPRESSION: 1. No acute intracranial process. 2. No large arterial occlusion or significant stenosis identified in the head. DICTATION LOCATION: Location Brittany Cara Suarez 07/24/2024 3:00 PM CDT EXAMINATION: MRI BRAIN WO + MRA BRAIN WO DATE: 07/24/2024 2:07 PM HISTORY: See Diagnosis; Other malformations of cerebral vessels TECHNIQUE: MRI of the brain was performed without contrast according to standard protocol. MR arteriography of the head was performed without contrast utilizing time of flight technique. Three dimensional postprocessing was performed by the technologist and sent to the workstation for review. COMPARISON: 12/11/2018 FINDINGS: Brain: No evidence of acute hemorrhage is identified. There is focal hemosiderin deposition in the right cerebellum. No evidence of acute cerebral infarction is seen. The ventricles are of normal size, shape, and morphology. No mass effect or midline shift is seen. Periventricular white matter FLAIR hyperintensities likely represent sequelae of chronic small vessel ischemic disease. The corpus callosum and sella appear normal. The posterior fossa, brainstem, and craniocervical junction otherwise appear normal. The visible portions of the orbits, paranasal sinuses, and mastoids appear normal. Normal flow voids are demonstrated in the carotid arteries and basilar artery. Degenerative changes in the cervical spine are incompletely imaged. Frontal craniotomy is present. Angiographic findings: The distal internal carotid arteries appear normal. The anterior and middle cerebral arteries appear normal. The distal vertebral arteries appear normal. The basilar artery appears fenestrated. Otherwise the basilar artery and posterior cerebral arteries appear normal. No aneurysm, vascular occlusion, or intracranial stenosis is identified. Procedure Note Royce Bingham MD - 07/24/2024 EXAMINATION: MRI BRAIN WO + MRA BRAIN WO DATE: 07/24/2024 2:07 PM HISTORY: See Diagnosis; Other malformations of cerebral vessels TECHNIQUE: MRI of the brain was performed without contrast according to standard protocol. MR arteriography of the head was performed without contrast utilizing time of flight technique. Three dimensional postprocessing was performed by the technologist and sent to the workstation for review. COMPARISON: 12/11/2018 FINDINGS: Brain: No evidence of acute hemorrhage is identified. There is focal hemosiderin deposition in the right cerebellum. No evidence of acute cerebral infarction is seen. The ventricles are of normal size, shape, and morphology. No mass effect or midline shift is seen. Periventricular white matter FLAIR hyperintensities likely represent sequelae of chronic small vessel ischemic disease. The corpus callosum and sella appear normal. The posterior fossa, brainstem, and craniocervical junction otherwise appear normal. The visible portions of the orbits, paranasal sinuses, and mastoids appear normal. Normal flow voids are demonstrated in the carotid arteries and basilar artery. Degenerative changes in the cervical spine are incompletely imaged. Frontal craniotomy is present. Angiographic findings: The distal internal carotid arteries appear normal. The anterior and middle cerebral arteries appear normal. The distal vertebral arteries appear normal. The basilar artery appears fenestrated. Otherwise the basilar artery and posterior cerebral arteries appear normal. No aneurysm, vascular occlusion, or intracranial stenosis is identified. IMPRESSION: 1. No acute intracranial process. 2. No large arterial occlusion or significant stenosis identified in the head. DICTATION LOCATION: [address] Marsha Jhaverilisbet [facility] MR ORDERABLES Final Resul t from Last 3 Months Insurance NA O MCR Care Teams Spanish Translator Relationship Specialty Start Date End Date Sushant Fox MD [address] [place] [phone] PCP - General Family Practice 05/15/24
--- OUTSIDE RECORDS SUMMARY | 2024-09-17 08:23 | XMS_ITS | Encounter Summary ---
Author Organization [facility] Healthcare Address [address] [place] [address] Care Team Providers Care Medical Artist Name Role Phone Marsha Virk STAPLE CUTTER Primary Care Provider [phone] [phone] Encounter Details Date Type Department Care Team (Late st Contact Info) Description 09/05/2024 Telephone [facility] Cardiology [address] [place] [address] Tereso Hannon MD [address] [facility] [address] [facility] [place] [address] Social History Tobacco Use Types Packs/Day Years [...] on file Legal Sex 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 Pt appreciated the callback and information. * Telephone Encounter - Verenice Lara - 09/05/2024 10:32 AM CDT Pt wants to know the date of her heart attack. States she was at and it was around the time she first started seeing AD. Contact: documented in this encounter Plan of Treatment Not on file documented as of this encounter Visit Diagnoses Not on filedocumented in this encounter Care Teams Medical Artist Relationship Specialty Start Date End Date Marsha Virk NP [address] [place] [address] PCP - General Family Medicine 01/01/24 documented as of this encounter
--- OUTSIDE RECORDS SUMMARY | 2024-09-17 08:23 | XMS_ITS | Encounter Summary ---
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
--- OUTSIDE RECORDS SUMMARY | 2024-09-17 08:23 | XMS_ITS | Clinical Summary ---
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 Cyst [...] fatigue 05/13/2019 Osteoporosis 05/13/2019 Coronary arteriosclerosis in quechan artery 05/05 Presence of stent in coronary [...] to chronic sinus infections, had surgical repair [place] (myocardial infarction) ([facility]) At risk of disease 06/22/2018 Chronic combined systolic an d diastolic heart failure ([facility]) 06/22/2018 Hypertensive heart disease w ith congestive heart failure ([facility]) 06/22/2018 Pulmonary hypertension ([facility]) 019 Myocardial infarction ([facility]) 06/23/19 19 Primary osteoarthritis of right knee [...] hyponatremia 01/15/2010 Syncope and collapse 01/15/2010 Immunizations Immunization Administration Dates Next Due Fluzone High Dose - >Age 65 (Prefilled Syringe) 08/05/2021,11/13/2020,10/21/2019,2015 Influenza (FluMist) 11/13/2020 Influenza (Fluarix) 10/21/2019 Influenza (Generic) 11/13/2020,10/21/2019,2015 Influenza Adult (Generic) 11/13/2021,10/21/2019, 11/16/2015 MODERNA COVID-19 (12+) MRNA, LNP-S, PF, 100 MCG/ 0.5 ML DOSE 04/11/2020,03/12/2020 Pneumococcal (Pneumovax 23) 08/05/2021, 7,04/26/2015 Pneumococcal (Prevnar 13) 09/14/2015 Zoster (Zostavax) [address]73 Unt/0.65Ml 09/14/2015 Family History Medical History Relation [...] Comments Blood Pressure 136/72 01/13/2022 8:02 AM GLASS GLAZIER Pulse 75 01/13/2022 7:37 AM GLASS GLAZIER Temperature 36.7 C (98 F) 01/13/2022 7:37 AM GLASS GLAZIER Respiratory Rate 22 01/13/2022 7:37 AM GLASS GLAZIER Oxygen Saturation 99% 01/13/2022 7:37 AM GLASS GLAZIER Inhaled Oxygen Concentration - - Weight 96.6 kg (213 lb) 01/13/2022 7:37 AM GLASS GLAZIER Height 167.6 cm (5' 6) 01/13/2022 7:37 AM GLASS GLAZIER Body Mass Index 34.38 01/13/2022 7:37 AM GLASS GLAZIER Plan of Treatment Health Maintenance Due Date Last Done Comments ASCVD LDL 1945 DTaP, Tdap and Td Vaccines (1 - Tdap) 1964 Annual Medicare Wellness Visit 07/13/2011 Zoster Vaccines (2 of 3) 11/09/2015 09/14/2015 RSV Immunization or 60+ Years (1 - 1-dose 75+ series) 2021 COVID-19 Vaccine ( season) 2023 01/21/2021, 04/11/2020, 03/12/2020 Hepatitis C 01/14/2052 Postponed from 1963 (Patient Refused) Colorectal Cancer Screening Colonoscopy (10 Years) Discontinued 07/01/2020, 07/01/2020 Pneumococcal Vaccine: 50+ Years Completed 08/05/2021, 09/20/2016, 09/14/2015, Additional history [...] this topic Medical Devices Implanted Type Area Second Hand Device Identifier Shelf Expiration Date Model / [...] Relevant to Health Maintenance Insurance MED REPLACE [facility] MEDICARE [employer] Care Teams Public Safety Dispatcher Relationship Specialty Start Date End Date Parish Leger PA-C [address] [facility] [address] [place] [address] PCP - General PHYSICIAN RN ENDOSCOPY 06/06/23
--- OUTSIDE RECORDS SUMMARY | 2024-09-17 08:23 | XMS_ITS | Clinical Summary ---
Author Organization [facility] Address [address] [place] [address] Care Team Providers Care Commissioned Security Officer Name Role Phone Sushatn Fox MD Primary Care Provider [phone] Source Comments [facility],non-owned Affiliates and Associated Physician Practices is amultiple site organization consisting of ambulatory clinics and hospital sitesin [place], [place], [place] and [place]. This disclosure is being madepursuant to the Care Everywhere program and may not contain all information available regarding this patient. Last updated 17.[facility] Allergies Active Allergy Reactions Criticality Noted Date [...] document. Alwaysverify current medications with the patient. levothyroxine (SYNTHROID) 100 MCG tablet Take 1 (one) tablet by mouth once daily 01/01/2018 Active venlafaxine XR 24hr (EFFEXOR XR) 75 MG capsule Take 1 (one) capsule by mouth once daily 01/01/2018 Active buPROPion XL 24hr (WELLBUTRIN-XL) 150 MG tablet Take 1 (one) tablet by mouth once daily 01/01/2018 Active losartan (COZAAR) 100 MG tablet Take 1 tablet by mouth once daily 30 tablet 1 05/26/2018 Active loratadine (CLARITIN) 10 MG tablet Take 1 (one) tablet by mouth once daily Active Nitroglycerin (NITRO-TIME PO) Take 1 tablet by mouth as needed Active carvedilol (COREG) 6.25 MG tablet Take 1 (one) tablet by mouth 2 times daily with morning and evening meal Active Multiple Vitamins-Minera ls (RA VISION-BREE PRESERVE PO) Take 2 tablets by mouth once daily Active atorvastatin (Lipitor) 10 MG tablet Take 1 (one) tablet by mouth once daily 11/01/2021 Active fluticasone propionate (Flonase) 50 MCG/ACT nasal sprayIndication s:Chronic rhinitis [place] 2 (two) sprays into each nostril once daily 16 g 01/25/2022 Active aspirin EC (Ecotrin) 81 MG tablet Take 1 (one) tablet by mouth once daily Active cetirizine (ZyrTEC) 10 MG tablet Take 1 (one) tablet by mouth once daily Active torsemide (Demadex) 5 MG tablet Take 1 (one) tablet by mouth once daily Active Active Problems Problem Noted Date Diagnosed Date Nonrheumatic aortic valve stenosis 11/01/2021 Acquired hallux valgus 08/02/2021 Metatarsus primus varus 08/02/2021 Bursitis of right shoulder 07/14/2021 Primary osteoarthritis of left knee 06/18/2021 Status post right knee replacement 01/19/2021 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 ) 08/07/2024 10:00 AM CDT Office Visit [facility] [address] [place] [id number] Betzaida Auguste, REHAB DEPARTMENT MANAGER-HAT BLOCK MAKER Atypical migraine (Primary Dx) 08/07/2024 Travel 06/21/2024 Travel 06/19/2024 2:00 PM CDT Office Visit [facility] [address] [place] [address] Aamir Ochoa MD Nasal congestion (Primary Dx); Nasal discharge; Facial pain; Frontal mucocele; Chronic rhinitis; Increased nasal secretion 06/19/2024 Travel 06/18/2024 Telephone [facility] [address] [place] [address] Aamir Ochoa MD Appointment from Last 3 Months Immunizations Immunization Administration Dates Next Due Covid Moderna primary monova lent 12+ yr 0.5mL 04/11/2020,03/12/2020 FLU, HISTORIC VACCINE 10/21/2019 INFLUENZA VACCINE 11/13/2020,10/21/2019,11/16/19 16 INFLUENZA VACCINE, ADJUVANTE D, QUADR. (FLUAD QUADRIVALENT; 65Y+) (AIIV4) 11/13/2021 INFLUENZA VACCINE, HIGH-DOSE , QUADR. (FLUZONE HIGH-DOSE QUADRIVALENT; 65Y+), 0.7 ML (HD-IIV4) 08/05/2021,11/13/2020,10/21/2019,2015 EM VACCINE QUAD LAIV4 PF NASAL 11/16/2015 PNEUMOCOCCAL PCV7 CONJ, PEDS 08/05/2021 PNEUMOCOCCAL PPSV23 08/05/2021, 7,09/14/2015,2015 Pneumococcal Pcv13 Conj 09/20/2016,09/14/2015 ZOSTER VACCINE, LIVE 09/14/2015 Family History Medical [...] money to get more. Never true 11/12/2021 Comments Unknown Sex and Gender Information Value Date Recorded Sex Assigned at Female 10/21/2020 8:38 AM CDT Legal Sex Female 6:29 AM ESTIMATOR LUMBER Gender Identity Female 10/21/2020 8:38 AM CDT Sexual Orientation Straight 10/21/2020 8: 38 AM CDT Last Filed Vital Signs Vital Sign Reading Time Taken Comments Blood Pressure 116/72 08/07/2024 10:11 AM CDT Pulse 74 08/07/2024 10:11 AM CDT Temperature 36.5 C (97.7 F) 05/25/2022 11:03 AM CDT Respiratory Rate 17 11/13/2021 8:00 AM CDT Oxygen Saturation 99% 11/13/2021 8:00 AM CDT Inhaled Oxygen Concentration - - Weight 83 kg (183 lb) 08/07/2024 9:59 AM CDT Height 165.1 cm (5' 5) 08/07/2024 9:59 AM CDT Body Mass Index 30.45 08/07/2024 9:59 AM CDT Plan of Treatment Upcoming Encounters Date Type Department Care Team (Late st Contact Info) Description 06/19/2025 10:00 AM CDT Appointment [facility] [address] [place] [address] Aamir Ochoa MD [address] [place] [address] 06/19/2025 10:45 AM CDT Office Visit [facility]NT [address] [facility], [place] [address] Aamir Ochoa MD [address] [place] [address] Health Maintenance Due Date Last Done Comments BONE DENSITY TESTING 1945 HEPATITIS C SCREENING 07/07/1964 DTAP/TDAP/TD VACCINES (1 - Tdap) 1965 ZOSTER VACCINE (2 of 3) 11/09/2015 09/14/2015 Respiratory Syncytial Virus (RSV) Vaccine Pt: or over 60 yrs (1 - 1-dose 75+ series) 2021 COVID-19 VACCINE (3 - season) 2023 04/11/2020, 03/12/2020 DEPRESSION SCREENING 02/07/2024 MEDICARE AWV CALENDAR YEAR 2024 INFLUENZA VACCINE (#1) 2024 , 08/05/2021, 11/13/2020, Additional history exists PNEUMOCOCCAL VACCINE 50+ Completed 022, 09/20/2016, 09/20/2016, Additional history exists HEPATITIS B VACCINE Aged [...] this topic Medical Devices Implanted Type Area Sole Buffer Device Identifier Shelf Expiration Date Model / Serial / Lot Cmnt Bone Cblt 40gm Hvisc Strl Implanted:Qty : 1 on 05/23/2018 by Daniel Wakefield MD at [facility] Right: Knee [employer] 08/02/2019 600-15-00 0 / / [id number] Cmpnt Ptlr 28mm 1 Pg Wire Ascnt Arcm Kn Implanted:Qty : 1 on 05/23/2018 by Daniel Wakefield MD at [facility] Right: Knee [employer] 01/23/2023 [id number] / / [id number] Cmpnt Fem Kn Rt Cr Cmnt Prm Vngrd Intlk Implanted:Qty : 1 on 05/23/2018 by Daniel Wakefield MD at [facility] Right: Knee [employer] 01/20/2028 [id number] / / [id number] Tray Tib 71mm Kn Cocr I Beam Implanted:Qty : 1 on 05/23/2018 by Daniel Wakefield MD at [facility] Right: Knee [employer] 02/25/2028 [id number] / / [id number] Brng [id number] Vngrd Arcm Kn Ant Stab Implanted:Qty : 1 on 05/23/2018 by Daniel Wakefield MD at [facility] Right: Knee [employer] 03/28/2023 [id number] / / [id number] Graft Tissue Drgn + Bvn Clgn Mtrx 2x2in Implanted:Qty : 1 on 01/22/2019 by Aamir Ochoa MD at [facility] Nose [employer] 10/06/2021 DP- 1022 / / [id number] Screw 1.5mm 4mm Slf Drl Ax Stab Unv Implanted:Qty : 12 on 11/03/2020 by Aamir Ochoa MD at [facility] Cranial Kyle Craniomaxillof[employer] [id number] / / Graft Tissue Drgn + Bvn Clgn Mtrx 2x2in Implanted:Qty : 1 on 11/03/2020 by Aamir Ochoa MD at [facility] Cranial [employer] 07/07/2023 DP1 022 / / [id number] Cover Bur Hl .4mm 7mm Unv Neuro Iii Ti Implanted:Qty : 2 on 11/03/2020 by Aamir Ochoa MD at [facility] Cranial Kyle Craniomaxillofacial [id number] / / Plate 8 Hl Lopro Crnmxf .4mm Str Unv Implanted:Qty : 1 on 11/03/2020 by Aamir Ochoa MD at [facility] Cranial Kyle Craniomaxillofacial [id number] / / Cmnt Bone Djo Srg Cblt 40gm Hvisc Strl Implanted:Qty : 1 on 11/12/2021 by Daniel Wakefield MD at [facility] Left: Knee [employer] 08/19/2022 600-15-00 0 / / [id number] Cmpnt Fem Kn Lt Cr Cmnt Prm Vngrd Intlk Implanted:Qty : 1 on 11/12/2021 by Daniel Wakefield MD at [facility] Left: Knee [employer] 10/14/2031 [id number] / / [id number] Cmpnt Ptlr Std 28mm 1 Pg Wire Kn Ser A Implanted:Qty : 1 on 11/12/2021 by Daniel Wakefield MD at [facility] Left: Knee [employer] 07/18/2022 [id number] / / [id number] Tray Tib 71mm Kn Cocr I Beam Implanted:Qty : 1 on 11/12/2021 by Daniel Wakefield MD at [facility] Left: Knee [employer] 09/16/2031 [id number] / / [id number] Brng [id number] Vngrd Arcm Kn Ant Stab Implanted:Qty : 1 on 11/12/2021 by Daniel Wakefield MD at [facility] Left: Knee [employer] 10/18/2026 [id number] / / [id number] Procedures Procedure Name Priority Date/Time Associated Diagnosis Comments [place] NASAL ENDOSCOPY,DX Routine 06/21/2024 9:14 AM CDT Nasal congestion Nasal discharge Facial pain Frontal mucocele Chronic rhinitis Increased nasal secretion from Last 3 Months Results * [place] NASAL ENDOSCOPY,DX (06/21/2024 9:14 AM CDT) Narrative Aamir Ochoa MD - 06/21/2024 9:14 AM CDAamir Penny MD 06/21/2024 9:15 AM Due to the findings on physical examination, in correlation with the patient's symptomatology, the decision was made to perform a procedure today in clinic. Verbal consent obtained prior to starting procedure. Procedure note: Procedure: Rigid Nasal Endoscopy Pre Op Dx: Nasal secretions Post Op: same EBL: minimal Anesthesia: Bilateral Nasal Cavities sprayed with Lidocaine and Neosynephrine Detail: Rigid nasal endoscopy performed bilaterally. Interior of nasal cavity and the middle and superior meatus, the turbinates, and the spheno-ethmoid recess were all viewed and found to be normal unless noted below: Septum window superiorly. No masses or lesions seen. Right interior nasal cavity showed turbinate hypertrophy, mucus stranding present. Right middle and superior meatus show pink mucosa with mucus stranding present. Sphenoethmoidal recess inspected showing mucus stranding, intact mucosa. Left interior nasal cavity showed turbinate hypertrophy, mucus stranding present. Left middle and superior meatus show pink mucosa with mucus stranding present. Sphenoethmoidal recess inspected showing mucus stranding, intact mucosa. I, Dr. Ochoa, was present and actively participated in all aspects of the procedure. us Aamir Ochoa MD PROCEDURE/MINOR SURGICAL O RDERABLES Final Result from Last 3 Months Insurance AETNA AETNA MEDICARE ADV Advance Directives * Full Code (Latest Code [...] 10:18 AM 05/25/2018 1:18 PM Care Teams Commissioned Security Officer Relationship Specialty Start Date End Date Sushant Fox MD [address] [place] [phone] PCP - General Family Medicine 05/24/24
--- OUTSIDE RECORDS SUMMARY | 2024-09-17 08:23 | XMS_ITS | Clinical Summary ---
Author Organization [facility] Address [address] [place] [id number] Phone Care Team Providers Care Carbon Grinder Name Role Phone Abdulkadir Pascal DO Primary Care Provider [phone] Allergies Active Allergy Reactions Criticality Noted Date [...] Other reaction(s): Other Hypotensive, syncopal episode Medications aspirin EC 81 MG EC tablet Take 81 mg by mouth daily Active budesonide (PULMICORT) 0.5 MG/2ML nebulizer solution budesonide 0.5 mg/2 mL suspension for nebulization 9 Active buPROPion XL (WELLBUTRIN XL) 150 MG 24 hr tablet bupropion HCl XL 150 mg 24 hr tablet, extended release 8 Active carvedilol (COREG) 6.25 MG tablet Take 6.25 mg by mouth 2 times daily Active ezetimibe (ZETIA) 10 MG tablet Take 10 mg by mouth daily Active levothyroxine (Synthroid) 100 MCG tablet Synthroid 100 mcg tablet 8 Active Loratadine 10 MG capsule Take by mouth daily Active losartan (COZAAR) 100 MG tablet losartan 100 mg tablet 9 Active montelukast (SINGULAIR) 10 MG tablet 0 Active spironolactone (ALDACTONE) 25 MG tablet spironolactone 25 mg tablet 9 Active ticagrelor (BRILINTA) 90 MG tablet Take 90 mg by mouth 2 times daily Active traZODone (DESYREL) 50 MG tablet trazodone 50 mg tablet 7 Active metoprolol succinate XL (TOPROL-XL) 50 MG 24 hr tablet 0 Active nitroglycerin (NITROSTAT) 0.4 MG SL tablet DISSOLVE ONE TABLET UNDER THE TONGUE EVERY 5 MINUTES NEEDED FOR CHEST PAIN. DO NOT EXCEED A TOTAL OF 3 DOSES IN 15 MINUTES 0 Active famotidine (PEPCID) 20 MG tablet Take 20 mg by mouth daily 0 Active Gentamicin Sulfate powder 180 mg Activ e rosuvastatin (CRESTOR) 20 MG tablet Take 20 mg by mouth 1 (one) time each day 0 Active PreviDent 5000 Booster Plus 1.1 % paste BRUSH AT BEDTIME FOR 2 MINUTES EXPECTORATE. DO NOT EAT OR DRINK FOR 30 MINUTES 0 Active venlafaxine XR (EFFEXOR-XR) 75 MG 24 hr capsule Take 75 mg by mouth 1 (one) time each day 0 Active chlorhexidine (PERIDEX) 0.12 % solution 1 Active ketoconazole (NIZORAL) 2 % cream APPLY CREAM TOPICALLY TO AFFECTED AREA ONCE DAILY 1 Active valACYclovir (VALTREX) 500 MG tablet 1 Active Biotin 2.5 MG tablet Take 2.5 mg by mouth daily Active cholecalcifero l (VITAMIN D-3) 10 MCG (400 UNIT) tablet Take 400 Units by mouth daily Active Docusate Sodium (DSS) 100 MG capsule Take 100 mg by mouth 2 times daily 1 Active omega-3 (FISH OIL) 1000 MG capsule Take 1,000 mg by mouth Active sodium chloride (OCEAN) 0.65 % nasal spray Administer 2 sprays into affected nostril(s) 1 Active celecoxib (CeleBREX) 200 MG capsule Take 200 mg by mouth 2 (two) times a day 2 Active ipratropium (ATROVENT) 0.03 % nasal spray USE 1 TO 2 SPRAY(S) IN EACH NOSTRIL 4 TIMES DAILY BEFORE MEAL(S) AND NIGHTLY 2 Active amoxicillin (AMOXIL) 500 MG capsule TAKE FOUR CAPSULES BY MOUTH ONE HOUR BEFORE APPOINTMENT 2 Active atorvastatin (LIPITOR) 10 MG tablet 2 Active Active Problems Problem Noted Date Diagnosed [...] 05/13/2019 Facial pain 05/13/2019 Coronary arteriosclerosis in [place] artery 05/05 History of non-ST segment elevation [...] next zohaib Syncope and collapse 01/15/2010 Immunizations Immunization Administration Dates Next Due Fluzone High-Dose 10/21/2019 [...] at Not on file Legal Sex Female 9:43 AM MDT Gender Identity Not on file Sexual Orientation Not on file Last Filed Vital Signs Vital Sign Reading Time Taken Comments Blood Pressure 130/70 01/19/2022 10:31 AM FUNDRAISING COORDINATOR Pulse - - Temperature 35.8 C (96.4 F) 01/19/2022 10:31 AM FUNDRAISING COORDINATOR Respiratory Rate 18 01/19/2022 10:31 AM FUNDRAISING COORDINATOR Oxygen Saturation - - Inhaled Oxygen Concentration - - Weight 95.7 kg (211 lb) 01/19/2022 10:31 AM FUNDRAISING COORDINATOR Height 165.1 cm (5' 5) 01/19/2022 10:31 AM FUNDRAISING COORDINATOR Body Mass Index 35.11 01/19/2022 10:31 AM FUNDRAISING COORDINATOR Plan of Treatment Health Maintenance Due Date Last Done Comments COVID-19 Vaccine (2023-2 5 season) 2023 04/11/2020, 03/12/2020 Influenza Vaccine (#1) 2024 2, 11/13/2020, 11/13/2020, Additional history exists Pneumococcal PPSV23/PCV13 65 + Years / Low and Medium Risk Completed 09/20/2016, 09/14/2015, 09/14/2015, Additional history exists Insurance [employer] MEDICARE Care Teams Carbon Grinder Relationship Specialty Start Date End Date Abdulkadir Pascal DO [address] [facility] [address] [place] [phone] PCP - General Internal Medicine 05/07/19
[2024-09-17 09:11] LABS: Alanine Aminotransferase 25 U/L (6-35); Albumin Level 4.4 g/dL (3.5-5.1); Alkaline Phosphatase 54 U/L (38-126); Anion Gap 11 mmol/L (4-12); Aspartate Amino Transferase 38 U/L (14-36); Bilirubin,Total 0.7 mg/dL (0.2-1.3); Blood Urea Nitrogen 24 mg/dL (7-17); Calcium 9.8 mg/dL (8.4-10.2); Carbon Dioxide 25 mmol/L (22-30); Chloride 99 mmol/L (98-107); Cholesterol 146 mg/dL (0-200); Estimated Glomerular Filt Rate 51; Glucose 92 mg/dL (65-110); HDL Direct 63 mg/dL; Potassium 4.5 mmol/L (3.4-5.0); Sodium 135 mmol/L (137-145); Total Protein 7.9 g/dL (6.3-8.2); Triglycerides 99 mg/dL (<150)
[2024-09-17 09:28] LABS: Free T3 3.13 pg/mL (2.45-5.93); Free T4 Free Thyroxine 1.24 ng/dL (0.78-2.19)
[2024-09-17 09:46] LABS: Thyroid Stimulating Hormone 1.570 uIU/mL (0.465-4.680)
[2024-09-19 12:09] LABS: Osmolality, Urine 419 mOsmol/kg (.)
[2024-09-19 22:07] LABS: Osmolality, Serum 278 mOsmol/kg (280-301)
== END 2024-09-17 08:12 | disposition home or self-care (01) ==
PROVIDERS: PCP Nurse Practitioner Family
DX: E03.9 Hypothyroidism, unspecified (principal); E78.49 Other hyperlipidemia; E87.1 Hypo-osmolality and hyponatremia
CPT/HCPCS: 36415; 80053; 80061; 83930; 83935; 84300; 84439; 84443; 84481

== ENCOUNTER 2024-11-08 07:26 | Outpatient (CLI) | payer MEDICARE, SELFPAY ==
--- OUTSIDE RECORDS SUMMARY | 2024-11-08 07:31 | XMS_ITS | Clinical Summary ---
Author Organization [facility] Address [address] [place] [address] Care Team Providers Care Jailor Name Role Phone Parish Leger PA-C Primary Care Provider [phone] Allergies Active Allergy Reactions Criticality Noted Date [...] knee replacement 01/19/2021 Mixed hyperlipidemia 01/13/2021 Meningocele ([facility]) 11/03/2020 Mucocele of frontal sinus 11/03/2020 Cyst [...] fatigue 05/13/2019 Osteoporosis 05/13/2019 Coronary arteriosclerosis in [place] artery 05/05 Presence of stent in coronary [...] to chronic sinus infections, had surgical repair [place] (myocardial infarction) ([facility]) At risk of disease 06/22/2018 Chronic combined systolic an d diastolic heart failure ([facility]) 06/22/2018 Hypertensive heart disease w ith congestive heart failure ([facility]) 06/22/2018 Pulmonary hypertension ([facility]) 019 Myocardial infarction ([facility]) 06/23/19 19 Primary osteoarthritis of right knee [...] 7,04/26/2015 Pneumococcal (Prevnar 13) 09/14/2015 Zoster (Zostavax) 38061 Unt/0.65Ml 09/14/2015 Family History Medical History Relation [...] Comments Blood Pressure 136/72 01/13/2022 8:02 AM PACKING AND WRAPPING SUPERVISOR Pulse 75 01/13/2022 7:37 AM PACKING AND WRAPPING SUPERVISOR Temperature 36.7 C (98 F) 01/13/2022 7:37 AM PACKING AND WRAPPING SUPERVISOR Respiratory Rate 22 01/13/2022 7:37 AM PACKING AND WRAPPING SUPERVISOR Oxygen Saturation 99% 01/13/2022 7:37 AM PACKING AND WRAPPING SUPERVISOR Inhaled Oxygen Concentration - - Weight 96.6 kg (213 lb) 01/13/2022 7:37 AM PACKING AND WRAPPING SUPERVISOR Height 167.6 cm (5' 6) 01/13/2022 7:37 AM PACKING AND WRAPPING SUPERVISOR Body Mass Index 34.38 01/13/2022 7:37 AM PACKING AND WRAPPING SUPERVISOR Plan of Treatment Health Maintenance Due Date Last Done Comments ASCVD LDL 1945 DTaP, Tdap and Td Vaccines (1 - Tdap) 1964 Annual Medicare Wellness Visit 07/13/2011 Zoster Vaccines (2 of 3) 11/09/2015 09/14/2015 RSV Immunization or 60+ Years (1 - 1-dose 75+ series) 2021 COVID-19 Vaccine ( - season) 2024 01/21/2021, 04/11/2020, 03/12/2020 Hepatitis C 01/14/2052 Postponed [...] this topic Medical Devices Implanted Type Area Data Analyst Device Identifier Shelf Expiration Date Model / [...] Relevant to Health Maintenance Insurance MED [facility] [place] [address] [facility] Care Teams Jailor Relationship Specialty Start Date End Date Parish Leger PA-C [address] [place], [place] [phone] PCP - General PHYSICIAN UMBRELLA FRAME MAKER 06/06/23
--- OUTSIDE RECORDS SUMMARY | 2024-11-08 07:31 | XMS_ITS | Clinical Summary ---
Author Organization [facility] Address [address] [place] [phone] Phone Care Team Providers Care Diesel Engine Inspector Name Role Phone Abdulkadir Pascal DO Primary Care Provider [phone] Allergies Active Allergy Reactions Criticality Noted Date [...] 05/13/2019 Facial pain 05/13/[address] [place] artery 05/05 History of non-ST segment elevation [...] Comments Blood Pressure 130/70 01/19/2022 10:31 AM TOOL AND DIE ENGINEER Pulse - - Temperature 35.8 C (96.4 F) 01/19/2022 10:31 AM TOOL AND DIE ENGINEER Respiratory Rate 18 01/19/2022 10:31 AM TOOL AND DIE ENGINEER Oxygen Saturation - - Inhaled Oxygen Concentration - - Weight 95.7 kg (211 lb) 01/19/2022 10:31 AM TOOL AND DIE ENGINEER Height 165.1 cm (5' 5) 01/19/2022 10:31 AM TOOL AND DIE ENGINEER Body Mass Index 35.11 01/19/2022 10:31 AM TOOL AND DIE ENGINEER Plan of Treatment Health Maintenance Due Date Last Done Comments COVID-19 Vaccine (3 2024-2 6 season) 2024 04/11/2020, 03/12/2020 Influenza Vaccine (#1) 2024 2, 11/13/2020, 11/13/2020, Additional history exists Pneumococcal PPSV23/PCV13 65 + Years / Low and Medium Risk Completed 09/20/2016, 09/14/2015, 09/14/2015, Additional history exists Insurance [employer] MEDICARE Care Teams Diesel Engine Inspector Relationship Specialty Start Date End Date Abdulkadir Pascal DO [address] [facility] [address] [place] [address] PCP - General Internal Medicine 05/07/19
--- OUTSIDE RECORDS SUMMARY | 2024-11-08 07:31 | XMS_ITS | Encounter Summary ---
Author Organization [facility] Address [address] [place] [address] Phone Care Team Providers Care Welfare Director Name Role Phone Abdulkadir Pascal MD Primary Care Provider [phone] Unknown, Notinfile Primary Care Provider Unavail able Marsha Virk NP Primary Care Provider [phone] Encounter Details Date Type Department Care Team [...] on file Legal Sex Female 11:58 PM DIRECT SELLING COUNSELOR Gender Identity Not on file Sexual Orientation [...] on filedocumented in this encounter Care Teams Welfare Director Relationship Specialty Start Date End Date Abdulkadir Pascal MD [address] [place] [address] PCP - General 05/22/12 10/10/23 Unknown, Notinfile PCP - General 10/11/23 12/31/23 Marsha Virk NP [address] [place] [address] PCP - General Family Medicine 01/01/24 documented as of this encounter
--- OUTSIDE RECORDS SUMMARY | 2024-11-08 07:31 | XMS_ITS | Clinical Summary ---
Author Organization [facility] Address [address] [place] [address] Care Team Providers Care Freight Representative Name Role Phone Marsha Virk NP Primary Care Provider +1 -[phone] Allergies Active Allergy Reactions Criticality Noted Date Comments Codeine Finasteride Muscle pain,Other (See comments) Medium 11/01/2021 Hydrocodone Hypotension High 08/12/2016 Hydrocodone-Acetaminophen Syncope High 12/16/2022 Methylprednisolone Rash,Other (See comments) Medium 08/11/2020 Facial flushing Facial flushing Nickel Rash Medium 01/23/2018 Nitrofurantoin Other (See comments) Low 04/20/2011 Oxycodone Other (See comments) Low 11/03/2020 Severe hypotention Severe hypotention Gkqjaxv-Usu-Jsx Reductase Inhibitors Muscle pain Medium 11/01/2021 Tetracycline [...] mg total) by mouth daily 90 tablet 024 Active Additional Information Patient taking differently: 40 mgoralBedtime (supervisor respiratory), Reported on 09/06/2024 buPROPion XL (WELLBUTRIN XL) 150 mg 24 hr tablet Active Synthroid 100 mcg tablet Take 1 tablet (100 mcg total) by mouth legal support specialist before breakfast 90 tablet 2 Active torsemide [...] by mouth once daily 90 tablet 1 025 Active carvediloL (COREG) 6.25 mg tablet TAKE 1 TABLET BY MOUTH TWICE DAILY WITH MEALS 180 tablet 1 025 Active carvediloL (COREG) 6.25 mg tablet Take 1 tablet (6.25 mg total) by mouth 2 (two) times a day with meals 60 tablet 025 2024 Discontinued Active Problems Problem [...] benign 08/29/2019 Coronary artery disease invo lving [place] coronary artery of [place] heart without angina pectoris 05/06/2019 History of [...] 1/2 tab on Sundays Rx sent to [place] [facility]. Pt understands. Assessment & Plan (06/28/2022 [...] Encounters Date Type Department Care Team Description 11/04/2024 Telephone [facility] Neurodiagnostics [address] [place] [address] Melissa Ayers 11/04/2024 Telephone [facility] General Neurology [address] 6th [place] [address] [place] [address] Meliza Ch RN 11/01/2024 Telephone [facility] General Neurology [address] [place] [address] Derek Allison Jr., MD 11/01/2024 Telephone [facility] General Neurology [address] 6th [place] [address] [place] [address] [phone] Meliza Ch RN 10/30/2024 12:26 PM CDT - 10/30/2024 11:59 PM CDT Hospital [facility] [address] [place] [address] Alo Garcia Localization-relate d (focal) (partial) symptomatic epilepsy and epileptic syndromes with complex partial seizures, not intractable, without status epilepticus Discharge Disposition: Discharge to home or self care 10/25/2024 Telephone [facility] Neurodiagnostics [address] [facility] [place] [address] Melissa Ayers 10/23/2024 Telephone [facility] General Neurology [facility] 6th [place] [address] [place] [address] Meliza Ch RN 09/06/2024 5:37 PM CDT - 09/06/2024 11:59 PM CDT Hospital Encounter [facility] [address] [place] [address] Discharge Disposition: Discharge to home or self care 09/06/2024 5:35 PM CDT - 09/06/2024 11:59 PM CDT Hospital Encounter [facility] [address] [place] [address] Discharge Disposition: Discharge to home or self care 09/06/2024 5:33 PM CDT - 09/06/2024 11:59 PM CDT Hospital Encounter [facility] [address] [place] [address] Discharge Disposition: Discharge to home or self care 09/06/2024 5:32 PM CDT - 09/06/2024 11:59 PM CDT Hospital Encounter [facility]) [address] [place] [address] Discharge Disposition: Discharge to home or self care 09/06/2024 5:30 PM CDT - 09/06/2024 11:59 PM CDT Hospital Encounter [facility] [address] [place] [address] Discharge Disposition: Discharge to home or self care 09/06/2024 5:28 PM CDT - 09/06/2024 11:59 PM CDT Hospital Encounter [facility] [address] [place] [address] Discharge Disposition: Discharge to home or self care 09/06/2024 5:26 PM CDT - 09/06/2024 11:59 PM CDT Hospital Encounter [facility] ([facility]) [address] [place] [address] Discharge Disposition: Discharge to home or self care 09/06/2024 5:24 PM CDT - 09/06/2024 11:59 PM CDT Hospital Encounter [facility] ([facility]) [address] [place] [address] Discharge Disposition: Discharge to home or self care 09/06/2024 5:19 PM CDT - 09/06/2024 11:59 PM CDT Hospital Encounter [facility] ([facility]) [address] [place] [address] Discharge Disposition: Discharge to home or self care 09/06/2024 5:15 PM CDT - 09/06/2024 11:59 PM CDT Hospital Encounter [facility] ([facility]) [address] [place] [address] Discharge Disposition: Discharge to home or self care 09/06/2024 4:50 PM CDT - 09/06/2024 11:59 PM CDT Hospital Encounter [facility] ([facility]) [address] [place] [address] Discharge Disposition: Discharge to home or self care 09/06/2024 3:30 PM CDT Office Visit [facility] Medicine General Neurology [address] [place] [address] for [facility] 6th [place] [address] [place] [address] Derek Allison Jr., MD Hypo-osmolality and hyponatremia; Transient cerebral ischemia, unspecified type; Localization-relate d (focal) (partial) symptomatic epilepsy and epileptic syndromes with complex partial seizures, not intractable, without status epilepticus (HCC) 09/05/2024 Telephone [facility] Cardiology [address] [place] [address] Tereso Hannon MD from Last 3 Months Surgical History Surgery Date Site/Laterality Comments CORONARY ANGIOPLASTY 04/25/2019 CARDIAC CATHETERIZATION May 2018 and April 2019 REPLACEMENT TOTAL KNEE Right OTHER SURGICAL HISTORY head REPLACEMENT TOTAL KNEE 11/12/2021 Left [facility] OTHER SURGICAL HISTORY 09/06/2022 - 10/06/2022 bilateral leg vein procedures at [facility] Medical History Medical History Date Comments Disorder [...] on file 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 Gender Identity Not on file Sexual Orientation [...] Additional history exists Influenza Vaccine (#1) 2024 3, 11/13/2021, 08/05/2021, Additional history exists Pneumococcal vaccine 65+ Completed 022, 08/05/2021, 09/20/2016, Additional history exists Procedures Procedure Name Priority Date/Time Associated Diagnosis Comments EEG Routine 10/30/2024 2:00 PM CDT Localization-related (focal) (partial) symptomatic epilepsy and epileptic syndromes with complex partial seizures, not intractable, without status epilepticus XR TRANSFER OF OUTSIDE FILMS Routine 09/06/2024 [...] OUTSIDE FILMS Routine 09/06/2024 4:50 PM CDT from Last 3 Months Results * EEG (10/30/2024 2:00 PM CDT) Anatomical Region Laterality Modality EEG Narrative 10/30/2024 4:59 PM CDT Routine EEG Report Patient Name: Koki Wolfe [facility] Medical Record Number (MRN): [id number] [facility] Record: [id number] Date of (): 1945 EEG Date: 10/30/2024 Ordering Provider: Derek Allison Jr., MD CC: Marsha Virk Start Time: 10/30/2024 1:30:16 PM End Time: 10/30/2024 1:51:30 PM Introduction: Ms. Wolfe is a 79 y.o. female with a history of HTN and headache who presented with episodes of confusion, concerning for seizures. EEG was performed to evaluate for seizures. This is a 32 channel EEG recording acquired on a Solaria EEG-1200 acquisition system. Scalp electrodes were placed according to the international 10-20 System. The analog EEG was filtered from 1-70 Hz and digitally sampled at 200 Hz. The record was then reformatted for review in bipolar and referential montages. EEG Description: The awake background included a 9 Hz posterior rhythm which attenuated with eye opening and activity. During drowsiness, identified by ocular signs and alpha attenuation, there was intermittent, diffuse, asynchronous theta activity admixed with 2-4 Hz polymorphic frontotemporal delta activity, rarely more prominent over the left temporal region. As the record progressed, stage II sleep was identified by vertex waves, sleep spindles and K-complexes. Hyperventilation was not performed. Photic strobe stimulation elicited no abnormalities. There were no epileptiform abnormalities. Interpretation: This is an abnormal awake and stage I and II sleep EEG due to rare left temporal slowing. Focal slowing indicates focal cerebral dysfunction. A focal structural or physiologic abnormality should be considered. By signing this report, the attending Electroencephalographer certifies that he/she personally reviewed the electrodiagnostics study and has edited this report to fully conform with his/her intent. Signing Attending: Baldemar Pantoja MD PhD Derek Allison Jr., MD NEUROLOGY ORDERABL ES Final Result * XR Outside Reference (09/06/2024 5:37 PM CDT) Impressions [facility] - 09/06/2024 5:37 PM CDT These images are for Reference purposes only and have not been reviewed by [facility]. There will be no report generated by a [facility]iologist. Narrative RAD_P[facility] - 09/06/2024 5:37 PM CDT EXAMINATION: Images For Reference Purposes Only Derek Allison Jr., MD IMG XR PROCEDURES Final Result [facility] * XR Outside Reference (09/06/2024 5:35 PM CDT) Impressions [facility] - 09/06/2024 5:35 PM CDT These images are for Reference purposes only and have not been reviewed by [facility]. There will be no report generated by a [facility]iologist. Narrative [facility] - 09/06/2024 5:35 PM CDT EXAMINATION: Images For Reference Purposes Only Derek Allison Jr., MD IMG XR PROCEDURES Final Result Performing Organization Address [facility] de Phone Number [facility] * NM Outside Reference (09/06/2024 5:33 PM CDT) Impressions [facility] - 09/06/2024 5:33 PM CDT These images are for Reference purposes only and have not been reviewed by [facility]. There will be no report generated by a [facility]iologist. Narrative [facility] - 09/06/2024 5:33 PM CDT EXAMINATION: Images For Reference Purposes Only Derek Allison Jr., MD IMG NM PROCEDURES Final Result Performing Organization Address [facility] de Phone Number [facility] * XR Outside Reference (09/06/2024 5:32 PM CDT) Impressions [facility] - 09/06/2024 5:32 PM CDT These images are for Reference purposes only and have not been reviewed by [facility]. There will be no report generated by a [facility]. Narrative [facility] - 09/06/2024 5:32 PM CDT EXAMINATION: Images For Reference Purposes Only Derek Allison Jr., MD IMG XR PROCEDURES Final Result Performing Organization Address [facility] de Phone Number [facility] * XR Outside Reference (09/06/2024 5:30 PM CDT) Impressions [facility] - 09/06/2024 5:30 PM CDT These images are for Reference purposes only and have not been reviewed by [facility]. There will be no report generated by a [facility]. Narrative [facility] - 09/06/2024 5:30 PM CDT EXAMINATION: Images For Reference Purposes Only Derek Allison Jr., MD IMG XR PROCEDURES Final Result Performing Organization Address [facility] de Phone Number [facility] * NM Outside Reference (09/06/2024 5:28 PM CDT) Impressions [facility] - 09/06/2024 5:28 PM CDT These images are for Reference purposes only and have not been reviewed by [facility]. There will be no report generated by a [facility]. Narrative [facility] - 09/06/2024 5:28 PM CDT EXAMINATION: Images For Reference Purposes Only us MD NICHOLE Dobson Jr.G NM PROCEDURES Final Result Performing Organization Address [facility] de Phone Number [facility] * US Outside Reference (09/06/2024 5:26 PM CDT) Impressions [facility] - 09/06/2024 5:26 PM CDT These images are for Reference purposes only and have not been reviewed by [facility]. There will be no report generated by a [facility]. Narrative [facility] - 09/06/2024 5:26 PM CDT EXAMINATION: Images For Reference Purposes Only us Derek Allison Jr., MD IMG US PROCEDURES Final Result Performing Organization Address [facility] de Phone Number [facility] * XR Outside Reference (09/06/2024 5:24 PM CDT) Impressions [facility] - 09/06/2024 5:24 PM CDT These images are for Reference purposes only and have not been reviewed by [facility]. There will be no report generated by a [facility]iologist. Narrative [facility] - 09/06/2024 5:24 PM CDT EXAMINATION: Images For Reference Purposes Only us Derek Allison Jr., MD IMLane XR PROCEDURES Final Result Performing Organization Address [facility] de Phone Number [facility] * XR Outside Reference (09/06/2024 5:19 PM CDT) Impressions [facility] - 09/06/2024 5:19 PM CDT These images are for Reference purposes only and have not been reviewed by [facility]. There will be no report generated by a [facility]. Narrative [facility] - 09/06/2024 5:19 PM CDT EXAMINATION: Images For Reference Purposes Only Derek Allison Jr., MD IMG XR PROCEDURES Final Result Performing Organization Address [facility] de Phone Number [facility] * CT Body Outside Reference (09/06/2024 5:15 PM CDT) Impressions [facility] - 09/06/2024 5:15 PM CDT These images are for Reference purposes only and have not been reviewed by [facility]. There will be no report generated by a [facility]. Narrative [facility] - 09/06/2024 5:15 PM CDT EXAMINATION: Images For Reference Purposes Only Derek Allison Jr., MD IMG CT PROCEDURES Final Result Performing Organization Address [facility] de Phone Number [facility] * XR Outside Reference (09/06/2024 4:50 PM CDT) Impressions [facility] - 09/06/2024 4:50 PM CDT These images are for Reference purposes only and have not been reviewed by [facility]. There will be no report generated by a [facility]. Narrative [facility] - 09/06/2024 4:50 PM CDT EXAMINATION: Images For Reference Purposes Only Derek Allison Jr., MD IMG XR PROCEDURES Final Result [facility] from Last 3 Months Insurance [employer] MEDICARE AET MEDICARE AET MEDICARE Care Teams Freight Representative Relationship Specialty Start Date End Date Marsha Virk NP [address] [place] [address] PCP - General Family Medicine 01/01/24
--- OUTSIDE RECORDS SUMMARY | 2024-11-08 07:31 | XMS_ITS | Clinical Summary ---
Author Organization [facility] Administrative Offices Address [address] [place] [address] Care Team Providers Care Middle School Professional Name Role Phone Sushant Fox MD Primary Care Provider +1- [phone] Allergies Active Allergy Reactions Criticality Noted Date Comments Codeine Nausea and Vomiting,Shortness of Breath/Wheezing High 06/05/2019 Any codeine or derivative causes low blood pressure, passes out, and experiences difficulty breathing Kkswggz-Yoz-Ggx Reductase Inhibitors Muscle Pain Medium 11/01/2021 Tetracycline [...] Encounters Date Type Department Care Team Description 10/08/2024 External Device Data [facility] ABSTRACTION Provider, Abstract 09/24/2024 External Device Data [facility]STRACTION Provider, Abstract [...] 36.3 C (97.3 F) 12/13/2022 7:48 AM FLAGSETTER Respiratory Rate - - Oxygen Saturation 98% 01/09/2023 8:45 AM FLAGSETTER Inhaled Oxygen Concentration - - Weight 84.4 kg (186 lb) 05/15/2024 8:40 AM CDT Height 165.1 cm (5' 5) 05/15/2024 8:40 AM CDT Body Mass Index 30.95 05/15/2024 8:40 AM CDT Plan of Treatment Upcoming Encounters Date Type Department Care Team (Late st Contact Info) Description 05/21/2025 8:15 AM CDT Appointment [facility] [address] [place] [address] [place] [address] [place] [address] 05/21/2025 9:30 AM CDT Office Visit [facility] Heart and Vascular Surgery [address] [facility] [address] [facility] [address] [place] [address] [place] [address] [place] [address] Health Maintenance Due Date Last [...] Q 5 years Discontinued Insurance Care Teams Middle School Professional Relationship Specialty Start Date End Date Sushant Fox MD [address] [address] PCP - General Family Practice 05/15/24
--- OUTSIDE RECORDS SUMMARY | 2024-11-08 07:31 | XMS_ITS | Encounter Summary ---
Author Organization [facility] Address [facility] [place] [address] Care Team Providers Care Tire Builder Operator Name Role Phone Paulette Sanford Primary Care Provider [phone] [phone] Parish Leger PA-C Primary Care Provider +1 [phone] Encounter Details Date Type Department Care Team (Late st Contact Info) Description 06/17/2020 Prep for Procedure [facility] [address] [place] [address] Poonam Dominique MD [address] [place] [address] [address] Social History Tobacco Use Types Packs/Day Years [...] PM CDT) 06/23/2020 1:32 PM CDT Narrative [facility] RAD - 06/24/2020 10:[address] [facility] Test Date: 2020-06-23 Pat Name: KOKI BATEMAN Department: Room: Gender: Female Heel Stainer: : 1945 Requested By: POONAM DOMINIQUE Order Number: [id number] Reading MD: Tr Henry Measurements Intervals [place] Rate: 63 P: -64 WI: 154 QRS: -9 QRSD: 84 T: 40 QT: 406 QTc: 418 Interpretive Statements SINUS RHYTHM LOW QRS VOLTAGE IN PRECORDIAL LEADS [QRS DEFLECTION < 1.0 mV IN CHEST LEADS] INFERIOR MYOCARDIAL INFARCTION , PROBABLY OLD [40+ ms Q WAVE AND/OR ST/T ABNORMALITY IN II/aVF] No previous ECG available for comparison Procedure Note Tr Henry MD - 06/24/2020 [facility] Test Date: 2020-06-23 Pat Name: KOKI BATEMAN Department: Room: Gender: Female Heel Stainer: : 1945 Requested By: POONAM DOMINIQUE Order Number: [id number] Reading : Tr Henry Measurements Intervals [place] Rate: 63 P: -64 WI: 154 QRS: -9 QRSD: 84 T: 40 QT: 406 QTc: 418 Interpretive Statements SINUS RHYTHM LOW QRS VOLTAGE IN PRECORDIAL LEADS [QRS DEFLECTION < 1.0 mV IN CHESTLEADS] INFERIOR MYOCARDIAL INFARCTION , PROBABLY OLD [40+ ms Q WAVE AND/OR ST/T ABNORMALITY IN II/aVF] No previous ECG available for comparison us Poonam Dominique MD ECG ORDERABLES Final Result [facility] RAD documented in this encounter Visit Diagnoses Diagnosis Preoperative testing- Primary Preoperative examination, unspecified Preop testing Preoperative examination, unspecified Preop testing Preoperative examination, unspecified documented in this encounter Additional Health Concerns Infection Onset Date Last Indicated Resolved Time COVID-19 Rule Out 06/28/2020 06/28/2020 06/30/2020 1:26 PM CDT documented as of this encounter Care Teams Tire Builder Operator Relationship Specialty Start [place] [address] [place] [address] PCP - General PHYSICIAN NURSING PROGRAM CHAIR 09/23/19 06/05/23 Parish Leger PA-C [address] [facility] [address] [place] [address] PCP - General PHYSICIAN NURSING PROGRAM CHAIR 06/06/23 documented as of this encounter
--- OUTSIDE RECORDS SUMMARY | 2024-11-08 07:32 | XMS_ITS | Encounter Summary ---
Author Organization 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 Never 07/16/2024 3:13 PM CDT Mike Robison MA Q2: How many drinks containing alcohol do you have on a typical day when you are drinking? Patient does not drink 07/16/2024 3:13 PM CDT Mike Robison MA Q3: How often do you have six or more drinks on one occasion? Never 07/16/2024 3:13 PM CDT Mike Robison MA documented as of this encounter Plan of Treatment Not on file documented as of this encounter Procedures Procedure Name Priority Date/Time Associated Diagnosis Comments SCAN - LABS 11/07/2022 documented in this encounter Results * SCAN - LABS (11/07/2022) us Provider Scanning Final Result documented in this encounter Visit Diagnoses Not on filedocumented in this encounter Care Teams Cotton Picking Machine Operator Relationship Specialty Start Date End Date Abdulkadir Pascal MD [address] [place] [address] PCP - General 05/22/12 10/10/23 Unknown, Notinfile PCP - General 10/11/23 12/31/23 Marsha Virk NP [address] [place], [place] [id number] PCP - General Family Medicine 01/01/24 documented as of this encounter
--- OUTSIDE RECORDS SUMMARY | 2024-11-08 07:32 | XMS_ITS | Clinical Summary ---
Author Organization [facility] Address [address] [place] [address] Care Team Providers Care Checkerer Hand Name Role Phone Sushant Fox MD Primary Care Provider [phone] Source Comments [facility],non-owned Affiliates and Associated Physician Practices is amultiple site organization consisting of ambulatory clinics and hospital sitesin [place], [place], [place] and [place]. This disclosure is being madepursuant to the Care Everywhere program and may not contain all information available regarding this patient. Last updated 17.[facility] Allergies Active Allergy Reactions Criticality Noted Date [...] (Flonase) 50 MCG/ACT nasal sprayIndication s:Chronic rhinitis [place] 2 (two) sprays into each nostril once [...] 08/08/2024 Telephone [facility] [place] [address] Betzaida Auguste, GEAR KEEPER-NURSE SPECIAL Health Information (Requesting Office note From Yesterday be sent. 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 Gender Identity Female 10/21/2020 8:38 AM CDT [...] Info) Description 06/19/2025 10:00 AM CDT Appointment [facility] [address] [place] [address] Aamir Ochoa MD [address] [place] [address] [place] [address] 06/19/2025 10:45 AM CDT Office Visit [facility] - [facility]NT [address] [place] [address] Aamir Ochoa MD [address] [place] [address] [address] [place] [address] Health Maintenance Due Date Last Done Comments BONE DENSITY TESTING 1945 HEPATITIS C SCREENING 07/07/1964 DTAP/TDAP/TD VACCINES (1 - Tdap) 1965 ZOSTER VACCINE (2 of 3) 11/09/2015 09/14/2015 Respiratory Syncytial Virus (RSV) Vaccine Pt: or over 60 yrs (1 - 1-dose 75+ series) 2021 DEPRESSION SCREENING 02/07/2024 MEDICARE AWV CALENDAR YEAR 2024 COVID-19 VACCINE ( season) 2024 04/11/2020, 03/12/2020 INFLUENZA VACCINE (#1) 2024 2, 08/05/2021, 11/13/2020, Additional history exists PNEUMOCOCCAL VACCINE [...] this topic Medical Devices Implanted Type Area Cryptoanalysis Teacher Device Identifier Shelf Expiration Date Model / Serial / Lot Cmnt Bone Cblt 40gm Hvisc Strl Implanted:Qty : 1 on 05/23/2018 by Daniel Wakefield MD at [facility] Right: Knee [employer] 08/02/2019 600-15-00 0 / / [id number] Cmpnt Ptlr 28mm 1 Pg Wire Ascnt Arcm Kn Implanted:Qty : 1 on 05/23/2018 by Daniel Wakefield MD at [facility] Right: Knee [employer] 01/23/2023 [id number] / / [id number] Cmpnt Fem Kn Rt Cr Cmnt Prm Vngrd Intlk Implanted:Qty : 1 on 05/23/2018 by Daniel Wakefield MD at [facility] Right: Knee [employer] 01/20/2028 [id number] / / [id number] Tray Tib 71mm Kn Cocr I Beam Implanted:Qty : 1 on 05/23/2018 by Daniel Wakefield MD at [facility] Right: Knee [employer] 02/25/2028 [id number] / / [id number] Brng [id number] Vngrd Arcm Kn Ant Stab Implanted:Qty : 1 on 05/23/2018 by Daniel Wakefield MD at [facility] Right: Knee [employer] 03/28/2023 [id number] / / [id number] Graft Tissue Drgn + Bvn Clgn Mtrx 2x2in Implanted:Qty : 1 on 01/22/2019 by Aamir Ochoa MD at [facility] Nose [employer] 10/06/2021 DP- 1022 / / [id number] Screw 1.5mm 4mm Slf Drl Ax Stab Unv Implanted:Qty : 12 on 11/03/2020 by Aamir Ochoa MD at [facility] Cranial Kyle Craniomaxillofacial [id number] / / Graft Tissue Drgn + Bvn Clgn Mtrx 2x2in Implanted:Qty : 1 on 11/03/2020 by Aamir Ochoa MD at [facility] Cranial [employer] 07/07/2023 DP1 022 / / [id number] Cover Bur Hl .4mm 7mm Unv Neuro Iii Ti Implanted:Qty : 2 on 11/03/2020 by Aamir Ochoa MD at [facility] Cranial [place] Craniomaxillofacial [id number] / / Plate 8 Hl Lopro Crnmxf .4mm Str Unv Implanted:Qty : 1 on 11/03/2020 by Aamir Ochoa MD at [facility] Cranial [place] Craniomaxillofacial [id number] / / Cmnt Bone Djo Srg Cblt 40gm Hvisc Strl Implanted:Qty : 1 on 11/12/2021 by Daniel Wakefield MD at [facility] Left: Knee [employer] 08/19/2022 600-15-00 0 / / [id number] Cmpnt Fem Kn Lt Cr Cmnt Prm Vngrd Intlk Implanted:Qty : 1 on 11/12/2021 by Daniel Wakefield MD at [facility] Left: Knee [employer] 10/14/2031 [id number] / / [id number] Cmpnt Ptlr Std 28mm 1 Pg Wire Kn Ser A Implanted:Qty : 1 on 11/12/2021 by Daniel Wakefield MD at [facility] Left: Knee [employer] 07/18/2022 [id number] / / [id number] Tray Tib 71mm Kn Cocr I Beam Implanted:Qty : 1 on 11/12/2021 by Daniel Wakefield MD at [facility] Left: Knee [employer] 09/16/2031 [id number] / / [id number] Brng [id number] Vngrd Arcm Kn Ant Stab Implanted:Qty : 1 on 11/12/2021 by Daniel Wakefield MD at [facility] Left: Knee [employer] 10/18/2026 [id number] / / [id number] Insurance T [employer] MEDICARE ADV Advance Directives * Full [...] 10:18 AM 05/25/2018 1:18 PM Care Teams Checkerer Hand Relationship Specialty Start Date End Date Sushant Fox MD [address] [place] [phone] PCP - General Family Medicine 05/24/24
[2024-11-08 08:14] LABS: Hematocrit 37.0 % (37.0-47.0); Hemoglobin 12.2 g/dL (12.0-15.0); Immature Granulocyte Percent A 0.2 % (0-0.5); Lymphocytes Absolute Auto 1.44 K/mm3 (0.9-3.2); Mean Corpuscular HGB Conc 33.0 g/dl (32-36); Mean Corpuscular Hemoglobin 29.8 pg (26-34); Mean Corpuscular Volume 90.5 fl (80-100); Nucleated Red Blood Cells Absolute Auto 0.000 K/mm3 (0.0-0.012); Nucleated Red Blood Cells Perc 0.0 % (0.0-0.2); Platelet Count Result 317 k/mm3 (150-375); Red Blood Count 4.09 M/mm3 (4.2-5.4); White Blood Count 8.7 K/mm3 (4.5-10.0)
[2024-11-08 08:35] LABS: Alanine Aminotransferase 24 U/L (6-35); Albumin Level 4.1 g/dL (3.5-5.1); Alkaline Phosphatase 63 U/L (38-126); Anion Gap 8 mmol/L (4-12); Aspartate Amino Transferase 37 U/L (14-36); Bilirubin,Total 0.6 mg/dL (0.2-1.3); Blood Urea Nitrogen 17 mg/dL (7-17); Calcium 9.4 mg/dL (8.4-10.2); Carbon Dioxide 30 mmol/L (22-30); Chloride 103 mmol/L (98-107); Cholesterol 152 mg/dL (0-200); Estimated Glomerular Filt Rate 56; Glucose 96 mg/dL (65-110); HDL Direct 64 mg/dL; Magnesium 2.2 mg/dL (1.6-2.3); Potassium 4.7 mmol/L (3.4-5.0); Sodium 141 mmol/L (137-145); Total Protein 7.5 g/dL (6.3-8.2); Triglycerides 76 mg/dL (<150)
[2024-11-08 08:46] LABS: Free T3 3.03 pg/mL (2.45-5.93); Free T4 Free Thyroxine 1.00 ng/dL (0.78-2.19)
[2024-11-08 09:10] LABS: Thyroid Stimulating Hormone 0.527 uIU/mL (0.465-4.680)
[2024-11-08 11:57] LABS: Hemoglobin A1C 5.0 % (<5.7)
[2024-11-08 13:19] LABS: Ferritin 82.10 ng/mL (11.1-264)
== END 2024-11-08 07:27 | disposition home or self-care (01) ==
LOC: ANHLAB 07:29
PROVIDERS: PCP Nurse Practitioner Family; Visit Provider Nurse Practitioner Family
DX: E78.5 Hyperlipidemia, unspecified (principal); R53.83 Other fatigue; E55.9 Vitamin D deficiency, unspecified; I50.9 Heart failure, unspecified; F32.9 Major depressive disorder, single episode, unspecified; E03.9 Hypothyroidism, unspecified; R73.01 Impaired fasting glucose; I50.40 Unspecified combined systolic (congestive) and diastolic (congestive) heart failure; D64.9 Anemia, unspecified; G25.81 Restless legs syndrome; I25.10 Atherosclerotic heart disease of native coronary artery without angina pectoris; I11.0 Hypertensive heart disease with heart failure
CPT/HCPCS: 36415; 80053; 80061; 82306; 82728; 83036; 83735; 84100; 84439; 84443; 84481; 85025; 86376

== ENCOUNTER 2024-11-13 09:37 | Outpatient (CLI) | payer MEDICARE, SELFPAY ==
--- NOTE | ~2024-11-13 | MM_ITS ---
EXAMINATION: MM screening cem BI w davis HISTORY: Screening TECHNIQUE: Craniocaudal and mediolateral oblique 3-D tomosynthesis images were obtained and synthetic 2-D images were generated. CAD analysis was submitted and interpreted. COMPARISON: Comparison to multiple prior studies sequentially, with oldest reviewed study dated , 08/17/2016 BREAST PARENCHYMAL COMPOSITION: There are scattered areas of fibroglandular density. FINDINGS: There is no evidence of suspicious mass, calcification, or architectural distortion to suggest malignancy in either breast. IMPRESSION: 1. No mammographic evidence of malignancy. 2. Recommend routine screening mammography in one year. BI-RADS Category 1: Negative Reviewed, dictated and finalized at location B.
== END 2024-11-13 09:38 | disposition home or self-care (01) ==
LOC: ANHFOHIMG 09:38
PROVIDERS: PCP Nurse Practitioner Family; Visit Provider Family Medicine
DX: Z12.31 Encounter for screening mammogram for malignant neoplasm of breast (principal)
CPT/HCPCS: 77063; 77067

== ENCOUNTER 2024-12-22 19:33 | Observation (INO) | payer MEDICARE, SELFPAY ==
[2024-12-22] VITALS (19 sets, daily range): BP systolic 116–142; BP diastolic 65–95; PULSE 95–170; RESP 13–21; TEMP 36.6; O2SAT 96–98
--- NOTE | ~2024-12-22 | XR_ITS ---
EXAMINATION: XR chest 1V portable DATE: 12/22/2024 20:46 INDICATION: Palpitations TECHNIQUE: A single frontal view of the chest was obtained. COMPARISON: January 18, 2024 FINDINGS: The lungs are marginally inflated but appear clear. No sienna pulmonary edema or large effusion. Heart size upper limits normal. IMPRESSION: 1. Stable portable chest x-ray. Reviewed, dictated and finalized at location A. CTOR CHECK
--- NOTE | 2024-12-22 19:36 | ECG_ITS ---
Test Date: 2024-12-22 19:42:35 Measurements Intervals [place] Rate: 157 P: 0 FL: 0 QRS: -28 QRSD: 84 T: 70 QT: 270 QTc: 436 Interpretive Statements ATRIAL FLUTTER/TACHYCARDIA WITH RAPID VENTRICULAR RESPONSE NONSPECIFIC ST & T-WAVE ABNORMALITY Electronically Signed On 12-23-2024 00:12:52 FORM MAKER by Tereso Hannon D.O
--- NOTE | 2024-12-22 20:41 | ED.GENADULT ---
HPI - General Adult General Chief complaint: Arrhythmia/Palpitations Stated complaint: increased heart rate Time Seen by Provider: 12/22/24 19:47 History of Present Illness HPI narrative: this is a 79-year-old female presenting with chief complaint of palpitations. Symptoms started earlier today she checked her heart rate and Homans in the 150s. She does not have any chest pain difficulty breathing or lower extremity edema. She has otherwise feels well. No history of atrial fibrillation. Patient says that she did have an episode racing heart many years ago and was seen by a turfgrass technician but as it was a 1 time event they did not pursue any further workup. Related Data Home Medications ?Medication ?Instructions ?Recorded ?Confirmed ?Last Taken ?Type trazodone 50 mg tablet 25 mg PO HS 12/14/18 07/05/24 12/21/20 20:00 History losartan 100 mg tablet 100 mg PO DAILY 12/19/18 07/05/24 01/18/24 History levothyroxine 100 mcg tablet 100 mcg PO DAILY 04/24/19 07/05/24 01/18/24 History (Synthroid) cetirizine 10 mg capsule (Zyrtec) 10 mg PO DAILY PRN allergy symptoms 01/02/23 07/05/24 Unknown History venlafaxine 75 mg capsule,extended 37.5 mg PO DAILY 06/20/23 07/05/24 01/18/24 History release 24 hr aspirin 81 mg chewable tablet 81 mg PO DAILY 11/20/24 Unknown History (Children's Aspirin) bupropion HCl 150 mg 24 hr tablet, mg PO 11/20/24 Unknown History extended release torsemide 5 mg tablet mg PO 11/20/24 Unknown History zonisamide 100 mg capsule mg PO 11/20/24 Unknown History Allergies Allergy/AdvReac Type Severity Reaction Status Date / Time codeine Allergy Mild LETHARGIC Verified 12/22/24 19:50 AND NON RESPONSIVE hydrocodone Allergy Unknown DIFFICULTY Verified 12/22/24 19:50 BREATHING DECREASE BP hydroxyzine Allergy Unknown Unknown Verified 12/22/24 19:50 nickel Allergy Unknown Swelling Verified 12/22/24 19:50 oxycodone Allergy Unknown DIFFICULTY Verified 12/22/24 19:50 BREATHING , DECREASE BP tetracycline Allergy Unknown ITCHING Verified 12/22/24 19:50 [facility] Past Medical History Medical History Hyponatremia syndrome Complex partial seizures Vasovagal syncope Coronary artery disease Status post stent to the OM1 on 04/25/2019. Congestive heart failure Nonischemic cardiomyopathy on echocardiogram and left heart catheterization May 2018 with an EF of about 35%. Ejection fraction improved to 55 to 60% on echocardiogram in April 2019. Grade 1 diastolic dysfunction noted on echo at that time. Pulmonary hypertension Moderate pulmonary hypertension noted on echocardiogram in April 2019 with an estimated pulmonary arterial systolic pressure 45 mmHg. Nonischemic cardiomyopathy Cardiac catheterization in May 2018 showed a left coronary dominant circulation with no coronary artery disease and ejection fraction of about 35%. EF improved to 55 to 60% on echocardiogram in April 2019. Syncope 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 Hypertension Bradycardia, sinus COVID-19 (10/2020) Exposure to COVID-19 virus Restless leg syndrome Chest pain Vasovagal syncope Depression Chronic sinusitis Surgical History Surgical History History of left knee replacement History of cardiac catheterization 06/04/2018: Nonischemic cardiomyopathy with left coronary dominant circulation with no coronary artery disease and ejection fraction of approximately 35%. 04/25/2019: PTCA/drug-eluting stent to an acutely occluded OM 1 branch of the circumflex. History of sinus surgery Extensive sinus surgery x3 including anterior ethmoidectomy bilaterally, bilateral frontal sinusotomy, frontal sinus obliteration, and repair of CSF leak. Most recent surgery was in October 2020. Performed at [facility]. History of detached retina repair Left eye. History of arthroplasty of right knee History of right breast biopsy For microscopic calcifications, benign pathology. History of bunionectomy of left great toe History of dilation and curettage Benign endometrial polyp. History of bilateral cataract extraction S/P coronary artery stent placement Family History Family History Sibling Cerebrovascular accident Father Family history of lung cancer, Onset Age: 81 Patient's father is Mother Patient's mother is Social History Social History Social History: The patient is and lives with her in [place]. They live in [place] for 3 months of the year. She has 2 grown children. Lifelong nonsmoker. No alcohol or illicit substance abuse. She designates her Rigoberto Wolfe as her surrogate decision maker and she wishes to be a full code. Smoking status: Never smoker Alcohol intake: never Substance use: never Do You Feel Safe in your Home?: Yes Lack of Transportation: No Lack of Food: Never True Current Housing: I Have Housing Concerned About Future Housing: No Difficulty Paying Gas/Electric Bills: No Difficulty Paying for Meds: No Currently Unemployed: No Education: High School Diploma/GED Difficulty w/ Childcare or Family Care: No Living arrangements: with family Occupation/Education: retired Gender identity (if verbalized by the patient): Female Sexual Orientation (if Verbalized by the Patient): Straight or Heterosexual Spiritual care concerns: No Exam Narrative: APPEARANCE: No apparent distress. Well-appearing, pleasant polite Head: atraumatic. EYES: EOMI, NOSE: Atraumatic NECK: Trachea midline RESPIRATORY: No increased rate of breathing clear to auscultation CARDIOVASCULAR: Tachycardic, regular ABDOMINAL: Non-distended MUSCULOSKELETAl: No obvious deformities NEURO: Alert. Moving 4/4 extremities SKIN:: Warm, dry. Normal color PSYCHIATRIC: Normal affect Course Vital Signs Vital signs: Vital Signs Temperature 97.8 F 12/22/24 19:47 Pulse Rate 130 H 12/22/24 19:47 Respiratory Rate 18 12/22/24 19:47 Blood Pressure 142/95 H 12/22/24 19:47 Pulse Oximetry 98 12/22/24 19:47 Oxygen Delivery Room Air 12/22/24 19:47 Temperature 97.8 F 12/22/24 19:47 Pulse Rate 127 H 12/22/24 23:37 Respiratory Rate 18 12/22/24 19:47 Blood Pressure 121/91 H 12/22/24 22:03 Pulse Oximetry 98 12/22/24 19:47 Oxygen Delivery Room Air 12/22/24 19:47 Medical Decision Making MDM Narrative Medical decision making narrative: -Course: 71-year-old female presenting with AFib with RVR. She is otherwise asymptomatic outside of palpitations. She was given 10 mg of diltiazem x2 and started on diltiazem drip that was then maxed with out rate control. She was then given 3 pushes of 5 mg IV Lopressor which eventually rate control in the low 100s. Patient's workup was significant for a TSH of 0.1. She is taking levothyroxine and over medication may be a component in her atrial fibrillation. Chads Vasc greater than 3. Patient given a dose of Lovenox. She will be admitted IMU for further management of her new onset atrial fibrillation w/ rapid ventricular response. -DDX includes but is not limited to: AFib with RVR, SVT, thyroid storm, iatrogenic hypothyroid Vital Signs Vital Signs: Vital Signs Temperature 97.8 F 12/22/24 19:47 Pulse Rate 130 H 12/22/24 19:47 Respiratory Rate 18 12/22/24 19:47 Blood Pressure 142/95 H 12/22/24 19:47 Pulse Oximetry 98 12/22/24 19:47 Oxygen Delivery Room Air 12/22/24 19:47 Temperature 97.8 F 12/22/24 19:47 Pulse Rate 127 H 12/22/24 23:37 Respiratory Rate 18 12/22/24 19:47 Blood Pressure 121/91 H 12/22/24 22:03 Pulse Oximetry 98 12/22/24 19:47 Oxygen Delivery Room Air 12/22/24 19:47 Lab Data 12/22/24 21:27 12/22/24 21:27 Labs: Lab Results 12/22/24 12/22/24 Range/Units 21:27 22:44 WBC 7.8 (4.5-10.0) K/mm3 RBC 4.09 L (4.2-5.4) M/mm3 Hgb 12.1 (12.0-15.0) g/dL Hct 37.0 (37.0-47.0) % MCV 90.5 (80-100) fl MCH 29.6 (26-34) pg MCHC 32.7 (32-36) g/dl RDW 13.3 (11.5-14.5) % Plt Count 286 (150-375) k/mm3 MPV 10.1 (7.4-10.4) fl Immature Gran % (Auto) 0.3 (0-0.5) % Neut % (Auto) 54.8 (45.5-73.1) % Lymph % (Auto) 28.2 (18.3-44.2) % [place] % (Auto) 12.5 H (2.6-8.5) % Eos % (Auto) 2.9 (0-4.4) % Baso % (Auto) 1.3 H (0.2-1.2) % Lymph # (Auto) 2.21 (0.9-3.2) K/mm3 [place] # (Auto) 1.0 H (0.1-0.6) K/mm3 Eos # (Auto) 0.2 (0-0.3) K/mm3 Baso # (Auto) 0.1 (0.0-0.1) K/mm3 Abs Immat Gran (auto) 0.02 (0.00-0.031) K/mm3 Absolute Neuts (auto) 4.3 (1.3-6.7) K/mm3 Absolute Nucleated RBC 0.000 (0.0-0.012) K/mm3 Nucleated RBC % 0.0 (0.0-0.2) % PT 12.7 (11.1-14.7) Seconds INR 1.0 APTT 30.3 (22.3-36.8) Seconds Sodium 137 (137-145) mmol/L Potassium 4.0 (3.4-5.0) mmol/L Chloride 104 (98-107) mmol/L Carbon Dioxide 28 (22-30) mmol/L Anion Gap 5 (4-12) mmol/L BUN 22 H (7-17) mg/dL Creatinine 1.05 H (0.7-1.0) mg/dL Estim Creat Clear Calc 42 ml/min Estimated GFR 51 L (59 - ) Glucose 98 (65-110) mg/dL Calcium 9.6 (8.4-10.2) mg/dL Total Bilirubin 0.5 (0.2-1.3) mg/dL AST 41 H (14-36) U/L ALT 28 (6-35) U/L Alkaline Phosphatase 78 (38-126) U/L Troponin I < 0.012 < 0.012 (0.000-0.034) ng/mL Total Protein 7.6 (6.3-8.2) g/dL Albumin 4.3 (3.5-5.1) g/dL Lipase 140 (23-300) U/L TSH (Reflex) 0.105 L (0.465-4.68) uIU/mL Free T4 Pending Discharge Plan Discharge Clinical Impression: Atrial fibrillation with controlled ventricular rate Patient Disposition: Home Condition: Stable Instructions: Antibiotic Form Patient Language: Georgian Prescriptions: No Action losartan 100 mg tablet 100 mg PO DAILY Zyrtec 10 mg capsule 10 mg PO DAILY PRN (Reason: allergy symptoms) zonisamide 100 mg capsule PO torsemide 5 mg tablet PO aspirin [Children's Aspirin] 81 mg tablet,chewable 81 mg PO DAILY bupropion HCl 150 mg tablet extended release 24 hr PO levothyroxine [Synthroid] 100 mcg tablet 100 mcg PO DAILY Patient Comments: Pt takes 1 tablet by mouth once daily Monday-Monday, and one half tablet daily on Monday carvedilol [Coreg] 6.25 mg Tablet 6.25 mg PO Q12HR Qty: 60 2RF trazodone 50 mg tablet 25 mg PO HS Rx Instructions: 1/2 tab venlafaxine 75 mg capsule,extended release 24hr 37.5 mg PO DAILY atorvastatin 40 mg tablet 40 mg PO HS Qty: 90 3RF clopidogrel 75 mg tablet 75 mg PO QAM Qty: 90 3RF Follow-up/Referrals: Sushant Fox MD [Primary Care Provider, Family Practice]
[2024-12-22] MEDS: dilTIAZem 100 MG/100 ML 100 MG/100 ML BAG IV CONT (21:04)
[2024-12-22 22:10] LABS: Hematocrit 37.0 % (37.0-47.0); Hemoglobin 12.1 g/dL (12.0-15.0); Immature Granulocyte Percent A 0.3 % (0-0.5); Lymphocytes Absolute Auto 2.21 K/mm3 (0.9-3.2); Mean Corpuscular HGB Conc 32.7 g/dl (32-36); Mean Corpuscular Hemoglobin 29.6 pg (26-34); Mean Corpuscular Volume 90.5 fl (80-100); Nucleated Red Blood Cells Absolute Auto 0.000 K/mm3 (0.0-0.012); Nucleated Red Blood Cells Perc 0.0 % (0.0-0.2); Platelet Count Result 286 k/mm3 (150-375); Red Blood Count 4.09 M/mm3 (4.2-5.4); White Blood Count 7.8 K/mm3 (4.5-10.0)
[2024-12-22 22:23] LABS: Alanine Aminotransferase 28 U/L (6-35); Albumin Level 4.3 g/dL (3.5-5.1); Alkaline Phosphatase 78 U/L (38-126); Anion Gap 5 mmol/L (4-12); Aspartate Amino Transferase 41 U/L (14-36); Bilirubin,Total 0.5 mg/dL (0.2-1.3); Blood Urea Nitrogen 22 mg/dL (7-17); Calcium 9.6 mg/dL (8.4-10.2); Carbon Dioxide 28 mmol/L (22-30); Chloride 104 mmol/L (98-107); Estimated CRCL calculation 42 ml/min; Estimated Glomerular Filt Rate 51; Glucose 98 mg/dL (65-110); Lipase 140 U/L (23-300); Potassium 4.0 mmol/L (3.4-5.0); Sodium 137 mmol/L (137-145); Total Protein 7.6 g/dL (6.3-8.2)
[2024-12-22 22:24] LABS: INR 1.0; Prothrombin Time 12.7 Seconds (11.1-14.7)
[2024-12-22 22:25] LABS: Partial Thromboplastin Time 30.3 Seconds (22.3-36.8)
[2024-12-22 22:34] LABS: Troponin I < 0.012 ng/mL (0.000-0.034)
[2024-12-22] MEDS: METOPROLOL TARTRATE INJ 5 MG/5 ML VIAL IV PUSH ×2 (22:50→23:28)
[2024-12-22 23:20] LABS: Troponin I < 0.012 ng/mL (0.000-0.034)
[2024-12-22] MEDS: METOPROLOL TARTRATE INJ 5 MG/5 ML VIAL (23:37)
[2024-12-22 23:41] LABS: Thyroid Stimulating Hormone Reflex 0.105 uIU/mL (0.465-4.68)
--- NOTE | 2024-12-22 23:48 | ECG_ITS ---
Test Date: 2024-12-22 23:58:01 Measurements Intervals [place] Rate: 59 P: 78 SC: 185 QRS: -8 QRSD: 83 T: 57 QT: 401 QTc: 399 Interpretive Statements SINUS BRADYCARDIA WITH SINUS ARRHYTHMIA Electronically Signed On 12-23-2024 00:13:41 SENIOR FINANCE MANAGER by Tereso Hannon D.O
[2024-12-23] VITALS (23 sets, daily range): BP systolic 103–133; BP diastolic 57–95; PULSE 61–134; RESP 13–28; TEMP 36.4–36.9; O2SAT 97–100; BMI 31.0
[2024-12-23 00:06] LABS: Magnesium 1.9 mg/dL (1.6-2.3)
[2024-12-23 00:38] LABS: Free T4 Free Thyroxine Reflex 1.34 ng/dL (0.78-2.19)
--- NOTE | 2024-12-23 00:50 | WPCEDHO ---
ED Hand Off Checklist All vitals saved:yes IV Site documented:yes All med administrations documented:yes Triage Note Triage Note Patient arrives with cc of 12/22/24 19:47 palpitations and heart pounding. 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 Patient denies any pain. Patient arrives with HR 130 in triage, but on EKG 157. ERP notified and patient brought back to room immediately. Allergies codeine Allergy (Mild, Verified 12/22/24 19:50) LETHARGIC AND NON RESPONSIVE hydrocodone Allergy (Unknown, Verified 12/22/24 19:50) DIFFICULTY BREATHING DECREASE BP hydroxyzine Allergy (Unknown, Verified 12/22/24 19:50) Unknown nickel Allergy (Unknown, Verified 12/22/24 19:50) Swelling nickel plate in foot post surgery had to removed, kept causing swelling oxycodone Allergy (Unknown, Verified 12/22/24 19:50) DIFFICULTY BREATHING , DECREASE BP tetracycline Allergy (Unknown, Verified 12/22/24 19:50) ITCHING Family History (Last Reviewed 11/20/24 @ 16:14 by Pita Cabral MA) Sibling Cerebrovascular accident Father Family history of lung cancer Patient's father is Mother Patient's mother is Active Medications including assessments/comments Diltiazem HCl (Cardizem 100 Mg/100 Ml) 100 mg in 100 mls @ 15 mls/hr IV CONT .Q6H40M STA; Protocol Stop: 12/23/24 03:22 Last Titration: 12/22/24 22:25 Dose: 15 mg/hr, 15 mls/hr Documented By: CAMILO Infusion/Titration Document 12/22/24 22:25 KLM (Rec: 12/22/24 22:25 KLM [id number]) Intake Intake 0.7 Cumulative Intake ( 7.9 bag) Cumulative Intake ( 7.9 Rx) Container Volume 92.1 Waste Amount 0 Dosing Dose Rate 15 Infusion Rate 15 Cumulative Dose 7.9 Increase/Decrease Increased Elapsed Time Elapsed Time ( 1h 21m minutes) Diltiazem Infusion Assessment Document 12/22/24 22:25 KLM (Rec: 12/22/24: KLM [id number]) Infusion Action Diltiazem Infusion Titrated/Rate Changed Action Pulse Pulse Rate (60-100) 140 H Titration: 12/22/24 22:21 Dose: 10 mg/hr, 10 mls/hr Documented By: KLM Infusion/Titration Document 12/22/24 22:21 KLM (Rec: 12/22/24 22:22 KLM [id number]) Intake Intake 2.3 Cumulative Intake ( 7.2 bag) Cumulative Intake ( 7.2 Rx) Container Volume 92.8 Waste Amount 0 Dosing Dose Rate 10 Infusion Rate 10 Cumulative Dose 7.2 Increase/Decrease Increased Elapsed Time Elapsed Time ( 1h 17m minutes) Diltiazem Infusion Assessment Document 12/22/24 22:21 KLM (Rec: 12/22/24 22:22 KLM [id number]) Infusion Action Diltiazem Infusion Titrated/Rate Changed Action Pulse Pulse Rate (60-100) 136 H Titration: 12/22/24 22:03 Dose: 7.5 mg/hr, 7.5 mls/hr Documented By: ACS Infusion/Titration Document 12/22/24 22:03 ACS (Rec: 12/22/24 22:04 ACS [id number]) Intake IV Site Peripheral Access Right Antecubital Intake 4.9 Cumulative Intake ( 4.9 bag) Cumulative Intake ( 4.9 Rx) Container Volume 95.1 Waste Amount 0 Dosing Dose Rate 7.5 Infusion Rate 7.5 Cumulative Dose 4.9 Increase/Decrease Increased Elapsed Time Elapsed Time ( 59m minutes) Diltiazem Infusion Assessment Document 12/22/24 22:03 ACS (Rec: 12/22/24 22:04 ACS [id number]) Infusion Action Diltiazem Infusion Titrated/Rate Changed Action Pulse Pulse Rate (60-100) 125 H Blood Pressure Blood Pressure (100/ 121/91 H 60-140/90) Blood Pressure Mean 101 Admin: 12/22/24 21:04 Dose: 5 mg/hr, 5 mls/hr Documented By: KLM Infusion/Titration Document 12/22/24 21:04 KLM (Rec: 12/22/24 21:04 KLM [id number]) Intake IV Site Peripheral Access Right Antecubital Container Volume 100 Waste Amount 0 Dosing Dose Rate 5 Infusion Rate 5 Increase/Decrease Started Elapsed Time Elapsed Time ( 0m minutes) Diltiazem Infusion Assessment Document 12/22/24 21:04 KLM (Rec: 12/22/24 21:04 [facility] [id number]) Infusion Action Diltiazem Infusion Initiated Action Pulse Pulse Rate (60-100) 115 H Blood Pressure Blood Pressure (100/ 135/85 60-140/90) Blood Pressure Mean 101 Administered/Completed Medications Discontinued Medications Diltiazem HCl (Diltiazem Hcl Inj 25 Mg/5 Ml Vial) 10 mg IV PUSH ONCE STA Stop: 12/22/24 20:25 Last Admin: 12/22/24 20:25 Dose: 10 mg Documented By: CAMILO Diltiazem HCl (Diltiazem Hcl Inj 25 Mg/5 Ml Vial) Confirm Administered Dose 25 mg .ROUTE .STK-MED ONE Stop: 12/22/24 20:23 Last Admin: 12/22/24 20:33 Dose: Not Given Documented By: CAMILO Non-Admin Reason: Duplicate Dose Diltiazem HCl (Diltiazem Hcl Inj 25 Mg/5 Ml Vial) 10 mg IV PUSH ONCE STA Stop: 12/22/24 20:40 Last Admin: 12/22/24 20:40 Dose: 10 mg Documented By: CAMILO Metoprolol Tartrate (Metoprolol Tartrate Inj 5 Mg/5 Ml Vial) 5 mg IV PUSH ONCE STA Stop: 12/22/24 22:50 Last Admin: 12/22/24 22:50 Dose: 5 mg Documented By: CAMILO Metoprolol Tartrate (Metoprolol Tartrate Inj 5 Mg/5 Ml Vial) Confirm Administered Dose 5 mg .ROUTE .STK-MED ONE Stop: 12/22/24 22:48 Last Admin: 12/22/24 22:55 Dose: Not Given Documented By: CAMILO Non-Admin Reason: Duplicate Dose Metoprolol Tartrate (Metoprolol Tartrate Inj 5 Mg/5 Ml Vial) 5 mg IV PUSH ONCE STA Stop: 12/22/24 23:28 Last Admin: 12/22/24 23:28 Dose: 5 mg Documented By: CAMILO Metoprolol Tartrate (Metoprolol Tartrate Inj 5 Mg/5 Ml Vial) Confirm Administered Dose 5 mg .ROUTE .STK-MED ONE Stop: 12/22/24 23:27 Last Admin: 12/22/24 23:37 Dose: 5 mg Documented By: CAMILO Interventions/Assessments IV / Saline Lock, Insert Start: 12/22/24 19:54 Freq: STAT Status: Active Protocol: Document 12/22/24 20:35 KLM (Rec: 12/22/24 20:36 KLM [id number]) IV Assessment Peripheral Access Right Antecubital IV Catheter Access Initiated IV Insertion Date 12/22/24 IV Insertion Time 20:35 Catheter Gauge 20 IV Site Assessment WNL IV Care and WNL Maintenance PA: Cardiovascular Assessment Start: 12/22/24 19:34 Freq: Status: Active Protocol: Document 12/22/24 20:36 KLM (Rec: 12/22/24 20:36 KLM [id number]) Cardiovascular Assessment Cardiovascular Palpitations Symptoms Skin Description Normal Color Heart Sounds Normal Jugular Vein None Distention Last Vital Signs Temperature 97.8 F 12/22/24 19:47 Pulse Rate 127 H 12/23/24 00:46 Respiratory Rate 26 H 12/23/24 00:46 Pulse Oximetry 99 12/23/24 00:46 Blood Pressure 108/75 12/23/24 00:46 Blood Pressure Mean 86 12/23/24 00:46 Blood Pressure Position Sitting 12/22/24 19:47 Oxygen Delivery Room Air 12/22/24 19:47 Weight 84 kg 12/22/24 19:47 Last Result - Abnormals Only RBC 4.09 M/mm3 (4.2-5.4) L 12/22/24 21:27 [place] % (Auto) 12.5 % (2.6-8.5) H 12/22/24 21:27 Baso % (Auto) 1.3 % (0.2-1.2) H 12/22/24 21:27 [place]p # (Auto) 1.0 K/mm3 (0.1-0.6) H 12/22/24 21:27 BUN 22 mg/dL (7-17) H 12/22/24 21:27 Creatinine 1.05 mg/dL (0.7-1.0) H 12/22/24 21:27 Estimated GFR 51 (59-) L 12/22/24 21:27 AST 41 U/L (14-36) H 12/22/24 21:27 TSH (Reflex) 0.105 uIU/mL (0.465-4.68) L 12/22/24 21:27 Most Recent Suicide Severity Rating Suicide Severity Rating NO RISK INDICATED 12/22/24 19:47
--- NOTE | 2024-12-23 01:00 | PC.NURSE ---
This patient, Koki Wolfe, was admitted to IMU Room 211-01. Patient/family oriented to hospital policies and general routines including ID bracelet, bed and alarms, visiting hours, pain management, procedures, bathroom and other care routines, personal items, smoking policy, room service/diet, and visiting hours. Information on how to activate the Rapid Response Team has been discussed. Patient/Family are encouraged to report perceived risks to care and to ask questions if they do not understand what they are told or what they should do.
--- NOTE | 2024-12-23 01:35 | PM.IMHP ---
H&P: HPI History of Present Illness Date/Time: 12/23/24 01:35 Chief Complaint: Palpitation Narrative: 79-year-old female presents to [facility] on 12/22/2024 with complaints palpitations. No other complaints on comprehensive review systems. 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 On date admission patient felt palpitations, she checked her heart rate was 150s. Patient in AFib with RVR. Given diltiazem 10 mg IV x2, started on diltiazem GTT 5 milligrams/hour. Still uncontrolled, given Lopressor 5 mg IV x3. Heart rate now controlled. The patient does take levothyroxine and her TSH is low at 0.105, free T4 and total T3 pending. She was given Lovenox 84 mg subcutaneous. Review of Systems Review of Systems: All systems reviewed & are unremarkable except as noted in HPI and below (Subjective) [facility] Past Medical History Medical History Hyponatremia syndrome Complex partial seizures Vasovagal syncope Coronary artery disease Status post stent to the OM1 on 04/25/2019. Congestive heart failure Nonischemic cardiomyopathy on echocardiogram and left heart catheterization May 2018 with an EF of about 35%. Ejection fraction improved to 55 to 60% on echocardiogram in April 2019. Grade 1 diastolic dysfunction noted on echo at that time. Pulmonary hypertension Moderate pulmonary hypertension noted on echocardiogram in April 2019 with an estimated pulmonary arterial systolic pressure 45 mmHg. Nonischemic cardiomyopathy Cardiac catheterization in May 2018 showed a left coronary dominant circulation with no coronary artery disease and ejection fraction of about 35%. EF improved to 55 to 60% on echocardiogram in April 2019. Syncope 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 Hypertension Bradycardia, sinus COVID-19 (10/2020) Exposure to COVID-19 virus Restless leg syndrome Chest pain Vasovagal syncope Depression Chronic sinusitis Surgical History Surgical History History of left knee replacement History of cardiac catheterization 06/04/2018: Nonischemic cardiomyopathy with left coronary dominant circulation with no coronary artery disease and ejection fraction of approximately 35%. 04/25/2019: PTCA/drug-eluting stent to an acutely occluded OM 1 branch of the circumflex. History of sinus surgery Extensive sinus surgery x3 including anterior ethmoidectomy bilaterally, bilateral frontal sinusotomy, frontal sinus obliteration, and repair of CSF leak. Most recent surgery was in October 2020. Performed at [facility]. History of detached retina repair Left eye. History of arthroplasty of right knee History of right breast biopsy For microscopic calcifications, benign pathology. History of bunionectomy of left great toe History of dilation and curettage Benign endometrial polyp. History of bilateral cataract extraction S/P coronary artery stent placement Family History Family History Sibling Cerebrovascular accident Father Family history of lung cancer, Onset Age: 81 Patient's father is Mother Patient's mother is Social History Social History Social History: The patient is and lives with her in [place]. They live in [place] for 3 months of the year. She has 2 grown children. Lifelong nonsmoker. No alcohol or illicit substance abuse. She designates her Rigoberto Wolfe as her surrogate decision maker and she wishes to be a full code. Smoking status: Never smoker Alcohol intake: never Substance use: never Do You Feel Safe in your Home?: Yes Lack of Transportation: No Lack of Food: Never True Current Housing: I Have Housing Concerned About Future Housing: No Difficulty Paying Gas/Electric Bills: No Difficulty Paying for Meds: No Currently Unemployed: No Education: High School Diploma/GED Difficulty w/ Childcare or Family Care: No Living arrangements: with family Occupation/Education: retired Gender identity (if verbalized by the patient): Female Sexual Orientation (if Verbalized by the Patient): Straight or Heterosexual Spiritual care concerns: No Meds Home Medications and Allergies Home Medications ?Medication ?Instructions ?Recorded ?Confirmed ?Type trazodone 50 mg tablet 25 mg PO HS 12/14/18 07/05/24 History losartan 100 mg tablet 100 mg PO DAILY 12/19/18 07/05/24 History levothyroxine 100 mcg tablet 100 mcg PO DAILY 04/24/19 07/05/24 History (Synthroid) carvedilol 6.25 mg tablet (Coreg) 6.25 mg PO Q12HR #60 tabs 04/27/19 07/05/24 Rx cetirizine 10 mg capsule (Zyrtec) 10 mg PO DAILY PRN allergy symptoms 01/02/23 07/05/24 History venlafaxine 75 mg capsule,extended 37.5 mg PO DAILY 06/20/23 07/05/24 History release 24 hr atorvastatin 40 mg tablet 40 mg PO HS #90 tabs 02/15/24 07/05/24 Rx clopidogrel 75 mg tablet 75 mg PO QAM #90 tabs 02/15/24 07/05/24 Rx aspirin 81 mg chewable tablet 81 mg PO DAILY 11/20/24 History (Children's Aspirin) bupropion HCl 150 mg 24 hr tablet, mg PO 11/20/24 History extended release torsemide 5 mg tablet mg PO 11/20/24 History zonisamide 100 mg capsule mg PO 11/20/24 History Allergies Allergy/AdvReac Type Severity Reaction Status Date / Time codeine Allergy Mild LETHARGIC Verified 12/22/24 19:50 AND NON RESPONSIVE hydrocodone Allergy Unknown DIFFICULTY Verified 12/22/24 19:50 BREATHING DECREASE BP hydroxyzine Allergy Unknown Unknown Verified 12/22/24 19:50 nickel Allergy Unknown Swelling Verified 12/22/24 19:50 oxycodone Allergy Unknown DIFFICULTY Verified 12/22/24 19:50 BREATHING , DECREASE BP tetracycline Allergy Unknown ITCHING Verified 12/22/24 19:50 Vital Signs Vital Signs - 24 hr 12/22/24 19:47 12/22/24 19:53 12/22/24 20:00 Temperature 97.8 F Pulse Rate 130 H 152 H 148 H Respiratory Rate 18 18 13 Blood Pressure 142/95 H Pulse Oximetry 98 97 96 Oxygen Delivery Room Air 12/22/24 20:19 12/22/24 20:31 12/22/24 20:33 Temperature Pulse Rate 130 H 136 H 141 H Respiratory Rate 14 20 18 Blood Pressure 135/85 Pulse Oximetry 98 98 97 Oxygen Delivery 12/22/24 21:04 12/22/24 22:03 12/22/24 22:21 Temperature Pulse Rate 115 H 125 H 136 H Respiratory Rate Blood Pressure 135/85 121/91 H Pulse Oximetry Oxygen Delivery 12/22/24 22:25 12/22/24 22:50 12/22/24 23:18 Temperature Pulse Rate 140 H 123 H 112 H Respiratory Rate 21 H Blood Pressure Pulse Oximetry Oxygen Delivery 12/22/24 23:22 12/22/24 23:28 12/22/24 23:30 Temperature Pulse Rate 170 H 140 H 126 H Respiratory Rate 21 H 21 H Blood Pressure 133/85 Pulse Oximetry 97 98 Oxygen Delivery 12/22/24 23:31 12/22/24 23:37 12/22/24 23:45 Temperature Pulse Rate 126 H 127 H 95 Respiratory Rate 20 16 Blood Pressure 120/65 Pulse Oximetry 96 97 Oxygen Delivery 12/22/24 23:46 12/23/24 00:00 12/23/24 00:01 Temperature Pulse Rate 113 H 80 95 Respiratory Rate 14 18 25 H Blood Pressure 116/85 127/71 Pulse Oximetry 98 98 98 Oxygen Delivery 12/23/24 00:02 12/23/24 00:15 12/23/24 00:16 Temperature Pulse Rate 96 84 106 H Respiratory Rate 28 H 22 H 19 Blood Pressure 130/73 Pulse Oximetry 100 99 99 Oxygen Delivery 12/23/24 00:30 12/23/24 00:31 12/23/24 00:46 Temperature Pulse Rate 87 88 127 H Respiratory Rate 13 17 26 H Blood Pressure 120/95 H 108/75 Pulse Oximetry 100 100 99 Oxygen Delivery 12/23/24 01:16 Temperature Pulse Rate 105 H Respiratory Rate Blood Pressure 123/91 H Pulse Oximetry Oxygen Delivery Exam Const: General: comfortable and no acute distress Other: A&O x3 HENMT: Mouth: Yes moist mucous membranes Eyes: Pupils: Equal, round and reactive pupils present Neck: Neck: supple Resp: Effort & Inspection: normal respiratory effort Auscultation: clear to auscultation bilaterally Cardio: Rate: regular rate Rhythm: regular rhythm Heart sounds: no murmurs GI: Inspection: non-distended GI Palp: Yes Soft to palpation : General: Yes bladder normal to palpation Neuro: Motor exam (neuro): 5/5 motor strength present throughout Extrem: General: no edema H&P: Results Labs Labs: Short CBC 12/22/24 Range/Units 21:27 WBC 7.8 (4.5-10.0) K/mm3 Hgb 12.1 (12.0-15.0) g/dL Hct 37.0 (37.0-47.0) % Plt Count 286 (150-375) k/mm3 BMP 12/22/24 21:27 Sodium 137 Potassium 4.0 Chloride 104 Carbon Dioxide 28 BUN 22 H Creatinine 1.05 H Glucose 98 Calcium 9.6 Cardiac Enzymes 12/22/24 12/22/24 Range/Units 21:27 22:44 Troponin I < 0.012 < 0.012 (0.000-0.034) ng/mL Liver Function 12/22/24 Range/Units 21:27 Total Bilirubin 0.5 (0.2-1.3) mg/dL AST 41 H (14-36) U/L ALT 28 (6-35) U/L Alkaline Phosphatase 78 (38-126) U/L Albumin 4.3 (3.5-5.1) g/dL Assessment and Plan Assessment and plan (1) Hypertension: Qualifiers: Hypertension type: primary hypertension Qualified Code(s): I10 - Essential (primary) hypertension Code(s): I10 - Essential (primary) hypertension Status: Acute (2) Congestive heart failure: Code(s): I50.9 - Heart failure, unspecified Status: Chronic (3) Atrial fibrillation with controlled ventricular rate: Code(s): I48.91 - Unspecified atrial fibrillation Status: Acute Plan 79-year-old female presents to [facility] on 12/22/2024 with complaints palpitations. No other complaints on comprehensive review systems. 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 On date admission patient felt palpitations, she checked her heart rate was 150s. Patient in AFib with RVR. Given diltiazem 10 mg IV x2, started on diltiazem GTT 5 milligrams/hour. Still uncontrolled, given Lopressor 5 mg IV x3. Heart rate now controlled. The patient does take levothyroxine and her TSH is low at 0.105, free T4 and total T3 pending. She was given Lovenox 84 mg subcutaneous. ----- She had a previous loop recorder due to vasovagal syncope. It was noted there was 5 irregular beat possibly AFib or aberrant conduction. Now, she has diagnosis AFib with RVR. Holding levothyroxine. Check 2D echocardiogram. Last echo January 2024 with 66% ejection fraction. Grade 1 diastolic dysfunction. Continue diltiazem GTT. Cardiology consult. Anticoagulation History of heart failure. Euvolemic. Restart FIRE SUPPORT MAN torsemide. Titrate GDMF along with AFib treatment. ----- Full code Telemetry Lovenox Heart healthy diet Hospitalist MIPS Advance Care Plan I have confirmed that the patient's Advanced Care Plan is present, code status is documented, or surrogate decision maker is listed in patient medical record.: Yes Medication Reconciliation I have utilized all available resources to obtain, update and review the patients current medications (includes all prescriptions, OTC, herbals, cannabis, and nutritional supplements).: Yes
[2024-12-23] MEDS: LACTATED RINGERS 1,000 ML 999 ML IV CONT (01:37)
[2024-12-23] MEDS: ENOXAPARIN 100 MG/ML SYRINGE 84 MG SUB-Q (01:38)
[2024-12-23 01:48] LABS: Total Triiodothyronine (T3) 1.06 NG/ML (0.82-1.58)
[2024-12-23 02:18] LABS: Hematocrit 36.8 % (37.0-47.0); Hemoglobin 12.2 g/dL (12.0-15.0); Mean Corpuscular HGB Conc 33.2 g/dl (32-36); Mean Corpuscular Hemoglobin 30.0 pg (26-34); Mean Corpuscular Volume 90.4 fl (80-100); Platelet Count Result 283 k/mm3 (150-375); Red Blood Count 4.07 M/mm3 (4.2-5.4); White Blood Count 9.5 K/mm3 (4.5-10.0)
[2024-12-23 02:31] LABS: Anion Gap 6 mmol/L (4-12); Blood Urea Nitrogen 20 mg/dL (7-17); Calcium 9.4 mg/dL (8.4-10.2); Carbon Dioxide 27 mmol/L (22-30); Chloride 105 mmol/L (98-107); Estimated CRCL calculation 50 ml/min; Estimated Glomerular Filt Rate > 60; Glucose 108 mg/dL (65-110); Magnesium 1.9 mg/dL (1.6-2.3); Potassium 4.0 mmol/L (3.4-5.0); Sodium 138 mmol/L (137-145)
[2024-12-23 02:42] LABS: Troponin I < 0.012 ng/mL (0.000-0.034)
[2024-12-23] MEDS: dilTIAZem 100 MG/100 ML 100 MG/100 ML BAG 10 MG IV CONT (03:31)
--- NOTE | 2024-12-23 08:42 | ECG_ITS ---
Test Date: 2024-12-23 09:40:55 Measurements Intervals [place] Rate: 62 P: 77 NH: 200 QRS: -10 QRSD: 80 T: 61 QT: 430 QTc: 437 Interpretive Statements SINUS RHYTHM Electronically Signed On 12-23-2024 11:25:34 HOLLOCK MAKER by Tereso Hannon D.O
[2024-12-23] MEDS: ASPIRIN 81 MG CHEWABLE TABLET PO (09:47)
[2024-12-23] MEDS: VENLAFAXINE HCL XR 75 MG CAP.ER.24H PO (09:47)
[2024-12-23] MEDS: LORATADINE 10 MG TABLET PO (09:48)
[2024-12-23] MEDS: buPROPion HCL XL (24 HR) 150 MG TABCR PO (09:48)
[2024-12-23] MEDS: TORSEMIDE 10 MG TABLET PO (09:48)
[2024-12-23] MEDS: LEVOTHYROXINE SODIUM 100 MCG TABLET PO (09:53)
--- NOTE | 2024-12-23 13:35 | PM.DS ---
DS: Admitting Diagnosis Discharge Date 12/23 Admitting Diagnosis AFib with RVR DS: Discharge Diagnosis Discharge Diagnosis (1) Atrial fibrillation with controlled ventricular rate: Code(s): I48.91 - Unspecified atrial fibrillation Status: Acute DS: Summary Hospital Course Reason for hospitalization: Palpitations, AFib with RVR Hospital Course: Patient is a 79-year-old female with past medical history of hypothyroidism, complex partial seizures, osteoarthritis, GERD, history of factor 5 Leiden, vasovagal syncope, venous sufficiency, heart failure preserved ejection fraction, CAD status post PCI 2019 who presents to the ED with palpitations. Patient was found to have AFib with RVR. She converted to normal sinus rhythm after given a couple doses of Lopressor and diltiazem. Her heart rate is back to normal sinus rhythm rate 60s. We have resumed her home Coreg dose 6.25 mg twice daily (with heart rate close to bradycardia, will not increase dose). Patient is asymptomatic. She was monitored overnight. Her TSH was low however Free T4 reflex was within normal limits. No changes made to home levothyroxine. Unclear what triggered this atrial fibrillation episode. Patient has no chest pain, no pneumonia or infection, no recent med changes. Will discharge home for her to follow-up with her injector assembler and PCP for further management atrial fibrillation. No new prescriptions given. Patient understands and agrees with plan. Status at Discharge Cognitive/behavioral status at discharge: Baseline Time Spent with Patient Time attestation: Total time spent providing and/or coordinating discharge services: 35 minutes Exam Narrative: - GENERAL: Pleasant elderly woman in No acute distress. - EYES: EOMI. Anicteric. - HENT: Moist mucous membranes. - LUNGS: Clear to auscultation bilaterally, no wheezing, rhonchi, or rales. - CARDIOVASCULAR: Regular rate and rhythm. - ABDOMEN: Soft, non-tender and non-distended. - EXTREMITIES: No edema. Peripheral pulses 2+. - NEUROLOGIC: No focal neurological deficits. CN II-XII grossly intact. - PSYCHIATRIC: Awake, Alert and oriented x 3. Appropriate mood and affect. - SKIN: No rashes or lesions. Warm. - LYMPH: No cervical lymphadenopathy. DS: Data Data Completed and Pending Labs on day of discharge: Labs from last 24 hours 12/23/24 12/22/24 12/22/24 02:01 22:44 21:27 WBC 9.5 7.8 RBC 4.07 L 4.09 L Hgb 12.2 12.1 Hct 36.8 L 37.0 MCV 90.4 90.5 MCH 30.0 29.6 MCHC 33.2 32.7 RDW 13.5 13.3 Plt Count 283 286 MPV 9.9 10.1 Immature Gran % (Auto) 0.3 Neut % (Auto) 54.8 Lymph % (Auto) 28.2 [place] % (Auto) 12.5 H Eos % (Auto) 2.9 Baso % (Auto) 1.3 H Lymph # (Auto) 2.21 [place] # (Auto) 1.0 H Eos # (Auto) 0.2 Baso # (Auto) 0.1 Abs Immat Gran (auto) 0.02 Absolute Neuts (auto) 4.3 Absolute Nucleated RBC 0.000 Nucleated RBC % 0.0 PT 12.7 INR 1.0 APTT 30.3 Sodium 138 137 Potassium 4.0 4.0 Chloride 105 104 Carbon Dioxide 27 28 Anion Gap 6 5 BUN 20 H 22 H Creatinine 0.87 1.05 H Estim Creat Clear Calc 50 42 Estimated GFR > 60 51 L Glucose 108 98 Calcium 9.4 9.6 Magnesium 1.9 1.9 Total Bilirubin 0.5 AST 41 H ALT 28 Alkaline Phosphatase 78 Troponin I < 0.012 < 0.012 < 0.012 Total Protein 7.6 Albumin 4.3 Lipase 140 TSH (Reflex) 0.105 L Free T4 1.34 Total T3 1.06 Additional Comments Additional comments: originla EKG showed heart rate 157 atrial tachycardia with RVR, subsequent EKG showed normal sinus rhythm rate 62. Discharge Plan Discharge Attending physician on discharge: Kevin Amor Discharging Clinician: Kevin Amor Anticipated Discharge Date/Time: 12/23/24 13:30 Patient Disposition: Home Activity: as tolerated Diet: heart healthy Discharge Instructions: Please follow-up with window glazier helper for ongoing management of hypothyroidism, no changes to levothyroxine dosing. TSH 0.105 and Free T4 1.34 which is normal. She is back in sinus rhythm, will continue the same Coreg dosing. Follow-up with her PCP in 1 week. Patient Instructions: Antibiotic Form, Heart Failure (DC) Patient Language: Russian Stand Alone Forms: General Discharge Information Follow-up/Referrals: Sushant Fox MD [Primary Care Provider, [facility]] - 1 Week Discharge Medications: Continued losartan 100 mg tablet 100 mg PO DAILY Zyrtec 10 mg capsule 10 mg PO DAILY torsemide 5 mg tablet 5 mg PO DAILY aspirin [Children's Aspirin] 81 mg tablet,chewable 81 mg PO DAILY bupropion HCl 150 mg tablet extended release 24 hr 150 mg PO DAILY levothyroxine [Synthroid] 100 mcg tablet 100 mcg PO DAILY carvedilol [Coreg] 6.25 mg Tablet 6.25 mg PO Q12HR Qty: 60 2RF venlafaxine 75 mg capsule,extended release 24hr 75 mg PO DAILY atorvastatin 40 mg tablet 40 mg PO HS Qty: 90 3RF Date of admission: 12/22/24 23:56 Primary Care Provider: Sushant Fox Admitting Provider: Guillermina Dia Attending physician on admission: Guillermina Dia Condition: Stable Hospitalist MIPS Heart Failure (Exclusion) Patient has history of Heart Transplant or Left Ventricular Assistive Device?: No IF YES, STOP HERE Heart Failure (Qualifier) Patient has current or prior documentation of LVEF less than or equal to 40%, or mod/servere depressed LVSF?: No IF NO, STOP HERE
== END 2024-12-23 13:38 | disposition home or self-care (01) ==
LOC: ANHED 23:57 → ANHIMU 12-23 00:42
PROVIDERS: Admitting Provider General Practice; Emergency Provider Emergency Medicine; PCP Family Medicine; Visit Provider Student in an Organized Health Care Education/Training Program
DX: I11.0 Hypertensive heart disease with heart failure (principal); I48.91 Unspecified atrial fibrillation; I50.9 Heart failure, unspecified; I49.8 Other specified cardiac arrhythmias; I25.119 Atherosclerotic heart disease of native coronary artery with unspecified angina pectoris; I25.10 Atherosclerotic heart disease of native coronary artery without angina pectoris; I27.20 Pulmonary hypertension, unspecified; R00.1 Bradycardia, unspecified; E03.9 Hypothyroidism, unspecified; D68.61 Antiphospholipid syndrome; G40.209 Localization-related (focal) (partial) symptomatic epilepsy and epileptic syndromes with complex partial seizures, not intractable, without status epilepticus; G25.81 Restless legs syndrome; J32.9 Chronic sinusitis, unspecified; K21.9 Gastro-esophageal reflux disease without esophagitis; M19.90 Unspecified osteoarthritis, unspecified site; F32.A Depression, unspecified; Z79.82 Long term (current) use of aspirin; Z95.5 Presence of coronary angioplasty implant and graft; Z96.652 Presence of left artificial knee joint; Z82.3 Family history of stroke; Z80.1 Family history of malignant neoplasm of trachea, bronchus and lung
CPT/HCPCS: 36415; 71045; 80048; 80053; 83690; 83735; 84439; 84443; 84480; 84484; 85025; 85027; 85610; 85730; 93005; 96374; 96375; 96376; 99285; A9270; G0378; J0616; J1163; J1650; J7120

== ENCOUNTER 2024-12-31 13:46 | Outpatient (CLI) | payer MEDICARE, SELFPAY ==
--- OUTSIDE RECORDS SUMMARY | 2024-12-31 15:34 | XMS_ITS | Clinical Summary ---
Author Organization [facility] Address [address] [place] [id number] Phone Care Team Providers Care Polystyrene Molding Machine Tender Name Role Phone Abdulkadir Pascal DO Primary Care Provider Allergies Active Allergy Reactions Criticality Noted Date [...] 05/13/2019 Facial pain 05/13/2019 Coronary arteriosclerosis in solomon artery 05/05 History of non-ST segment elevation [...] Dates Next Due Fluzone High-Dose 10/21/2019 Influenza LAIV (Nasal) 11/13/2020 Influenza Split High Dose Pr eservative Free IM 08/05/2021,11/13/2020,10/21/2019,11/15 Influenza, Injectable, Quadrivalent 11/13/2021 Influenza, Quadrivalent 11/13/2020,10/21/2019, Influenza, Unspecified 11/13/2021,2020,10/21/2019,10/20,11/16/2015 Influenza, split virus, trivalent, PF 10/21/2019 Moderna Sars-cov-2 Vaccination 04/11/2020,2020 Pneumococcal Conjugate 08/05/2021 [...] Comments Blood Pressure 130/70 01/19/2022 10:31 AM CRIB TENDER Pulse - - Temperature 35.8 C (96.4 F) 01/19/2022 10:31 AM CRIB TENDER Respiratory Rate 18 01/19/2022 10:31 AM CRIB TENDER Oxygen Saturation - - Inhaled Oxygen Concentration - - Weight 95.7 kg (211 lb) 01/19/2022 10:31 AM CRIB TENDER Height 165.1 cm (5' 5) 01/19/2022 10:31 AM CRIB TENDER Body Mass Index 35.11 01/19/2022 10:31 AM CRIB TENDER Plan of Treatment Health Maintenance Due Date Last Done Comments COVID-19 Vaccine (3 2024-2 6 season) 2024 04/11/2020, 03/12/2020 Influenza Vaccine (#1) 2024 2, 11/13/2020, 11/13/2020, Additional history exists Pneumococcal PPSV23/PCV13 65 + Years / Low and Medium Risk Completed 09/20/2016, 09/14/2015, 09/14/2015, Additional history exists Insurance [employer] MEDICARE Care Teams Polystyrene Molding Machine Tender Relationship Specialty Start Date End Date Abdulkadir Pascal DO [address] [facility] [address] [place] [address] PCP - General Internal Medicine 05/07/19
--- OUTSIDE RECORDS SUMMARY | 2024-12-31 15:34 | XMS_ITS | Patient Health Record ---
Author Organization [facility] [employer] Address [address] [place] [address] Care Team Providers Care Drawing In Machine Tender Name Role Phone Eric Winston Unavailable [phone] Allergies Allergen (clinical drug ingredient) Drug/Non Drug Allergy documented on EMR Reaction Allergy Type Onset Date Status OPIOIDS - MORPHINE ANALOGUES (uncoded) Unknown Allergy 06/19/2023 Active codeine Codeine Unknown Drug Allergy 06/19/2023 Active hydrocodone Hydrocodone Unknown Drug Allergy 06/19/2023 Ac tive tetracycline Tetracycline Unknown Drug Allergy 06/19/2023 Active Reason For Referral No Information Medications Medication SIG (Take, Route, Frequency, Duration) Notes Start Date End Date Status Venlafaxine HCl ER 75 MG Capsule Extended Release 24 Hour 1 capsule Oral Once a day; Duration: 90 days Active buPROPion HCl ER (XL) 150 MG Tablet Extended Release 24 Hour 1 tablet in the morning Oral Once a day; Duration: 90 days Active BABY ASPIRIN 81 MG CHEWABLE TABLET *Reorder from [employer] for eRx and Interaction Alerts* 06/19/2023 Active Carvedilol 6.25 MG Tablet Oral 06/19/2023 Active Losartan Potassium 100 MG Tablet Oral 06/19/2023 Active Multivitamin Adults Tablet Oral 06/19/2023 Active IPRATROPIUM BROMIDE 21 MCG (0.03 %) NASAL SPRAY *Reorder from [employer] for eRx and Interaction Alerts* 06/19/2023 Active Montelukast Sodium 10 MG Tablet Oral 06/19/2023 Active Torsemide 5 MG Tablet Oral; Duration: 45 Days Active Chlorhexidine Gluconate 0.12% Solution Mouth/Throat 06/19/2023 Active traZODone HCl 50 MG Tablet TAKE 1 TABLET BY MOUTH ONCE DAILY AT BEDTIME; Duration: 90 Active Atorvastatin Calcium 10 MG Tablet Oral 06/19/2023 Active Venlafaxine HCl ER 75 MG Capsule Extended Release 24 Hour Take 1 capsule by mouth once daily; Duration: 90 Active Mounjaro Active Synthroid 100 MCG Tablet Oral 06/19/2023 Active Nitroglycerin 0.4 MG Tablet Sublingual Sublingual 06/19/2023 Active Immunizations Vaccine Route Administration Date Status Comme nts Influenza, high dose seasonal Unknown 11/16/2015 Admini stered Influenza, high-dose seasona l, quadrivalent, preservative free >65 yrs Unknown 10/21/2019 Administered Pneumococcal conjugate PCV 13 Unknown 09/14/2015 Admini stered Pneumococcal conjugate PCV 13 Unknown 09/20/2016 Admini stered Pneumococcal polysaccharide PPV23 Unknown 09/14/2015 Ad ministered Pneumococcal polysaccharide PPV23 Unknown 09/20/2016 Ad ministered Zoster Unknown 09/14/2015 Administered Social History Sex Assigned At : Social History Observation Description Sex Assigned At Female Social History Additional Details Category Social Info Options Details Migrated Social History Migrated Social History Alcohol Intake: Moderate 06/19/2023,Tobacco Years: Never smoker 06/21/2021 Problems Problem Type SNOMED Code ICD Code Onset Dates Problem Status W/U Status Risk Notes Problem Major depression, single episode, in complete remission (91197707) Major depressive disorder, single episode, in full remission (F32.5) 4 Active confirmed Problem Generalized anxiety disorder (70769311) Generalized anxiety disorder (F41.1) 4 Active confirmed Problem Primary insomnia (1760304) Primary insomnia (F51.01) 4 Active confirmed Vital Signs Heart Rate 70 /min 01/16/2024 Height-cm 165.10 cm 07/15/2024 Blood pressure diastolic 80 mm Hg 01/16/2024 Weight-kg 83.46 kg 01/16/2024 Height 65.00 in 07/15/2024 Blood pressure systolic 140 mm Hg 01/16/2024 Weight 184.0 lbs 01/16/2024 BMI 30.62 kg/m2 01/16/2024 Encounters Encounter Location Date Provider Diagnosis [facility] [address] [facility] [address] [address] 01/16/2024 Eric Winston Generalized anxiety disorder F41.1 ; Primary insomnia F51.01 and Major depressive disorder, single episode, in full remission F32.5 [facility] [address] [place] [address] 07/15/2024 Eric Winston Generalized anxiety disorder F41.1 ; Primary insomnia F51.01 and Major depressive disorder, single episode, in full remission F32.5 [facility] [address] [place] [address] 09/10/2024 Eric Winston Assessments Encounter Date Diagnosis (ICD Code) Assessment Notes Treatment Notes Treatment Clinical Notes Section Notes 01/16/2024 Generalized anxiety disorder (ICD-10 - F41.1) 1. Depression: - Patient reports stable mood with no significant changes in depressive symptoms. - Continue current treatment with bupropion XL 150 mg daily. 2. Anxiety: - Patient reports occasional increased anxiety. - Increase venlafaxine ER from 37.5 mg to 75 mg daily to better manage anxiety symptoms. 3. Sleep: - Patient reports good sleep quality, but requires more sleep than average. - No changes in sleep management needed at this time. 4. Medication management: - Confirm patient is still using [facility] for medication refills. Plan: - Send updated prescriptions for bupropion XL 150 mg daily and venlafaxine ER [facility]. 5. Follow-up: - Schedule a follow-up appointment in six months, as the patient will be unavailable until after . Plan: - Continue to monitor patient's mood, anxiety, and sleep during follow-up appointments. 07/15/2024 Generalized anxiety disorder (ICD-10 - F41.1) 07/15/2024 Primary insomnia (ICD-10 - F51.01) 01/16/2024 Primary insomnia (ICD-10 - F51.01) 1. Depression: - Patient reports stable mood with no significant changes in depressive symptoms. - Continue current treatment with bupropion XL 150 mg daily. 2. Anxiety: - Patient reports occasional increased anxiety. - Increase venlafaxine ER from 37.5 mg to 75 mg daily to better manage anxiety symptoms. 3. Sleep: - Patient reports good sleep quality, but requires more sleep than average. - No changes in sleep management needed at this time. 4. Medication management: - Confirm patient is still using [facility] for medication refills. Plan: - Send updated prescriptions for bupropion XL 150 mg daily and venlafaxine ER 75 mg daily to [facility]. 5. Follow-up: - Schedule a follow-up appointment in six months, as the patient will be unavailable until after . Plan: - Continue to monitor patient's mood, anxiety, and sleep during follow-up appointments. 07/15/2024 Major depressive disorder, single episode, in full remission (ICD-10 - F32.5) 01/16/2024 Major depressive disorder, single episode, in full remission (ICD-10 - F32.5) 1. Depression: - Patient reports stable mood with no significant changes in depressive symptoms. - Continue current treatment with bupropion XL 150 mg daily. 2. Anxiety: - Patient reports occasional increased anxiety. - Increase venlafaxine ER from 37.5 mg to 75 mg daily to better manage anxiety symptoms. 3. Sleep: - Patient reports good sleep quality, but requires more sleep than average. - No changes in sleep management needed at this time. 4. Medication management: - Confirm patient is still using [facility] for medication refills. Plan: - Send updated prescriptions for bupropion XL 150 mg daily and venlafaxine ER 75 mg daily to [facility]. 5. Follow-up: - Schedule a follow-up appointment in six months, as the patient will be unavailable until after . Plan: - Continue to monitor patient's mood, anxiety, and sleep during follow-up appointments. 07/15/2024 Other Koki Bateman, female patient with history of multiple sinus surgeries and spinal fluid leakage, presenting with headaches, pressure in head, low energy, and recent hospitalization for low blood sodium. 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 Subsequent microsurgical interventions were performed, with the patient now having 4 plates in her head. Recent symptoms include increased headaches and pressure in the head, which may be related to the history of CSF leaks. An MRI is scheduled at [facility], with a follow-up appointment at [place] later this month to further evaluate these symptoms and the reported finding of tangled cells and white matter in the cerebellum. Plan: - Await results of scheduled MRI at [facility] - Follow up with appointment at [facility] later this month - Monitor for worsening of headaches or neurological symptoms Hyponatremia Assessment: Patient has a history of low blood sodium levels, which led to a recent hospitalization in January. The patient was previously on spironolactone, which can contribute to sodium depletion. A kidney doctor has since changed her medication regimen to address this issue. Plan: - Continue torsemide 5 mg - Monitor sodium levels - Follow up with kidney doctor as needed Depression and Anxiety Assessment: Patient is currently on venlafaxine ER and bupropion XL for depression and anxiety management. These medications target norepinephrine and serotonin, addressing both mood and anxiety symptoms. However, it is noted that these medications may contribute to low sodium levels, which is a concern given the patient's history of hyponatremia. Plan: - Continue venlafaxine ER 75 mg for anxiety-depression - Continue bupropion XL 150 mg - Monitor for efficacy and side effects, particularly in relation to sodium levels - Follow up in 6 months or sooner if needed Insomnia Assessment: Patient reports sleeping 8-9 hours nightly with the aid of trazodone, currently taking half a tablet at bedtime. Patient inquired about discontinuing trazodone use. Plan: - Discontinue trazodone if patient feels it is no longer needed for sleep - Educate patient that trazodone may cause morning grogginess and cognitive fog - Monitor sleep quality after discontinuation Hypothyroidism Assessment: Patient reports low T3 levels and is scheduled to see a thyroid doctor. Current thyroid medication dosage is 100 mg daily, with instructions to increase the dose. Plan: - Follow up with thyroid doctor as scheduled - Adjust thyroid medication as per specialist's recommendations - Monitor thyroid function and symptoms Hyperlipidemia Assessment: Patient reports an increase in atorvastatin dosage to 40 mg at bedtime, suggesting ongoing management of hyperlipidemia. Plan: - Continue atorvastatin 40 mg at bedtime - Monitor lipid levels and for any side effects of the increased dosage Hypertension Assessment: Patient is currently taking compounded Monopril, indicating ongoing management of hypertension. Plan: - Continue compounded Monopril - Monitor blood pressure the note is transcribed using speech recognition software. It is a reflection of a visit with the patient. It might have some inaccuracy, including medication names and transcribing errors, though efforts have been made to correct them. Plan Of Treatment Next Appt Details Provider Name:Eric rai, 01/14/2025 09:30:00 AM, [address], [facility] [address], [place], [address], Insurance Providers Payer Name Payer Address Payer Phone Subscriber Number Group Number Insured Name Patient Relationship to Insured Coverage Start Date Coverage End Date [employer] Ppo [address] [place] [address] [id number] KOKI JAVIER Self - patient is the insured Medical (General) History Medical History History ICD Code Imported from Highlights: Th e patient has had multiple encounters with healthcare providers at [facility] and [facility] from June to December 2023. The patient was diagnosed with acquired hypothyroidism during an office visit with Dr. Abby Alves at [facility] on 06/27/2023. On 07/19/2023, the patient was seen by Dr. Hipolito Portillo at [facility] for venous insufficiency. The patient had an encounter for acute cystitis without hematuria on 10/11/2023, which led to a hospitalization. The patient also had a telephone consultation with Parish Leger PA-C at [facility] on 10/17/2023. On 01/01/2024, the patient visited Paula Frazier NP at [facility] for multiple issues including coronary artery disease, history of atrial fibrillation, cardiomyopathy, syncope, benign hypertension, and hyponatremia. The patient also had an encounter for cosmetic surgery with Dr. Derek Rose at [facility] on 01/02/2024. Throughout this period, the patient's data was regularly monitored through an external device by a provider at [facility]. Imported from Highlights: On 07/19/2023, the patient visited Dr. Hipolito Portillo at [facility] for venous insufficiency. On 10/11/2023, the patient had an office visit with Merari Garrison NP at [facility] for acute cystitis without hematuria, followed by a hospital encounter the same day for the same condition. On 01/01/2024, Paula Frazier NP at [facility] noted coronary artery disease, history of atrial fibrillation, cardiomyopathy, syncope, benign hypertension, and hyponatremia. On 01/02/2024, the patient had a cosmetic surgery encounter with Dr. Derek Rose at [facility]. On 05/15/2024, Dr. Hipolito Portillo at [facility] addressed peripheral vascular disease. On 05/24/2024, Dr. Aamir Ochoa at [facility] saw the patient for chronic rhinitis, facial pain, frontal mucocele, nasal congestion, and discharge. On 06/19/2024, another visit with Dr. Ochoa addressed similar issues with increased nasal secretion. On 07/04/2024, multiple hospital encounters occurred, indicating a significant event. Surgical History Surgery Date(Month/Year) Sinus surgery Cataract surgery (27853) Cardiac stent Breast surgery (80909) Any surgical history Heart surgery Cardiac stent 02/06/2018 Sinus surgery 02/07/2020 Placement of stent in cardiac conduit ([id number]) 04/24/2019 Total knee replacement ([id number]) left 11/08/2021
--- OUTSIDE RECORDS SUMMARY | 2024-12-31 15:34 | XMS_ITS | Encounter Summary ---
Author Organization [facility] Address [facility] [place] [address] Care Team Providers Care Recreation Officer Name Role Phone Paulette Sanford Primary Care Provider [phone] Parish Leger PA-C Primary Care Provider [phone] Encounter Details Date Type Department Care Team (Late st Contact Info) Description 06/17/2020 Prep for Procedure [facility] [address] [place] [address] Poonam Dominique MD [address] [place] [address] [address] Social History Tobacco Use Types [...] PM CDT) 06/23/2020 1:32 PM CDT Narrative [facility] RAD - 06/24/2020 10:[address] [facility] Test Date: 2020-06-23 Pat Name: KOKI BATEMAN Department: Room: Gender: Female Telecommunications Field Engineer: : 1945 Requested By: POONAM DOMINIQUE Order Number: [id number] Reading MD: Tr Henry Measurements Intervals [place] Rate: 63 P: -64 IN: 154 QRS: -9 QRSD: 84 T: 40 QT: 406 QTc: 418 Interpretive Statements SINUS RHYTHM LOW QRS VOLTAGE IN PRECORDIAL LEADS [QRS DEFLECTION < 1.0 mV IN CHEST LEADS] INFERIOR MYOCARDIAL INFARCTION , PROBABLY OLD [40+ ms Q WAVE AND/OR ST/T ABNORMALITY IN II/aVF] No previous ECG available for comparison Procedure Note Tr Henry MD - 06/24/2020 [facility] Test Date: 2020-06-23 Pat Name: KOKI BATEMAN Department: Room: Gender: Female Telecommunications Field Engineer: : 1945 Requested By: POONAM DOMINIQUE Order Number: [id number] Reading : Tr Henry Measurements Intervals [place] Rate: 63 P: -64 IN: 154 QRS: -9 QRSD: 84 T: 40 QT: 406 QTc: 418 Interpretive Statements SINUS RHYTHM LOW QRS VOLTAGE IN PRECORDIAL LEADS [QRS DEFLECTION < 1.0 mV IN CHESTLEADS] INFERIOR MYOCARDIAL INFARCTION , PROBABLY OLD [40+ ms Q WAVE AND/OR ST/T ABNORMALITY IN II/aVF] No previous ECG available for comparison us Poonam Dominique MD ECG ORDERABLES Final Result [facility] ([facility]) RAD documented in this encounter Visit Diagnoses Diagnosis Preoperative testing- Primary Preoperative examination, unspecified Preop testing Preoperative examination, unspecified Preop testing Preoperative examination, unspecified documented in this encounter Additional Health Concerns Infection Onset Date Last Indicated Resolved Time COVID-19 Rule Out 06/28/2020 06/28/2020 06/30/2020 1:26 PM CDT documented as of this encounter Care Teams Recreation Officer Relationship Specialty Start [place] [address] [place] [address] PCP - General PHYSICIAN ADJUNCT INSTRUCTOR 09/23/19 06/05/23 Parish Leger PA-C [address] [facility] [address] [place] [address] PCP - General PHYSICIAN ADJUNCT INSTRUCTOR 06/06/23 documented as of this encounter
--- OUTSIDE RECORDS SUMMARY | 2024-12-31 15:34 | XMS_ITS | Clinical Summary ---
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 11/03/2020 Cyst [...] fatigue 05/13/2019 Osteoporosis 05/13/2019 Coronary arteriosclerosis in [place] artery 05/05 Presence of stent in coronary artery 05/06/2019 Mucocele of nasal sinus 01/22/2019 Acquired deformity of left foot 12/21/2018 H/O CHF 09/07/2018 H/O cardiomyopathy 09/07/2018 Hypersomnia 08/13/2018 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 07/23/2018 Overview (05/20/2020): 1996 right frontal sinus CSF leak, attributed [...] to chronic sinus infections, had surgical repair AK (myocardial infarction) 06/22/2018 At risk of disease 06/22/2018 Chronic combined systolic and diastolic heart fa ilure 06/22/2018 Hypertensive heart disease with congestive heart failure 06/22/2018 Pulmonary hypertension 06/22/2018 Myocardial infarction 06/22/2018 Primary osteoarthritis of right knee 01/23/2018 [...] 7,04/26/2015 Pneumococcal (Prevnar 13) 09/14/2015 Zoster (Zostavax) 40873 Unt/0.65Ml 09/14/2015 Family History Medical History Relation [...] Comments Blood Pressure 136/72 01/13/2022 8:02 AM MOCCASIN SEWER Pulse 75 01/13/2022 7:37 AM MOCCASIN SEWER Temperature 36.7 C (98 F) 01/13/2022 7:37 AM MOCCASIN SEWER Respiratory Rate 22 01/13/2022 7:37 AM MOCCASIN SEWER Oxygen Saturation 99% 01/13/2022 7:37 AM MOCCASIN SEWER Inhaled Oxygen Concentration - - Weight 96.6 kg (213 lb) 01/13/2022 7:37 AM MOCCASIN SEWER Height 167.6 cm (5' 6) 01/13/2022 7:37 AM MOCCASIN SEWER Body Mass Index 34.38 01/13/2022 7:37 AM MOCCASIN SEWER Plan of Treatment Health Maintenance Due Date Last Done Comments ASCVD LDL 1945 DTaP, Tdap and Td Vaccines (1 - Tdap) 1964 Annual Medicare Wellness Visit 07/13/2011 Zoster Vaccines (2 of 3) 11/09/2015 09/14/2015 RSV Immunization or 60+ Years (1 - 1-dose 75+ series) 2021 COVID-19 Vaccine (4 - season) 2024 01/21/2021, 04/11/2020, 03/12/2020 Influenza Adult (#1) 2024 11/13/2021, 08/05/2021, 11/13/2020, Additional history exists Hepatitis C 01/14/2052 Postponed from 1964 (Patient Refused) Colorectal Cancer Screening Colonoscopy (10 Years) Discontinued 07/01/2020, 07/01/2020 Pneumococcal Vaccine: 50+ Years Completed 08/05/2021, 09/20/2016, 09/14/2015, Additional history exists Dexa Scan (General) Completed 09/15/2021, 09/15/2021, 11/06/2019, Additional history exists Hepatitis A Vaccines Aged Out No long er eligible based on patient's age to complete this topic Meningococcal B Vaccine Aged Out No l onger eligible based on patient's age to complete this topic Meningococcal Vaccine Aged Out No giancarlo breanna eligible based on patient's age to complete this topic RSV Immunizations Under 20 Months Aged Out No longer eligible based on patient's age to complete this topic Medical Devices Implanted Type Area [employer] Device Identifier Shelf Expiration Date Model / [...] Relevant to Health Maintenance Insurance MED REPLACE [facility] MEDICARE [facility] MEDICARE Care Teams Criminal Lawyer Relationship Specialty Start Date End Date Parish Leger PA-C [address] [id number] PCP - General PHYSICIAN PARK WORKER SUPERVISOR 06/06/23
--- OUTSIDE RECORDS SUMMARY | 2024-12-31 15:34 | XMS_ITS | Clinical Summary ---
Author Organization [facility] Address [address] [place] [address] Care Team Providers Care Vegetable Handler Name Role Phone Sushant Fox MD Primary Care Provider [phone] Allergies Active Allergy Reactions Criticality Noted Date Comments Codeine Nausea and Vomiting,Shortness of Breath/Wheezing High 06/05/2019 Any codeine or derivative causes low blood pressure, passes out, and experiences difficulty breathing Zgnxvem-Exv-Ngq Reductase Inhibitors Muscle Pain Medium 11/01/2021 Tetracycline [...] tablet Take 100 mg by mouth daily. 4 Active Active Problems No known active problems Encounters Date Type Department Care Team Description 11/26/2024 External Device Data [facility] ABSTRACTION Provider, Abstract 10/08/2024 External Device Data [facility]STRACTION Provider, [...] 36.3 C (97.3 F) 12/13/2022 7:48 AM FORMWORK CARPENTER Respiratory Rate - - Oxygen Saturation 98% 01/09/2023 8:45 AM FORMWORK CARPENTER Inhaled Oxygen Concentration - - Weight 84.4 kg (186 lb) 05/15/2024 8:40 AM CDT Height 165.1 cm (5' 5) 05/15/2024 8:40 AM CDT Body Mass Index 30.95 05/15/2024 8:40 AM CDT Plan of Treatment Upcoming Encounters Date Type Department Care Team (Late st Contact Info) Description 05/21/2025 8:15 AM CDT Appointment [facility] Testing [address] [place] [address] [place] [address] [place] [address] 05/21/2025 9:30 AM CDT Office Visit [facility] [address] [facility] [address] [facility] [address] [place] [address] [place] [address] [place] [address] Health Maintenance Due Date Last Done Comments [...] Sig/CT Colonography Q 5 years Discontinued Insurance [employer] O MCR Care Teams Vegetable Handler Relationship Specialty Start Date End Date Sushant Fox MD [address] [place] [phone] PCP - General Family Practice 05/15/24
--- OUTSIDE RECORDS SUMMARY | 2024-12-31 15:34 | XMS_ITS | Clinical Summary ---
Author Organization [facility] Address [address] [place] [address] Care Team Providers Care Local Sales Associate Name Role Phone Sushant Fox MD Primary Care Provider [phone] [phone] Allergies Active Allergy Reactions Criticality Noted Date Comments Codeine Finasteride Muscle pain,Other (See comments) Medium 11/01/2021 Hydrocodone Hypotension High 08/12/2016 Hydrocodone-Acetaminophen Syncope High 12/16/2022 Hydroxyzine Unknown 07/05/2024 Methylprednisolone Rash,Other (See comments) Medium 08/11/2020 Facial flushing Facial flushing Nickel Rash Medium 01/23/2018 Nitrofurantoin Other (See comments) Low 04/20/2011 Oxycodone Other (See comments) Low 11/03/2020 Severe hypotention Severe hypotention Thwcmrj-Quf-Btx Reductase Inhibitors Muscle pain Medium 11/01/2021 Tetracycline Tramadol Unknown High 01/14/2019 Hypotensive, syncopal episode Medications aspirin 81 mg enteric coated tablet Take 1 tablet (81 mg total) by mouth daily Active vit C/E/zinc ox/jeffry/lut/ze ax (ICAPS AREDS2 ORAL) Take by mouth Act ge multivitamin with iron tablet Take 2 tablets by mouth daily Active buPROPion XL (WELLBUTRIN XL) 150 mg 24 hr tablet 05/22/19 24 Active Synthroid 100 mcg tablet Take 1 tablet (100 mcg total) 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 11/22/19 Active UNABLE TO FIND Biote Hormone + Detox dietary Supplerment 025 Discontinued atorvastatin (LIPITOR) 10 mg tablet Take 1 tablet (10 mg total) by mouth daily 90 tablet 03/13/19 025 Discontinued(A lternate therapy) zonisamide (ZONEGRAN) 100 mg capsule Take 2 capsules (200 mg total) by mouth daily 180 capsule 2 11/13/19 025 Discontinued Active Problems Problem Noted Date Diagnosed Date Obesity (BMI 30-39.9) 12/04/2024 Episodic confusion 12/04/2024 Assessment & Plan (12/04/2024 8:18 AM CDT): Concerning for seizures. Admit to EMU 12/04/24 for event capture. Paroxysmal atrial fibrillation 07/25/2022 Syncope and collapse 05/11/2022 Preoperative cardiovascular examination 11/02/19 22 Nonrheumatic aortic valve stenosis 11/01/2021 Morbid (severe) obesity due to excess calories 0 11/01/2021 Chronic fatigue 08/11/2021 History of total knee arthroplasty 01/19/2021 Myalgia due to statin 01/13/2021 Assessment & Plan (06/08/2021 4:09 PM CDT): Check CK The dose of a statin has been lowered Mixed hyperlipidemia 01/13/2021 S/P coronary artery stent placement 08/29/2019 HTN (hypertension), benign 08/29/2019 Coronary artery disease invo lving [place] coronary artery of [place] heart without angina pectoris 05/06/2019 History of [...] 1/2 tab on Sundays Rx sent to [place] pharmacy. Pt understands. 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, not intractable (Primary Dx) 12/23/2024 Telephone [facility] [address]th [place] [address] [place] [address] Meliza Ch RN 12/13/2024 Orders Only [facility]rology [address] [place] [address] Derek Allison Jr., MD Localization-relate d (focal) (partial) symptomatic epilepsy and epileptic syndromes with complex partial seizures, not intractable, without status epilepticus (Primary Dx) 12/11/2024 Telephone [facility] [address] [place] [address] Derek Allison Jr., MD 12/10/2024 Telephone [facility] [address] [place] [address] [place] [address] Meliza Ch RN 12/04/2024 8:49 AM CDT - 12/10/2024 1:[address] [address] Jorge L Chacon MD Discharge Disposition: Discharge to home or self care 12/04/2024 8:00 AM CDT Ancillary Procedure [address] [address] Andre Monson Localization-relate d (focal) (partial) symptomatic epilepsy and epileptic syndromes with complex partial seizures, not intractable, without status epilepticus 12/02/2024 Telephone [facility] [address] [place] [address] [place] [address] Meliza Ch, RN 11/19/2024 Telephone [facility] [address] [place] [address] Melissa Ayers 11/19/2024 Telephone [facility] [address] [place] [address] Melissa Ayers 11/13/2024 Telephone [facility] [address]th [place] [address] [place] [address] Meliza Ch RN 11/12/2024 12:00 PM CDT Office Visit [facility]th [place] [address] [place] [address] Derek Allison Jr., MD Localization-relate d (focal) (partial) symptomatic epilepsy and epileptic syndromes with complex partial seizures, not intractable, without status epilepticus (Primary Dx) 11/11/2024 Telephone [facility] [address] 6th [place] [address] [place] [address] Meliza Ch, RN 11/04/2024 Telephone [facility] [address] [place] [address] Melissa Ayers 11/04/2024 Telephone [facility] [address] [place] [address] [place] [address] [place] [address] Meliza Ch RN 11/01/2024 Telephone [facility] [address] [place] [address] 6th Floor [address] [place] [address] Derek Allison Jr., MD 11/01/2024 Telephone [facility] [address] [place] [address] [place] [address] [place] [address] Meliza Ch RN 10/30/2024 12:26 PM CDT - 10/30/2024 11:59 PM CDT Hospital Encounter [facility] EEG Center [facility] ([facility]) [address] [place] [address] Alo Garcia Localization-relate d (focal) (partial) symptomatic epilepsy and epileptic syndromes with complex partial seizures, not intractable, without status epilepticus Discharge Disposition: Discharge to home or self care 10/25/2024 Telephone [facility] [address] [place] [address] Melissa Ayers 10/23/2024 Telephone [facility] [address] [facility] 6th [place] [address] [place] [address] Meliza Ch RN from Last 3 Months Immunizations Immunization Administration Dates Next Due Influenza, Unspecified 11/27/2024 Pneumococcal Polysaccharide PPV23 11/27/2024 Surgical History Surgery Date Site/Laterality Comments CORONARY ANGIOPLASTY 04/25/2019 CARDIAC CATHETERIZATION May 2018 and April 2019 REPLACEMENT TOTAL KNEE Right OTHER SURGICAL HISTORY head REPLACEMENT TOTAL KNEE 11/12/2021 [facility] OTHER SURGICAL HISTORY 09/06/2022 - 10/06/2022 bilateral leg vein procedures at [facility] Medical History Medical History Date Comments Disorder [...] staff should administer the PHQ-9) 0 06/28/2022 Personal Safety Answer Date Recorded Have you ever been in or are you currently in a harmful physical or emotional relationship or is someone making you feel afraid or unsafe? Denies 12/04/2024 Comments No Sex and Gender Information Value Date Recorded Sex Assigned at Not on file Legal Sex Female 11:58 PM NUTRITION WORKER Gender Identity Not on file Sexual Orientation Straight 07/16/2024 3: 13 PM CDT Last Filed Vital Signs Vital Sign Reading Time Taken Comments Blood Pressure 139/83 12/23/2024 2:34 PM NUTRITION WORKER Pulse 66 12/23/2024 2:34 PM NUTRITION WORKER Temperature 36.3 C (97.3 F) 12/10/2024 7:20 AM NUTRITION WORKER Respiratory Rate 18 12/10/2024 7:20 AM NUTRITION WORKER Oxygen Saturation 98% 12/10/2024 7:20 AM NUTRITION WORKER Inhaled Oxygen Concentration - - Weight 86.5 kg (190 lb 9.6 oz) 12/23/2024 2:34 P M NUTRITION WORKER Height 165.1 cm (5' 5) 12/23/2024 2:34 PM NUTRITION WORKER Body Mass Index 31.72 12/23/2024 2:34 PM NUTRITION WORKER Plan of Treatment Health Maintenance Due Date Last Done Comments Hepatitis C Screening 1945 Osteoporosis Screening-Bone Density Scan 1945 DTaP/Tdap/Td Vaccine (1 - Tdap) 1957 Hepatitis B Screening 1963 Well Visit 65+ 07/13/2011 Zoster Vaccine (2 of 3) 11/09/2015 09/14/2015 Depression Screening 06/29/2023 06/28/2022, 06/08/2021, 06/04/2020, Additional history exists Fall Risk Assessment 12/10/2025 12/10/2024 Influenza Vaccine Completed 11/27/2024, , 10/29/2022, Additional history exists Pneumococcal vaccine 65+ Completed 025, 08/05/2021, 08/05/2021, Additional history exists Procedures Procedure Name Priority Date/Time Associated Diagnosis Comments CONTINUOUS VIDEO EEG Routine 12/10/2024 12:42 PM NUTRITION WORKER Localization-related (focal) (partial) symptomatic epilepsy and epileptic syndromes with complex partial seizures, not intractable, without status epilepticus EGFR Routine 12/04/2024 2:30 PM CDT CREATININE Routine 12/04/2024 2:30 PM CDT EEG Routine 10/30/2024 2:00 PM CDT Localization-related (focal) (partial) symptomatic epilepsy and epileptic syndromes with complex partial seizures, not intractable, without status epilepticus from Last 3 Months Results * Continuous Video EEG -[facility] (12/10/2024 12:42 PM NUTRITION WORKER) Anatomical Region Laterality Modality EEG Narrative 12/11/2024 2:23 PM NUTRITION WORKER Video-EEG Report Patient Name: Koki Wolfe [facility] Medical Record Number (MRN): [id number] Uvaldo Reyes Record: [id number] Date of (): 1945 EEG Date: 12/04/2024 Ordering Provider: Derek Allison Jr., MD CC: Sushant Fox Start Time: 12/04/2024 10:59:52 AM End Time: 12/10/2024 12:17:02 PM Introduction: Ms. Wolfe is a 79 y.o. female with a history of thyroid disease, myocardial infarction, chronic sinusitis, headaches, and recurrent paroxysmal events comprised of episodic confusion in the setting of hyponatremia who is being admitted to the EMU for clarification of the differential diagnosis. EEG was performed to evaluate for seizures. This is a report of continuous video-EEG monitoring. High definition digital video and digital EEG were recorded continuously with a Augmedix EEG acquisition system. This was a 32 channel EEG with additional anterior temporal electrodes. Electrodes were placed with collodion following the 10/20 International System. The patient was monitored and observed continuously by technical personnel. Digital seizure and spike detection were utilized during the recording. EEG Description: The background was well-organized with a well-formed anterior-posterior gradient, demonstrating a 9 Hz posterior dominant rhythm. There was rare lower frequency delta range activity over the left temporal region (F7/T7). During drowsiness, identified by ocular signs and alpha attenuation, there was intermittent, diffuse, asynchronous theta activity admixed with 2-4 Hz polymorphic frontotemporal delta activity. As the record progressed, stage II sleep was identified by vertex waves, sleep spindles and K-complexes. During the recording, there were changes consistent with light and deep sleep stages. There were no epileptiform abnormalities. The EKG showed a normal rate and rhythm. Daily Video-EEG Description: Epoch 1: 12/04/2024 10:59:52 AM - 12/05/2024 10:59:52 AM The interictal EEG was as described above. There were no clinical or electrographic events. Epoch 2: 12/05/2024 10:59:52 AM - 12/06/2024 10:59:52 AM The interictal EEG was as described above. Photic strobe stimulation elicited a normal driving response. There were no clinical or electrographic events. Epoch 3: 12/06/2024 10:59:52 AM - 12/07/2024 10:59:52 AM The interictal EEG was as described above. Photic strobe stimulation elicited a normal driving response. There were no clinical or electrographic events. Epoch 4: 12/07/2024 10:59:52 AM - 12/08/2024 10:59:52 AM The interictal EEG was as described above. There were no clinical or electrographic events. Epoch 5: 12/08/2024 10:59:52 AM - 12/09/2024 10:59:52 AM The interictal EEG was as described above. There were no clinical or electrographic events. Epoch 6: 12/09/2024 10:59:52 AM - 12/10/2024 12:17:02 PM The interictal EEG was as described above. Photic strobe stimulation elicited a normal driving response. There were no clinical or electrographic events. Interpretation: No seizures or clinical events were captured in the recording. The interictal EEG was abnormal due to rare left temporal slowing. Focal slowing is indicative of focal cerebral dysfunction but is not specific for etiology. By signing this report, the attending Electroencephalographer certifies that he/she personally reviewed the electrodiagnostics study and has edited this report to fully conform with his/her intent. Signing Attending: Jorge L Chacon MD Derek Allison Jr., MD NEUROLOGY ORDERABL ES Final Result * (ABNORMAL) eGFR (12/04/2024 2:30 PM CDT) eGFR 47(L) >=60 mL/min/1. 73 m2 Comment: Interpretive Data Reference Interval Normal >/= 90 mL/min/1.73m2 Mildly decreased* 60 - 89 mL/min/1.73m2 Mildly to moderately decreased 45 - 59 mL/min/1.73m2 Moderately to severely decreased 30 - 44 mL/min/1.73m2 Severely decreased 15 - 29 mL/min/1.73m2 Kidney Failure < 15 mL/min/1.73m2 *Relative to young adult level Estimated glomerular filtration rate is determined by the 2020 CKD-EPI equation recommended by the National Kidney Foundation (A Unifying Approach to GFR Estimation: Recommendations of the NKF-ASK Task Force on Reassessing the Inclusion of Race in Diagnosing Kidney Disease, JASN 2020). The CKD-EPI equation should not be used for patients with unstable renal function and has not been validated in children and those over 70. Current interpretive data was last reviewed 2020. Blood 12/04/2024 2:30 PM CDT 12/04/2024 4:13 PM CDT Clementina Cruz NP LAB BLOOD ORDERABLES Corina l Result Performing Organization Address City[facility] Co de Phone Number [facility] [place] [address] * (ABNORMAL) Creatinine (12/04/2024 2:30 PM CDT) Creatinine 1.19(H) 0.60 - 1.10 mg/dL Blood 12/04/2024 2:30 PM CDT 12/04/2024 4:13 PM CDT Clementina Cruz NP LAB BLOOD ORDERABLES Corina l Result Performing Organization Address City/[facility]/ZIP Co de Phone Number [facility] Department [place] [address] * EEG (10/30/2024 2:00 PM CDT) Anatomical Region Laterality Modality EEG Narrative 10/30/2024 4:59 PM CDT Routine EEG Report Patient Name: Koki Wolfe [facility] Medical Record Number (MRN): [id number] [facility] Record: [id number] Date of (): 1945 EEG Date: 10/30/2024 [...] 32 channel EEG recording acquired on a Augmedix EEG-1200 acquisition system. Scalp electrodes were placed [...] Jr., MD NEUROLOGY ORDERABL ES Final Result from Last 3 Months Insurance [employer] MEDICARE T MEDICARE Advance Directives For more information, please contact: [phone] * Full Code (Latest Code Status on File) Date Activated Date Inactivated Comments 12/04/2024 9:07 AM 12/10/2024 5:06 PM Care Teams Local Sales Associate Relationship Specialty Start Date End Date Sushant Fox MD [facility] [address] [address] PCP - General Family Medicine 11/20/24
--- OUTSIDE RECORDS SUMMARY | 2024-12-31 15:34 | XMS_ITS | Encounter Summary ---
Author Organization [facility] Address [address] [place] [address] Phone Care Team Providers Care Blending Technician Name Role Phone Abdulkadir Pascal MD Primary Care Provider [phone]- [phone] Unknown, Notinfile Primary Care Provider Unavail Marsha Armstrong NP Primary Care Provider [phone] Sushant Fox MD Primary Care Provider [phone] Encounter Details Date Type Department Care Team [...] on file Legal Sex Female 11:58 PM PERFORMING ARTIST Gender Identity Not on file Sexual Orientation [...] on filedocumented in this encounter Care Teams Blending Technician Relationship Specialty Start Date End Date Abdulkadir Pascal MD [address] [place], [place] [id number] PCP - General 05/22/12 10/10/23 Unknown, Notinfile PCP - General 10/11/23 12/31/23 Marsha Virk, VALERY [address] [place] [address] PCP - General Family Medicine 01/01/24 11/19/24 Sushant Fox MD [address] [facility] [address] [place] [address] PCP - General Family Medicine 11/20/24 documented as of this encounter
--- OUTSIDE RECORDS SUMMARY | 2024-12-31 15:34 | XMS_ITS | Data Portability ---
Author Organization [place] [facility],, Myah melo Address [address] [place] [address] Assessment No assessment recorded. Plan of Treatment Reminders Order Date Submit Date Provider Last Modified By Organization Details Last Modified Time Details Appointments None recorde d. Lab allergy test, skin 2018 019 [email or web address] [facility], [address], [place], [address], 9 15:25:01 Referral None recorde d. Procedures None recorde d. Surgeries None recorde d. Imaging None recorde d. Medication Orders None recorde d. Patient TargetsNo targets recorded. Patient Instructions Encounter Date Encounter Id Patient Instructions Last Modified By Organization Details Last Modified Time 10/01/2018 [id number] managing your allergies: care instructions [email or web address] Not available 10/01/2018 15:27:25 seasonal allergies: care instructions [email or web address] Not available 10/01/2018 15:27:25 10/12/2018 [id number] allergies: care instructions [email or web address] Not available 10/12/2018 15:25:01 managing your allergies: care instructions [email or web address] Not available 10/12/2018 15:25:01 Reason for Referral None Reported. Results Created Date Observation Date Name Description Value Unit Range Abnormal Flag Note LastModifiedBy Organization Detail LastModifiedTime 10/13/19 19 10/12/2018 aller gy test, skin Mites positi ve Not Available [facility] [address], [place], [address], 10/12/2018 15:21:43 10/13/19 19 10/12/2018 aller gy test, skin Mold negati ve Not Available [facility] [address], [place], [address], 10/12/2018 15:21:43 10/13/1910/12/2018 aller gy test, skin Cat positi ve Not Available [facility] [address], [place], [address], 10/12/2018 15:21:43 10/13/1910/12/2018 aller gy test, skin Dog negati ve Not Available [facility] [address], [place], [address], 10/12/2018 15:21:43 10/13/1910/12/2018 aller gy test, skin Trees positi ve Not Available [facility] [address], [place], [address], 10/12/2018 15:21:43 10/13/1910/12/2018 aller gy test, skin Grass positi ve Not Available [facility] [address], [place], [address], 10/12/2018 15:21:43 10/13/1910/12/2018 aller gy test, skin Ragweed negati ve Not Available [facility] [address] [facility] [address], [place], [address], 10/12/2018 15:21:43 Result Notes None recorded. Problems Name Problem SNOMED Code Status Onset Date Resolution Date Notes Provider Name and Address Organization Details Recorded Time Hypertensive disorder 62175625 Active 2018 MD Raven Sauer[address], [place], [address] [place] [address] - [facility], 9 13:44:10 Hypothyroidism 19008127 Active 2018 Gene wright MD [address], [place], [address] , [place] [facility], 9 13:44:27 Problem Notes None recorded. Medical Equipment None Reported. Allergies Allergen ID Allergen Name Allergen Category Reaction Reaction Severity Criticality Documentation Date Start Date Code Code System Note Provider Name and Address Organization Details Recorded Time 43579 codeine medicatio n Not available Not available Not available 10/01/2018 2670 RxNorm davidson vargheser amadou [place], [place] - [facility], 9 13:40:17 [address] tetracycl ine medicatio n Not available Not available Not available 10/01/2018 13512 RxNorm davidson caindor f [place], [place] - [...] Body mass index (BMI) Body weight Systolic And Diastolic Provider Name and Address Organization Details Last Updated DateTime 10/01/2018 165.1 cm 32.9 kg/m2 95944.29 g 124/88 mm[Hg] davidson verdugo [place] - [facility], 10/01/2018 13:40:10 Date Recorded Body height Body mass index (BMI) Body weight Body temperature Systolic And Diastolic Provider Name and Address Organization Details Last Updated DateTime 10/12/2018 165.1 cm 32.8 kg/m2 07349.7 g 98 [degF] 130/80 mm[Hg] Tameka Saucedo [place] [facility], [...] Diagnosis SNOMED-CT Code Diagnosis ICD10 Code Diagnosis IMO Codes Diagnosis Note [id number] Gene gramajo MD OFFICE [address] [place] [phone] 10/01/2018 13:06:46 10/01/2018 14:23:30 Allergic rhinitis caused by pollen 02977401 J30.1 The patient's symptoms are compatible with [...] was discussed. will return for skin testing. [id number] Gene gramajo MD OFFICE [address] [place] [address],[facility] [address] [place] [phone] 10/12/2018 11:54:14 10/12/2018 15:31:29 Allergic rhinitis 78200756 J30.2 The patient's symptoms are compatible with allergic rhinitis. Skin testing confirmed the allergic nature of this condition. The three fundamenta l therapeuti c strategies were discussed with the patient. These include allergen avoidance, pharmacolo gic interventi on with intranasal corticoste roids, antihistam jomar, and potentiall y intranasal antihistam jomar. Finally allergy immunother apy was discussed. The patient was started on nasal steroids and claritin . Health Concerns Section Related Observation LastModified by Organization Detai ls LastModified Time None Recorded Concern Status LastModified by Organization Details LastModified Time None Recorded Advance Directives Directive None Recorded Payers Insurance Date Sequence Insurance Name Policy Number Policy Doran Covered Member ID Doran Member ID Guarantor Name 10/17/2018 1 [facility] (MEDICARE REPLACEMENT/A DVANTAGE - PPO) [id number] Koki Wolfe [id number] Koki Wolfe Notes Date Note Type Note [...] skin testing. She unfortunately is on trazodone. eGne Orellana MD [address] [place] [address],[address], [place], [address], [place] [facility], 10/01/2018 15:27:42 10/12/2018 text/html Koki returns for skin testing. Gene Orellana MD [address], [place], [address], [place] [facility], 10/12/2018 15:25:22 OBGyn Episode No OBEpisode recorded.
--- OUTSIDE RECORDS SUMMARY | 2024-12-31 15:35 | XMS_ITS | Clinical Summary ---
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 This disclosure is being madepursuant to the Care Everywhere program and may not contain all information available regarding this patient. 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 Gender Identity Female 10/21/2020 8:38 AM CDT [...] Info) Description 06/19/2025 10:00 AM CDT Appointment [facility] [address] [place] [address] Aamir Ochoa MD [address] [place] [address] [address] [place] [address] 06/19/2025 10:45 AM CDT Office Visit [facility] [address] [place] [address] Aamir Ochoa MD [address] [place] [address] DO[address] [place] [address] Health Maintenance Due Date Last Done Comments BONE DENSITY TESTING 1945 HEPATITIS C SCREENING 07/07/1964 DTAP/TDAP/TD VACCINES (1 - Tdap) 1965 ZOSTER VACCINE (2 of 3) 11/09/2015 09/14/2015 Respiratory Syncytial Virus (RSV) Vaccine Pt: or over 60 yrs (1 - 1-dose 75+ series) 2021 DEPRESSION SCREENING 02/07/2024 MEDICARE AWV CALENDAR YEAR 2024 COVID-19 VACCINE (3 - 2024- season) 2024 04/11/2020, 03/12/2020 INFLUENZA VACCINE (#1) [...] this topic Medical Devices Implanted Type 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 Device Identifier Shelf Expiration Date Model / Serial / Lot Cmnt Bone Cblt 40gm Hvisc Strl Implanted:Qty : 1 on 05/23/2018 by Daniel Wakefield MD at [facility] Right: Knee [employer] 08/02/2019 600-15-00 0 / / [id number] Cmpnt Ptlr 28mm 1 Pg Wire Ascnt Arcm Kn Implanted:Qty : 1 on 05/23/2018 by Daniel Wakefield MD at [facility] Right: Knee [employer] 01/23/2023 [id number] / / [id number] Cmpnt Fem Kn Rt Cr Cmnt Prm Vngrd Intlk Implanted:Qty : 1 on 05/23/2018 by Daniel Wakefield MD at [facility] Right: Knee [employer] 01/20/2028 [id number] / / [id number] Tray Tib 71mm Kn Cocr I Beam Implanted:Qty : 1 on 05/23/2018 by Daniel Wakefield MD at [facility] Right: Knee [employer] 02/25/2028 [id number] / / [id number] Brng [id number] Vngrd Arcm Kn Ant Stab Implanted:Qty : 1 on 05/23/2018 by Daniel Wakefield MD at [facility] Right: Knee [employer] 03/28/2023 [id number] / / [id number] Graft Tissue Drgn + Bvn Clgn Mtrx 2x2in Implanted:Qty : 1 on 01/22/2019 by Aamir Ochoa MD at [facility] Nose [employer] 10/06/2021 DP- 1022 / / [id number] Screw 1.5mm 4mm Slf Drl Ax Stab Unv Implanted:Qty : 12 on 11/03/2020 by Aamir Ochoa MD at [facility] Cranial [employer] Cran[employer]ill[employer] [id number] / / Graft Tissue Drgn + Bvn Clgn Mtrx 2x2in Implanted:Qty : 1 on 11/03/2020 by Aamir Ochoa MD at [facility] Cranial [employer] 07/07/2023 DP1 022 / / [id number] Cover Bur Hl .4mm 7mm Unv Neuro Iii Ti Implanted:Qty : 2 on 11/03/2020 by Aamir Ochoa MD at [facility] Cranial [employer] Craniomaxillofacial [id number] / / Plate 8 Hl Lopro Crnmxf .4mm Str Unv Implanted:Qty : 1 on 11/03/2020 by Aamir Ochoa MD at [facility] Cranial [employer] Craniomaxillof[employer] [id number] / / Cmnt Bone Djo Srg Cblt 40gm Hvisc Strl Implanted:Qty : 1 on 11/12/2021 by Daniel Wakefield MD at [facility] Left: Knee [employer] 08/19/2022 600-15-00 0 / / [id number] Cmpnt Fem Kn Lt Cr Cmnt Prm Vngrd Intlk Implanted:Qty : 1 on 11/12/2021 by Daniel Wakefield MD at [facility] Left: Knee [employer] 10/14/2031 [id number] / / [id number] Cmpnt Ptlr Std 28mm 1 Pg Wire Kn Ser A Implanted:Qty : 1 on 11/12/2021 by Daniel Wakefield MD at [facility] Left: Knee [employer] 07/18/2022 [id number] / / [id number] Tray Tib 71mm Kn Cocr I Beam Implanted:Qty : 1 on 11/12/2021 by Daniel Wakefield MD at [facility] Left: Knee [employer] 09/16/2031 [id number] / / [id number] Brng [id number] Vngrd Arcm Kn Ant Stab Implanted:Qty : 1 on 11/12/2021 by Daniel Wakefield MD at [facility] Left: Knee [employer] 10/18/2026 [id number] / / [id number] Insurance [facility] AETNA MEDICARE ADV Advance Directives * Full [...] 10:18 AM 05/25/2018 1:18 PM Care Teams Front Window Cashier Relationship Specialty Start Date End Date Sushant Fox MD [address] [place] [phone] PCP - General Family Medicine 05/24/24
[2024-12-31 19:59] LABS: Anion Gap 6 mmol/L (4-12); Blood Urea Nitrogen 23 mg/dL (7-17); Calcium 9.7 mg/dL (8.4-10.2); Carbon Dioxide 32 mmol/L (22-30); Chloride 97 mmol/L (98-107); Estimated Glomerular Filt Rate 54; Glucose 68 mg/dL (65-110); Potassium 4.3 mmol/L (3.4-5.0); Sodium 135 mmol/L (137-145)
[2024-12-31 20:25] LABS: Free T3 2.74 pg/mL (2.45-5.93)
[2024-12-31 20:34] LABS: Thyroid Stimulating Hormone 0.409 uIU/mL (0.465-4.680)
== END 2024-12-31 13:47 | disposition home or self-care (01) ==
PROVIDERS: PCP Family Medicine; Visit Provider Family Medicine
DX: I48.91 Unspecified atrial fibrillation (principal); E03.9 Hypothyroidism, unspecified; E22.2 Syndrome of inappropriate secretion of antidiuretic hormone
CPT/HCPCS: 36415; 80048; 84436; 84443; 84445; 84481